=== PATIENT | male | born 1955 | race Caucasian/White ===

== ENCOUNTER 2019-11-30 12:18 | Inpatient (IN) | payer MEDICARE, SELFPAY ==
[2019-11-30] VITALS (8 sets, daily range): BP systolic 123–147; BP diastolic 72–83; PULSE 65–94; RESP 16–25; TEMP 36.6–36.9; O2SAT 92–97
[2019-11-30] MEDS: sodium chloride 0.9% 1,000 ML 999 ML IV (12:10)
--- NOTE | 2019-11-30 12:11 | XR_ITS ---
WS: [id number] Portable AP upright chest, 11/30/2019 Clinical Data: chest pain Comparison: Portable chest, 08/07/2014. Findings: No nodules, masses or effusions are seen. The heart is normal. The pulmonary vascularity is not increased. No pneumonia or pneumothorax is seen. The aortic arch and descending aorta show mild tortuosity. Monitor leads overlie the chest wall. XR/XR chest 1V portable [id number] Impression: Atherosclerosis.
--- NOTE | 2019-11-30 12:18 | ED_ITS ---
Entered by Alicia Harper, acting as scribe for Juanjo Christian DO HPI - Chest Pain General: Chief Complaint: Chest Pain Stated Complaint: STEMI Time Seen by Provider: 11/30/19 12:19 Source: other (air evac) Mode of arrival: EMS Limitations: no limitations History of Present Illness: HPI narrative: 64 yo m came to the er by air evac life for chest pain (Stemi). 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 Pt states that he has had pains intermentant the last 2 weeks, today's pain is much more intense. 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 EMS field EKGs initially show ST elevation in 2 3 and aVF on [facility] got their their EKG shows slightly less impressive ST elevation particularly in lead III and there were no real significant reciprocal changes. EKG on arrival here showed at which time patient had increasing chest pain showed more significant ST elevation in 2 3 a nd aVF along with some emerging reciprocal changes in V2 through V5. Patient continues to complain of worsening substernal chest pain clutching at his chest. He received 2 sublingual nitros in the field and has been started on a drip of nitro he also received aspirin. He was on 15 mcg/min of nitro on arrival here. EMS reports he did get some relief of pain with onset of the nitro. 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) Timing of current episode: constant Prior episodes: Yes Onset: during exertion Pain location: left chest Pain radiation: none Severity: severe Relieving factors: nothing Exacerbating factors: nothing Associated symptoms: Reports dyspnea, nausea and palpitations; Deny abdominal pain, fever(s), syncope or vomiting Risk Factors: Coronary artery disease risk factors: none Review of Systems Const: Denies: fever Eyes: Denies: change in vision or blurry vision ENMT: Denies: throat pain, oral sores/lesions, dental pain, nasal discharge or nasal congestion Card: Reports: chest pain, palpitations, lightheadedness and shortness of breath on exertion; Denies: syncope Resp: Reports: shortness of breath GI: Reports: nausea; Denies: abdominal pain or vomiting : Denies: flank pain, difficulty urinating, painful urination, urinary frequency, urinary urgency, urinary incontinence or blood in urine Musc: Reports: back pain; Denies: neck pain, extremity pain, extremity swelling, joint pain or joint swelling Skin/Breast: Denies: rash, itching or redness Neuro: Denies: headache, numbness in extremities, weakness in extremities, changes in sensation, lack of coordination, difficulty walking, frequent falls, dizziness, vertigo or confusion Psych: Denies: anxiety, depression, loss of interest, visual hallucinations, auditory hallucinations, suicidal ideation or homicidal ideation Endo: Denies: excessive urination, excessive thirst, tired all the time or cold intolerance Wilber/Lymph: Denies: easy bruising, easy bleeding, petechiae, enlarged lymph nodes or tender lymph nodes PFSH ED PFSH: Statuses (acute, chronic, etc) shown below reflect problem list status as previously entered and may not be historically accurate Social History Smoking and tobacco status: former smoker Physical Exam Const: COMMON NORMALS: average body habitus, oriented x3 and alert GENERAL APPEARANCE: cooperative, comfortable and well developed NUTRITIONAL APPEARANCE: obese ORIENTATION/CONSCIOUSNESS: Yes awake, Yes oriented to person and Yes oriented to place HENMT: COMMON NORMALS: normocephalic, head/scalp atraumatic, EAC's normal, TM's normal bilaterally, external nose normal, moist oral mucous membranes and oropharynx normal HEAD & SCALP: normocephalic and atraumatic NOSE: external nose normal EXTERNAL AUDITORY CANAL: EAC's normal TYMPANIC MEMBRANE: TM's normal bilaterally MOUTH: oral and palatal mucosa normal, lip normal and tongue normal THROAT: posterior oropharynx normal and tonsils normal Eye: COMMON NORMALS: PERRL, EOMs intact bilaterally, conjunctivae normal and no scleral icterus CONJUNCTIVA: Yes conjunctivae normal PUPIL: Yes PERRL Neck/C-Spine: COMMON NORMALS: full ROM, no lymphadenopathy and supple Lymph: LYMPHATIC: no lymphadenopathy noted Resp: COMMON NORMALS: normal respiratory effort, no retractions, no use of accessory muscles and clear to auscultation bilaterally AUSCULTATION: clear to auscultation bilaterally Cardio: COMMON NORMALS: regular rate and regular rhythm RATE: regular rate RHYTHM: regular rhythm HEART SOUNDS: no murmurs GI: COMMON NORMALS: normal to inspection, nondistended, normoactive bowel sounds, soft to palpation and no hepatosplenomegaly PALPATION: Yes soft and Yes no hepatosplenomegaly : COMMON NORMALS: Yes no CVA tenderness BLADDER/KIDNEY EXAM: Yes no CVA tenderness Back/Pelvis: COMMON NORMALS: no CVA tenderness LUMBAR SPINE/LOWER BACK: Yes normal to inspection Extremity: COMMON NORMALS: no clubbing, cyanosis or edema, no calf tenderness and no pedal edema Neuro: COMMON NORMALS: oriented x3 SENSORIUM/ORIENTATION: Yes alert, Yes or iented to person and Yes oriented to place Skin: COMMON NORMALS: no rashes or lesions noted and skin turgor normal GENERAL SKIN EXAM: no rashes or lesions noted and turgor normal Course ED course: Patient complaining of crushing substernal chest pain on admission. Is given 2 mg of morphine for Zofran is also given 600 of Plavix 4000 of heparin. Repeat EKG shows inferior changes of a STEMI. Dr. Shanks in the department has seen and talked to the patient is anticipating going directly to the cardiac catheterization lab. Vital Signs: Vital signs: Vital Signs Pulse Rate 94 11/30/19 12:19 Respiratory Rate 16 11/30/19 12:42 Blood Pressure 147/83 11/30/19 12:39 Pulse Oximetry 97 11/30/19 12:19 MDM - Chest Pain Lab Data: Labs: Lab Results 11/30/19 11/30/19 Range/Units 12:24 12:24 WBC 6.0 (4.0-10.0) 10^3/ uL RBC 5.15 (4.1-5.3) 10^6/u L Hgb 14.7 (11.7-16.6) g/dL Hct 44.9 (42.0-52.0) % MCV 87.2 (80-94) fL MCH 28.5 (28.0-34.0) pg MCHC 32.7 (30.0-36.0) g/dL RDW 12.4 (12.1-15.1) % Plt Count 177 (130-400) 10^3/c mm MPV 10.5 H (7.4-10.4) fL Neut % (Auto) 69.3 % Lymph % (Auto) 16.8 % [place] % (Auto) 10.3 % Eos % (Auto) 2.8 % Baso % (Auto) 0.5 % Neut # (Auto) 4.2 (1.8-7.7) 10^3/u L Lymph # (Auto) 1.0 (0.8-4.8) 10^3/u L [place] # (Auto) 0.6 (0.2-0.9) 10^3/u L Eos # (Auto) 0.2 (0.0-0.8) 10^3/u L Baso # (Auto) 0.0 (0.0-0.1) 10^3/u L Nucleated RBC % (a uto) 0 % Nucleated RBCs # 0.0 /100WBC PT 13.50 H (10.5-13.3) SECO NDS INR 1.00 (0.8-1.2) APTT 29.4 (23.9-36.7) SECO NDS EKG Data^: EKG 1: Interpretation: Acute ST elevation NC with ST elevation in 2 3 and aVF with some reciprocal changes in V23 and 4 slightly less pronounced in 5. Rate of 91 [place] and QT intervals are normal. Occasional PVCs noted Discharge Plan Discharge Patient Disposition: Xfer Other Clinical Impression: ST elevation myocardial infarction (STEMI) Condition: Stable Referrals: Mj Shelby MD [Family Provider] - Interventions: ED Discharge Assessment Last Done: 11/30/19 12:39 Discharge Date/Time: 11/30/19 12:40 Coding Level of Care Code ED Real Property Appraiser for Chg Fwd Exam Problem Focused The documentation recorded by the Leroy james Stephanie Lyn, accurately reflects the service I personally performed and the decisions made by Anahi page Curtis L, DO
--- NOTE | 2019-11-30 12:28 | XACV_ITS ---
Ht: 180 cm Wt: 104 kg BSA: 2.32 m2 Gender: Male : 1955 Any Known Allergies: Other Exam Priority: Routine Procedure(s): Procedure Description: Diagnostic procedure Procedure Description: Coronary Angiography Diagnostic Cath Status: Emergency Diagnostic Findings Patient with chest discomfort and shortness of breath. Fairly atypical but definite elevation in the ST segments in the inferior leads. No significant reciprocal changes. Angiography recommended urgently. Angiography reveals occlusion of the right coronary artery at the ostium. Additionally once the artery was opened, there was a 99% stenosis distally beyond the acute margin and a 60% stenosis farther beyond this. On the left the left main is normal. There is a previously placed stent in the proximal LAD which is open. The circumflex contains a 75% discrete stenosis in the midportion.. There was significant tortuosity in the arch vessels which made placement of the catheters difficult. I was not able to get a pigtail catheter across the aortic valve so ventriculography was not performed. The procedure was done from the right radial artery. PCI Status: Emergency PCI LVEF Assessed: No PCI Indication: STEMI - Immediate PCI for STEMI Interventional Findings With some difficulty a right coronary guide was placed. A wire was placed down the vessel. The guide support was poor. Initially the ostial lesion, which was the point of closure, underwent angioplasty. Subsequently a 4 mm stent was placed. It then required the use of a guide liner to place inside the vessel and passed the stent to angioplasty and stent the distal vessel. Decision for PCI with Surgical Consult: No PCI for Multi-vessel Disease: No Conclusions Acute right coronary occlusion at the ostium. Angioplasty and stent of the proximal vessel followed by angioplasty and stent of the distal vessel with good angiographic result. Left system completely normal with previously placed LAD stent widely patent. No left ventriculogram performed. 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 Correct Patient: Yes; Correct Procedure: Yes; Correct Site: Yes; Correct Patient Position: Yes; Correct Supplies: Yes; Dried Flammable Prep: Yes; Blood Products Available: No;. Due to computer error, some notes are in incorrect order. AP pads placed on patient. Balloon out. Guideliner inserted at 1309. Family updated by Garima Howard at 1329. AP pads off at 1345. Procedure Consent Obtained. Current Diagnosis : STEMI. Pre-Procedure Time Out. Identified patient by full name and date of as verbalized by the patient/guarantor. Does the consent match the physician's order: Yes. Accurate & Complete Informed Consent: Yes. Inpatient/Outpatient History & Physical on Chart: N/A Emergent; Informed Consent not obtained due to time critical life threat. If H&P is completed, is and addenduem needed: N/A Emergent; Informed Consent not obtained due to time critical life threat; If yes, is the addendum complete: N/A Emergent; Informed Consent not obtained due to time critical life threat. Visualize and Verify Site with Patient/Guarantor: N/A. Relevant Radiology Images available: N/A Emergent; Informed Consent not obtained due to time critical life threat. Pre-op teaching completed and patient verbalized understanding. The risks, benefits, and alternatives of sedation and/or procedure were discussed by physician. The patient agrees to continue. Procedure started. Correct patient, site and procedure confirmed by cath team. Current diagnosis: STEMI. PERRLA. 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 Lungs clear x 5 lobes. IV Site on Arrival: 18 gauge in the right anticubital. IV Fluids: 0.9% NaCl at KVO. 0 mL infused prior to oil field laborer. Pre Procedural Pulses: bilateral dorsalis pedis was 3+. Pre Procedural Pulses: bilateral posterior tibial was 3+. Pre Procedural Pulses: bilateral radial was 3+. Oxygen started at 2liters/min via nasal canula. bilateral groins was prepped with chloroprep then draped in the usual sterile fashion. right radial was prepped with chloroprep then draped in the usual sterile fashion. Physician notified. Baseline sample Acquired. HR: 77 BPM. Equipment: 6F - Radial. Cardiac Cath Pack. ACAlgenetix Manifold Kit Model BT 2000. Heparinized Saline (2 units/mL), 1000 mL bag. Physician arrived. Physician scrubbed in. Immediate Pre-Procedure Time Out. Lidocaine 1% infiltrated to the right radial. Arterial access obtained. 6 citizen [place] JR 4 guide catheter was inserted over the wire. Multiple views taken of right coronary artery. [place] guidewire was advanced through the guide catheter to lesion in the prox RCA. Inflation number : 1 A AB TREK 3.00X15 RX BALLOON was prepped and advanced across the Prox RCA , then inflated to 8 CHIKIS for 0:20 seconds. Inflation number: 2 The AB TREK 3.00X15 RX BALLOON was reinflated across the Prox RCA, to 8 CHIKIS for 0:21 seconds. Inflation number: 3 The AB TREK 3.00X15 RX BALLOON was reinflated across the Prox RCA, to 8 CHIKIS for 0:32 seconds. Inflation Number : 4 A MDT R CHELSEA 4.0X18 CAROL -Lot Number# [id number] was prepped and advanced across the Prox RCA. The stent was deployed at 12 CHIKIS for 0:54 seconds. Stent expiration date: 06/12/2021. Stent balloon out over wire. Inflation number: 1 The AB TREK 3.00X15 RX BALLOON was reinflated across the Dist RCA, to 12 CHIKIS for 0:30 seconds. Inflation number: 2 The AB TREK 3.00X15 RX BALLOON was reinflated across the Dist RCA, to 12 CHIKIS for 0:21 seconds. Inflation number: 3 The AB TREK 3.00X15 RX BALLOON was reinflated across the Dist RCA, to 12 CHIKIS for 0:33 seconds. Balloon out. Inflation Number : 4 A MDT R CHELSEA 4.0X22 CAROL -Lot Number# [id number] was prepped and advanced across the Dist RCA. The stent was deployed at 12 CHIKIS for 0:47 seconds. Stent expiration date: 07/23/2021. Stent balloon out over wire. Wire out. Guide catheter out. A 6 citizen [place] TIG catheter in over wire. Catheter out. A 6 citizen [place] JL4 catheter in over wire. Multiple views taken of left coronary artery. Catheter out. A 6 [place] AL1 catheter in over wire. Catheter out. TR band placed. Hemostasis obtained. Post Procedure: Pulses reassessed and unchanged. PERRLA. 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 No VTE prophylaxis required. Total IV fluids: 100 mL. PCI Indication: STEMI. Post-op diagnosis: STEMI. Complications: None. Estimated blood loss: 5mL-10mL. Medication's Wasted: Lidocaine 1% = 18 mL. Medication's Wasted: Nitro = 49.7 mg. Medication's Wasted: Heparin = 1000 units. Procedure completed. Vital chart was stopped. Patient transferred by wheelchair to 1st floor. Site: Right Radial artery Sheath Size: 6 Fr Hemostasis Success: Unsuccessful Procedure Medications Start: 12:42 PM Stop: 12:42 PM Medication: Versed Amount: 1 mg Route: I.V. Start: 12:42 PM Stop: 12:42 PM Medication: Fentanyl Amount: 50 mcg Route: I.V. Start: 12:45 PM Stop: 12:45 PM Medication: Verapamil Amount: 5 mg Route: I.A. Start: 12:45 PM Stop: 12:45 PM Medication: Nitrogylcerin Amount: 300 mcg Route: I.A. Start: 12:47 PM Stop: 12:47 PM Medication: Versed Amount: 1 mg Route: I.V. Start: 12:47 PM Stop: 12:47 PM Medication: Fentanyl Amount: 50 mcg Route: I.V. Start: 12:59 PM Stop: 12:59 PM Medication: Versed Amount: 2 mg Route: I.V. Start: 1:21 PM Stop: 1:21 PM Medication: Fentanyl Amount: 50 mcg Route: I.V. Start: 1:42 PM Stop: 1:42 PM Medication: Fentanyl Amount: 50 mcg Route: I.V. I, the attending physician, have reviewed and verified all procedure medications. Yes, all medications given per verbal order History/Risk Factors Hypertension: No Dyslipidemia: No Peripheral Arterial Disease (PAD): No Myocardial Infarction (MS): Yes Obesity: No Renal Disease: No Prior Interventions PCI: Yes CABG: No Valve Surgery: No Report Signatures Finalized by:Dr. Hector Sanches MD on 11/30/2019 2:29:01 PM
[2019-11-30 12:31] LABS: Basophils % 0.5 %; Eosinophils # 0.2 10^3/uL (0.0-0.8); Eosinophils % 2.8 %; Hematocrit 44.9 % (42.0-52.0); Hemoglobin 14.7 g/dL (11.7-16.6); Lymphocytes % 16.8 %; Mean Corpuscular HGB Conc 32.7 g/dL (30.0-36.0); Mean Corpuscular Hemoglobin 28.5 pg (28.0-34.0); Mean Corpuscular Volume 87.2 fL (80-94); Mean Platelet Volume 10.5 fL (7.4-10.4); Monocytes # 0.6 10^3/uL (0.2-0.9); Monocytes % 10.3 %; Neutrophils # 4.2 10^3/uL (1.8-7.7); Neutrophils % 69.3 %; Nucleated Red Blood Cells % 0 %; Platelet Count 177 10^3/cmm (130-400); Red Blood Count 5.15 10^6/uL (4.1-5.3); Red Cell Distribution Width 12.4 % (12.1-15.1)
[2019-11-30] MEDS: clopidogrel 300 mg Tablet 600 MG PO (12:33)
[2019-11-30] MEDS: heparin 5,000 unit/mL INJ 1 mL 4000 UNIT INJECTION (12:34)
[2019-11-30] MEDS: morphine 4 mg/mL SDV 1 mL 2 MG IVP (12:42)
[2019-11-30 12:43] LABS: Partial Thromboplastin Time 29.4 SECONDS (23.9-36.7)
[2019-11-30 12:50] LABS: Alanine Aminotransferase 28 U/L (0-41); Albumin Level 4.8 g/dL (3.5-5.2); Alkaline Phosphatase 69 IU/L (40-130); Anion Gap 17.8 (5-19); Aspartate Amino Transferase 26 U/L (0-40); Blood Urea Nitrogen 12 mg/dL (8-23); Carbon Dioxide 23 mmol/L (22-29); Chloride 102 mmol/L (98-107); Glucose 149 mg/dL (74-106); Potassium 3.8 mmol/L (3.5-5.1); Sodium 139 mmol/L (136-145); Total Bilirubin 0.5 mg/dL (0.15-1.2); Total Protein 6.8 g/dL (6.6-8.7)
[2019-11-30 13:06] LABS: Troponin(5th) Baseline 122 ng/mL (0-15)
--- NOTE | 2019-11-30 15:10 | PM.HP ---
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 He is a terrible historian and by the time he was brought here he could not give us a history. No family was available other than his who was not there when the episode happened. Apparently he was working with a friend and the friend called 911. The helicopter landed where they were and brought him in. The STEMI was called in the field. He had ST segment elevation to a very mild degree in the inferior leads without any significant changes elsewhere. He was having 10 out of 10 chest pain. Other than that there were no pieces of information available. He apparently received 2 sublingual nitroglycerin in route and was started on a 15 mcg/min nitroglycerin drip. In the emergency room he received 4000 units of heparin, 600 mg of Plavix, Zofran and morphine. He was brought directly to the cardiac catheterization laboratory Review of Systems General: Reports: ROS unobtainable due to medical condition Medications/Allergies Additional Medication Information Additional Medication Information: Patient does not know his medications nor does his . The medicines were not brought with him. PFSH Acute PFSH: Statuses (acute, chronic, etc) shown below reflect problem list status as previously entered and may not be historically accurate Medical History CAD (coronary artery disease) (Acute) Previous proximal left anterior descending stent Cerebrovascular accident (CVA) determined by clinical assessment (Acute) Chronic kidney disease (CKD) (Acute) COPD (chronic obstructive pulmonary disease) (Acute) Epistaxis (Acute) Hypertension (Acute) Kidney atrophy (Acute) ST elevation myocardial infarction (STEMI) (Acute) Inferior wall GA Tobacco abuse, in remission (Acute) Surgical History History of herniorrhaphy (Acute) Social History (Updated 11/30/19 @ 15:17 by Hector Sanches MD) Smoking and tobacco status: former smoker Quit status (tobacco): has quit using tobacco Alcohol intake: never Adopted: No Household members: family Marital status: Vitals/I&O/Wt Last Vital Signs Pulse 94 11/30/19 12:19 Resp 16 11/30/19 12:42 BP 147/83 11/30/19 12:39 Pulse Ox 97 11/30/19 12:19 Weight last 48 hrs Weight 230 lb Physical Exam Narrative: EXAM NARRATIVE: GENERAL: In general he is in distress with chest discomfort HEENT: Exam within normal limits. NECK: Supple without jugular vein distention. The carotid upstroke is normal without bruits. BACK: Exam normal. LUNGS: Clear. HEART: Regular rate and rhythm. ABDOMEN: Benign without organomegaly or tenderness. EXTREMITIES: No edema. NEUROLOGIC: Exam normal. SKIN: Unremarkable. Data Labs: Other Labs: EKG reveals sinus rhythm with minimal ST segment elevation in leads II, III and aVF without reciprocal changes. Glomerular filtration rate is 67 mL/min. Chest x-ray is negative. First troponin I 22 A&P Assessment and plan (1) ST elevation myocardial infarction (STEMI): Status: Acute Code(s): I21.3 - ST elevation (STEMI) myocardial infarction of unspecified site (2) Hypertension: Status: Acute Code(s): I10 - Essential (primary) hypertension (3) CAD (coronary artery disease): Status: Acute Code(s): I25.10 - Atherosclerotic heart disease of [place] coronary artery without angina pectoris (4) Chronic kidney disease (CKD): Status: Acute Code(s): N18.9 - Chronic kidney disease, unspecified Additional A&P Information Additional A&P Information: Patient will be taken to the cardiac catheterization laboratory. Expect a right coronary artery lesion. 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
--- NOTE | 2019-11-30 16:40 | PC.NURSE ---
received from cardiac laborer sawmill at 1600.report received.pt is alert and oriented x 4.denies pain at present.sr on monitor.right wrist with tr band on and inflated.right hand is warm to touch and with brisk capillary refill.no hematoma noted.palpable radial pulse noted distal to tr band.instructed in activity restrictions s/p radial artery procedure...and instructed to notify staff for any bleeding,pain,numbness...or for any concerns at all.pt verb understanding of instructions
--- NOTE | 2019-11-30 16:56 | ECG_ITS ---
Measurements Intervals [place] Rate: 91 P: 48 GA: 193 QRS: -48 QRSD: 110 T: 78 QT: 375 QTc: 461 SINUS RHYTHM WITH OCCASIONAL VENTRICULAR PREMATURE COMPLEXES LEFT ANTERIOR FASCICULAR BLOCK [QRS AXIS <= -45, QR IN I, RS IN II] ST ELEVATION, CONSIDER INFERIOR INJURY No previous ECG available for comparison Electronically Signed On 11-30-2019 19:11:44 CASHIER RECEPTIONIST by Lisa Villa M.D. [email or web address]
[2019-11-30] MEDS: metoprolol tartrate 50 mg Tablet PO (18:36)
--- NOTE | 2019-11-30 19:03 | PC.NURSE ---
tr band slowly deflated...over past several hours.no hematoma noted.right hand remains warm to touch and with brisk capillary refill.palpable radial pulse noted.instructed in activity restrictions s/p tr deflation..and instructed to notify staff for any bledding,pain,numbness..or for any concerns at all.pt verb understanding of instructions
[2019-11-30] MEDS: atorvastatin 40 mg Tablet 80 MG PO (20:41)
[2019-12-01 03:30] LABS: Basophils % 0.5 %; Eosinophils # 0.2 10^3/uL (0.0-0.8); Eosinophils % 3.3 %; Hematocrit 40.3 % (42.0-52.0); Lymphocytes # 1.2 10^3/uL (0.8-4.8); Lymphocytes % 20.4 %; Mean Corpuscular HGB Conc 32.3 g/dL (30.0-36.0); Mean Corpuscular Hemoglobin 28.3 pg (28.0-34.0); Mean Corpuscular Volume 87.8 fL (80-94); Mean Platelet Volume 10.8 fL (7.4-10.4); Monocytes # 0.7 10^3/uL (0.2-0.9); Neutrophils # 3.7 10^3/uL (1.8-7.7); Neutrophils % 63.6 %; Nucleated Red Blood Cells % 0 %; Platelet Count 159 10^3/cmm (130-400); Red Blood Count 4.59 10^6/uL (4.1-5.3); Red Cell Distribution Width 12.7 % (12.1-15.1); White Blood Count 5.8 10^3/uL (4.0-10.0)
[2019-12-01 04:00] VITALS: BP 130/75; PULSE 63; RESP 21; TEMP 36.6; O2SAT 94
[2019-12-01 04:09] LABS: Anion Gap 14.8 (5-19); Blood Urea Nitrogen 16 mg/dL (8-23); Calcium 9.6 mg/Dl (8.8-10.2); Carbon Dioxide 20 mmol/L (22-29); Chloride 106 mmol/L (98-107); Glomerular Filtration Rate 60.6 mL/min (90-130); Glucose 157 mg/dL (74-106); Potassium 3.8 mmol/L (3.5-5.1); Sodium 137 mmol/L (136-145)
[2019-12-01 07:46] VITALS: BP 122/68; PULSE 76; RESP 28; TEMP 36.7; O2SAT 93
--- NOTE | 2019-12-01 08:31 | P.PN_ITS ---
Subjective Subjective: Interval history: Ortiz had an acute inferior wall myocardial infarction yesterday with 2 stents placed to the right coronary artery. He has done well without arrhythmias, heart block or evidence of heart failure. He still has some residual discomfort in his chest but nothing like what he had yesterday. He is doing well with his medications. No complaints today. No abnormalities seen the entry site in the right radial artery. Medications: Reviewed: Yes Vitals/I&O/Wt Last Vital Signs Temp 98.0 F 12/01/19 07:46 Pulse 76 12/01/19 07:46 Resp 28 H 12/01/19 07:46 BP 122/68 12/01/19 07:46 Pulse Ox 93 12/01/19 07:46 11/30/19 12/01/19 12/01/19 22:59 06:59 14:59 Intake Total 480 / 480 360 / 360 Balance 480 / 480 360 / 360 Weight last 48 hrs Weight 241 lb 6.4 oz Weight 230 lb Physical Exam Narrative: EXAM NARRATIVE: GENERAL: In general he looks and feels well this morning HEENT: Exam within normal limits. NECK: Supple without jugular vein distention. The carotid upstroke is normal without bruits. BACK: Exam normal. LUNGS: Clear. HEART: Regular rate and rhythm. ABDOMEN: Benign without organomegaly or tenderness. EXTREMITIES: No edema. No abnormalities at the entry site of the right radial artery. No bleeding, hematoma or other vascular problem. NEUROLOGIC: Exam normal. SKIN: Unremarkable. A&P Assessment and plan (1) Glucose intolerance: Status: Acute Code(s): E74.39 - Other disorders of intestinal carbohydrate absorption (2) Chronic kidney disease (CKD): Status: Acute Code(s): N18.9 - Chronic kidney disease, unspecified (3) ST elevation myocardial infarction (STEMI): Status: Acute Code(s): I21.3 - ST elevation (STEMI) myocardial infarction of unspecified site (4) CAD (coronary artery disease): Status: Acute Code(s): I25.10 - Atherosclerotic heart disease of citizen [place] coronary artery without angina pectoris (5) Hypertension: Status: Acute Code(s): I10 - Essential (primary) hypertension Additional A&P Information Additional A&P Information: He is much improved this morning. No issues with respect to the entry site. Tolerating medicines well. Plan will be to get him up and around. If he is well we will discharge him in the morning. I was anthony ble to cross the aortic valve yesterday due to the tortuosity of his arch vessels. We will get an echo today. Attestations Medical Necessity Statement*: Patient needs continued hospitalization for purposes of management of an acute inferior wall [place] Coding Level of Care Code Acute Res Habilitation Assistant for g Fwd Diagnoses Glucose intolerance E74.39 Chronic kidney disease (CKD) N18.9 ST elevation myocardial infarction (STEMI) I21.3 CAD (coronary artery disease) I25.10 Hypertension I10
--- NOTE | 2019-12-01 08:35 | USCV_ITS ---
Johnathan Mcbride, Ortiz Age: 64 Gender: M : 1955 Exam Date: 12/01/2019 14:19 Ordering Phys: Hector Sanches MD ([email or web address]) Technologist: Jacque Dominguez Exam Location: [facility] [place] Indication: BP: 148 / 90 HR: 66 Rhythm: Sinus Technical Quality: Adequate MEASUREMENTS (Male / Female) Normal Values 2D ECHO LV Diastolic Diameter PLAX 4.7 cm 4.2 - 5.9 / 3.9 - 5.3 cm LV Systolic Diameter PLAX 4.3 cm LV Chamber Size 3.4 cm IVS Diastolic Thickness 1.8 cm 0.6 - 1.0 / 0.6 - 0.9 cm IVS Systolic Thickness 2.0 cm LVPW Diastolic Thickness 1.3 cm 0.6 - 1.0 / 0.6 - 0.9 cm LVPW Systolic Thickness 1.8 cm RV Chamber Size 2.6 cm LVOT Diameter 2.0 cm LV Ejection Fraction 2D Teich 20.5 % LV Ejection Fraction MOD 2C 33.5 % LV Ejection Fraction 2C AL 36.0 % LA Diameter 4.2 cm LA Width 3.6 cm LA Height 4.6 cm RA Width 3.1 cm RA Height 5.0 cm Aorta at Sinotubular Diameter 3.6 cm M-MODE LV Diastolic Diameter MM 6.7 cm 4.2 - 5.9 / 3.9 - 5.3 cm LV Systolic Diameter MM 3.6 cm LV Ejection Fraction MM Teich 77.2 % IVS Diastolic Thickness MM 1.3 cm 0.6 - 1.0 / 0.6 - 0.9 cm IVS Systolic Thickness MM 1.7 cm LVPW Diastolic Thickness MM 1.3 cm 0.6 - 1.0 / 0.6 - 0.9 cm LVPW Systolic Thickness MM 2.1 cm RV Diastolic Diameter MM 1.8 cm Aortic Annulus Diameter 4.3 cm LA Ao Ratio MM 1.0 DOPPLER AV Peak Velocity 420.0 cm/s LVOT Peak Velocity 89.0 cm/s AV Area Cont Eq vti 0.7 cm squared AV Area Cont Eq pk 0.7 cm squared MV Area PHT 3.4 cm squared Mitral E to A Ratio 1.1 MV E' Velocity 6.0 cm/s Mitral E to MV E' Ratio 14.0 Mitral E to LV E' Lateral Ratio 14.8 Mitral E to LV E' Septal Ratio 13.3 TR Peak Velocity 173.0 cm/s TR Peak Gradient 12.0 mmHg TR Mean Velocity 137.1 cm/s TR Mean Gradient 8.1 mmHg TR Velocity Time Integral 56.0 cm TV Peak E Velocity 73.0 cm/s Right Atrial Pressure 3.0 mmHg Pulmonary Artery Systolic Pressu 15.0 mmHg PV Peak Velocity 83.0 cm/s RV Acceleration Time 0.1 s RV Ejection Time 0.3 s RV AcT/ET 0.4 FINDINGS Left Ventricle Normal left ventricular cavity size. Mild left ventricular hypertrophy. Normal left ventricular systolic function. Minimal hypokinesis of the inferior posterior wall.Grade I/IV diastolic dysfunction (abnormal relaxation filling pattern), normal to mildly elevated filling pressures. Left ventricular ejection fraction is estimated at 55-60 %. Right Ventricle Normal right ventricular size and systolic function. Normal right ventricular systolic function. Right Atrium The right atrium is normal in size. Left Atrium Mildly increased left atrial size. Mitral Valve Structurally normal mitral valve. Mild-moderate mitral valve regurgitation. Aortic Valve Structurally normal trileaflet aortic valve. Moderate aortic valve calcification. Mild aortic valve regurgitation. Moderate to severe aortic valve stenosis, mean gradient 34.6 mmHg, JACKSON 0.7 cm squared. Tricuspid Valve Structurally normal tricuspid valve. Trace tricuspid valve regurgitation. Pulmonic Valve Pulmonic valve not well visualized. Pericardium Normal pericardium without effusion. Aorta Normal ascending aorta dimension. CONCLUSIONS Normal left ventricular cavity size. Mild left ventricular hypertrophy. Normal left ventricular systolic function. Minimal hypokinesis of the inferior posterior wall.Grade I/IV diastolic dysfunction (abnormal relaxation filling pattern), normal to mildly elevated filling pressures. Left ventricular ejection fraction is estimated at 55-60 %. Structurally normal mitral valve. Mild-moderate mitral valve regurgitation. Mildly increased left atrial size. Structurally normal trileaflet aortic valve. Moderate aortic valve calcification. Mild aortic valve regurgitation. Moderate to severe aortic valve stenosis, mean gradient 34.6 mmHg, JACKSON 0.7 cm squared. There are no prior echocardiogram studies to compare. Dr. Hector Sanches MD (Electronically Signed) Final Date: 01 December 2019 14:51 S
[2019-12-01] MEDS: metoprolol tartrate 50 mg Tablet PO ×2 (09:39→17:44)
[2019-12-01] MEDS: aspirin 81 mg EC Tablet PO (09:39)
[2019-12-01] MEDS: clopidogrel 75 mg Tablet PO (09:39)
[2019-12-01 11:37] VITALS: BP 148/90; PULSE 74; RESP 17; TEMP 36.8; O2SAT 95
--- NOTE | 2019-12-01 16:11 | PC.CHAP ---
Pastoral Care Encounter/Spiritual Assessment Type of Contact [] Declined basin cleaner visit [] Patient/Family/Request visit [] Outpatient visit [] Follow-up visit [] Physician referral [] Code/Alert [x] Routine visit [] Staff referral [] Actively dying [] Patient sleeping [] Family support [] [] Out of room [] Palliative care [] [] Receiving care in room [] Pre-surgical visit [] Trauma [] Long length of stay [x] ICU visit [] Other: Relational/Emotional Strength [x] Patient feels connected with others/family/visitors/staff [] Distress [] Loneliness/isolation [] Abandonment Spirituality of Patient [x] Person of Haylee [] Attends Zoroastrianism of their Haylee [x] Believes in Prayer [] Reads Bible or Rastafarian materials [] There are Spiritual issues to be addressed Nursery Teacher Interventions [x] Prayer [x] Active listening [x] Non-anxious presence [] Spiritual/emotional support [] Crisis/trauma care [] Spiritual counseling [] Bereavement support [] Provided bereavement packet [] Provided Bible/devotional materials [] Provided toy/stuffed animal, coloring book to patient or family member [] Completed spiritual assessment [] Provided Communion [] Anointing/[place] [] Salvation [] Other: Impact on Illness or Injury [] Angry [] Fearful [] Anxious [] Often cries [] Exhaustion [] Unable to work [] Unable to attend judaism [] Unable to walk/stand [] Unable to read [] Unable to drive [] Unable to eat/drink [] Unable to sleep [] Unable to be with family [] Other: Summary patient was in good spirits, went walking with family. 2 family. Time spent with patient
[2019-12-01 16:13] VITALS: BP 126/81; PULSE 77; RESP 17; TEMP 36.9; O2SAT 98
[2019-12-01 20:00] VITALS: BP 138/72
[2019-12-01] MEDS: atorvastatin 40 mg Tablet 80 MG PO (21:30)
[2019-12-02] VITALS: BP 138/77; PULSE 72; RESP 17; TEMP 36.8
[2019-12-02 04:00] VITALS: BP 132/77; PULSE 67; RESP 17; TEMP 36.6
[2019-12-02 07:29] VITALS: BP 107/75; PULSE 71; RESP 17; O2SAT 94
--- NOTE | 2019-12-02 08:05 | PM.DCS ---
Discharge Providers Date of Admission: 11/30/19 14:41 Date of Discharge: 12/02/19 Attending Provider at Admission: Hector Sanches Attending Provider at Discharge: Hector Sanches Diagnoses at Discharge Discharge Diagnosis (1) Glucose intolerance: Status: Acute (2) Chronic kidney disease (CKD): Status: Acute (3) ST elevation myocardial infarction (STEMI): Status: Acute Problem details: Inferior wall [place] (4) CAD (coronary artery disease): Status: Acute Problem details: Previous proximal left anterior descending stent (5) Hypertension: Status: Acute Reason for Visit Reason for Visit: Reason For Visit: STEMI Brief History: Patient presented with chest discomfort and an EKG consistent with an acute inferior wall [place]. Hospital Course Hospital Course: Patient was taken to the cardiac catheterization laboratory from the emergency room. His right coronary artery was occluded just beyond the ostium. The procedure was done from the right radial artery. Initially there was difficulty with guide support. The lesion just beyond the ostium underwent angioplasty and then stenting with some difficulty due to lack of guide support. After the artery was opened, we discovered a 99% stenosis in the distal vessel beyond the acute margin. It was difficult to pass a wire beyond this. I then used a guide liner to extend the usefulness of the guide. At that point I could get a balloon and stent down to the distal vessel. Both lesions were stented with 4.0 mm stents. Patient had no complications. No arrhythmias, heart block or congestive heart failure. I was unable to cross the aortic valve with a wire secondary to aortic stenosis and the tortuosity of the arch vessels. An echocardiogram revealed moderate to severe aortic stenosis. This is a known entity. He obtains his cardiac care in [place] with Dr. Reis. He wishes to follow-up there. I instructed him to get a appointment sooner than his currently scheduled July year appointment for reassessment of his coronary disease and recent [place]. We will be glad to send copies of the CDs of the cardiac cath and the echo. He will need follow-up of his aortic stenosis as well. Physical Exam Narrative: EXAM NARRATIVE: GENERAL: Comfortable with no chest pain at discharge HEENT: Exam within normal limits. NECK: Supple without jugular vein distention. The carotid upstroke is normal without bruits. BACK: Exam normal. LUNGS: Clear. HEART: Regular rate and rhythm. Grade 1/6 aortic stenosis murmur ABDOMEN: Benign without organomegaly or tenderness. EXTREMITIES: No edema. NEUROLOGIC: Exam normal. SKIN: Unremarkable. 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 request for service Stat Exams 11/30/19 12:28 Completed XR chest 1V noemi ble [id number] Urgent Exams 11/30/19 12:11 Completed CV echo complete* [id number] Routine Ultrasound 12/01/19 08:35 Completed Vitals: Last Vital Signs Temp 98 F 12/02/19 04:00 Pulse 71 12/02/19 07:29 Resp 17 12/02/19 07:29 BP 107/75 12/02/19 07:29 Pulse Ox 94 12/02/19 07:29 Discharge Plan Discharge Patient Disposition: Home, Self-Care Condition: Stable Prescriptions: New clopidogrel 75 mg Tablet 75 mg PO DAILY 30 Days Qty: 30 RF: 4 Continued cyclobenzaprine 10 mg Tablet 10 mg PO TID PRN (Reason: Spasms) RF: 0 ibuprofen 800 mg Tablet 800 mg PO TID RF: 0 [place] 10-325 mg Tablet 1 tab PO BID RF: 0 Protonix 40 mg Tablet,Delayed Release (Dr/Ec) 40 mg PO BID RF: 0 Microzide 12.5 mg Capsule 12.5 mg PO DAILY RF: 0 Nitrostat 0.4 mg Tablet, Sublingual 0.4 mg SUBLINGUAL Q5M PRN (Reason: Chest Pain) RF: 0 rosuvastatin 20 mg Tablet 20 mg PO EVERY OTHER DAY RF: 0 Tricor 145 mg Tablet 145 mg PO EVERY OTHER DAY RF: 0 Vitamin D3 5,000 unit Tablet 5,000 unit PO DAILY RF: 0 Toprol XL 50 mg Tablet Extended Release 24 Hr 50 mg PO DAILY RF: 0 Norvasc 5 mg Tablet 5 mg PO DAILY RF: 0 aspirin 81 mg Tablet,Delayed Release (Dr/Ec) 81 mg PO DAILY RF: 0 Discharge Orders: Discharge Order (Routine); Ordered 12/02/19 Ordered By: Hector Sanches Referrals: Hector Sanches MD [Physician] - Claudio Reis MD [Physician] - 2 months Mj Shelby MD [Family Provider] - Discharge Diet: Cardiac Discharge Activity: Increase activity as tolerated Activity Restrictions/Additional Instructions: No lifting over 5 pounds for 2 days. Discharge Attestations Time Spent in Discharge Care*: greater than 30 min Specific Discharge Activities: Specific discharge activities: educating patient and documenting/other paperwork Status at Discharge: Cognitive status at discharge: cognitively intact, Behavioral status at discharge: cooperative, Functional status at discharge: independent ambulation Overall status at discharge: patient is back to baseline Quality Metrics Clinical Quality Measures During this hospital stay, did patient experience: AMI Clinical Trial Participant: No Contraindication to aspirin (AMI): Aspirin given Contraindication to statin: Statin prescribed Contraindication to PCI: PCI performed Contraindication to Fibrinolytics: Alternative treatment initiated Coding Level of Care Code Acute Precision Crop Manager for [place] Fwd History Detailed Exam Detailed Medical Decision Making Moderate Complexity Diagnoses Glucose intolerance E74.39 Chronic kidney disease (CKD) N18.9 ST elevation myocardial infarction (STEMI) I21.3 CAD (coronary artery disease) I25.10 Hypertension I10 Time Spent (min) 40
[2019-12-02 09:38] VITALS: BP 175/91; PULSE 72; RESP 17; TEMP 37.1; O2SAT 94
[2019-12-02] MEDS: metoprolol tartrate 50 mg Tablet PO (09:41)
[2019-12-02] MEDS: aspirin 81 mg EC Tablet PO (09:41)
[2019-12-02] MEDS: clopidogrel 75 mg Tablet PO (09:41)
[2019-12-02 09:46] VITALS: BP 175/91; PULSE 72; RESP 17; TEMP 37.1; O2SAT 94
--- NOTE | 2019-12-02 09:47 | PC.NURSE ---
PATIENT GIVEN DISCHARGE INSTRUCTIONS AND VERBALIZED UNDERSTANDING ; VSS ; RIGHT WRIST [facility] SITE C/D/I ; DISTAL PULSES PRESENT ; PATIENT DENIES ANY CP OR SOB AT THIS TIME ; PATIENT REQUESTED TO AND AMBULATED TO EXIT WITH NO ISSUES
== END 2019-12-02 09:49 | disposition home or self-care (01) | DRG 282 ==
LOC: ER 13:37 → CCL 14:38 → CSU 15:01
PROVIDERS: Admitting Provider Internal Medicine Cardiovascular Disease; Emergency Provider Family Medicine; Family Provider Family Medicine; Visit Provider Internal Medicine Cardiovascular Disease
DX: I21.19 ST elevation (STEMI) myocardial infarction involving other coronary artery of inferior wall (principal); E74.39 Other disorders of intestinal carbohydrate absorption; I25.10 Atherosclerotic heart disease of native coronary artery without angina pectoris; Z79.82 Long term (current) use of aspirin; N18.9 Chronic kidney disease, unspecified; I12.9 Hypertensive chronic kidney disease with stage 1 through stage 4 chronic kidney disease, or unspecified chronic kidney disease; Z95.5 Presence of coronary angioplasty implant and graft
CPT/HCPCS: 36415; 71045; 80048; 80053; 84484; 85025; 85610; 85730; 93005; 93306; 93454; 96374; 96375; 99281; C1725; C1769; C1874; C1887; C1894; C9600; C9606; J1644; J2001; J2250; J2270; J3010; J3490; J7030

== ENCOUNTER → 2019-12-12 11:14 | Outpatient (BNVA) | payer MEDICARE, SELFPAY | PROVIDERS: Family Provider Family Medicine; Visit Provider Nurse Practitioner Family | DX: I25.10 Atherosclerotic heart disease of native coronary artery without angina pectoris (principal); I21.11 ST elevation (STEMI) myocardial infarction involving right coronary artery | CPT/HCPCS: 80048 ==

== ENCOUNTER 2020-05-02 08:33 | Outpatient (CLI) | payer MEDICARE, SELFPAY ==
--- NOTE | 2020-05-02 08:46 | XR_ITS ---
WS: [id number] Right hand, 3 views, 05/02/2020 Clinical Data: HAND INJURY Comparison: Right hand, 09/14/2006. Findings: No fractures or dislocations are seen. The soft tissues are unremarkable. The joint space s show osteoarthritic change of the PIP joints. XR/XR hand RT 2V [id number] Impression: Negative for right hand fracture.
== END 2020-05-02 08:34 | disposition home or self-care (01) ==
LOC: RAD 08:40
PROVIDERS: PCP Nurse Practitioner Family; Visit Provider Nurse Practitioner Family
DX: I10 Essential (primary) hypertension (principal); M54.16 Radiculopathy, lumbar region; S69.91XA Unspecified injury of right wrist, hand and finger(s), initial encounter; X58.XXXA Exposure to other specified factors, initial encounter
CPT/HCPCS: 73120

== ENCOUNTER 2020-09-13 11:55 | Emergency (ER) | payer MEDICARE, SELFPAY ==
[2020-09-13] VITALS (10 sets, daily range): BP systolic 113–158; BP diastolic 82–96; PULSE 82–110; RESP 16–24; TEMP 37; O2SAT 93–100; BMI 32.8
--- NOTE | 2020-09-13 12:05 | ECG_ITS ---
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 Measurements Intervals [place] Rate: 97 P: IN: -1 QRS: -55 QRSD: 103 T: 79 QT: 350 QTc: 447 Interpretive Statements Atrial fibrillation with a controlled medical response rate and frequent PVCs INCOMPLETE RIGHT BUNDLE BRANCH BLOCK [90+ ms QRS DURATION, TERMINAL R IN V1/V2, 40+ ms S IN I/aVL/V4/V5/V6] LEFT ANTERIOR FASCICULAR BLOCK [QRS AXIS <= -45, QR IN I, RS IN II] LEFT VENTRICULAR HYPERTROPHY AND ST-T CHANGE [VOLTAGE CRITERIA PLUS ST/T ABNORMALITY] Compared to ECG 11/30/2019 12:21:19 Incomplete right bundle-branch block now present Left ventricular hypertrophy now present Sinus rhythm no longer present Myocardial infarct finding no longer present ST (T wave) deviation still present Electronically Signed On 09-13-2020 20:34:28 CDT by Cabrera Priest M.D. [id number]
--- NOTE | 2020-09-13 12:05 | XR_ITS ---
WS: [id number] Portable AP upright chest, 09/13/2020 Clinical Data: Pain Comparison: Portable chest, 11/30/2019. Findings: No nodules, masses or effusions are seen. The heart is normal. The pulmonary vascularity is not increased. No pneumonia or pneumothorax is seen. The aortic arch and descending aorta are minima lly tortuous. XR/XR chest 1V portable [id number] Impression: Atherosclerosis.
--- NOTE | 2020-09-13 12:05 | CTR_ITS ---
PROCEDURE INFORMATION: Exam: CT Cervical Spine Without Contrast Exam date and time: 09/13/2020 1:23 PM Age: 65 years old Clinical indication: Neck pain TECHNIQUE: Imaging protocol: Computed tomography images of the cervical spine without contrast. Radiation optimization: All CT scans at this facility use at least one of these dose optimization techniques: automated exposure control; mA and/or kV adjustment per patient size (includes targeted exams where dose is matched to clinical indication); or iterative reconstruction. COMPARISON: No relevant prior studies available. RADIATION DOSE METRICS: Total DLP (mGy-cm): 761.54 FINDINGS: Bones/joints: No acute fracture. Normal alignment. Discs/Spinal canal/Neural foramina: There is moderate intervertebral disc space loss at C3/4. There are multilevel ventral bridging osteophytes. There is multilevel facet hypertrophy. At C3/4, disc osteophyte complex and mild facet hypertrophy contribute to moderate to severe bilateral neural foraminal narrowing. At C4/5, disc osteophyte complex and bfrg-vw-lwkojtty facet hypertrophy contribute to moderate bilateral neural foraminal narrowing. At C5/6, diffuse disc osteophyte complex and moderate facet hypertrophy contribute to severe bilateral neural foraminal narrowing. Soft tissues: Unremarkable. CT/CT cervical spin wo con* [id number] IMPRESSION: No acute fracture. Chronic changes. Radiation Dose CTDIVOL = (mGy): DLP = 761.54 (mGy-cm)
--- NOTE | 2020-09-13 12:05 | CTR_ITS ---
PROCEDURE INFORMATION: Exam: CT Head Without Contrast Exam date and time: 09/13/2020 1:23 PM Age: 65 years old Clinical indication: Pain; Headache not specified TECHNIQUE: Imaging protocol: Computed tomography of the head without contrast. Radiation optimization: All CT scans at this facility use at least one of these dose optimization techniques: automated exposure control; mA and/or kV adjustment per patient size (includes targeted exams where dose is matched to clinical indication); or iterative reconstruction. COMPARISON: CT head wo con* [id number] 01/29/2014 12:07 PM RADIATION DOSE METRICS: Total DLP (mGy-cm): 883.71 FINDINGS: Brain: There is no acute intracranial hemorrhage or mass effect. Mild diffuse volume loss is within the range of normal for patient age. There are small vessel ischemic changes within the periventricular and subcortical white matter, but the normal hubbard/white matter delineation is maintained. There is bifrontal encephalomalacia inferiorly, stable. Cerebral ventricles: No ventriculomegaly. Bones/joints: Unremarkable. No acute fracture. Paranasal sinuses: Visualized sinuses are unremarkable. No fluid levels. Mastoid air cells: There is focal opacification of left posterior and inferior mastoid air cells. Soft tissues: Unremarkable. CT/CT head wo con* [id number] IMPRESSION: No acute hemorrhage or edema. Radiation Dose CTDIVOL = (mGy): DLP = 883.71 (mGy-cm)
[2020-09-13] MEDS: morphine 4 mg/mL SDV 1 mL IVP (12:43)
[2020-09-13] MEDS: orphenadrine 30 mg/mL Inj 2 mL 60 MG IM (12:44)
[2020-09-13 12:47] LABS: Basophils % 0.2 %; Eosinophils # 0.1 10^3/uL (0.0-0.8); Eosinophils % 0.6 %; Hematocrit 46.2 % (42.0-52.0); Hemoglobin 15.3 g/dL (11.7-16.6); Lymphocytes # 0.8 10^3/uL (0.8-4.8); Lymphocytes % 9.6 %; Mean Corpuscular HGB Conc 33.1 g/dL (30.0-36.0); Mean Corpuscular Volume 87.5 fL (80-94); Mean Platelet Volume 9.9 fL (7.4-10.4); Monocytes # 0.5 10^3/uL (0.2-0.9); Monocytes % 6.6 %; Neutrophils # 6.68 10^3/uL (1.8-7.7); Neutrophils % 82.6 %; Nucleated Red Blood Cells % 0 %; Platelet Count 184 10^3/cmm (130-400); Red Blood Count 5.28 10^6/uL (4.1-5.3); Red Cell Distribution Width 13.3 % (12.1-15.1); White Blood Count 8.1 10^3/uL (4.0-10.0)
--- NOTE | 2020-09-13 12:48 | W.ED.EXTPRO ---
Documented by User: Siena James 09/13/20 15:17 HPI - Extremity Problem General: Chief complaint: Extremity Problem,Nontraumatic Stated complaint: Right shoulder/wrist pain Time Seen by Provider: 09/13/20 12:02 Source: patient Mode of arrival: ambulatory Limitations: no limitations History of Present Illness: HPI Narrative: Mr. Mann is a nice 65-year-old male who comes in complaining of right arm pain that began 1 week ago. He states the pain was gradual in onset and has progressively, more and more intense. He went and saw his doctor for this problem and is physician put some type of anti-inflammatory shot into the shoulder and the patient states he got temporary relief for a day but then woke up the next day with the same pain he had before and it was more intense than before. It is progressed since then. He states the pain begins at the base of his neck and shoulder where they meet. He has tension and pain with palpation of that area. Has increased pain when he moves his right shoulder. Patient denies any chest pain or shortness of breath. He denies any injury to this area. Patient states that anytime he moves his neck in a certain position it makes things worse. Patient has had low back pain in the past and has had radiofrequency ablation to his lower spine but previously took hydrocodone's and oxycodone for this which he has tried for the shoulder pain but it has not helped. Patient denies any diaphoresis, nausea or vomiting, low back pain, abdominal pain or chest pain. Associated symptoms: Deny chest pain, fever(s) or rash Review of Systems Const: Denies: fever(s), chills, body aches, fatigue, malaise or diaphoresis Eyes: Denies: change in vision, blurry vision, photophobia, eye discomfort, eye discharge, eye redness or yellow eyes ENMT: Denies: throat pain, odynophagia, hoarseness, swelling of lips/tongue, ear or mastoid pain, ear discharge, change in hearing or nasal discharge Card: Denies: chest pain, palpitations, irregular heart rhythm, edema, lightheadedness, syncope, pre-syncope, dyspnea on exertion or orthopnea Resp: Denies: dyspnea, productive cough, non-productive cough, wheezing, hemoptysis or chest congestion GI: Denies: abdominal pain, nausea, vomiting, hematemesis, coffee ground emesis, heartburn, diarrhea, constipation, GI cramping, hematochezia or melena : Denies: flank pain, dysuria, urinary frequency, urinary urgency or hematuria Musc: Reports: extremity pain and joint pain; Denies: neck pain, back pain, extremity swelling, joint swelling, joint redness, joint warmth or joint stiffness Skin/Breast: Denies: rash, pruritus, erythema, skin pain or skin tenderness Neuro: Denies: headache(s), numbness in extremities, weakness in extremities, sensory changes, lack of coordination, difficulty walking, dizziness, vertigo, confusion, Slurred speech present or seizure-like activity Wilber/Lymph: Denies: easy bruising, easy bleeding, petechiae, purpura or enlarged lymph nodes All/Imm: Denies: urticaria, throat swelling, tongue swelling, facial swelling or acute wheezing PFSH ED PFSH: Medical History (Updated 09/13/20 @ 19:45 by Harley Monson DO) Aortic stenosis CAD (coronary artery disease) Previous proximal left anterior descending stent, RCA stent x2 11/30/2019. Cerebrovascular accident (CVA) determined by clinical assessment Chronic kidney disease (CKD) COPD (chronic obstructive pulmonary disease) Epistaxis Hypertension Kidney atrophy ST elevation myocardial infarction (STEMI) Inferior wall IA Tobacco abuse, in remission Surgical History History of herniorrhaphy Family History (Updated 12/12/19 @ 10:28 by Nicole Glover RN) Brother CAD (coronary artery disease) Cancer Father Stroke Hypertension Grandmother Cancer Other Hyperlipidemia Denies family history of Diabetes Clotting disorder Dementia Psychiatric illness Bleeding disorder Family history of premature coronary artery disease Lung disease Social History (Updated 12/12/19 @ 10:29 by Nicole Glover RN) Smoking and tobacco status: former smoker Quit status (tobacco): has quit using tobacco Alcohol intake: current Other details last alcohol use: 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 Adopted: No Household members: family Marital status: Physical Exam Const: COMMON NORMALS: no acute distress, patient oriented x3, no limitations and alert GENERAL APPEARANCE: cooperative HENMT: COMMON NORMALS: normocephalic, atraumatic, external ears normal, EAC's normal and Normal external nose present HEAD & SCALP: normal to inspection, normocephalic and atraumatic FACE & SINUS: normal facial exam and face symmetric NOSE: Normal external nose present and Normal nares present EXTERNAL EAR: Yes external ears normal EXTERNAL AUDITORY CANAL: EAC's normal MOUTH: Normal oral and palatal mucosa present, lip normal and tongue normal Eye: COMMON NORMALS: Equal, round and reactive pupils present and conjunctivae normal GENERAL EYE: appearance normal, both eyes and all related structures ALIGNMENT: Yes alignment normal PERIORBITAL: periorbital findings normal EYELID: eyelids normal CONJUNCTIVA: Yes conjunctivae normal SCLERA: sclerae normal PUPIL: Yes Equal, round and reactive pupils present Neck/C-Spine: COMMON NORMALS: full ROM, no lymphadenopathy, supple, no meningeal signs and no JVD GENERAL: Yes normal visual inspection and Yes trachea midline Chest: COMMONS NORMALS: normal inspection of the chest and normal palpation of entire chest wall Resp: COMMON NORMALS: normal respiratory effort, No retractions, No use of accessory muscles and clear to auscultation bilaterally EFFORT & INSPECTION: Yes able to speak in complete sentences and Yes symmetric chest movement AUSCULTATION: clear to auscultation bilaterally, no crackles, no rales, no rhonchi and no wheezes Cardio: COMMON NORMALS: no JVD, regular rate, regular rhythm, S1 normal heart sound present and S2 normal heart sound present RATE: regular rate RHYTHM: regular rhythm HEART SOUNDS: S1 normal heart sound present, S2 normal heart sound present, no click, no gallops, no murmurs and no rubs GI: COMMON NORMALS: Soft to palpation and No hepatosplenomegaly present PALPATION: Yes Soft to palpation, No Tenderness to palpation present (GI), No Guarding due to palpation present (GI), No Rigid due to palpation, Yes No hepatosplenomegaly present, No Hernia present, No Palpable mass present and No Pulsatile mass present : COMMON NORMALS: Yes no CVA tenderness BLADDER/KIDNEY EXAM: Yes no CVA tenderness Back/Pelvis: COMMON NORMALS: no CVA tenderness, thoracic and lumbar spine normal to inspection, no thoracic nor lumbar tenderness and thoraco-lumbar ROM normal Extremity: NARRATIVE EXTREMITY EXAM: Patient with tenderness to palpation along the trapezius ridge and right shoulder. No skin texture changes. Patient has greatly increased pain with range of motion. Skin is not warm to the touch joint is not warm to the touch. He is neurovascular intact distally with a strong dorsalis pedis pulse and normal motor function and sensory function to the radial ulnar and median nerves of the right arm. The remaining musculoskeletal exam was unremarkable. Neuro: COMMON NORMALS: patient oriented x3, CN's II-XII intact bilaterally, moves all extremities, no focal motor deficits and no sensory deficits noted SENSORIUM/ORIENTATION: Yes alert MENINGEAL SIGNS: Yes no meningeal signs SPEECH: speech normal Psych: COMMON NORMALS: mental status grossly normal, Normal thought process present, cooperative, normal affect, speech normal and activity/motor behavior normal SPEECH: Yes normal speech THOUGHT PROCESS: Normal thought process present Skin: COMMON NORMALS: no rashes or lesions noted, turgor normal, no jaundice, no petechiae and no mottling GENERAL SKIN EXAM: no rashes or lesions noted and turgor normal Course Vital Signs: Vital signs: Vital Signs Temperature 98.6 F 09/13/20 12:04 Pulse Rate 84 09/13/20 20:15 Respiratory Rate 16 09/13/20 20:15 Blood Pressure 158/84 09/13/20 20:15 Pulse Oximetry 100 09/13/20 20:15 MDM - Extremity (Nontraumatic) MDM Narrative: Medical decision making narrative: 1500 -the case was reviewed with Dr. Alvarez, on-call for orthopedic/spine service. Because of the patient's degree of paresthesias, muscle weakness and findings on CT he agrees an MRI of the cervical and thoracic spine is necessary to rule out cord/nerve root impingement. Patient was informed of this and is aware and agrees to this plan. Lab Data: Labs: Lab Results 09/13/20 09/13/20 09/13/20 Range/Units 12:38 12:38 12:38 WBC 8.1 (4.0-10.0) 10^3/ uL RBC 5.28 (4.1-5.3) 10^6/u L Hgb 15.3 (11.7-16.6) g/dL Hct 46.2 (42.0-52.0) % MCV 87.5 (80-94) fL MCH 29.0 (28.0-34.0) pg MCHC 33.1 (30.0-36.0) g/dL RDW 13.3 (12.1-15.1) % Plt Count 184 (130-400) 10^3/c mm MPV 9.9 (7.4-10.4) fL Neut % (Auto) 82.6 % Lymph % (Auto) 9.6 % Ashley % (Auto) 6.6 % Eos % (Auto) 0.6 % Baso % (Auto) 0.2 % Neut # (Auto) 6.68 (1.8-7.7) 10^3/u L Lymph # (Auto) 0.8 (0.8-4.8) 10^3/u L Ashley # (Auto) 0.5 (0.2-0.9) 10^3/u L Eos # (Auto) 0.1 (0.0-0.8) 10^3/u L Baso # (Auto) 0.0 (0.0-0.1) 10^3/u L Nucleated RBC % (a uto) 0 % Nucleated RBCs # 0.0 /100WBC ESR (0-10) mm/hr Sodium 135 L (136-145) mmol/L Potassium 3.5 (3.5-5.1) mmol/L Chloride 98 (98-107) mmol/L Carbon Dioxide 22 (22-29) mmol/L Anion Gap 18.5 (5-19) BUN 23 (8-23) mg/dL Creatinine 1.5 H (0.7-1.2) mg/dL GFR Calculation 46.7 L (90-130) mL/min Glucose 202 H (65-115) mg/dL Calculated Osmolal ity 289 (285-295) mOsm/k g Lactic Acid 2.1 (0.5-2.2) mmol/L Lactic Acid (Sepsi s) Lactate (0.5-2.2) mmol/L Calcium 9.8 (8.5-10.5) mg/dL Magnesium 2.0 (1.7-2.3) mg/dL Total Bilirubin 0.8 (0.15-1.2) mg/dL AST 20 (0-40) U/L ALT 42 H (0-41) U/L Alkaline Phosphata se 76 (40-130) IU/L Creatine Kinase 90 (39-308) U/L Troponin T Baselin e (0-15) ng/L Troponin T 120 Min [place] (0-15) ng/L Delta Troponin T (0-10) ABS# C-Reactive Protein (0.0-4.9) mg/L Total Protein 6.6 (6.6-8.7) g/dL Albumin 4.6 (3.5-5.2) g/dL Globulin 2.0 (1.3-4.6) g/dL Lipase 38 (13-60) U/L 09/13/20 09/13/20 09/13/20 Range/Units 12:38 12:38 12:38 WBC (4.0-10.0) 10^3/ uL RBC (4.1-5.3) 10^6/u L Hgb (11.7-16.6) g/dL Hct (42.0-52.0) % MCV (80-94) fL MCH (28.0-34.0) pg MCHC (30.0-36.0) g/dL RDW (12.1-15.1) % Plt Count (130-400) 10^3/c mm MPV (7.4-10.4) fL Neut % (Auto) % Lymph % (Auto) % Ashley % (Auto) % Eos % (Auto) % Baso % (Auto) % Neut # (Auto) (1.8-7.7) 10^3/u L Lymph # (Auto) (0.8-4.8) 10^3/u L Ashley # (Auto) (0.2-0.9) 10^3/u L Eos # (Auto) (0.0-0.8) 10^3/u L Baso # (Auto) (0.0-0.1) 10^3/u L Nucleated RBC % (a uto) % Nucleated RBCs # /100WBC ESR 8 (0-10) mm/hr Sodium (136-145) mmol/L Potassium (3.5-5.1) mmol/L Chloride (98-107) mmol/L Carbon Dioxide (22-29) mmol/L Anion Gap (5-19) BUN (8-23) mg/dL Creatinine (0.7-1.2) mg/dL GFR Calculation (90-130) mL/min Glucose (65-115) mg/dL Calculated Osmolal ity (285-295) mOsm/k g Lactic Acid (0.5-2.2) mmol/L Lactic Acid (Sepsi s) Lactate (0.5-2.2) mmol/L Calcium (8.5-10.5) mg/dL Magnesium (1.7-2.3) mg/dL Total Bilirubin (0.15-1.2) mg/dL AST (0-40) U/L ALT (0-41) U/L Alkaline Phosphata se (40-130) IU/L Creatine Kinase (39-308) U/L Troponin T Baselin e 22 H (0-15) ng/L Troponin T 120 Min [place] (0-15) ng/L Delta Troponin T (0-10) ABS# C-Reactive Protein 1.2 (0.0-4.9) mg/L Total Protein (6.6-8.7) g/dL Albumin (3.5-5.2) g/dL Globulin (1.3-4.6) g/dL Lipase (13-60) U/L 09/13/20 09/13/20 09/13/20 Range/Units 14:50 15:00 15:45 WBC (4.0-10.0) 10^3/ uL RBC (4.1-5.3) 10^6/u L Hgb (11.7-16.6) g/dL Hct (42.0-52.0) % MCV (80-94) fL MCH (28.0-34.0) pg MCHC (30.0-36.0) g/dL RDW (12.1-15.1) % Plt Count (130-400) 10^3/c mm MPV (7.4-10.4) fL Neut % (Auto) % Lymph % (Auto) % Ashley % (Auto) % Eos % (Auto) % Baso % (Auto) % Neut # (Auto) (1.8-7.7) 10^3/u L Lymph # (Auto) (0.8-4.8) 10^3/u L Ashley # (Auto) (0.2-0.9) 10^3/u L Eos # (Auto) (0.0-0.8) 10^3/u L Baso # (Auto) (0.0-0.1) 10^3/u L Nucleated RBC % (a uto) % Nucleated RBCs # /100WBC ESR (0-10) mm/hr Sodium (136-145) mmol/L Potassium (3.5-5.1) mmol/L Chloride (98-107) mmol/L Carbon Dioxide (22-29) mmol/L Anion Gap (5-19) BUN (8-23) mg/dL Creatinine (0.7-1.2) mg/dL GFR Calculation (90-130) mL/min Glucose (65-115) mg/dL Calculated Osmolal ity (285-295) mOsm/k g Lactic Acid (0.5-2.2) mmol/L Lactic Acid (Sepsi s) Cancelled Lactate 1.8 (0.5-2.2) mmol/L Calcium (8.5-10.5) mg/dL Magnesium (1.7-2.3) mg/dL Total Bilirubin (0.15-1.2) mg/dL AST (0-40) U/L ALT (0-41) U/L Alkaline Phosphata se (40-130) IU/L Creatine Kinase (39-308) U/L Troponin T Baselin e (0-15) ng/L Troponin T 120 Min [place] 17.49 H (0-15) ng/L Delta Troponin T -4.51 L (0-10) ABS# C-Reactive Protein (0.0-4.9) mg/L Total Protein (6.6-8.7) g/dL Albumin (3.5-5.2) g/dL Globulin (1.3-4.6) g/dL Lipase (13-60) U/L Imaging Data^: CXR: Attestation: I personally reviewed and interpreted this imaging study as follows: My impression: No acute cardiopulmonary findings. CT Head: Radiologist's impression: [address] [address] [address] Scan Report Signed Patient: Ortiz Mann Sr Unit #: [id number] : 1955 Age/Sex: 65 / M ADM Date: 09/13/20 Loc: ER Room/Bed: Attending Dr: Ordering Provider/Ordering MD: Siena James DO Date of Service: 09/13/20 Procedure(s): CT head wo con* [id number] Accession Number(s): [id number] Report Number: [id number] PROCEDURE INFORMATION: Exam: CT Head Without Contrast Exam date and time: 09/13/2020 1:23 PM Age: 65 years old Clinical indication: Pain; Headache not specified TECHNIQUE: Imaging protocol: Computed tomography of the head without contrast. Radiation optimization: All CT scans at this facility use at least one of these dose optimization techniques: automated exposure control; mA and/or kV adjustment per patient size (includes targeted exams where dose is matched to clinical indication); or iterative reconstruction. COMPARISON: CT head wo con* [id number] 01/29/2014 12:07 PM RADIATION DOSE METRICS: Total DLP (mGy-cm): 883.71 FINDINGS: Brain: There is no acute intracranial hemorrhage or mass effect. Mild diffuse volume loss is within the range of normal for patient age. There are small vessel ischemic changes within the periventricular and subcortical white matter, but the normal hubbard/white matter delineation is maintained. There is bifrontal encephalomalacia inferiorly, stable. Cerebral ventricles: No ventriculomegaly. Bones/joints: Unremarkable. No acute fracture. Paranasal sinuses: Visualized sinuses are unremarkable. No fluid levels. Mastoid air cells: There is focal opacification of left posterior and inferior mastoid air cells. Soft tissues: Unremarkable. CT/CT head wo con* [id number] IMPRESSION: No acute hemorrhage or edema. Radiation Dose CTDIVOL = (mGy): DLP = 883.71 (mGy-cm) Dictated By: Ariela Valentin MD Signed By: Ariela Valentin MD Signed Date/Time: 09/13/201408 DD/ 07 CT Cervical Spine: Radiologist's impression: [place] [address] CT Scan Report Signed Patient: Ortiz Mann Sr Unit #: [id number] : 1955 Age/Sex: 65 / M ADM Date: 09/13/20 Loc: ER Room/Bed: Attending Dr: Ordering Provider/Ordering MD: Siena James DO Date of Service: 09/13/20 Procedure(s): CT cervical spin wo con* [id number] Accession Number(s): [id number] Report Number: [id number] PROCEDURE INFORMATION: Exam: CT Cervical Spine Without Contrast Exam date and time: 09/13/2020 1:23 PM Age: 65 years old Clinical indication: Neck pain TECHNIQUE: Imaging protocol: Computed tomography images of the cervical spine without contrast. Radiation optimization: All CT scans at this facility use at least one of these dose optimization techniques: automated exposure control; mA and/or kV adjustment per patient size (includes targeted exams where dose is matched to clinical indication); or iterative reconstruction. COMPARISON: No relevant prior studies available. RADIATION DOSE METRICS: Total DLP (mGy-cm): 761.54 FINDINGS: Bones/joints: No acute fracture. Normal alignment. Discs/Spinal canal/Neural foramina: There is moderate intervertebral disc space loss at C3/4. There are multilevel ventral bridging osteophytes. There is multilevel facet hypertrophy. At C3/4, disc osteophyte complex and mild facet hypertrophy contribute to moderate to severe bilateral neural foraminal narrowing. At C4/5, disc osteophyte complex and [id number] facet hypertrophy contribute to moderate bilateral neural foraminal narrowing. At C5/6, diffuse disc osteophyte complex and moderate facet hypertrophy contribute to severe bilateral neural foraminal narrowing. Soft tissues: Unremarkable. CT/CT cervical spin wo con* [id number] IMPRESSION: No acute fracture. Chronic changes. Radiation Dose CTDIVOL = (mGy): DLP = 761.54 (mGy-cm) Dictated By: Ariela Valentin MD Signed By: Ariela Valentin MD Signed Date/Time: 09/13/201411 DD/ EKG Data^: EKG 1: Attestation: I personally reviewed and interpreted this EKG as follows: EKG interpretation date: 09/13/20 EKG interpretation time: 12:21 Interpretation: Normal sinus rhythm at 97 beats a minute, left axis deviation, LVH present, frequent PVCs noted, no blocks, normal intervals, nonspecific ST and T wave changes. EKG 2: Attestation: I personally reviewed and interpreted this EKG as follows: EKG interpretation date: 09/13/20 EKG interpretation time: 13:46 Interpretation: Normal sinus rhythm with first-degree AV block. Right bundle branch block, LVH, T waves inverted in aVL, similar to previous EKG from today. Discharge Plan Discharge Patient Disposition: Home Clinical Impression: Cervical radiculopathy Condition: Stable Prescriptions: New Dilaudid 4 mg tablet 4 mg PO Q4H PRN (Reason: pain) Qty: 10 RF: 0 Medrol (Anthony) 4 mg tablets,dose pack See Rx Instructions .ROUTE .COMPLEX Qty: 21 RF: 0 No Action omega-3 fatty acids [Fish Oil Concentrate] 1,000 mg capsule 1,000 mg PO QDAY RF: 0 cyclobenzaprine 10 mg Tablet 10 mg PO TID PRN (Reason: Spasms) RF: 0 ibuprofen 800 mg Tablet 800 mg PO TID RF: 0 [place] 10-325 mg Tablet 1 tab PO BID RF: 0 Protonix 40 mg Tablet,Delayed Release (Dr/Ec) 40 mg PO BID RF: 0 Microzide 12.5 mg Capsule 12.5 mg PO DAILY RF: 0 Nitrostat 0.4 mg Tablet, Sublingual 0.4 mg SUBLINGUAL Q5M PRN (Reason: Chest Pain) RF: 0 rosuvastatin 20 mg Tablet 20 mg PO EVERY OTHER DAY RF: 0 Tricor 145 mg Tablet 145 mg PO EVERY OTHER DAY RF: 0 Vitamin D3 5,000 unit Tablet 5,000 unit PO DAILY RF: 0 Toprol XL 50 mg Tablet Extended Release 24 Hr 50 mg PO DAILY RF: 0 clopidogrel 75 mg Tablet 75 mg PO DAILY 30 Days Qty: 30 RF: 4 Norvasc 5 mg tablet 10 mg PO DAILY RF: 0 Discharge Orders: Discharge Order (Routine); Ordered 09/13/20 Ordered By: Harley Monson Referrals: Garima Carpenter NP [Primary Care Provider] - Raudel Alvarez DO [Physician] - 4-7 days Discharge Diet: Advance as tolerated Discharge Activity: Increase activity as tolerated Patient Instructions: Cervical Radiculopathy (ED) Activity Restrictions/Additional Instructions: Medication as directed. Return for worsening pain despite treatment, shortness of breath, fever, other concerning symptoms. Discharge Date/Time: 09/13/20 20:17 Coding Level of Care Code ED Outside Sales Representative for Chg Fwd Exam Comprehensive Documented by User: Harley Monson DO 09/13/20 23:54 HPI - Extremity Problem General: Chief complaint: Extremity Problem,Nontraumatic Stated complaint: Right shoulder/wrist pain Time Seen by Provider: 09/13/20 12:02 PFSH ED PFSH: Medical History (Updated 09/13/20 @ 19:45 by Harley Monson DO) Aortic stenosis CAD (coronary artery disease) Previous proximal left anterior descending stent, RCA stent x2 11/30/2019. Cerebrovascular accident (CVA) determined by clinical assessment Chronic kidney disease (CKD) COPD (chronic obstructive pulmonary disease) Epistaxis Hypertension Kidney atrophy ST elevation myocardial infarction (STEMI) Inferior wall IA Tobacco abuse, in remission Surgical History History of herniorrhaphy Family History (Updated 12/12/19 @ 10:28 by Nicole Glover RN) Brother CAD (coronary artery disease) Cancer Father Stroke Hypertension Grandmother Cancer Other Hyperlipidemia Denies family history of Diabetes Clotting disorder Dementia Psychiatric illness Bleeding disorder Family history of premature coronary artery disease Lung disease Social History (Updated 12/12/19 @ 10:29 by Nicole Glover RN) Smoking and tobacco status: former smoker Quit status (tobacco): has quit using tobacco Alcohol intake: current Other details last alcohol use: 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 Adopted: No Household members: family Marital status: Course Vital Signs: Vital signs: Vital Signs Temperature 98.6 F 09/13/20 12:04 Pulse Rate 84 09/13/20 20:15 Respiratory Rate 16 09/13/20 20:15 Blood Pressure 158/84 09/13/20 20:15 Pulse Oximetry 100 09/13/20 20:15 MDM - Extremity (Nontraumatic) MDM Narrative: Medical decision making narrative: 65-year-old male checked out to me by Dr. James. He has intense neck pain radiating down his right arm. Some paresthesias to all fingers, worse in the fourth and fifth fingers. His pain is improved, but only after multiple doses of pain medication in the ER here, and with steroids. MRI was ordered after consultation with orthopedic spine surgery it shows moderate to severe stenosis, worse at C3-C4 and C4-C5 with some mild increased T2 signal patient was given the option for observation and pain control, with consultation by orthopedic spine surgery. He declined in the ER. He states he will follow-up as an outpatient. Evidently he is supposed to see a surgeon about heart valves later this week. He would like to try pain control and steroids at home. Lab Data: Labs: Lab Results 09/13/20 09/13/20 09/13/20 Range/Units 12:38 12:38 12:38 WBC 8.1 (4.0-10.0) 10^3/ uL RBC 5.28 (4.1-5.3) 10^6/u L Hgb 15.3 (11.7-16.6) g/dL Hct 46.2 (42.0-52.0) % MCV 87.5 (80-94) fL MCH 29.0 (28.0-34.0) pg MCHC 33.1 (30.0-36.0) g/dL RDW 13.3 (12.1-15.1) % Plt Count 184 (130-400) 10^3/c mm MPV 9.9 (7.4-10.4) fL Neut % (Auto) 82.6 % Lymph % (Auto) 9.6 % Ashley % (Auto) 6.6 % Eos % (Auto) 0.6 % Baso % (Auto) 0.2 % Neut # (Auto) 6.68 (1.8-7.7) 10^3/u L Lymph # (Auto) 0.8 (0.8-4.8) 10^3/u L Ashley # (Auto) 0.5 (0.2-0.9) 10^3/u L Eos # (Auto) 0.1 (0.0-0.8) 10^3/u L Baso # (Auto) 0.0 (0.0-0.1) 10^3/u L Nucleated RBC % (a uto) 0 % Nucleated RBCs # 0.0 /100WBC ESR (0-10) mm/hr Sodium 135 L (136-145) mmol/L Potassium 3.5 (3.5-5.1) mmol/L Chloride 98 (98-107) mmol/L Carbon Dioxide 22 (22-29) mmol/L Anion Gap 18.5 (5-19) BUN 23 (8-23) mg/dL Creatinine 1.5 H (0.7-1.2) mg/dL GFR Calculation 46.7 L (90-130) mL/min Glucose 202 H (65-115) mg/dL Calculated Osmolal ity 289 (285-295) mOsm/k g Lactic Acid 2.1 (0.5-2.2) mmol/L Lactic Acid (Sepsi s) Lactate (0.5-2.2) mmol/L Calcium 9.8 (8.5-10.5) mg/dL Magnesium 2.0 (1.7-2.3) mg/dL Total Bilirubin 0.8 (0.15-1.2) mg/dL AST 20 (0-40) U/L ALT 42 H (0-41) U/L Alkaline Phosphata se 76 (40-130) IU/L Creatine Kinase 90 (39-308) U/L Troponin T Baselin e (0-15) ng/L Troponin T 120 Min [place] (0-15) ng/L Delta Troponin T (0-10) ABS# C-Reactive Protein (0.0-4.9) mg/L Total Protein 6.6 (6.6-8.7) g/dL Albumin 4.6 (3.5-5.2) g/dL Globulin 2.0 (1.3-4.6) g/dL Lipase 38 (13-60) U/L 09/13/20 09/13/20 09/13/20 Range/Units 12:38 12:38 12:38 WBC (4.0-10.0) 10^3/ uL RBC (4.1-5.3) 10^6/u L Hgb (11.7-16.6) g/dL Hct (42.0-52.0) % MCV (80-94) fL MCH (28.0-34.0) pg MCHC (30.0-36.0) g/dL RDW (12.1-15.1) % Plt Count (130-400) 10^3/c mm MPV (7.4-10.4) fL Neut % (Auto) % Lymph % (Auto) % Ashley % (Auto) % Eos % (Auto) % Baso % (Auto) % Neut # (Auto) (1.8-7.7) 10^3/u L Lymph # (Auto) (0.8-4.8) 10^3/u L Ashley # (Auto) (0.2-0.9) 10^3/u L Eos # (Auto) (0.0-0.8) 10^3/u L Baso # (Auto) (0.0-0.1) 10^3/u L Nucleated RBC % (a uto) % Nucleated RBCs # /100WBC ESR 8 (0-10) mm/hr Sodium (136-145) mmol/L Potassium (3.5-5.1) mmol/L Chloride (98-107) mmol/L Carbon Dioxide (22-29) mmol/L Anion Gap (5-19) BUN (8-23) mg/dL Creatinine (0.7-1.2) mg/dL GFR Calculation (90-130) mL/min Glucose (65-115) mg/dL Calculated Osmolal ity (285-295) mOsm/k g Lactic Acid (0.5-2.2) mmol/L Lactic Acid (Sepsi s) Lactate (0.5-2.2) mmol/L Calcium (8.5-10.5) mg/dL Magnesium (1.7-2.3) mg/dL Total Bilirubin (0.15-1.2) mg/dL AST (0-40) U/L ALT (0-41) U/L Alkaline Phosphata se (40-130) IU/L Creatine Kinase (39-308) U/L Troponin T Baselin e 22 H (0-15) ng/L Troponin T 120 Min [place] (0-15) ng/L Delta Troponin T (0-10) ABS# C-Reactive Protein 1.2 (0.0-4.9) mg/L Total Protein (6.6-8.7) g/dL Albumin (3.5-5.2) g/dL Globulin (1.3-4.6) g/dL Lipase (13-60) U/L 10/23/20 10/23/20 10/23/20 Range/Units 14:50 15:00 15:45 WBC (4.0-10.0) 10^3/ uL RBC (4.1-5.3) 10^6/u L Hgb (11.7-16.6) g/dL Hct (42.0-52.0) % MCV (80-94) fL MCH (28.0-34.0) pg MCHC (30.0-36.0) g/dL RDW (12.1-15.1) % Plt Count (130-400) 10^3/c mm MPV (7.4-10.4) fL Neut % (Auto) % Lymph % (Auto) % Ashley % (Auto) % Eos % (Auto) % Baso % (Auto) % Neut # (Auto) (1.8-7.7) 10^3/u L Lymph # (Auto) (0.8-4.8) 10^3/u L Ashley # (Auto) (0.2-0.9) 10^3/u L Eos # (Auto) (0.0-0.8) 10^3/u L Baso # (Auto) (0.0-0.1) 10^3/u L Nucleated RBC % (a uto) % Nucleated RBCs # /100WBC ESR (0-10) mm/hr Sodium (136-145) mmol/L Potassium (3.5-5.1) mmol/L Chloride (98-107) mmol/L Carbon Dioxide (22-29) mmol/L Anion Gap (5-19) BUN (8-23) mg/dL Creatinine (0.7-1.2) mg/dL GFR Calculation (90-130) mL/min Glucose (65-115) mg/dL Calculated Osmolal ity (285-295) mOsm/k g Lactic Acid (0.5-2.2) mmol/L Lactic Acid (Sepsi s) Cancelled Lactate 1.8 (0.5-2.2) mmol/L Calcium (8.5-10.5) mg/dL Magnesium (1.7-2.3) mg/dL Total Bilirubin (0.15-1.2) mg/dL AST (0-40) U/L ALT (0-41) U/L Alkaline Phosphata se (40-130) IU/L Creatine Kinase (39-308) U/L Troponin T Baselin e (0-15) ng/L Troponin T 120 Min [place] 17.49 H (0-15) ng/L Delta Troponin T -4.51 L (0-10) ABS# C-Reactive Protein (0.0-4.9) mg/L Total Protein (6.6-8.7) g/dL Albumin (3.5-5.2) g/dL Globulin (1.3-4.6) g/dL Lipase (13-60) U/L Discharge Plan Discharge Patient Disposition: Home Clinical Impression: Cervical radiculopathy Condition: Stable Prescriptions: New Dilaudid 4 mg tablet 4 mg PO Q4H PRN (Reason: pain) Qty: 10 RF: 0 Medrol (Anthony) 4 mg tablets,dose pack See Rx Instructions .ROUTE .COMPLEX Qty: 21 RF: 0 No Action omega-3 fatty acids [Fish Oil Concentrate] 1,000 mg capsule 1,000 mg PO QDAY RF: 0 cyclobenzaprine 10 mg Tablet 10 mg PO TID PRN (Reason: Spasms) RF: 0 ibuprofen 800 mg Tablet 800 mg PO TID RF: 0 [place] 10-325 mg Tablet 1 tab PO BID RF: 0 Protonix 40 mg Tablet,Delayed Release (Dr/Ec) 40 mg PO BID RF: 0 Microzide 12.5 mg Capsule 12.5 mg PO DAILY RF: 0 Nitrostat 0.4 mg Tablet, Sublingual 0.4 mg SUBLINGUAL Q5M PRN (Reason: Chest Pain) RF: 0 rosuvastatin 20 mg Tablet 20 mg PO EVERY OTHER DAY RF: 0 Tricor 145 mg Tablet 145 mg PO EVERY OTHER DAY RF: 0 Vitamin D3 5,000 unit Tablet 5,000 unit PO DAILY RF: 0 Toprol XL 50 mg Tablet Extended Release 24 Hr 50 mg PO DAILY RF: 0 clopidogrel 75 mg Tablet 75 mg PO DAILY 30 Days Qty: 30 RF: 4 Norvasc 5 mg tablet 10 mg PO DAILY RF: 0 Discharge Orders: Discharge Order (Routine); Ordered 09/13/20 Ordered By: Harley Monson Referrals: Garima Carpenter NP [Primary Care Provider] - Raudel Alvarez DO [Physician] - 4-7 days Discharge Diet: Advance as tolerated Discharge Activity: Increase activity as tolerated Patient Instructions: Cervical Radiculopathy (ED) Activity Restrictions/Additional Instructions: Medication as directed. Return for worsening pain despite treatment, shortness of breath, fever, other concerning symptoms. Discharge Date/Time: 09/13/20 20:17 Coding Level of Care Code ED Outside Sales Representative for Kamille Fwd Exam Comprehensive
[2020-09-13 13:12] LABS: Alanine Aminotransferase 42 U/L (0-41); Albumin Level 4.6 g/dL (3.5-5.2); Alkaline Phosphatase 76 IU/L (40-130); Anion Gap 18.5 (5-19); Aspartate Amino Transferase 20 U/L (0-40); Blood Urea Nitrogen 23 mg/dL (8-23); Calcium 9.8 mg/dL (8.5-10.5); Carbon Dioxide 22 mmol/L (22-29); Chloride 98 mmol/L (98-107); Creatine Phosphokinase 90 U/L (39-308); Glomerular Filtration Rate 46.7 mL/min (90-130); Glucose 202 mg/dL (65-115); Lipase 38 U/L (13-60); Osmolality Calculated 289 mOsm/kg (285-295); Potassium 3.5 mmol/L (3.5-5.1); Sodium 135 mmol/L (136-145); Total Bilirubin 0.8 mg/dL (0.15-1.2); Total Protein 6.6 g/dL (6.6-8.7)
[2020-09-13 13:13] LABS: Lactic Sepsis W/Reflex 2.1 mmol/L (0.5-2.2)
[2020-09-13 13:14] LABS: Troponin(5th) Baseline 22 ng/L (0-15)
--- NOTE | 2020-09-13 13:18 | XR_ITS ---
WS: [id number] Right shoulder, 2 views, 09/13/2020 Clinical Data: Pain Comparison: Right shoulder, 09/14/2006. Findings: No fractures or dislocations are seen. The AC joint shows osteoarthritis. The adjacent right clavicle , right scapula and ribs are normal. The soft tissues are unremarkable. There is a monitor lead on the right chest. XR/XR shoulder RT min 2V* [id number] Impression: 1. Negative right shoulder. 2. Osteoarthritis of the right AC joint.
[2020-09-13] MEDS: HYDROmorphone 1 mg/mL INJ 1 mL IVP ×3 (13:34→19:01)
--- NOTE | 2020-09-13 14:05 | ECG_ITS ---
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 Measurements Intervals [place] Rate: 87 P: 99 [place]: 307 QRS: -57 QRSD: 106 T: 80 QT: 373 QTc: 451 Interpretive Statements Atrial fibrillation with occasional PVCs and controlled ventricular response rate INCOMPLETE RIGHT BUNDLE BRANCH BLOCK [90+ ms QRS DURATION, TERMINAL R IN V1/V2, 40+ ms S IN I/aVL/V4/V5/V6] LEFT ANTERIOR FASCICULAR BLOCK [QRS AXIS <= -45, QR IN I, RS IN II] LEFT VENTRICULAR HYPERTROPHY AND ST-T CHANGE [VOLTAGE CRITERIA PLUS ST/T ABNORMALITY] Compared to ECG 09/13/2020 12:21:35 Ventricular premature complex(es) now present First degree AV block now present Supraventricular rhythm no longer present ST (T wave) deviation still present Electronically Signed On 09-13-2020 20:39:09 CDT by Cabrera Priest M.D. [id number]
[2020-09-13 14:30] LABS: Reflex Lactate Order REFLEX LACTIC ORDERD
--- NOTE | 2020-09-13 14:54 | MRR_ITS ---
PROCEDURE INFORMATION: Exam: MR Thoracic Spine Without Contrast Exam date and time: 09/13/2020 4:41 PM Age: 65 years old Clinical indication: Pain in thoracic spine; With radiculopathy; Patient HX: Pain in neck, right shoulder, arm and wrist started on 09/07/2020 no known injury; Additional info: Extremity/back pain with weakness TECHNIQUE: Imaging protocol: Multiplanar magnetic resonance images of the thoracic spine without contrast. COMPARISON: No relevant prior studies available. FINDINGS: Vertebrae: No acute fracture or bony destruction. There is no subluxation. Spinal cord: Normal signal. No cord compression. Discs/Spinal canal/Neural foramina: There are diffuse mild degenerative changes with disc space narrowing and small marginal osteophytes throughout the thoracic spine. At T6-7, there is a small disc bulge without stenosis or significant foraminal narrowing. At T10-11, there is a small central disc bulge without stenosis or significant foraminal narrowing. Soft tissues: Unremarkable. Other findings: A few intraosseous hemangiomas are noted including a hemangioma at T10 and T11. MR/MR thoracic spin wo con* [id number] IMPRESSION: No acute abnormality. Small disc bulges are noted without stenosis or significant foraminal narrowing. Mild degenerative changes are noted.
--- NOTE | 2020-09-13 14:54 | MRR_ITS ---
PROCEDURE INFORMATION: Exam: MR Cervical Spine Without Contrast Exam date and time: 09/13/2020 4:41 PM Age: 65 years old Clinical indication: Neck pain and radicular pain (radiculopathy); Cervicothoracic region; Patient HX: 09/07/2020 PT began to have pain in the right side of his neck and down into his right shoulder, arm and wrist. No known injury; Additional info: Upper extremity paresthesias/pain/weakness, abnormal CT cervical spine TECHNIQUE: Imaging protocol: Multiplanar magnetic resonance images of the cervical spine without contrast. COMPARISON: CT cervical spin wo con* [id number] 09/13/2020 1:54 PM FINDINGS: Vertebrae: The vertebral body heights are maintained. Probable old fracture of the spinous process of T1 is noted. The patient has short pedicles. There is disc space narrowing with marginal osteophytes throughout the cervical spine. Spinal cord: There is a small amount of bright T2 signal in the cervical spinal cord compatible with myelopathy extending from the inferior endplate of C3 to the top of C7. C2-C3: No significant disc disease. No significant spinal stenosis. C3-C4: At C3-C4, there is a tiny disc bulge with endplate osteophytes and facet hypertrophy resulting in [id number] narrowing of the central canal and foramina. C4-C5: At C4-C5, there is 2 mm degenerative retrolisthesis of C4 on C5 with a small disc bulge and facet hypertrophy resulting in moderate to severe narrowing of the central canal and moderate narrowing of the bilateral foramina. C5-C6: At C5-C6, there is a small disc bulge with mild narrowing of the central canal and foramina. C6-C7: At C6-C7, there is a small disc bulge with marginal osteophytes resulting in mild narrowing of the central canal and foramina. C7-T1: No significant disc disease. No significant spinal stenosis. Other bones/joints: There is no acute fracture. No aggressive a neoplastic bony destruction. Vertebral arteries: Expected flow voids in the vertebral arteries. Soft tissues: Unremarkable. MR/MR cervical spin wo con* [id number] IMPRESSION: 1. No acute bony abnormality. Diffuse moderate to severe degenerative changes are noted. 2. Congenitally short pedicles with multiple levels of moderate to severe stenosis of the cervical spinal canal especially at C3-C4 and C4-C5 with mild T2 increased signal in the cervical spinal cord compatible with myelopathy.
[2020-09-13] MEDS: dexamethasone 10 mg/mL INJ IVP (15:01)
[2020-09-13 15:04] LABS: Erythrocyte Sedimentation Rate 8 mm/hr (0-10)
[2020-09-13 15:18] LABS: Troponin 5 2HR 17.49 ng/L (0-15)
[2020-09-13 15:45] LABS: Troponin 5 2HR Delta -4.51 ABS# (0-10)
[2020-09-13 15:57] LABS: C Reactive Protein 1.2 mg/L (0.0-4.9)
[2020-09-13 16:14] LABS: Lactate (Lactic Acid level) 1.8 mmol/L (0.5-2.2)
--- NOTE | 2020-09-13 18:05 | ECG_ITS ---
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 Measurements Intervals [place] Rate: 92 P: [place]: -1 QRS: -57 QRSD: 104 T: 74 QT: 359 QTc: 444 Interpretive Statements Multi-focal atrial rhythm INCOMPLETE RIGHT BUNDLE BRANCH BLOCK [90+ ms QRS DURATION, TERMINAL R IN V1/V2, 40+ ms S IN I/aVL/V4/V5/V6] LEFT ANTERIOR FASCICULAR BLOCK [QRS AXIS <= -45, QR IN I, RS IN II] VOLTAGE CRITERIA FOR LVH [MEETS CRITERIA IN ONE OF: R(aVL), S(V1), R(V5), R(V5/V6)+S(V1)] MODERATE ST DEPRESSION [0.05+ mV ST DEPRESSION] Compared to ECG 09/13/2020 13:46:33 Aberrant conduction of supraventricular beat(s) now present Sinus rhythm no longer present First degree AV block no longer present ST (T wave) deviation still present Electronically Signed On 09-13-2020 20:40:43 CDT by Cabrera Priest M.D. [id number]
== END 2020-09-13 20:17 | disposition home or self-care (01) ==
PROVIDERS: Emergency Medicine; Emergency Provider Emergency Medicine; PCP Nurse Practitioner Family
DX: M54.12 Radiculopathy, cervical region (principal); Z79.02 Long term (current) use of antithrombotics/antiplatelets; I25.10 Atherosclerotic heart disease of native coronary artery without angina pectoris; Z86.73 Personal history of transient ischemic attack (TIA), and cerebral infarction without residual deficits; J44.9 Chronic obstructive pulmonary disease, unspecified; I10 Essential (primary) hypertension; I25.2 Old myocardial infarction; Z87.891 Personal history of nicotine dependence
CPT/HCPCS: 12345; 70450; 71045; 72125; 72141; 72146; 73030; 80053; 82550; 83605; 83690; 83735; 84484; 85025; 85651; 86140; 93005; 96372; 96374; 96375; 96376; 99283; 99284; J1100; J1170; J2270; J2360

== ENCOUNTER → 2020-09-19 10:51 | Outpatient (BNVA) | payer MEDICARE, SELFPAY | PROVIDERS: PCP Nurse Practitioner Family; Visit Provider Anesthesiology Pain Medicine | DX: M79.18 Myalgia, other site (principal); M54.2 Cervicalgia | CPT/HCPCS: 20553; 99204; J1030; J3490 ==

== ENCOUNTER 2020-10-15 08:48 | Outpatient (CLI) | payer MEDICARE, SELFPAY ==
--- NOTE | 2020-10-15 09:30 | MR_ITS ---
WS: [id number] MRI RIGHT SHOULDER HISTORY: M25.511 Pain in right shoulder COMPARISON: RIGHT shoulder radiograph 09/13/2020 TECHNIQUE: Multiplanar sequences of the shoulder joint are submitted. Marked degenerative osteoarthritis at the AC joint. Hypertrophic osteophytes from the distal clavicle and the adjacent acromion. There is increase fluid along the AC ligament. Osteophyte from the distal clavicle with significant encroachment upon the supraspinatus muscle and tendon and deformity of the muscle and tendon. Small amount of fluid in the subacromial and subdeltoid bursa. No os acromion. Bi ceps tendon remains in the bicipital groove. Insertion site tear of the anterior supraspinatus tendon and there is a near full-thickness tear invo lving the articular surface. There is additional tendinopathy and fluid extending along the tendon. I nfraspinatus and subscapularis tendons are intact. There is mild encroachment upon the subscapularis tendon at the coracohumeral junction. Small amount of adjacent fluid. Mild atrophy of the supraspinat us muscle with no edema. Mild degenerative changes involving the humeral head with loss of cartilage and degenerative osteophytosis. No definite labral tears are identified. MR/MR shoulder RT wo con* [id number] IMPRESSION: 1. Severe AC joint arthritis with osteophytes encroaching and deformity the [place] praspinatus muscle and tendon. 2. Insertion site tear supraspinatus tendon with additional distal articular s urface tear and tendinopathy involving the distal 3 to 4 cm. Supraspinatus tend on and muscle are being deformed by AC joint hypertrophy. 3. Mild supraspinatus muscle atrophy. 4. Mild narrowing of the coracohumeral interval.
== END 2020-10-15 08:49 | disposition home or self-care (01) ==
LOC: RADSHAW 08:51
PROVIDERS: PCP Nurse Practitioner Family; Visit Provider Orthopaedic Surgery
DX: M25.511 Pain in right shoulder (principal); M13.811 Other specified arthritis, right shoulder; M25.711 Osteophyte, right shoulder; M62.521 Muscle wasting and atrophy, not elsewhere classified, right upper arm
CPT/HCPCS: 73221

== ENCOUNTER → 2020-11-26 11:14 | Outpatient (BNVA) | payer MEDICARE, SELFPAY | PROVIDERS: PCP Nurse Practitioner Family; Visit Provider Specialist | DX: R20.0 Anesthesia of skin (principal); R20.2 Paresthesia of skin; M47.12 Other spondylosis with myelopathy, cervical region; M79.601 Pain in right arm; Z87.891 Personal history of nicotine dependence | CPT/HCPCS: 95908 ==

== ENCOUNTER → 2021-03-12 11:35 | Day surgery (SDC) | payer MEDICARE, SELFPAY | PROVIDERS: PCP Nurse Practitioner Family; Visit Provider Orthopaedic Surgery | DX: Z01.818 Encounter for other preprocedural examination (principal) | CPT/HCPCS: 93005; J1100; J2405; J2704 ==

== ENCOUNTER → 2021-03-12 12:01 | Outpatient (BNVA) | payer MEDICARE, SELFPAY | PROVIDERS: PCP Nurse Practitioner Family; Visit Provider Orthopaedic Surgery | DX: M47.12 Other spondylosis with myelopathy, cervical region (principal); Z20.822 Contact with and (suspected) exposure to COVID-19 | CPT/HCPCS: 87635 ==

== ENCOUNTER → 2021-03-31 09:38 | Outpatient (BNVA) | payer MEDICARE, SELFPAY | PROVIDERS: PCP Nurse Practitioner Family; Visit Provider Orthopaedic Surgery | DX: Z01.812 Encounter for preprocedural laboratory examination (principal); Z20.822 Contact with and (suspected) exposure to COVID-19 | CPT/HCPCS: 87635 ==

== ENCOUNTER 2021-04-04 07:47 | Day surgery (SDC) | payer MEDICARE, SELFPAY ==
[2021-04-03 14:01] VITALS: BMI 32.1
[2021-04-04] VITALS (13 sets, daily range): BP systolic 132–146; BP diastolic 80–98; PULSE 71–83; RESP 16–22; TEMP 36.4–36.7; O2SAT 95–100
--- NOTE | 2021-04-04 | XR_ITS ---
WS: [id number] Cervical spine, C-arm fluoroscopy views, 04/04/2021 Clinical Data: acdf Comparison: None. Findings: The patient has had an anterior cervical disc fusion from C3 through C7 with disc spacers a t C3-C4, C4-C5 and C5-C6. XR/XR cervical spine 3V* [id number] Impression: Anterior cervical disc fusion from C3 through C7.
--- NOTE | 2021-04-04 | SCC_ITS ---
Procedure Done: 1. Anterior diskectomy C3/4 2. Anterior discectomy C4/5 3. Anterior diskectomy C5/6 4. Insertion of cage C3/4 5. Insertion of Cage C5/6 6. Insertion of Cage C5/6 7. Instrumentation with anterior plate from C3-C6 8. Use of allograft 82.9 seconds of fluoroscopic guidance, for a cumulative dose of 7.65 mGy, was provided to by the radiology department. C-arm images of the cervical spine were saved for the patient's permanent record. ROLAN
--- NOTE | 2021-04-04 07:06 | PM.HP ---
Providers/Chief Complaint Primary Care Provider: Garima Carpenter NP Chief Complaint: acdf History of Present Illness Ortiz Mann Sr is a 65 year old male neck pain. Patients pain is 3/10. Patient states the pain has eased up some since the last visit. Patient states turning his head to the right causes a lot of sharp tingling pain down his right arm and down into his fourth and fifth fingers. 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) Review of Systems Narrative: General ROS: negative for weight changes, fever ENT ROS: negative for nasal congestion, drainage or bleeding, sore throat, dysphagia or ear pain Eyes: PERRL Hematological and Lymphatic ROS: negative for swollen glands or abnormal bleeding Endocrine ROS: negative for polyuria/polydpsia or new changes in weight Respiratory ROS: negative for cough, shortness of breath, or wheezing Cardiovascular ROS: negative for chest pain or dyspnea on exertion Gastrointestinal ROS: negative for reflux, abdominal pain, change in bowel habits, or black or bloody stools Musculoskeletal ROS: negative for back pain, neck pain, or joint pain or swelling except for current problem Neurological ROS: negative for TIA or stoke symptoms Skin: no rashes Medications/Allergies Home Medications Medication Instructions Recorded Confirmed Last Taken Type clopidogrel 75 mg PO DAILY 30 Days #30 tab 12/02/19 04/03/21 03/30/21 Rx cyclobenzaprine 10 mg PO TID PRN 12/02/19 04/03/21 Unknown History metoprolol succinate [Toprol XL] 50 mg PO DAILY 12/02/19 04/03/21 Unknown History nitroglycerin [Nitrostat] 0.4 mg SUBLINGUAL Q5M PRN 12/02/19 04/03/21 Unknown History pantoprazole [Protonix] 40 mg PO DAILY 12/02/19 04/03/21 Unknown History amlodipine 5 mg tablet 5 mg PO DAILY tab 12/12/19 04/03/21 Unknown History hydromorphone [Dilaudid] 4 mg PO Q4H PRN #10 tab 09/13/20 04/03/21 Unknown Rx apixaban 5 mg tablet 5 mg PO BID 10/31/20 04/03/21 03/30/21 History atorvastatin 80 mg tablet 80 mg PO DAILY 10/31/20 04/03/21 Unknown History ezetimibe 10 mg tablet 10 mg PO DAILY 10/31/20 04/03/21 Unknown History fluticasone propionate 50 1 spray INTRANASAL DAILY 10/31/20 04/03/21 Unknown History mcg/actuation nasal spray,suspension furosemide 40 mg tablet 40 mg PO BID 10/31/20 04/03/21 Unknown History hydrocodone 10 mg-acetaminophen 1 tab PO Q6H PRN 10/31/20 04/03/21 Unknown History 325 mg tablet losartan 50 mg tablet 50 mg PO BID 10/31/20 04/03/21 Unknown History docusate sodium [Stool Softener] 100 mg PO DAILY 03/12/21 04/03/21 Unknown History spironolactone 12.5 mg PO DAILY 03/12/21 04/03/21 Unknown History temazepam 15 mg PO BEDTIME 03/12/21 04/03/21 Unknown History [id number] Bone Growth Stimulator #1 ea 03/31/21 Unknown Rx Allergies Allergy/AdvReac Type Severity Reaction Status Date / Time clonazepam Allergy Unknown Verified 02/21/21 09:26 guaifenesin Allergy Unknown Verified 02/21/21 09:26 hydrochlorothiazide Allergy Unknown Verified 02/21/21 09:26 [From Zestoretic] metronidazole [From Flagyl] Allergy Unknown Verified 02/21/21 09:26 lisinopril AdvReac ADR-Cough Verified 02/21/21 09:26 prednisone AdvReac ITCHING LG Verified 02/21/21 09:26 DOSE PFSH Acute PFSH: Medical History Aortic stenosis CAD (coronary artery disease) Previous proximal left anterior descending stent, RCA stent x2 11/30/2019. Cerebrovascular accident (CVA) determined by clinical assessment Chronic kidney disease (CKD) COPD (chronic obstructive pulmonary disease) Epistaxis Hypertension Kidney atrophy ST elevation myocardial infarction (STEMI) Inferior wall ID Tobacco abuse, in remission Surgical History History of herniorrhaphy Family History Brother CAD (coronary artery disease) Cancer Father Stroke Hypertension Grandmother Cancer Other Hyperlipidemia Denies family history of Diabetes Clotting disorder Dementia Psychiatric illness Bleeding disorder Family history of premature coronary artery disease Lung disease Social History Smoking and tobacco status: former smoker Quit status (tobacco): has quit using tobacco Alcohol intake: current Other details last alcohol use: 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 Adopted: No Household members: family Marital status: Vitals/I&O/Wt Weight last 48 hrs Weight 230 lb Physical Exam Narrative: EXAM NARRATIVE: CONSTITUTIONAL: The patient is a normal appearing [] in no apparent distress. GENERAL: Patient in no acute distress. CARDIAC: Regular rate and rhythm. CHEST: Normal inspiratory effort, normal respiratory rate. ABDOMEN: Soft and nontender. SKIN: Clear, warm and intact. NEURO?PSYCH: The patient is alert and oriented to person, place and time. Sensorv /SILT Motor StrengthShoulder abduction C5 5/5Wrist extension C6 5/5Elbow extension C7 5/5Hand Breeder Service Technician C8 5/5Finger abduction T15/5 Radial/ Ulnar/ Median n intact LowerSensory (SILT)Motor StrengthHin flexion L2/3Ant/inner thigh 5/5Hip adduction L2/3 5/5Knee extension L4 Lat thigh, 5/5Toe dorsiflexion L5 5/5Ankle dorsiflexion L5/ F46Ndsskat flexion S1 5/5 DTRBleeps 2+Triceps 2+Brachioradialis 2+Patellar 2+Achilles 2+ MUSCULOSKELETAL: [] UPPEREXTREMITIES: The patient had full active ROM in fingers, wrist, elbow, and shoulder. The patient demonstrated ability to fully flex/extend/abduct/adduct fingers, make ok sign, cross 2nd/3rd digits, extend 1st digit fully.. Radial pulse 2+, CR<2 seconds. LOWER EXTREMITIES: Pt has full, active ROM of toes, ankle, knee, and hip. Dorsalis pedis/posterior tibialis pulses 2+, CR<2 seconds. SPINE: Skin warm, dry, intact. 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
--- NOTE | 2021-04-04 07:08 | W.PM.OPSUD ---
Surgery/Procedure H&P Update DATE OF PROCEDURE: April 04, 2021 DATE H&P PERFORMED: 04/04/21 PLANNED PROCEDURE: Operation Date: 04/04/21 09:15 Proposed Procedures p Anterior Cervical Discectomy & Fusion ACDF C3/4 C4/5 C5/6 [id number](Not Applicable) - Raudel Alvarez DO
[2021-04-04] MEDS: sodium chloride 0.9% 1,000 ML 30 ML IV (08:25)
--- NOTE | 2021-04-04 08:27 | P.ANESUD_ITS ---
Pre-Anesthetic Update Pre-Anesthetic Assessment: Date of Surgery/Procedure: 04/04/21 Preop Gali gnosis: cervical sspondylosis with myelopathy Proposed Procedure: Operation Date: 04/04/21 09:15 Proposed Procedures p Anterior Cervical Discectomy & Fusion ACDF C3/4 C4/5 C5/6 [id number](Not Applicable) - Raudel Alvarez, DO Any changes to Pre-Anesthetic Assessment?: No Exam: Pre-Anes Outpt Exam: alert, oriented x 3, clear to auscultation bilaterally and regular rate & rhythm Cardiac Studies: No Data to Display
[2021-04-04 09:29] LABS: Anion Gap 12.3 (5-19); Blood Urea Nitrogen 11 mg/dL (8-23); Calcium 8.7 mg/dL (8.5-10.5); Carbon Dioxide 25 mmol/L (22-29); Chloride 105 mmol/L (98-107); Creatinine Clr Calc Pharmacy 110.1469; Glomerular Filtration Rate 96.4 mL/min (90-130); Glucose 139 mg/dL (65-115); Osmolality Calculated 288 mOsm/kg (285-295); Potassium 4.3 mmol/L (3.5-5.1); Sodium 138 mmol/L (136-145)
[2021-04-04] MEDS: thrombin 5,000 unit SDV 5000 UNIT XX (10:20)
--- NOTE | 2021-04-04 12:26 | P.OP_ITS ---
Operative Report Date of procedure: April 04, 2021 Pre-op Diagnosis: cervical sspondylosis with myelopathy Post-op diagnosis: same Procedure Done: 1. Anterior diskectomy C3/4 2. Anterior discectomy C4/5 3. Anterior diskectomy C5/6 4. Insertion of cage C3/4 5. Insertion of Cage C5/6 6. Insertion of Cage C5/6 7. Instrumentation with anterior plate from C3-C6 8. Use of allograft Surgeon: Raudel Alvarez Anesthesia: General Estimated blood loss (mL): 50 Condition: stable Disposition: PACU Procedure: The patient was taken to the operating room, where he underwent general endotracheal anesthesia without complications. He was then positioned supine on the operating table, and all areas of impingement were well padded. The arms were carefully padded and tucked at his sides. A roll was placed between the shoulder blades.. An x-ray was done to determine the appropriate level for the skin incision. The entire neck was then sterilely prepped and draped in the usual fashion. Neuromonitoring was attached prior to prepping. A transverse skin incision was made and carried down to the platysma muscle. This was then split in line with its fibers. Blunt dissection was carried down medial to the carotid sheath and lateral to the trachea and esophagus until the anterior cervical spine was visualized. A needle was placed into a disc and an x-ray was done to determine its location. The longus colli muscles were then elevated bilaterally with the electrocautery unit. Self-retaining retractors were placed deep to the longus colli muscle. Attention was brought to the C3/4 level that was confirmed on x-ray. A caspar pin was placed into the C3 vertebrae and the C4 vertebrae. The disk space was then distracted. The microscope was then brought in. A radical anterior discectomies were performed at C3/4. This included complete removal of the anterior annulus, nucleus, and posterior annulus. The posterior longitudinal ligament was removed as were the posterior osteophytes. Foraminotomies were then accomplished bilaterally. This was done using a high speed dee dee, kerrison rongeurs and curretes Once all of this was accomplished, the curved currette was used to check for any residual compression. The central canal was wide open as were the foramen. A high-speed bur was used to remove the cartilaginous endplates above and below the interspace. Bleeding cancellous bone was exposed. The disc space were measured and appropriate size cage were placed sterilely onto the field. Allograft graft was packed into the cages. The cage was then placed and there was good juxtaposition against the bleeding decorticated surfaces and good distraction of each interspace. Attention was brought to the next interspace. The Erie pins were removed. Bone wax was used to prevent any bleeding from occurring at the pin sites. Attention was brought to the C4/5 level that was confirmed on x-ray. The microscope was then brought in. A radical anterior discectomies were performed at C4/5. This included complete removal of the anterior annulus, nucleus, and posterior annulus. The posterior longitudinal ligament was removed as were the posterior osteophytes. Foraminotomies were then accomplished bilaterally. This was done using a high speed dee dee, kerrison rongeurs and curretes Once all of this was accomplished, the curved currette was used to check for any residual compression. The central canal was wide open as were the foramen. A high-speed bur was used to remove the cartilaginous endplates above and below the interspace. Bleeding cancellous bone was exposed. The disc space were measured and appropriate size cage were placed sterilely onto the field. Allog raft graft was packed into the cages. The cage was then placed and there was good juxtaposition against the bleeding decorticated surfaces and good distraction of each interspace. Attention was brought to the next interspace. Attention was brought to the C5/6 level that was confirmed on x-ray. The microscope was then brought in. A radical anterior discectomies were performed at C5/6. This included complete removal of the anterior annulus, nucleus, and posterior annulus. The posterior longitudinal ligament was removed as were the posterior osteophytes. Foraminotomies were then accomplished bilaterally. This was done using a high speed dee dee, kerrison rongeurs and curretes Once all of this was accomplished, the curved currette was used to check for any residual compression. The central canal was wide open as were the foramen. A high-speed bur was used to remove the cartilaginous endplates above and below the interspace. Bleeding cancellous bone was exposed. The disc space were yassine ured and appropriate size cage were placed sterilely onto the field. Allograft graft was packed into the cages. The cage was then placed and there was good juxtaposition against the bleeding decorticated surfaces and good distraction of each interspace. Attention was brought to the next interspace. The appropriate size anterior cervical locking plate was chosen and bent into gentle lordosis. Two screws were then placed into each of the vertebral bodies at C3, C4,C5 and C6. There was excellent purchase. A final x-ray was done confirming good position of the hardware and Cages. The locking screws were then applied, also with excellent purchase. Following a final copious irrigation, there was good hemostasis and no dural leaks. The carotid pulse was strong. The wounds were then closed in layers using 2-0 Vicryl suture for the platysma muscle, 2-0 Vicryl suture for the subcutaneous tissue, and 4-0 monocryl suture in a subcuticular skin closure. Glue was placed followed by application of a sterile dressing. The drain was hooked to bulb suction. A [place] J was applied. The patient was then carefully returned to the supine position on his hospital bed where he was reversed and extubated and taken to the recovery room having tolerated the procedure well.
[2021-04-04] MEDS: fentaNYL 50 mcg/mL INJ 2mL IVP ×2 (12:43→12:53)
[2021-04-04] MEDS: HYDROmorphone 1 mg/mL INJ 1 mL 0.5 MG IVP (12:57)
--- NOTE | 2021-04-04 14:42 | ANE.PACU2 ---
Inpatient post-anesthesia follow up: Airway intact: Yes Vital signs: Temperature 98 F Pulse Rate 72 Respiratory Rate 18 Blood Pressure 140/80 Pulse Oximetry 99 Oxygen Delivery Me thod Room Air Oxygen Flow Rate 6 Fraction of Inspir ed Oxygen Hydration adequate: Yes Nausea and vomiting: No Pain level: 3 Mental status: Baseline
== END 2021-04-04 13:38 | disposition home or self-care (01) ==
PROVIDERS: Anesthesiology; PCP Nurse Practitioner Family; Visit Provider Orthopaedic Surgery
PROC: 0RB30ZZ Excision of Cervical Vertebral Disc, Open Approach (ICD-10-PCS; CPT 22551; principal; 2021-04-04 08:55)
DX: M47.12 Other spondylosis with myelopathy, cervical region (principal); I25.10 Atherosclerotic heart disease of native coronary artery without angina pectoris; J44.9 Chronic obstructive pulmonary disease, unspecified; I12.9 Hypertensive chronic kidney disease with stage 1 through stage 4 chronic kidney disease, or unspecified chronic kidney disease; N18.9 Chronic kidney disease, unspecified; I25.2 Old myocardial infarction; Z87.891 Personal history of nicotine dependence
CPT/HCPCS: 20930; 22551; 22552 ×2; 22845; 22853 ×3; 36415; 72040; 76000; 80048; 96365; 97110; 97760; C1713; C9359; J0330; J0690; J1170; J2370; J2704; J3010; J3490; J7030; L0174

== ENCOUNTER 2021-04-10 00:08 | Observation (INO) | payer MEDICARE, SELFPAY ==
[2021-04-10] VITALS (8 sets, daily range): BP systolic 130–163; BP diastolic 76–98; PULSE 77–85; RESP 14–18; TEMP 36.6–36.7; O2SAT 80–97; BMI 32.1
--- NOTE | 2021-04-10 00:13 | XRR_ITS ---
PROCEDURE INFORMATION: Exam: XR Chest Exam date and time: 04/10/2021 12:14 AM Age: 65 years old Clinical indication: Shortness of breath; Prior surgery; Surgery type: Cervical fusion. Open heart. ; Patient HX: Patient had cervical fusion last Wednesday. C/O SOB since then and today tried to eat chicken and claims got stuck in throat. Feels like throat is swollen. TECHNIQUE: Imaging protocol: XR of the chest. Views: 1 view. COMPARISON: CR XR chest 1V portable [id number] 09/13/2020 12:10 PM FINDINGS: Airway: The trachea is midline without deviation. Lungs: Lung volumes are symmetric. No focal airspace consolidation. Pulmonary interstitium is unremarkable. No central pulmonary vascular dilation. Pleural spaces: Unremarkable. No pleural effusion. No pneumothorax. Heart/Mediastinum: Prior cardiac surgery is evident. Bones/joints: Lower cervical spine ACDF is noted but incompletely assessed. Soft tissues: No abnormal radiopaque foreign bodies identified in the chest. XR/XR chest 1V portable [id number] IMPRESSION: No acute chest findings are identified.
--- NOTE | 2021-04-10 00:28 | W.ED.GENADLT ---
HPI - General Adult General: Chief complaint: Airway/Esophagus Foreign Body Stated complaint: CHICKEN STUFF IN THROAT Time Seen by Provider: 04/10/21 00:09 Source: patient and EMS Mode of arrival: EMS Limitations: no limitations History of Present Illness: HPI narrative: 65-year-old male who had ACDF of a cervical spine 1 week ago. He states he is possibly just doing broths and ate chicken tonight. He states that he feels like it is lodged in his throat and he had a choking episode. He states is not been able to swallow since then. This happened roughly 3 to 4 hours ago. He denies any shortness of breath. Denies any chest pain. Denies any worsening improving factors. Associated symptoms: Deny chest pain, dyspnea, headache(s), nausea, rash or vomiting Review of Systems Const: Denies: fever(s), chills, body aches or change in appetite Eyes: Denies: blurry vision or eye discomfort ENMT: Reports: odynophagia; Denies: throat pain or dental pain Card: Denies: chest pain Resp: Denies: dyspnea GI: Denies: abdominal pain, nausea, vomiting or diarrhea : Denies: dysuria Musc: Denies: neck pain or back pain Skin/Breast: Denies: rash Neuro: Denies: headache(s) Psych: Denies: depression Wilber/Lymph: Denies: easy bruising All/Imm: Denies: urticaria PFSH ED PFSH: Medical History Aortic stenosis CAD (coronary artery disease) Previous proximal left anterior descending stent, RCA stent x2 11/30/2019. Cerebrovascular accident (CVA) determined by clinical assessment Chronic kidney disease (CKD) COPD (chronic obstructive pulmonary disease) Epistaxis Hypertension Kidney atrophy ST elevation myocardial infarction (STEMI) Inferior wall [place] Tobacco abuse, in remission Surgical History History of herniorrhaphy Family History Brother CAD (coronary artery disease) Cancer Father Stroke Hypertension Grandmother Cancer Other Hyperlipidemia Denies family history of Diabetes Clotting disorder Dementia Psychiatric illness Bleeding disorder Family history of premature coronary artery disease Lung disease Social History Smoking and tobacco status: former smoker Quit status (tobacco): has quit using tobacco Alcohol intake: current Other details last alcohol use: 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 Adopted: No Household members: family Marital status: Physical Exam Const: COMMON NORMALS: no acute distress, patient oriented x3 and healthy appearing HENMT: COMMON NORMALS: normocephalic and atraumatic HEAD & SCALP: normocephalic and atraumatic Eye: COMMON NORMALS: Equal, round and reactive pupils present and EOMs intact bilaterally PUPIL: Yes Equal, round and reactive pupils present Neck/C-Spine: COMMON NORMALS: full ROM and supple Chest: COMMONS NORMALS: normal inspection of the chest and normal palpation of entire chest wall Resp: COMMON NORMALS: normal respiratory effort, No retractions, No use of accessory muscles and clear to auscultation bilaterally AUSCULTATION: clear to auscultation bilaterally Cardio: COMMON NORMALS: regular rate, regular rhythm and No murmurs present (Cardio) RATE: regular rate RHYTHM: regular rhythm GI: COMMON NORMALS: Normal to inspection, nondistended, normoactive bowel sounds present, Soft to palpation, non-tender and no masses PALPATION: Yes Soft to palpation Extremity: COMMON NORMALS: normal to inspection and full ROM Neuro: COMMON NORMALS: patient oriented x3, moves all extremities and no focal motor deficits Psych: COMMON NORMALS: mental status grossly normal, Normal thought process present and cooperative THOUGHT PROCESS: Normal thought process present Skin: COMMON NORMALS: no rashes or lesions noted and no wounds GENERAL SKIN EXAM: no rashes or lesions noted Course Vital Signs: Vital signs: Vital Signs Temperature 98 F 04/10/21 00:11 Pulse Rate 83 04/10/21 00:11 Respiratory Rate 18 04/10/21 00:11 Blood Pressure 163/98 04/10/21 00:11 Pulse Oximetry 96 04/10/21 00:19 MDM - General Adult MDM Narrative: Medical decision making narrative: Patient presents with an esophageal food impaction. I spoke to Dr. Arroyo who is in the coming take him to the GI lab for an EGD. Patient has been stable while here. Discharge Plan Discharge Patient Disposition: Placed in Observation Admit Provider: Jim Arroyo Clinical Impression: Food impaction of esophagus Condition: Stable Coding Level of Care Code ED Geothermal Production Manager for Chg Fwd Exam Comprehensive
--- NOTE | 2021-04-10 01:44 | PM.HP ---
Providers/Chief Complaint Admitting Physician: Jim Arroyo MD Primary Care Provider: Garima Carpenter NP Chief Complaint: CHICKEN STUFF IN THROAT History of Present Illness Ortiz Mann Sr is a 65 year old male who underwent an anterior cervical fusion last week. He has been in a rigid c-collar since. He was instructed to stick to a liquid diet and only very soft foods. He got tired of only eating those things and so he tried to eat some chicken tonight that his had made. He felt like he was having some difficulty swallowing even before that but then felt as if he may have got a piece of chicken stuck in his throat. He initially felt like he was having trouble breathing but that has passed. He says he is not even sure if there is anything stuck in his throat but since he was having increased symptoms, at least for a short period of time, he came into the hospital. He has never had anything like this happen to him before. Review of Systems General: Reports: 10 or more systems reviewed and unremarkable except in HPI and below Const: Denies: fever(s) ENMT: Reports: other (Dysphagia) Card: Denies: chest pain Medications/Allergies Home Medications Medication Instructions Recorded Confirmed Last Taken Type clopidogrel 75 mg PO DAILY 30 Days #30 tab 12/02/19 04/04/21 03/29/21 09:00 Rx cyclobenzaprine 10 mg PO TID PRN 12/02/19 04/04/21 03/28/21 History metoprolol succinate [Toprol XL] 50 mg PO DAILY 12/02/19 04/04/21 04/04/21 05:30 History nitroglycerin [Nitrostat] 0.4 mg SUBLINGUAL Q5M PRN 12/02/19 04/03/21 Unknown History pantoprazole [Protonix] 40 mg PO DAILY 12/02/19 04/04/21 04/03/21 History amlodipine 5 mg tablet 5 mg PO DAILY tab 12/12/19 04/04/21 04/04/21 05:30 History hydromorphone [Dilaudid] 4 mg PO Q4H PRN #10 tab 09/13/20 04/04/21 03/28/21 Rx apixaban 5 mg tablet 5 mg PO BID 10/31/20 04/04/21 03/29/21 09:00 History atorvastatin 80 mg tablet 80 mg PO DAILY 10/31/20 04/04/21 04/03/21 History ezetimibe 10 mg tablet 10 mg PO DAILY 10/31/20 04/04/21 04/03/21 History fluticasone propionate 50 1 spray INTRANASAL DAILY 10/31/20 04/04/21 04/03/21 History mcg/actuation nasal spray,suspension furosemide 40 mg tablet 40 mg PO BID 10/31/20 04/04/21 04/03/21 History hydrocodone 10 mg-acetaminophen 1 tab PO Q6H PRN 10/31/20 04/04/21 03/28/21 History 325 mg tablet losartan 50 mg tablet 50 mg PO BID 10/31/20 04/04/21 04/03/21 History docusate sodium [Stool Softener] 100 mg PO DAILY 03/12/21 04/04/21 04/03/21 History spironolactone 12.5 mg PO DAILY 03/12/21 04/04/21 04/03/21 History temazepam 15 mg PO BEDTIME 03/12/21 04/04/21 04/03/21 History [id number] Bone Growth Stimulator #1 ea 03/31/21 Unknown Rx hydrocodone-acetaminophen 1 - 2 tab PO .Q4-6H #40 tab 04/04/21 Unknown Rx Allergies Allergy/AdvReac Type Severity Reaction Status Date / Time clonazepam Allergy Severe Stopped Verified 04/10/21 01:50 breathing metronidazole [From Flagyl] Allergy Severe Anaphylaxis Verified 04/10/21 01:50 stopped breathing guaifenesin Allergy Unknown Verified 02/21/21 09:26 hydrochlorothiazide Allergy Unknown Verified 02/21/21 09:26 [From Zestoretic] rosuvastatin Allergy Myalgias Verified 04/10/21 01:50 lisinopril AdvReac ADR-Cough Verified 02/21/21 09:26 prednisone AdvReac ITCHING LG Verified 02/21/21 09:26 DOSE PFSH Acute PFSH: Medical History (Updated 04/10/21 @ 01:15 by Alberto Kelly MD) Aortic stenosis CAD (coronary artery disease) Previous proximal left anterior descending stent, RCA stent x2 11/30/2019. Cerebrovascular accident (CVA) determined by clinical assessment Chronic kidney disease (CKD) COPD (chronic obstructive pulmonary disease) Epistaxis Hypertension Kidney atrophy ST elevation myocardial infarction (STEMI) Inferior wall [place] Tobacco abuse, in remission Surgical History (Updated 04/10/21 @ 01:49 by Jim Arroyo MD) History of herniorrhaphy Right inguinal hernia repair History of left knee surgery S/P CABG (coronary artery bypass graft) 2019 --patient suggests he may have had a couple valves worked on, as well Status post cervical spinal fusion Stented coronary artery X4 Family History Brother CAD (coronary artery disease) Cancer Father Stroke Hypertension Grandmother Cancer Other Hyperlipidemia Denies family history of Diabetes Clotting disorder Dementia Psychiatric illness Bleeding disorder Family history of premature coronary artery disease Lung disease Social History (Updated 04/10/21 @ 01:52 by Jim Arroyo MD) Smoking and tobacco status: former smoker Quit status (tobacco): has quit using tobacco Year quit tobacco: 2014 Former quit date comment: 12-gtfn-wgmi history prior to quitting Alcohol intake: current Adopted: No Household members: family Marital status: Vitals/I&O/Wt Last Vital Signs Temp 98 F 04/10/21 00:11 Pulse 83 04/10/21 00:11 Resp 18 04/10/21 00:11 BP 163/98 04/10/21 00:11 Pulse Ox 96 04/10/21 00:19 Weight last 48 hrs Weight 230 lb Physical Exam Narrative: EXAM NARRATIVE: The patient was encountered in his room in the emergency department. He does not appear to be in any distress. He does have a rigid c-collar in place. The pupils are equal. The lungs are clear to auscultation. The heart seems regular. The abdomen is soft and nontender. The extremities reveal no edema. Neurologically the patient appears to be grossly intact. A&P Assessment and plan (1) Food impaction of esophagus: The patient may or may not have an esophageal foreign body present. He seems to feel better than he did initially, and even appears to be handling his secretions well. I discussed EGDs with the patient in some detail. Risks of bleeding (the patient is taking both Eliquis and Plavix at home), internal organ injury, etc. were all gone over. He seems to understand and agrees to proceed tonight. Status: Acute Attestations Medical Necessity Statement*: The patient is going to be kept in outpatient status. If his EGD is unremarkable and/or is therapeutically successful then he is wanting to be discharged. Coding Level of Care Code Acute Wedding Makeup Artist for Kamille Traored Diagnoses Food impaction of esophagus T18.128A
--- NOTE | 2021-04-10 02:23 | ANES.PREANE2 ---
Pre-Anesthetic Assessment Pre-Anesthetic Assessment: Height/Weight: Height 1.8 m Weight 104.326 kg Temp Pulse Resp BP Pulse Ox 98.1 F 77 15 130/76 95 04/10/21 02:22 04/10/21 02:22 04/10/21 02:22 04/10/21 02:22 04/10/21 02:22 Preop Diagnosis: cervical sspondylosis with myelopathy Proposed Procedure: Operation Date: 04/10/21 02:15 Proposed Procedures p EGD(Not Applicable) - Jim Arroyo MD Was Beta Nancy taken within 24 hours: Yes Was Clonidine taken within 24 hours: N/A Social: Social History: No alcohol and No tobacco Exam: Pre-Anes Outpt Exam: alert, oriented x 3, clear to auscultation bilaterally and regular rate & rhythm Airway: Submandibular: WNL Cervical ROM: Other (Very limited secondary to ACDF 3 days ago) MP: 3 Dentition: False Pulmonary: Pulmonary: COPD CV/HEM: CV/HEM: CAD, HTN and IA Comments: Ao/MV replaced : : Chronic renal Insufficiency GI: GI: GERD Metabolic: Metabolic: Morbid obesity Musc/skel: Musc/skel: OA/DJD Anesthetic Plan: ASA status: 3E Anesthesia: General Risk of > 500 ml blood loss (7ml/kg in children): No PFSH Anesthesia PFSH: Medical History (Updated 04/10/21 @ 01:15 by Alberto Kelly MD) Aortic stenosis CAD (coronary artery disease) Previous proximal left anterior descending stent, RCA stent x2 11/30/2019. Cerebrovascular accident (CVA) determined by clinical assessment Chronic kidney disease (CKD) COPD (chronic obstructive pulmonary disease) Epistaxis Hypertension Kidney atrophy ST elevation myocardial infarction (STEMI) Inferior wall [place] Tobacco abuse, in remission Surgical History (Updated 04/10/21 @ 01:49 by Jim Arroyo MD) History of herniorrhaphy Right inguinal hernia repair History of left knee surgery S/P CABG (coronary artery bypass graft) 2019 --patient suggests he may have had a couple valves worked on, as well Status post cervical spinal fusion Stented coronary artery X4 Family History Brother CAD (coronary artery disease) Cancer Father Stroke Hypertension Grandmother Cancer Other Hyperlipidemia Denies family history of Diabetes Clotting disorder Dementia Psychiatric illness Bleeding disorder Family history of premature coronary artery disease Lung disease Social History (Updated 04/10/21 @ 01:52 by Jim Arroyo MD) Smoking and tobacco status: former smoker Quit status (tobacco): has quit using tobacco Year quit tobacco: 2014 Former quit date comment: [id number] history prior to quitting Alcohol intake: current Adopted: No Household members: family Marital status: Data Anesthesia Cardiac Studies: No Data to Display
[2021-04-10] MEDS: sodium chloride 0.9% 1,000 ML 30 ML IV (02:25)
--- NOTE | 2021-04-10 02:56 | ANE.PACU2 ---
Inpatient post-anesthesia follow up: Airway intact: Yes Vital signs: Temperature 98.1 F Pulse Rate [Monito r] 83 Pulse Rate 77 Respiratory Rate 15 Blood Pressure [Ri ght Arm] 163/98 Blood Pressure 130/76 Pulse Oximetry 95 Oxygen Delivery Me thod Room Air Oxygen Flow Rate Fraction of Inspir ed Oxygen Hydration adequate: Yes Nausea and vomiting: No Pain level: 2 Mental status: Baseline
--- NOTE | 2021-04-10 03:35 | SUR.PHASEII ---
tolerated ice chips.
--- NOTE | 2021-04-11 17:36 | PC.RESP ---
Smoking Cessation information sent to patient.
== END 2021-04-10 03:30 | disposition home or self-care (01) ==
LOC: ER 00:15 → MEDSURG 00:58
PROVIDERS: Admitting Provider Surgery; Emergency Provider Emergency Medicine; PCP Nurse Practitioner Family; Visit Provider Surgery
PROC: 0DJ08ZZ Inspection of Upper Intestinal Tract, Via Natural or Artificial Opening Endoscopic (ICD-10-PCS; CPT 43235; principal; 2021-04-10 02:15)
DX: T18.128A Food in esophagus causing other injury, initial encounter (principal); I25.10 Atherosclerotic heart disease of native coronary artery without angina pectoris; J44.9 Chronic obstructive pulmonary disease, unspecified; I12.9 Hypertensive chronic kidney disease with stage 1 through stage 4 chronic kidney disease, or unspecified chronic kidney disease; N18.9 Chronic kidney disease, unspecified; I25.2 Old myocardial infarction; Z82.49 Family history of ischemic heart disease and other diseases of the circulatory system; Z82.3 Family history of stroke; Z87.891 Personal history of nicotine dependence; E66.01 Morbid (severe) obesity due to excess calories; Z68.32 Body mass index [BMI] 32.0-32.9, adult; Z95.1 Presence of aortocoronary bypass graft; Z98.1 Arthrodesis status
CPT/HCPCS: 12345; 43235; 71045; 96360; 99285; G0378; J7030

== ENCOUNTER → 2021-05-29 08:55 | Outpatient (BNVA) | payer MEDICARE, SELFPAY | PROVIDERS: PCP Nurse Practitioner Family; Visit Provider Orthopaedic Surgery | DX: M47.12 Other spondylosis with myelopathy, cervical region (principal); M79.601 Pain in right arm; Z98.1 Arthrodesis status | CPT/HCPCS: 72040 ==

== ENCOUNTER → 2021-07-17 08:00 | Outpatient (BNVA) | payer MEDICARE, SELFPAY | PROVIDERS: PCP Nurse Practitioner Family; Visit Provider Orthopaedic Surgery | DX: M47.12 Other spondylosis with myelopathy, cervical region (principal); Z48.89 Encounter for other specified surgical aftercare | CPT/HCPCS: 72040 ==

== ENCOUNTER 2021-09-09 08:47 | Outpatient (CLI) | payer MEDICARE, SELFPAY ==
--- NOTE | 2021-09-09 08:55 | MM_ITS ---
WS: [id number] DIAGNOSTIC BILATERAL DIGITAL MAMMOGRAM WITH CAD RIGHT breast ultrasound, limited. LEFT for comparison. HISTORY: RT BREAST LUMP COMPARISON: None available. TECHNIQUE: Bilateral craniocaudad, mediolateral oblique, and mediolateral views are submitted. Spot c ompression RIGHT CC. Computer aided detection utilized. Breast composition: The breasts are almost entirely fatty. Increased density with dendritic pattern p osterior to the RIGHT nipple. Similar findings but to a much lesser extent at the LEFT nipple. No nip ple retraction. RIGHT breast ultrasound, limited. Ultrasound in the area of pain demonstrates a hypoechoic area with increased vascularity with a branc juliet dendritic pattern measuring 1.9 x 1.4 x 1.0 cm. Similar findings posterior to the LEFT nipple. MM/[id number] IMPRESSION: BI-RADS: 2-Benign FOLLOW UP: See Report Bilateral gynecomastia.
== END 2021-09-09 08:48 | disposition home or self-care (01) ==
LOC: RADSHAW 08:52
PROVIDERS: PCP Nurse Practitioner Family; Visit Provider Nurse Practitioner Family
DX: N63.0 Unspecified lump in unspecified breast (principal); N62 Hypertrophy of breast; Z79.899 Other long term (current) drug therapy
CPT/HCPCS: 76642; 77066

== ENCOUNTER → 2022-05-21 10:45 | Outpatient (BNVA) | payer MEDICARE, SELFPAY | PROVIDERS: PCP Nurse Practitioner Family; Visit Provider Podiatrist Foot & Ankle Surgery | DX: L84 Corns and callosities (principal); M79.671 Pain in right foot; M20.41 Other hammer toe(s) (acquired), right foot | CPT/HCPCS: 99203 ==

== ENCOUNTER → 2022-07-08 07:54 | Outpatient (BNVA) | payer MEDICARE, SELFPAY | PROVIDERS: PCP Nurse Practitioner Family; Visit Provider Podiatrist Foot & Ankle Surgery | DX: L84 Corns and callosities (principal); M79.671 Pain in right foot; M20.41 Other hammer toe(s) (acquired), right foot | CPT/HCPCS: 99213 ==

== ENCOUNTER 2022-12-23 11:57 | Emergency (ER) | payer MEDICARE, SELFPAY ==
[2022-12-23 11:58] VITALS: BP 137/77; PULSE 83; RESP 17; TEMP 36; O2SAT 96; BMI 33.0
--- NOTE | 2022-12-23 12:12 | XR_ITS ---
WS: [id number] LEFT KNEE: 3 VIEW(S) TECHNIQUE: AP, oblique(s) and lateral. HISTORY: left knee pain COMPARISON: None available. Status post total knee arthroplasty. Screws and hardware within the distal femur and proximal tibia a ppear appropriate. No prior studies for comparison to evaluate for subtle change. No hardware fractur es. No joint effusion. Soft tissue calcifications. XR/XR knee LT 3V* [id number] IMPRESSION: Status post LEFT knee arthroplasty. No prior studies for comparison. No fracture.
--- NOTE | 2022-12-23 12:44 | W.ED.EXTPRO ---
HPI - Extremity Problem General: Chief complaint: Extremity Injury, Lower Stated complaint: Left leg injury, cant support weight Time Seen by Provider: 12/23/22 12:11 History of Present Illness: Patient is a 67-year-old male comes to the ED with left knee pain. Injury occurred this morning. He states he was closing a large barn door when he felt a pop in the back of his left knee and then felt a sharp pain. He rates the pain currently a 10 out of 10. He is unable to bear any weight on left leg due to pain. All the pain is located in the back of his knee. Past medical history of total knee replacement on left side. Associated symptoms: Deny chest pain, fever(s) or rash Review of Systems Const: Denies: fever(s), chills or fatigue Eyes: Denies: change in vision or eye discomfort ENMT: Denies: throat pain, odynophagia, nasal discharge or nasal congestion Card: Denies: chest pain, palpitations, edema, swelling of feet/ankles, dyspnea on exertion or orthopnea Resp: Denies: dyspnea, productive cough or non-productive cough GI: Denies: abdominal pain, nausea, vomiting, diarrhea, constipation or hematochezia : Denies: flank pain, difficulty urinating, dysuria or hematuria Musc: Reports: extremity pain (Left knee) and limited range of motion (Left knee); Denies: neck pain, back pain or extremity swelling Skin/Breast: Denies: rash or new lesions Neuro: Denies: headache(s), numbness in extremities or weakness in extremities PFS ED PFSH: Medical History Aortic stenosis CAD (coronary artery disease) Previous proximal left anterior descending stent, RCA stent x2 11/30/2019. Cerebrovascular accident (CVA) determined by clinical assessment Chronic kidney disease (CKD) COPD (chronic obstructive pulmonary disease) Epistaxis Hypertension Kidney atrophy ST elevation myocardial infarction (STEMI) Inferior wall CT Tobacco abuse, in remission Surgical History History of herniorrhaphy Right inguinal hernia repair History of left knee surgery S/P CABG (coronary artery bypass graft) 2019 --patient suggests he may have had a couple valves worked on, as well Status post cervical spinal fusion Stented coronary artery X4 Family History Brother CAD (coronary artery disease) Cancer Father Stroke Hypertension Grandmother Cancer Other Hyperlipidemia Denies family history of Diabetes Clotting disorder Dementia Psychiatric illness Bleeding disorder Family history of premature coronary artery disease Lung disease Social History Smoking and tobacco status: never smoked Quit status (tobacco): has quit using tobacco Year quit tobacco: 2014 Former quit date comment: [id number] history prior to quitting Alcohol intake: current Adopted: No Household members: family Marital status: Physical Exam Const: COMMON NORMALS: no acute distress, patient oriented x3 and alert GENERAL APPEARANCE: cooperative HENMT: COMMON NORMALS: normocephalic HEAD & SCALP: normocephalic MOUTH: Normal oral and palatal mucosa present THROAT: posterior oropharynx normal and uvula midline Neck/C-Spine: COMMON NORMALS: supple GENERAL: Yes normal visual inspection Resp: COMMON NORMALS: normal respiratory effort, No retractions, No use of accessory muscles and clear to auscultation bilaterally AUSCULTATION: clear to auscultation bilaterally Cardio: COMMON NORMALS: regular rate, regular rhythm, S1 normal heart sound present, S2 normal heart sound present, No gallops present (Cardio), No clicks present (Cardio), No murmurs present (Cardio) and Peripheral pulses 2+ throughout RATE: regular rate RHYTHM: regular rhythm HEART SOUNDS: S1 normal heart sound present and S2 normal heart sound present PERIPHERAL PULSES: Peripheral pulses 2+ throughout GI: COMMON NORMALS: Normal to inspection, nondistended, normoactive bowel sounds present, Soft to palpation, non-tender and no masses PALPATION: Yes Soft to palpation : COMMON NORMALS: Yes no CVA tenderness BLADDER/KIDNEY EXAM: Yes no CVA tenderness Back/Pelvis: COMMON NORMALS: no CVA tenderness Extremity: COMMON NORMALS: normal to inspection NARRATIVE EXTREMITY EXAM: Left knee?no swelling or erythema noted. Limited range of motion due to pain. Tenderness of the posterior aspect of the knee. Neuro: COMMON NORMALS: patient oriented x3 SENSORIUM/ORIENTATION: Yes alert GAIT: Yes Normal gait present Skin: GENERAL SKIN EXAM: dry skin Course Vital Signs: Vital signs: Vital Signs Temperature 96.8 F L 12/23/22 11:58 Pulse Rate 78 12/23/22 14:10 Respiratory Rate 16 12/23/22 14:10 Blood Pressure 137/77 12/23/22 11:58 Pulse Oximetry 95 12/23/22 14:10 Oxygen Delivery Me thod 12/23/22 14:10 MDM - Extremity (Nontraumatic) Medical Decision Making Patient is a 67-year-old male comes to the ED with left knee pain. Injury occurred this morning. He states he was closing a large barn door when he felt a pop in the back of his left knee and then felt a sharp pain. He rates the pain currently a 10 out of 10. Vitals are stable.Left knee?no swelling or erythema noted. Limited range of motion due to pain. Tenderness of the posterior aspect of the knee. X-ray left knee shows status post left knee arthroplasty no fractures or other acute findings noted. I placed order with case management patient be referred to Ortho for follow-up. He was diagnosed with left knee pain and discharged home. Told to use his crutches at home to help with ambulation. Return to ED precautions given. Patient understood and agreed with plan. Lab Data Radiology Impressions Knee X-Ray 12/23/22 12:12 IMPRESSION: Status post LEFT knee arthroplasty. No prior studies for comparison. No fracture. Discharge Plan Discharge Patient Disposition: Home Clinical Impression: Left knee pain Qualifiers: Chronicity: acute Qualified Code(s): M25.562 - Pain in left knee Condition: Stable Prescriptions: No Action losartan [Cozaar] 50 mg tablet 50 mg PO BID apixaban 5 mg tablet 5 mg PO BID atorvastatin 80 mg tablet 80 mg PO DAILY ezetimibe 10 mg tablet 10 mg PO DAILY fluticasone propionate 50 mcg/actuation spray,suspension 1 spray intranasal DAILY Rx Instructions: administer into each nostril furosemide 40 mg tablet 40 mg PO BID hydrocodone-acetaminophen 10-325 mg tablet 1 tab PO Q6H PRN (Reason: Pain) (DME) [id number] Bone Growth Stimulator See Rx Instructions .Route .MEDSUPPLY Qty: 1 0RF Rx Instructions: As directed. cyclobenzaprine 10 mg Tablet 10 mg PO TID PRN (Reason: Spasms) pantoprazole [Protonix] 40 mg Tablet,Delayed Release (Dr/Ec) 40 mg PO DAILY nitroglycerin [Nitrostat] 0.4 mg Tablet, Sublingual 0.4 mg SUBLINGUAL Q5M PRN (Reason: Chest Pain) metoprolol succinate [Toprol XL] 50 mg Tablet Extended Release 24 Hr 50 mg PO DAILY clopidogrel 75 mg Tablet 75 mg PO DAILY 30 Days Qty: 30 4RF Norvasc 5 mg tablet 5 mg PO DAILY hydrocodone-acetaminophen 5-325 mg tablet 1 - 2 tab PO .Q4-6H Qty: 40 0RF hydromorphone [Dilaudid] 4 mg tablet 4 mg PO Q4H PRN (Reason: pain) Qty: 10 0RF temazepam 15 mg Capsule 15 mg PO BEDTIME spironolactone 25 mg tablet 12.5 mg PO DAILY docusate sodium [Stool Softener] 100 mg Capsule 100 mg PO DAILY Discharge Orders: Discharge ED (Routine); Ordered 12/23/22 Ordered By: Blaine Llanos Referrals: Yoni Campos MD [Primary Care Provider] - Discharge Diet: Regular Discharge Activity: Increase activity as tolerated Patient Instructions: Knee Pain (ED) Activity Restrictions/Additional Instructions: Follow-up with medical provider as directed. Case management should contact you in the next several days to set up an appoint with Ortho for follow-up. Use crutches and limit any weightbearing on left leg until cleared by Ortho. Rest, ice and elevate left knee. Take medications as prescribed. Return to the ER or your medical provider if condition worsens. Please read and understand discharge instructions. Thank you for choosing [facility] for your healthcare needs today. Please realize this is an emergency room and that we are providing you with a medical screening exam and this may not be complete and all inclusive of all the testing and or work up that you may need to determine your ailment or severity of your illness. It is very important that you follow up as instructed or that you return to the Emergency Department should you have concerns or if your condition changes or worsens in any way. Coding Level of Care Code ED Bender Machine Operator for Kamille Dumont Exam Comprehensive
[2022-12-23] MEDS: HYDROcodone-acetaminophen 5-325 mg Tablet 1 TAB PO (12:47)
[2022-12-23 14:10] VITALS: PULSE 78; RESP 16; O2SAT 95
--- NOTE | 2022-12-23 14:28 | DCPLANNER ---
Addendum entered by Shayla Walker 01/21/23 07:45: atient had a follow up appointment scheduled with ortho - patient did attend appointment. Addendum entered by Shayla Walker 12/24/22 15:24: Patient has a follow up appointment scheduled for Sunday, December 25, 2022 at 9:[address] Gonzalez at ortho. Clinic will call patient with appointment information. Original Note: manager water had message to schedule a follow up appointment for patient with ortho. manager water sent patients information to the front office staff at ortho. Patients information will be printed and reviewed. Clinic will call patient with appointment information.
== END 2022-12-23 13:50 | disposition home or self-care (01) ==
PROVIDERS: Emergency Provider Physician Assistant; PCP Orthopaedic Surgery
DX: M25.562 Pain in left knee (principal)
CPT/HCPCS: 73562; 99283

== ENCOUNTER 2022-12-25 14:29 | Inpatient (IN) | payer MEDICARE, SELFPAY ==
[2022-12-25] VITALS (17 sets, daily range): BP systolic 119–155; BP diastolic 77–103; PULSE 79–98; RESP 12–20; TEMP 36.6–36.9; O2SAT 94–99; BMI 32.1; BMI 34.1
--- NOTE | 2022-12-25 11:09 | W.PM.OPSUD ---
Surgery/Procedure H&P Update DATE OF PROCEDURE: December 25, 2022 DATE H&P PERFORMED: 12/25/22 CHANGES TO PREVIOUS DOCUMENTATION: Please refer to my office note from today for full consult note and H&P. Patient initially seen evaluated in the emergency department on 12/23/2022. He was what he states it by barn door in his left back of the knee/calf he had immediate pain in his issues with bearing weight. He was initially seen in the emergency department x-ray showed stable left total knee arthroplasty. Referral to orthopedics was made. Patient is on Eliquis 5 mg which she did take this morning. Unfortunately patient has continually worsened. He states that there has been no acute change in symptoms overnight or at any particular time states since the injury it is progressively just worsened. At this point time on my clinical examination in the office his compartments are tense, he has significant decreased range of motion and pain with passive range of motion of his toes as well as his ankle he is endorsing some paresthesias to the lower extremity at this point in time calling him in a left lower extremity compartment syndrome with plan for a 4 compartment fasciotomy in urgent fashion he was seen in my office roughly [id number]. This was declared emergency patient was subsequently then taken down to our preoperative area and plan for emergent surgery. They understand the risk benefits complication alternatives each. They understand that given I have no specific time of changing when this actually could have been a compartment syndrome that I will no better in surgery of the vitality and survivability of his compartment musculature. He has taken Eliquis and at this point time understand that we may have some issues with bleeding at this point time feel the benefit far outweigh the risks and plan on taking patient to surgery to decompress his compartments he will likely need to leave these fasciotomy sites open and plan for repeat irrigation debridement followed by potentially closure later next week. He will be admitted immediately after surgery will have internal medicine on board to assist with medical management. Patient understands agrees current plan. Questions answered. PREOP DIAGNOSIS: Left lower extremity compartment syndrome PRIMARY INDICATION FOR PROCEDURE: Left lower extremity compartment syndrome PLANNED PROCEDURE: Operation Date: 12/25/22 11:30 Proposed Procedures p Fasciotomy Lower Extremity(Left) - Oli Llanos DO
[2022-12-25] MEDS: sodium chloride 0.9% 1,000 ML 100 ML IV (11:27)
[2022-12-25] MEDS: ceFAZolin 2,000 MG in sodium chloride 0.9% (plus) 50 ML 100 MG IV ×2 (11:31→18:44)
[2022-12-25 11:32] LABS: Hematocrit 38.2 % (42.0-52.0); Hemoglobin 12.2 g/dL (11.7-16.6); Mean Corpuscular HGB Conc 31.9 g/dL (30.0-36.0); Mean Corpuscular Hemoglobin 27.3 pg (28.0-34.0); Mean Corpuscular Volume 85.5 fl (80-94); Platelet Count 157 10^3/cmm (130-400); Red Blood Count 4.47 10^6/uL (4.1-5.3); Red Cell Distribution Width 13.1 % (12.1-15.1); White Blood Count 5.2 10^3/uL (4.0-10.0)
[2022-12-25 11:45] LABS: INR 1.25 (0.8-1.2)
[2022-12-25 11:50] LABS: Blood Urea Nitrogen 9 mg/dL (8-23); Calcium 9.1 mg/dL (8.5-10.5); Carbon Dioxide 23 mmol/L (22-29); Chloride 102 mmol/L (98-107); Creatinine Clr Calc Pharmacy 107.1291; Glomerular Filtration Rate 95.8 mL/min (90-130); Glucose 111 mg/dL (65-115); Osmolality Calculated 285 mOsm/kg (285-295); Sodium 138 mmol/L (136-145)
--- NOTE | 2022-12-25 12:02 | ANES.PREANE2 ---
Pre-Anesthetic Assessment Height/Weight: Height 1.8 m Weight 104.326 kg Temp Pulse Resp BP Pulse Ox O2 Del Method 98 F 97 18 143/86 97 12/25/22 11:16 12/25/22 11:16 12/25/22 11:16 12/25/22 11:16 12/25/22 11:16 12/25/22 11:16 Preop Diagnosis: Left lower extremity compartment syndrome Operation Date: 12/25/22 11:30 Proposed Procedures p Fasciotomy Lower Extremity(Left) - Oli Llanos DO Familial anesthetic complications: none Was Beta Nancy taken within 24 hours: Yes Was Clonidine taken within 24 hours: N/A Last intake: Intake Last Liquid Date 12/25/22 Last Liquid Time 07:00 Last Solid Date 12/24/22 Last Solid Time 17:00 Social No alcohol and No tobacco Exam alert, oriented x 3, clear to auscultation bilaterally and regular rate & rhythm Airway Submandibular: within normal limits Cervical ROM: within normal limits Mallampati: Class I Dentition: false Pulmonary Chronic Obstructive Pulmonary Disease CV/HEM Coronary Artery Disease, Hypertension and Peripheral Vascular Disease Valve replacement surgery Chronic Renal Insufficiency GI Gastroesophageal Reflux Disease Anesthetic Plan ASA status: 3E Anesthesia: General Medications/Allergies Home Medications Medication Instructions Recorded Confirmed Last Taken Type clopidogrel 75 mg tablet 75 mg PO DAILY 30 days #30 tabs 12/02/19 12/25/22 03/29/21 09:00 Rx cyclobenzaprine 10 mg tablet 10 mg PO TID PRN Spasms 12/02/19 12/25/22 03/28/21 History metoprolol succinate 50 mg 50 mg PO DAILY 12/02/19 12/25/22 04/04/21 05:30 History tablet,extended release 24 hr (Toprol XL) nitroglycerin 0.4 mg sublingual 0.4 mg sublingual Q5M PRN Chest 12/02/19 12/25/22 Unknown History tablet (Nitrostat) Pain pantoprazole 40 mg tablet,delayed 40 mg PO DAILY 12/02/19 12/25/22 04/03/21 History release (Protonix) amlodipine 5 mg tablet (Norvasc) 5 mg PO DAILY 12/12/19 12/25/22 04/04/21 05:30 History hydromorphone 4 mg tablet 4 mg PO Q4H PRN pain #10 tabs 09/13/20 12/25/22 03/28/21 Rx (Dilaudid) apixaban 5 mg tablet 5 mg PO BID 10/31/20 12/25/22 03/29/21 09:00 History atorvastatin 80 mg tablet 80 mg PO DAILY 10/31/20 12/25/22 04/03/21 History ezetimibe 10 mg tablet 10 mg PO DAILY 10/31/20 12/25/22 04/03/21 History fluticasone propionate 50 1 spray intranasal DAILY 10/31/20 12/25/22 04/03/21 History mcg/actuation nasal spray,suspension furosemide 40 mg tablet 40 mg PO BID 10/31/20 12/25/22 04/03/21 History hydrocodone 10 mg-acetaminophen 1 tab PO Q6H PRN Pain 10/31/20 12/25/22 03/28/21 History 325 mg tablet losartan 50 mg tablet (Cozaar) 50 mg PO BID 10/31/20 12/25/22 04/03/21 History docusate sodium 100 mg capsule 100 mg PO DAILY 03/12/21 12/25/22 04/03/21 History (Stool Softener) spironolactone 25 mg tablet 12.5 mg PO DAILY 03/12/21 12/25/22 04/03/21 History temazepam 15 mg capsule 15 mg PO BEDTIME 03/12/21 12/25/22 04/03/21 History [id number] Bone Growth Stimulator #1 ea 03/31/21 12/25/22 Unknown Rx Allergies Allergy/AdvReac Type Severity Reaction Status Date / Time clonazepam Allergy Severe Stopped Verified 12/25/22 11:08 breathing metronidazole [From Flagyl] Allergy Severe Anaphylaxis Verified 12/25/22 11:08 stopped breathing guaifenesin Allergy Unknown Verified 12/25/22 11:08 hydrochlorothiazide Allergy Unknown Verified 12/25/22 11:08 [From Zestoretic] rosuvastatin Allergy Myalgias Verified 12/25/22 11:08 lisinopril AdvReac ADR-Cough Verified 12/25/22 11:08 prednisone AdvReac ITCHING LG Verified 12/25/22 11:08 DOSE Current Medications Generic Name Dose Route Start Last Admin Trade Name Freq PRN Reason Stop Dose Admin Sodium Chloride 1,000 mls @ 100 mls/hr 12/25/22 11:30 12/25/22 11:27 Sodium Chloride 0.9% IV 12/26/22 11:29 100 mls/hr .Q10H MARQUES Administration PFSH Anesthesia Medical History Aortic stenosis CAD (coronary artery disease) Previous proximal left anterior descending stent, RCA stent x2 11/30/2019. Cerebrovascular accident (CVA) determined by clinical assessment Chronic kidney disease (CKD) COPD (chronic obstructive pulmonary disease) Epistaxis Hypertension Kidney atrophy ST elevation myocardial infarction (STEMI) Inferior wall [place] Tobacco abuse, in remission Surgical History History of herniorrhaphy Right inguinal hernia repair History of left knee surgery S/P CABG (coronary artery bypass graft) 2019 --patient suggests he may have had a couple valves worked on, as well Status post cervical spinal fusion Stented coronary artery X4 Family History Brother CAD (coronary artery disease) Cancer Father Stroke Hypertension Grandmother Cancer Other Hyperlipidemia Denies family history of Diabetes Clotting disorder Dementia Psychiatric illness Bleeding disorder Family history of premature coronary artery disease Lung disease Social History Smoking and tobacco status: never smoked Quit status (tobacco): has quit using tobacco Year quit tobacco: 2014 Former quit date comment: [id number] history prior to quitting Alcohol intake: current Adopted: No Household members: family Marital status: Data Anesthesia 12/25/22 11:25 12/25/22 11:25 Short CBC 12/25/22 Range/Units 11:25 WBC 5.2 (4.0-10.0) 10^3/uL Hgb 12.2 (11.7-16.6) g/dL Hct 38.2 L (42.0-52.0) % MCV 85.5 (80-94) fl Plt Count 157 (130-400) 10^3/cmm BMP 12/25/22 11:25 Sodium 138 Chloride 102 Carbon Dioxide 23 BUN 9 Creatinine 0.8 Glucose 111 Calcium 9.1 Coags 12/25/22 11:25 PT 16.10 H INR 1.25 H Cardiac Studies: Echocardiogram Ultrasound 12/01/19
[2022-12-25 12:16] LABS: Absolute Eosinophils 0.3 10^3/cmm (0.0-0.7); Absolute Neutrophil 3.3 10^3/cmm (1.4-6.5); Absolute Segmented Neutrophil 3.2 10/cmm (1.6-7.1); Band Neutrophils Absolute 0.1 10^3/cmm (0.0-1.2); Eosinophils 7 %; Lymphocytes 20 %; Lymphocytes Absolute 1.3 10^3/cmm (1.2-3.4); Monocytes Absolute 0.3 10^3/cmm (0.1-0.6); Platelet Estimate Decreased (Normal); Segmented Neutrophils 62 %; Total Cells Counted 100 (0-100)
--- NOTE | 2022-12-25 13:29 | P.OP_ITS ---
Brief Operative Note Date of procedure: 12/26/22 Pre-op diagnosis: Left lower extremity compartment syndrome Post-op diagnosis: same (With large hematoma (15cm x 10cm x 5cm)) Procedure Done: Left lower extremity 4 compartment release fasciotomies Right lower extremity hematoma evacuation with irrigation and debridement(15 cm x 10 cm x 5 cm) Surgeon: Oli Llanos Estimated blood loss (mL): 250 Complications: None Given patient's swelling medial incision was left open. Refer to operative note for details of intraoperative findings Post-op Plan: Patient taken to PACU in stable condition. Dressing on in place clean dry and intact. Medial incisions left open packed with wet-to-dry dressings and vessel loop closure to keep appropriate tension on skin. Lateral incision was closed. Patient notes significant relief already of symptoms. Patient's left lower extremity elevated will be nonweightbearing. We will keep on antibiotics as he has open wound. Plan will be for repeat surgery on Wednesday or Wednesday this week for repeat irrigation debridement possible closure versus VAC placement. Internal medicine on board for medical management. We will hold his anticoagulation at this time as he had already taken his morning anticoagulant home medications. We will continue to monitor and follow patient. All qu estions been answered at this time. Condition: stable Disposition: floor Coding Level of Care Code Acute Code for Chg Fwd
--- NOTE | 2022-12-25 13:29 | P.PCN_ITS ---
PACU note Narrative: Patient was seen and evaluated in PACU postoperatively dressings on in place clean dry and intact. He was also seen evaluated this afternoon at 5: 20 p.m. patient did have to have his dressing reinforce as he does have his medial incision left open. Dressing still clean dry intact at this time. H ospitalist on board for medical management. At this point time talking with patient his pain is significantly improved he states he feels as though he is regained already some sensation to his left lower extremity his pain is substantially improved. He is wiggling his toes now with purpose and he has no pain with passive range of motion of his toes nor ankle. His distal pulses prior to his dressing in the OR were dopplered of both the DP and posterior tib. Exam: awake Disposition: back to floor
--- NOTE | 2022-12-25 13:29 | PM.OP ---
Operative Report Date of procedure: December 25, 2022 Pre-op diagnosis: Preop Diagnosis Left lower extremity compartment syndrome Post-op diagnosis: Same Left lower extremity hematoma Post-op findings: Hematoma in superficial and deep posterior compartments Anterior and lateral compartments appear to be normal with only edematous fluid Procedure done: Left lower extremity 4 compartment fasciotomies Left lower extremity hematoma evacuation (15 cm x 10 cm x 5 cm) Implants: Arixtra- for hemostasis Surgeon: Oli Llanos DO Estimated blood loss: 250 mL 32 minutes IV fluids: 800 mL Complications: None Condition: stable Disposition: floor Brief History: Patient was seen and evaluated in my office for evaluation of left lower leg pain after a barn door hit the back of his knee/calf. Initially seen evaluate emergency department on 12/23/2022. This point time he is continue to be on his blood thinners which he states he is on Eliquis aspirin and Plavix, which she states he took his aspirin and Eliquis this morning. States his pain continually worsened since his initial injury. 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 We talked about the risk benefits complication alternatives to surgical and nonsurgical treatment options. Ultimately recommend surgical intervention. He understands the risks with surgery and he agrees to proceed. All questions answered. Consent signed. Procedure: Patient was initially seen in my office was then emergently sent over to the hospital preoperative area with plan for emergent 4 compartment fasciotomy left lower extremity. I met patient over in the preoperative area once he arrived the extremity was then marked and a consent was then signed. We did obtain a quick draw of labs just for a type and screen for baseline as well as to be prepared for blood loss given he had taken his anticoagulants. He was seen and evaluated by anesthesia and emergently taken back to the OR. Patient was then transported onto the OR table all bony prominences well-padded patient was properly secured to the bed. Patient underwent anesthesia per the anesthesia department. While undergoing anesthesia, I utilized a Doppler to evaluate patient's pulses. He had a dopplerable DP pulse but not a dopplerable posterior tib pulse. The left lower extremity then had a nonsterile tourniquet applied was placed on bone foam and the left lower extremity was then prepped and draped in sterile orthopedic fashion. Final timeout performed. Patient received appropriate preoperative antibiotics. Tourniquet was insufflated to 250 mmHg. I then proceeded with a 4 compartment fasciotomy starting with the medial incision. Incision was made just off the posterior border of the tibia in standard fasciotomy fashion and made a longitudinal incision through skin and subcutaneous tissue switch to Littler dissection scissors identified the superficial compartment fascia which was then incised with large Metzenbaum scissors both proximally and distally come pleat decompression was noted with significant protrusion of gastroc muscle as well as gelatinous hematoma and blood clots. This was quickly evacuated and then I proceeded with identifying the posterior border of the tibia and then incised longitudinally along the periosteum the posterior border and then placed a Sheikh elevator and completely decompressed the deep posterior compartment along the tibia both proximally and distally to its entirety and extent. Fracture hematoma was noted in this area. At this point in time all hematoma was evacuated and this was determined to be of size 15 cm x 10 cm x 5 cm. Significant extrusion once again was noted of the deep and superficial compartments overall the muscles appeared to be contused but were contractile to Bovie and still were pink no significant necrotic muscle was noted. I quickly then turned my attention towards my lateral incision. Standard lateral incision was made centering between the fibular head and lateral malleolus sharp scalpel incision was made through skin and subcutaneous tissue. I then mobilized with a lap sponge directly onto the fascia of the anterior and lateral compartments. I direct visualization there was no contusion or blood noted deep within the fascia. At this point time I performed a complete fasciotomy of the anterior compartment first both proximally and distally with long Metzenbaum scissors with care just to incise the fascia the anterior compartment was found to be healthy with normal red appearing muscle that was contractile to electrocautery there was edematous fluid noted within this region but there is no significant muscle extrusion. Next I utilized Metzenbaum scissors and released the lateral compartment to its entirety both proximally and distally. Once again the lateral compartment appeared to be healthy with normal red appearing muscle bellies that were contractile to electrocautery there was no significant muscle extrusion on release of these compartments however there was some mild edema edematous fluid noted. This point time satisfied with the lateral incision anterior and lateral compartment decompressions and at that point time refocus my attention again on the medial incision. This point time I then introduced a Pulsavac and irrigated the medial and lateral incisions with 9 L of normal saline. I completely evacuated out the hematoma of the deep and superficial compartments. It was noted after the hematoma was evacuated again the muscle belly was contused but when utilizing electrocautery the muscles of the deep and superficial compartments did appear to have contractility of note patient's medial head of the gastroc did have a noticeable partial tear. Once again hematoma was completely evacuated from the superficial and deep compartments and I was satisfied with my 4 compartment fasciotomy and hematoma evacuation. Once again thoroughly irrigated the incisions. Tourniquet was deflated. No pulsatile noted throughout the compartments. Patient did have just steady oozing secondary to his blood thinners that was oozing out of the muscle bellies. I utilized electrocautery to maintain as much hemostasis as possible. I then utilized Arixtra to sprinkle within the wound beds to help with some hemostasis agent given patient's been on blood thinners. I then determined that the medial incision would not be able to be closed. The lateral incision was soft and compartments were soft and the incision definitely appeared to be amenable for closure acutely. This was subsequently closed in layered fashion of interrupted 0 PDS, 2-0 PDS and 2-0 PDS in mattress fashion for the skin. This closed up without any issues. The medial incision was then packed with wet-to-dry dressings. I then in order to help with later closure I then utilized a stapler and Vesseloops to perform a Sharif sandal configuration for the skin edges to help for hopefully later closure. The medial incision was then dressed with additional wet-to-dry multiple ABDs and a Curlex. The lateral incision was dressed with Xeroform multiple 4 x 4's ABDs and Curlex. I then placed a double 6 inch Rafita wrap around the left lower extremity. Patient was then awakened from anesthesia and taken to PACU in stable condition. Disposition: Patient taken to PACU in stable condition recovering well. He noted significant already relief in his left lower extremity. He is able to more actively move his toes with purpose and states he is having some regaining of his sensation. His pulses are dopplerable and 2+ and are palpable on examination now. His toes are warm well perfused with brisk capillary refill less than 2 seconds. At this point time I contacted internal medicine to have them on board for medical management we will hold on his anticoagulants at this time to help with hemostasis will need to be treated with mechanical SCDs. Internal medicine will be on board for medical management. Patient to be nonweightbearing left lower extremity strict elevation and ice as needed for pain and swelling. Plan will be for repeat irrigation and debridement possible VAC versus closure likely on Wednesday. Continue to monitor patient's labs. We will work on pain control. Patient understands agrees with current plan. All questions answered.
--- NOTE | 2022-12-25 13:36 | ANE.PACU2 ---
Inpatient post-anesthesia follow up: Airway intact: Yes Vital signs: Temperature 98.1 F Pulse Rate 79 Respiratory Rate 15 Blood Pressure 145/82 Pulse Oximetry 98 Oxygen Delivery Me thod Room Air Oxygen Flow Rate Fraction of Inspir ed Oxygen Hydration adequate: Yes Nausea and vomiting: No Pain level: 3 Mental status: Baseline
[2022-12-25] MEDS: fentaNYL 50 mcg/mL INJ 2mL IVP (13:43)
--- NOTE | 2022-12-25 13:57 | P.CONIM_ITS ---
Providers/Reason For Consult Consulting Physician/Specialty*: Hospitalist Reason for Consult*: Medical management Attending Physician: Oli Llanos DO Primary Care Provider: Yoni Campos MD History of Present Illness History of Present Illness Ortiz Mann Sr is a 67 year old gentleman with history of multivessel CAD, status post CABG, aortic stenosis status post aortic valve replacement (not sure of the type of valve, states some type of fiber, his has the card but she is not currently around), on plavix and eliquis, COPD, not normally oxygen, RUKHSANA on nightly CPAP, history of CVA, CKD, HTN, other comorbidities. Sustained injury to left lower extremity opening a barn door on 12/23, with persistent pain was evaluated by orthopedics in office and with concerning findings of progression to compartment syndrome was admitted to hospital and underwent decompression of anterior and lateral compartments, EBL reported 200-250 ml. Postoperatively he states he not been doing great in general due to everything that has happened since his accident, but otherwise he states he has been in baseline state of health. Denies chest pain or pressure. Denies any trouble breathing. Reports his last stent had been in 2019 at which time he also underwent CABG and aortic valve replacement. He wears CPAP at night for sleep apnea. Not normally on oxygen. Review of Systems Const: Denies: fever(s), chills, body aches or malaise Eyes: Denies: change in vision, eye discomfort or eye redness ENMT: Denies: throat pain, oral sores or ear or mastoid pain Card: Denies: chest pain, edema, pre-syncope or dyspnea on exertion Resp: Denies: dyspnea, productive cough, change in phlegm color or hemoptysis GI: Denies: abdominal pain, nausea, vomiting, diarrhea, constipation, hematochezia or melena : Denies: flank pain, difficulty urinating, urinary frequency or hematuria Musc: Reports: extremity pain and extremity swelling; Denies: joint swelling or joint redness Skin/Breast: Denies: rash or new lesions Neuro: Denies: headache(s), numbness in extremities, weakness in extremities, dizziness, confusion or seizure-like activity Endo: Denies: polyuria or polydipsia Wilber/Lymph: Denies: easy bleeding or tender lymph nodes All/Imm: Denies: urticaria or tongue swelling Medications/Allergies Home Medications Medication Instructions Recorded Confirmed Last Taken Type clopidogrel 75 mg tablet 75 mg PO DAILY 30 days #30 tabs 12/02/19 12/25/22 12/25/22 Rx cyclobenzaprine 10 mg tablet 10 mg PO TID PRN Spasms 12/02/19 12/25/22 12/25/22 History metoprolol succinate 50 mg 50 mg PO DAILY 12/02/19 12/25/22 12/25/22 History tablet,extended release 24 hr (Toprol XL) nitroglycerin 0.4 mg sublingual 0.4 mg sublingual Q5M PRN Chest 12/02/19 12/25/22 Unknown History tablet (Nitrostat) Pain pantoprazole 40 mg tablet,delayed 40 mg PO DAILY 12/02/19 12/25/22 12/25/22 History release (Protonix) amlodipine 5 mg tablet (Norvasc) 5 mg PO DAILY 12/12/19 12/25/22 12/25/22 History hydromorphone 4 mg tablet 4 mg PO Q4H PRN pain #10 tabs 09/13/20 12/25/22 12/25/22 Rx (Dilaudid) apixaban 5 mg tablet 5 mg PO BID 10/31/20 12/25/22 12/25/22 History atorvastatin 80 mg tablet 80 mg PO DAILY 10/31/20 12/25/22 12/25/22 History ezetimibe 10 mg tablet (Zetia) 10 mg PO DAILY 10/31/20 12/25/22 12/25/22 History fluticasone propionate 50 1 spray intranasal DAILY 10/31/20 12/25/22 04/03/21 History mcg/actuation nasal spray,suspension furosemide 40 mg tablet 40 mg PO BID 10/31/20 12/25/22 12/24/22 History hydrocodone 10 mg-acetaminophen 1 tab PO Q6H PRN Pain 10/31/20 12/25/22 12/25/22 History 325 mg tablet losartan 50 mg tablet (Cozaar) 50 mg PO BID 10/31/20 12/25/22 12/25/22 History docusate sodium 100 mg capsule 100 mg PO DAILY 03/12/21 12/25/22 12/25/22 History (Stool Softener) spironolactone 25 mg tablet 12.5 mg PO DAILY 03/12/21 12/25/22 12/24/22 History temazepam 15 mg capsule 15 mg PO BEDTIME 03/12/21 12/25/22 12/24/22 History [id number] Bone Growth Stimulator #1 ea 03/31/21 12/25/22 Unknown Rx Allergies Allergy/AdvReac Type Severity Reaction Status Date / Time clonazepam Allergy Severe Stopped Verified 12/25/22 11:08 breathing metronidazole [From Flagyl] Allergy Severe Anaphylaxis Verified 12/25/22 11:08 stopped breathing guaifenesin Allergy Unknown Verified 12/25/22 11:08 hydrochlorothiazide Allergy Unknown Verified 12/25/22 11:08 [From Zestoretic] rosuvastatin Allergy Myalgias Verified 12/25/22 11:08 lisinopril AdvReac ADR-Cough Verified 12/25/22 11:08 prednisone AdvReac ITCHING LG Verified 12/25/22 11:08 DOSE Current Medications Generic Name Dose Route Start Last Admin Trade Name Freq PRN Reason Stop Dose Admin Fentanyl 50 mcg 12/25/22 11:24 12/25/22 13:43 Fentanyl 50 Mcg/Ml Inj 2ml IVP 12/26/22 11:24 50 mcg Q5M PRN Administration Pain level 1-5 PACU Phase I Sodium Chloride 1,000 mls @ 100 mls/hr 12/25/22 11:30 12/25/22 11:27 Sodium Chloride 0.9% IV 12/26/22 11:29 100 mls/hr .Q10H MARQUES Administration PFSH Acute PFSH: Medical History (Updated 12/25/22 @ 14:23 by Shilo Peters MD) Aortic stenosis CAD (coronary artery disease) Previous proximal left anterior descending stent, RCA stent x2 11/30/2019. Cerebrovascular accident (CVA) determined by clinical assessment Chronic back pain Chronic kidney disease (CKD) COPD (chronic obstructive pulmonary disease) Epistaxis Hypertension Kidney atrophy RUKHSANA (obstructive sleep apnea) ST elevation myocardial infarction (STEMI) Inferior wall [place] Tobacco abuse, in remission Surgical History (Updated 12/25/22 @ 14:23 by Shilo Peters MD) History of aortic valve replacement History of herniorrhaphy Right inguinal hernia repair History of left knee surgery S/P CABG (coronary artery bypass graft) 2019 --patient suggests he may have had a couple valves worked on, as well Status post cervical spinal fusion Stented coronary artery X4 Family History Brother CAD (coronary artery disease) Cancer Father Stroke Hypertension Grandmother Cancer Other Hyperlipidemia Denies family history of Diabetes Clotting disorder Dementia Psychiatric illness Bleeding disorder Family history of premature coronary artery disease Lung disease Social History Smoking and tobacco status: never smoked Quit status (tobacco): has quit using tobacco Year quit tobacco: 2014 Former quit date comment: [id number] history prior to quitting Alcohol intake: current Adopted: No Household members: family Marital status: Vitals/I&O/Wt Last Vital Signs Temp 98.1 F 12/25/22 13:09 Pulse 85 12/25/22 13:55 Resp 15 12/25/22 13:55 BP 129/84 12/25/22 13:55 Pulse Ox 95 12/25/22 13:55 O2 Del Method 12/25/22 13:55 12/24/22 12/25/22 12/25/22 22:59 06:59 14:59 Intake Total 860 / 860 Output Total 250 / 250 Balance 610 / 610 Weight last 48 hrs Weight 104.326 kg Data 12/25/22 11:25 12/25/22 11:25 A&P Assessment and plan (1) Compartment syndrome of left lower extremity: Status post decompression anterior and lateral compartments left lower extremity, with closure of lateral compartment intraoperatively, pending reassessment of anterior compartment for possible closure with decreasing swelling. EBL 200-250 mL. On anticoagulation with Eliquis, held. Plavix is also held currently. Reassess blood counts. (2) Chronic anticoagulation: Eliquis on hold due to acute compartment syndrome, risk of bleeding. He is also on Plavix. History of CAD, prior stenting in 2019, status post CABG, status post aortic valve replacement. He is not sure what kind, his is not around and could not be reached by phone. Confirming with his coil machine supervisor office valve was bioprosthetic. Resume Plavix once able. (3) RUKHSANA (obstructive sleep apnea): Nightly CPAP with RT. (4) History of aortic valve replacement: Confirming with his coil machine supervisor's office valve was bioprosthetic. Plan CAD: Resume Plavix once able. Continue BB, statin. As needed. COPD: Currently not in exacerbation. DuoNebs as needed. HTN: Continue metoprolol, resume other medications depending on blood pressure. History of CVA CKD Other medical problems Consult Attestations Medical Necessity Statement: Continue admission for assessment management following left lower extremity acute compartment syndrome with decompression and regimen on chronic anticoagulation, antiplatelet with history of CAD, aortic valve replacement. Coding Level of Care Code Acute Code for [facility] Diagnoses Compartment syndrome of left lower extremity T79.A22A Chronic anticoagulation Z79.01 URKHSANA (obstructive sleep apnea) G47.33 History of aortic valve replacement Z95.2
[2022-12-25] MEDS: oxyCODONE 5 mg IR Tab/Cap PO ×2 (15:11→21:41)
[2022-12-25] MEDS: acetaminophen 500 mg Tablet 1000 MG PO ×2 (15:11→23:31)
[2022-12-25] MEDS: sodium chloride 0.9% 1,000 ML 80 ML IV (15:12)
--- NOTE | 2022-12-25 15:31 | PC.NURSE ---
Notified of dressing saturation to left leg and saturation to bed. Orders were given to reinforce dressing with abd pads, kerlex and an erica wrap. Orders were given to not wrap leg too tight but some compression would be beneficial. Orders were given to continuously reinforce dressing.
--- NOTE | 2022-12-25 16:55 | PC.OT ---
OT Too Held - Evaluation held on this day secondary to nurse request. Patient still has open wounds with uncontrolled saturation through wound dressing at this time. Patient will be re-assessed at later date to determine appropriateness of evaluation.
[2022-12-25] MEDS: iron polysaccharide complex 150 mg Capsule PO (17:20)
[2022-12-25] MEDS: calcium carb-vit d 600mg/400unit 1 Tablet 1 EACH PO (17:20)
[2022-12-25] MEDS: docusate sodium 100 mg Capsule PO (17:20)
[2022-12-25] MEDS: temazepam 15 mg Capsule PO (21:42)
--- NOTE | 2022-12-25 22:37 | PM.MISC ---
Miscellaneous Note Purpose of Documentation: Orthopedics was contacted this evening at 10: 11 PM pertaining to patient having some saturation through his dressing. Patient was then subsequently seen evaluated at 1030. Patient was noted to have bloody saturation through his dressing and Rafita wrap. Given the saturation this was subsequently taken down and incisions were inspected there is no active bleeding present protruding from any of the dressings particularly laterally incision which is closed and remains intact. Pertaining to his compartments they are completely released and decompressed he has had some reactive swelling postsurgery and still has some edema noted throughout the foot. Encouraged strict elevation as well as ice as patient needs and tolerates. I then subsequently visualized his medial incision which is open and skin edges are kept under tension with a vessel loop Sharif sandal construct with a wet-to-dry dressing lap sponges bloody deep within the wound bed. No active bleeding noted. At this point time dressing at this point was reinforced with 4 x 4's multiple ABDs multiple Curlex and Rafita wraps. Patient at this point still able to wiggle his toes he has had some evangelical of sensation to his lower extremity but still has some decreased sensation over the dorsal aspect of his foot. Distal pulses are palpable. At this point time unfortunately given his scenario of him already having taken Eliquis I do feel as though he will likely continue to have some oozing but given his compartments are released we will continue to reinforce his dressings and we will continue to monitor his blood count appropriately he is off of all his anticoagulants and he was given an additional TXA dose to help with coagulation. Vital signs at this point time are stable and afebrile his blood pressure is 119/77 and pulse 98. Patient this point still resting comfortably. We will have patient n.p.o. at midnight just in case. Plan once again will be for likely a repeat washout on either Wednesday or Wednesday. We will check his hemoglobin in the morning. Patient understands and agrees with current plan. All questions have been answered at this time.
[2022-12-26] VITALS (8 sets, daily range): BP systolic 129–161; BP diastolic 74–82; PULSE 85–111; RESP 16–24; TEMP 36.6–37.3; O2SAT 95–99
[2022-12-26 02:05] LABS: Basophils % 0.1 %; Hematocrit 29.2 % (42.0-52.0); Hemoglobin 9.3 g/dL (11.7-16.6); Lymphocytes # 0.6 10^3/uL (0.8-4.8); Lymphocytes % 9.1 %; Mean Corpuscular HGB Conc 31.8 g/dL (30.0-36.0); Mean Platelet Volume 10.8 fL (7.4-10.4); Monocytes # 0.7 10^3/uL (0.2-0.9); Monocytes % 9.7 %; Neutrophils # 5.57 10^3/uL (1.8-7.7); Neutrophils % 80.7 %; Nucleated Red Blood Cells % 0 %; Platelet Count 147 10^3/cmm (130-400); Red Blood Count 3.32 10^6/uL (4.1-5.3); Red Cell Distribution Width 13.3 % (12.1-15.1); White Blood Count 6.9 10^3/uL (4.0-10.0)
[2022-12-26 02:34] LABS: Anion Gap 14.6 (5-19); Blood Urea Nitrogen 14 mg/dL (8-23); Calcium 8.2 mg/dL (8.5-10.5); Carbon Dioxide 23 mmol/L (22-29); Chloride 104 mmol/L (98-107); Glomerular Filtration Rate 83.7 mL/min (90-130); Glucose 166 mg/dL (65-115); Osmolality Calculated 288 mOsm/kg (285-295); Potassium 4.6 mmol/L (3.5-5.1); Sodium 137 mmol/L (136-145)
[2022-12-26] MEDS: ceFAZolin 2,000 MG in sodium chloride 0.9% (plus) 50 ML 100 MG IV ×3 (03:08→20:01)
[2022-12-26] MEDS: sodium chloride 0.9% 1,000 ML 80 ML IV (04:50)
[2022-12-26] MEDS: oxyCODONE 5 mg IR Tab/Cap PO (05:00)
--- NOTE | 2022-12-26 07:18 | P.PN_ITS ---
Subjective Subjective: Patient seen and evaluated this morning. Patient doing well. Pain controlled. Patient is able to wiggle toes subtly plantarflex and dorsiflex ankle. His dressing this a.m. is clean dry and intact appears to have had some stability of his oozing postoperatively no. He has been n.p.o. at midnight just in case. This point time no indication for surgical intervention. We will outpatient to have diet today. Keep n.p.o. at midnight again tomorrow just in case ultimately discussed with patient today my goals would be for surgery on Wednesday to allow for a couple days just to allow his swelling to go down as well as further hemostasis as his body processes his anticoagulants which she had already taken yesterday morning prior to surgery. Hemoglobin this morning has dropped but is 9.3 and no need for transfusion at this time. Patient understands and agrees with current plan. All questions answered. Vitals/I&O/Wt Last Vital Signs Temp 98.1 F 12/26/22 04:00 Pulse 92 12/26/22 04:00 Resp 18 12/26/22 05:00 BP 145/78 12/26/22 04:00 Pulse Ox 98 12/26/22 05:00 O2 Del Method 12/26/22 04:00 12/25/22 12/26/22 12/26/22 22:59 06:59 14:59 Intake Total 1046.667 / 5021.541 8759 / 2956.667 Output Total 1150 / 1400 Balance -103.333 / 846.072 9845 / 1556.667 Weight last 48 hrs Weight 238 lb Weight 230 lb Physical Exam Narrative: Examination left lower extremity is elevated and dressing on in place is clean dry and intact this a.m. His toes have some mild improvement in the swelling. He is able to wiggle his toes with purpose as well as subtly plantarflex and dorsiflex his ankle without pain no pain with passive range of motion of his toes. His DP pulses palpable. Toes are warm and well-perfused. He still has decreased sensation diffusely about the left lower extremity over SPN/DPN/tibial saphenous and sural nerve distribution however he states he feels as though his sensation is improving. Data 12/26/22 01:03 12/26/22 01:03 A&P Assessment and plan (1) Compartment syndrome of left lower extremity: Plan N.p.o. since midnight?may have diet today Continue to hold anticoagulation SCDs for DVT prophylaxis PT/OT Patient should be nonweightbearing to the left lower extremity Continue IV antibiotics as patient has open wound Continue to redress dressing to the left lower extremity as needed if becomes saturated Elevation and ice as needed Internal medicine on board for medical management No plan for orthopedic surgical intervention today. We will have n.p.o. at midnight just in case but plan would be for surgery for repeat I&D left lower extremity and possible closure on Wednesday. Patient understands and agrees with plan. All questions answered. A.m. labs show drop in hemoglobin to 9.3 to be expected given he had taken his blood thinners yesterday morning and had saturated his dressings. Currently this a.m. dressing is stable Attestations Medical Necessity Statement*: Ongoing care for acute compartment syndrome left lower extremity Coding Level of Care Code Acute Code for [facility] Diagnoses Compartment syndrome of left lower extremity T79.A22A Time Spent (min) 25
[2022-12-26] MEDS: fluticasone nasal spray 16gm Btl 1 SPRAY INTRANASAL (09:30)
[2022-12-26] MEDS: calcium carb-vit d 600mg/400unit 1 Tablet 1 EACH PO ×2 (09:31→18:57)
[2022-12-26] MEDS: acetaminophen 500 mg Tablet 1000 MG PO ×2 (09:31→23:08)
[2022-12-26] MEDS: metoprolol succinate ER (24 HR) 50 mg Tablet PO (09:31)
[2022-12-26] MEDS: atorvastatin 40 mg Tablet 80 MG PO (09:31)
[2022-12-26] MEDS: docusate sodium 100 mg Capsule PO ×2 (09:32→18:57)
[2022-12-26] MEDS: multivitamin therapeutic Tablet 1 TAB PO (09:32)
[2022-12-26] MEDS: pantoprazole DR 40 mg Tablet PO (09:32)
[2022-12-26] MEDS: iron polysaccharide complex 150 mg Capsule PO ×2 (09:32→18:57)
--- NOTE | 2022-12-26 11:24 | P.MISC_ITS ---
Miscellaneous Note Purpose of Documentation: Orthopedic note update: Patient was initially seen evaluate by myself this morning doing well still has some paresthesias particular over the foot. His foot is warm and well-perfused. Contacted by nurse on [facility] floor pertaining to patient having increased pain and tightness feeling states he is has some paresthesias. She states that there was some difficulty palpating a pulse. I was contacted between 10-10:20. Patient was seen evaluated by myself between [id number]. Upon my entry to the room patient sleeping comfortably in the bed. Patient was then awake and he does not seem to have any pain out of proportion. Once again he does have a complete 4 compartment fasciotomies and medial incisions been left open. His dressing is not saturated. He is currently has ice to his left lower extremity. He still has noticeable pitting edema at the foot. I was able to palpate a 2+ dorsalis pedis pulse and a 2+ posterior tibialis pulse. I did confirm this on Doppler as well. His toes are warm and well-perfused. He still obviously has tenderness to palpation over his incision sites. But dressing left on in place. Patient as well as family once again reassured. I did take down his Rafita wrap at this time which she states did give him some noticeable relief. Readjust patient so he has appropriate elevation of the left lower extremity to continue to help with his swelling. No further intervention required at this time once again reassured patient family as well as nursing staff encouraged they can continue to reinforce dressing as needed if he has slight saturation. No intervention required at this time. We will continue to monitor patient.
--- NOTE | 2022-12-26 11:43 | PC.OT ---
OT orders received and chart reviewed. Patient will be having surgery on Wednesday, 12/28 to close incisions. Per RN, Dr. Llanos requested patient to not get up as much as possible until then. OT will hold evaluation until after surgery. Carlos Newell OTR/L
--- NOTE | 2022-12-26 14:42 | PC.PHAR ---
pt unable to verify medications - attempted to call with no answer. verified by external med history and previously entered list.
[2022-12-26] MEDS: HYDROmorphone 1 mg/mL INJ 1 mL IVP (15:35)
--- NOTE | 2022-12-26 16:29 | P.PN_ITS ---
Subjective Subjective: Some intermittent throbbing discomfort left lower extremity. Otherwise states he is doing all right. No significant pain. No trouble breathing, no chest pain or pressure. Vitals/I&O/Wt Last Vital Signs Temp 98.2 F 12/26/22 16:12 Pulse 111 H 12/26/22 16:12 Resp 24 H 12/26/22 16:12 BP 161/79 12/26/22 16:12 Pulse Ox 97 12/26/22 16:12 O2 Del Method 12/26/22 16:12 12/26/22 12/26/22 12/26/22 06:59 14:59 22:59 Intake Total 1050 / 2956.667 310 / 310 Balance 1050 / 1556.667 310 / 310 Weight last 48 hrs Weight 107.955 kg Weight 104.326 kg Physical Exam Const: COMMON NORMALS: patient oriented x3 and alert GENERAL APPEARANCE: cooperative ORIENTATION/CONSCIOUSNESS: Yes awake HENMT: COMMON NORMALS: oropharynx normal Neck/C-Spine: COMMON NORMALS: no JVD Resp: COMMON NORMALS: normal respiratory effort and clear to auscultation bilaterally AUSCULTATION: clear to auscultation bilaterally Cardio: COMMON NORMALS: no JVD, regular rhythm, S1 normal heart sound present, S2 normal heart sound present and No murmurs present (Cardio) RHYTHM: regular rhythm HEART SOUNDS: S1 normal heart sound present and S2 normal heart sound present GI: COMMON NORMALS: Normal to inspection, nondistended, normoactive bowel sounds present, Soft to palpation and non-tender PALPATION: Yes Soft to palpation Extremity: COMMON NORMALS: no joint enlargement and no pedal edema OTHER: LLE elevated, in postop dressing. Able to wiggle toes which appear perfused. Neuro: COMMON NORMALS: patient oriented x3 and moves all extremities SENSORIUM/ORIENTATION: Yes alert Skin: COMMON NORMALS: no rashes or lesions noted GENERAL SKIN EXAM: no rashes or lesions noted Data 12/26/22 01:03 12/26/22 01:03 A&P Assessment and plan (1) Compartment syndrome of left lower extremity: Seen again by surgery this morning due to some paresthesias, feeling of tightness and pain. His leg and wounds were reassessed. Did have relief with removal of Rafita wrap. Continue elevation of left lower extremities. Status post 4 compartment fasciotomies. Discussed with him regarding acute anemia, hemoglobin down to 9.3. Anticoagulation and Plavix are on hold. Recheck blood counts in the morning unless additional significant bleeding. Pending further reevaluation and plans for closure once swelling decreasing. PT, OT. (2) Chronic anticoagulation: Eliquis on hold due to acute compartment syndrome, risk of bleeding. He is also on Plavix. History of CAD, prior stenting in 2019, status post CABG, status post aortic valve replacement. He is not sure what kind, his is not around and could not be reached by phone. 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 Resume Plavix once able. (3) RUKHSANA (obstructive sleep apnea): Nightly CPAP with RT. (4) History of aortic valve replacement: Confirming with his heavy equipment mechanic's office valve was bioprosthetic. Resume antiplatelet once able. Plan CAD: Resume Plavix once able. Continue BB, statin. As needed. COPD: Currently not in exacerbation. DuoNebs as needed. HTN: Continue metoprolol, resume other medications depending on blood pressure. History of CVA CKD Other medical problems Attestations Medical Necessity Statement*: Continue admission for assessment management of compartment syndrome left lower extremity in a gentleman with underlying CAD, previously on anticoagulation, with bioprosthetic aortic valve. Coding Level of Care Code Acute Code for g Fwd Diagnoses Compartment syndrome of left lower extremity T79.A22A Chronic anticoagulation Z79.01 RUKHSANA (obstructive sleep apnea) G47.33 History of aortic valve replacement Z95.2
[2022-12-26 18:22] LABS: Hemoglobin 8.4 g/dL (11.7-16.6)
[2022-12-26] MEDS: TRAMadol 50 mg Tablet PO (20:02)
[2022-12-26] MEDS: temazepam 15 mg Capsule PO (20:05)
[2022-12-27] VITALS (9 sets, daily range): BP systolic 127–136; BP diastolic 62–76; PULSE 80–106; RESP 16–18; TEMP 36.4–36.9; O2SAT 94–97
[2022-12-27] MEDS: ceFAZolin 2,000 MG in sodium chloride 0.9% (plus) 50 ML 100 MG IV ×3 (03:03→20:05)
[2022-12-27] MEDS: oxyCODONE 5 mg IR Tab/Cap PO ×4 (03:08→20:07)
[2022-12-27 04:38] LABS: Basophils % 0.4 %; Eosinophils # 0.2 10^3/uL (0.0-0.8); Eosinophils % 2.9 %; Hematocrit 27.3 % (42.0-52.0); Hemoglobin 8.4 g/dL (11.7-16.6); Lymphocytes # 1.2 10^3/uL (0.8-4.8); Lymphocytes % 22.6 %; Mean Corpuscular HGB Conc 30.8 g/dL (30.0-36.0); Mean Corpuscular Hemoglobin 27.4 pg (28.0-34.0); Mean Corpuscular Volume 88.9 fl (80-94); Mean Platelet Volume 10.4 fL (7.4-10.4); Monocytes # 0.6 10^3/uL (0.2-0.9); Monocytes % 10.5 %; Neutrophils # 3.44 10^3/uL (1.8-7.7); Neutrophils % 63.2 %; Nucleated Red Blood Cells % 0 %; Platelet Count 177 10^3/cmm (130-400); Red Blood Count 3.07 10^6/uL (4.1-5.3); Red Cell Distribution Width 13.5 % (12.1-15.1); White Blood Count 5.4 10^3/uL (4.0-10.0)
[2022-12-27 04:57] LABS: Blood Urea Nitrogen 11 mg/dL (8-23); Carbon Dioxide 22 mmol/L (22-29); Chloride 106 mmol/L (98-107); Glomerular Filtration Rate 111.8 mL/min (90-130); Glucose 116 mg/dL (65-115); Osmolality Calculated 284 mOsm/kg (285-295); Sodium 137 mmol/L (136-145)
[2022-12-27 05:02] LABS: Anion Gap 13.3 (5-19); Potassium 4.3 mmol/L (3.5-5.1)
[2022-12-27] MEDS: TRAMadol 50 mg Tablet PO ×2 (06:04→22:59)
[2022-12-27] MEDS: acetaminophen 500 mg Tablet 1000 MG PO ×3 (08:44→22:59)
[2022-12-27] MEDS: pantoprazole DR 40 mg Tablet PO (08:44)
[2022-12-27] MEDS: calcium carb-vit d 600mg/400unit 1 Tablet 1 EACH PO ×2 (08:44→17:21)
[2022-12-27] MEDS: multivitamin therapeutic Tablet 1 TAB PO (08:44)
[2022-12-27] MEDS: docusate sodium 100 mg Capsule PO ×2 (08:44→17:21)
[2022-12-27] MEDS: atorvastatin 40 mg Tablet 80 MG PO (08:44)
[2022-12-27] MEDS: metoprolol succinate ER (24 HR) 50 mg Tablet PO (08:44)
[2022-12-27] MEDS: iron polysaccharide complex 150 mg Capsule PO ×2 (08:44→17:21)
[2022-12-27] MEDS: fluticasone nasal spray 16gm Btl 1 SPRAY INTRANASAL (08:47)
--- NOTE | 2022-12-27 10:05 | PM.PN ---
Subjective Subjective: Seen and evaluated this morning. Patient had slight saturation posteriorly of his dressings. This is been reinforced. Dressings are clean dry and intact this morning. Hemoglobin dropped to 8.4. His vital signs continue to be stable and afebrile. Called ebbs and flows of increasing pain but overall continues to remain stable. His foot is warm and well-perfused. Distal pulses are palpable. He is able to wiggle his toes with purpose and no pain with passive range of motion. At this point in time we will have diet today and plan for n.p.o. at midnight for plan for surgery for repeat irrigation and debridement left lower extremity with possible closure, if not we will plan for wound VAC placement. Patient understands and agrees with current plan. All questions answered. Appreciate internal medicine's assistance with medical management. Continue to hold anticoagulation and continue with SCDs. Vitals/I&O/Wt Last Vital Signs Temp 97.6 F 12/27/22 08:06 Pulse 92 12/27/22 08:06 Resp 16 12/27/22 08:06 BP 133/62 12/27/22 08:06 Pulse Ox 97 12/27/22 08:06 O2 Del Method 12/27/22 08:06 12/26/22 12/27/22 12/27/22 22:59 06:59 14:59 Intake Total 290 / 600 50 / 650 360 / 360 Output Total 725 / 725 725 / 1450 Balance -435 / -125 -675 / -800 360 / 360 Weight last 48 hrs Weight 238 lb Weight 230 lb Physical Exam Narrative: Left lower extremity dressings on in place are clean dry and intact have been reinforced overnight. Toes continue to be warm and well-perfused edema noted at the dorsal aspect of the foot and toes. His distal pulses are palpable at posterior tib and DP pulses. Patient is able to wiggle toes with purpose. Able to subtly plantarflex and dorsiflex ankle with minimal pain or discomfort. Able to tolerate passive range of motion of the foot and and toes with no pain or discomfort. Still has some decreased sensation diffusely through the left foot which appears to have been stable since decompression. Data 12/27/22 04:19 12/27/22 04:19 A&P Assessment and plan (1) Compartment syndrome of left lower extremity: Plan Nonweightbearing left lower extremity Continue to reinforce dressings if small amounts of saturation, medial incision is open and packed with wet-to-dry dressings Contact myself if excessive drainage is noted. A.m. labs reviewed hemoglobin small decreased to 8.4 with vital signs stable. No indications for transfusion at this time. Hold anticoagulation at this time continue SCDs for DVT prophylaxis Strict elevation and ice as needed for pain and swelling May loosen Rafita wrap if needed PT/OT Internal medicine on board for medical management May have diet today, n.p.o. at midnight Continuous antibiotics for infection prophylaxis given open wound Plan for OR tomorrow for left lower extremity irrigation and debridement and possible primary closure, if still significantly swollen and unable to close we will transition into a wound VAC to help decrease swelling and encourage primary closure later in the week. Attestations Medical Necessity Statement*: Ongoing care for left lower extremity compartment syndrome and hematoma Coding Level of Care Code Acute Code for [facility] Fwd Diagnoses Compartment syndrome of left lower extremity T79.A22A Time Spent (min) 20
--- NOTE | 2022-12-27 17:33 | PM.PN ---
Subjective Subjective: States he is doing okay this morning. Denies pain. Denies trouble breathing or chest pain. Was assessed by orthopedics, tentative plan for reassessment of wounds in OR tomorrow. Discussed with him regarding some worsening of anemia. States dressings had to be reinforced due to saturation. Vitals/I&O/Wt Last Vital Signs Temp 97.7 F 12/27/22 15:51 Pulse 81 12/27/22 15:51 Resp 16 12/27/22 15:51 BP 127/70 12/27/22 15:51 Pulse Ox 94 12/27/22 15:51 O2 Del Method 12/27/22 15:51 12/27/22 12/27/22 12/27/22 06:59 14:59 22:59 Intake Total 50 / 650 650 / 650 Output Total 725 / 1450 200 / 200 250 / 450 Balance -675 / -800 450 / 450 -250 / 200 Physical Exam Const: COMMON NORMALS: patient oriented x3 and alert GENERAL APPEARANCE: cooperative ORIENTATION/CONSCIOUSNESS: Yes awake HENMT: COMMON NORMALS: oropharynx normal Neck/C-Spine: COMMON NORMALS: no JVD Resp: COMMON NORMALS: normal respiratory effort and clear to auscultation bilaterally AUSCULTATION: clear to auscultation bilaterally Cardio: COMMON NORMALS: no JVD, regular rhythm, S1 normal heart sound present, S2 normal heart sound present and No murmurs present (Cardio) RHYTHM: regular rhythm HEART SOUNDS: S1 normal heart sound present and S2 normal heart sound present GI: COMMON NORMALS: Normal to inspection, nondistended, normoactive bowel sounds present, Soft to palpation and non-tender PALPATION: Yes Soft to palpation Extremity: COMMON NORMALS: no joint enlargement and no pedal edema OTHER: LLE elevated, in postop dressing. Able to wiggle toes which appear perfused. Neuro: COMMON NORMALS: patient oriented x3 and moves all extremities SENSORIUM/ORIENTATION: Yes alert Skin: COMMON NORMALS: no rashes or lesions noted GENERAL SKIN EXAM: no rashes or lesions noted Data 12/27/22 04:19 12/27/22 04:19 A&P Assessment and plan (1) Compartment syndrome of left lower extremity: Tomorrow plan for reassessment of wounds in OR to see if needing additional debridement and drainage. Acute blood loss anemia with some worsening today, recheck blood counts, consider transfusion at slightly higher threshold due to underlying CAD. Currently denies any ischemic symptoms. Status post 4 compartment fasciotomies. [facility] LLE PT, OT. (2) Chronic anticoagulation: Reassess blood counts. Anticoagulation and antiplatelet on hold. Eliquis on hold due to acute compartment syndrome, risk of bleeding. He is also on Plavix. History of CAD, prior stenting in 2019, status post CABG, status post aortic valve replacement. He is not sure what kind, his is not around and could not be reached by phone. 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 Resume Plavix once able. (3) RUKHSANA (obstructive sleep apnea): Nightly CPAP with RT. 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 Resume antiplatelet once able. Plan Acute blood loss anemia: As above CAD: Resume Plavix once able. Continue BB, statin. As needed. COPD: Currently not in exacerbation. DuoNebs as needed. HTN: Continue metoprolol, resume other medications depending on blood pressure. History of CVA CKD Other medical problems Attestations Medical Necessity Statement*: Continue admission for assessment and management of left lower extremity compartment syndrome, acute anemia. Coding Level of Care Code Acute Code for [facility] Fwd Diagnoses Compartment syndrome of left lower extremity T79.A22A Chronic anticoagulation Z79.01 RUKHSANA (obstructive sleep apnea) G47.33 History of aortic valve replacement Z95.2
[2022-12-27] MEDS: temazepam 15 mg Capsule PO (22:59)
[2022-12-28] VITALS (26 sets, daily range): BP systolic 100–171; BP diastolic 63–94; PULSE 78–118; RESP 16–21; TEMP 36.4–37.7; O2SAT 92–100
[2022-12-28 02:07] LABS: Basophils % 0.5 %; Eosinophils # 0.3 10^3/uL (0.0-0.8); Eosinophils % 4.5 %; Hematocrit 29.1 % (42.0-52.0); Hemoglobin 8.9 g/dL (11.7-16.6); Lymphocytes # 1.3 10^3/uL (0.8-4.8); Lymphocytes % 21.6 %; Mean Corpuscular HGB Conc 30.6 g/dL (30.0-36.0); Mean Corpuscular Hemoglobin 26.9 pg (28.0-34.0); Mean Corpuscular Volume 87.9 fl (80-94); Mean Platelet Volume 9.8 fL (7.4-10.4); Monocytes # 0.7 10^3/uL (0.2-0.9); Monocytes % 11.1 %; Neutrophils # 3.84 10^3/uL (1.8-7.7); Neutrophils % 61.8 %; Nucleated Red Blood Cells % 0 %; Platelet Count 191 10^3/cmm (130-400); Red Blood Count 3.31 10^6/uL (4.1-5.3); Red Cell Distribution Width 13.3 % (12.1-15.1); White Blood Count 6.2 10^3/uL (4.0-10.0)
[2022-12-28 02:40] LABS: Anion Gap 12.1 (5-19); Blood Urea Nitrogen 12 mg/dL (8-23); Calcium 9.3 mg/dL (8.5-10.5); Carbon Dioxide 25 mmol/L (22-29); Chloride 101 mmol/L (98-107); Glomerular Filtration Rate 95.8 mL/min (90-130); Glucose 117 mg/dL (65-115); Osmolality Calculated 279 mOsm/kg (285-295); Potassium 4.1 mmol/L (3.5-5.1); Sodium 134 mmol/L (136-145)
[2022-12-28] MEDS: ceFAZolin 2,000 MG in sodium chloride 0.9% (plus) 50 ML 100 MG IV ×3 (04:05→20:47)
[2022-12-28] MEDS: oxyCODONE 5 mg IR Tab/Cap PO ×3 (04:44→22:29)
--- NOTE | 2022-12-28 09:00 | PC.SOCIAL ---
IMM update IMM updated with patient. Copy Pg 2 provided. Verbalized an understanding. Initialled, dated, timed, and placed in chart.
--- NOTE | 2022-12-28 09:33 | PM.PN ---
Subjective Subjective: Patient seen and examined this morning. Hemoglobin stable. No issues overnight. Patient's been n.p.o. since midnight. Plan for repeat left lower extremity irrigation debridement of medial incision and either possible closure primarily or wound VAC placement depending on soft tissue envelope. Patient understands agrees with current plan. All questions answered. Pain controlled at this time. Vitals/I&O/Wt Last Vital Signs Temp 98.5 F 12/28/22 08:26 Pulse 86 12/28/22 08:48 Resp 16 12/28/22 08:48 BP 128/77 12/28/22 08:26 Pulse Ox 99 12/28/22 08:48 O2 Del Method 12/28/22 08:48 12/27/22 12/28/22 12/28/22 22:59 06:59 14:59 Intake Total 410 / 1060 50 / 1110 Output Total 250 / 450 450 / 900 Balance 160 / 610 -400 / 210 Physical Exam Narrative: Left lower extremity dressings on in place are clean dry and intact. No saturation. Toes continue to be warm and well-perfused edema noted at the dorsal aspect of the foot and toes.? His distal pulses are palpable at posterior tib and DP pulses.? Patient is able to wiggle toes with purpose.? Able to subtly plantarflex and dorsiflex ankle with minimal pain or discomfort.? Able to tolerate passive range of motion of the foot and and toes with no pain or discomfort.? Still has some decreased sensation diffusely through the left foot which appears to have been stable since decompression. Data 12/28/22 01:49 12/28/22 01:49 A&P Assessment and plan (1) Compartment syndrome of left lower extremity: Plan N.p.o. since midnight Internal medicine on board for medical management A.m. labs reviewed?hemoglobin stable Continue to hold anticoagulation Continue IV antibiotics for infection prophylaxis of open medial wound Plan for OR today for left lower extremity irrigation and debridement with possible primary closure versus wound VAC placement. Patient understands agrees with current plan. All questions answered. Attestations Medical Necessity Statement*: Ongoing care left lower extremity compartment syndrome status post 4 compartment fasciotomy and hematoma evacuation Coding Level of Care Code Acute Code for [facility] Fwd Diagnoses Compartment syndrome of left lower extremity T79.A22A Time Spent (min) 15
--- NOTE | 2022-12-28 09:41 | W.PM.OPSUD ---
Surgery/Procedure H&P Update DATE OF PROCEDURE: December 28, 2022 DATE H&P PERFORMED: 12/25/22 CHANGES TO PREVIOUS DOCUMENTATION: None. Patient status post left lower extremity compartment syndrome 4 compartment fasciotomy and hematoma evacuation. Given the swelling his medial incision was left open and packed with wet-to-dry dressings. His hemoglobin has subsequently stabilized. He has been off of his anticoagulants. At this point time plan for a left lower extremity irrigation debridement with repeat evaluation of his posterior superficial and deep compartments. At that point time plan for possible primary closure versus wound VAC placement. Patient understands agrees with current plan. Questions answered. PREOP DIAGNOSIS: Left lower extremity compartment syndrome, open wound PRIMARY INDICATION FOR PROCEDURE: Left lower extremity compartment syndrome status post 4 compartment fasciotomy with open medial wound packed with wet-to-dry PLANNED PROCEDURE: Operation Date: 12/25/22 11:30 Proposed Procedures p Fasciotomy Lower Extremity(Left) - Oli Llanos DO Operation Date: 12/28/22 12:10 Proposed Procedures p Incision & Drainage Lower Extremity(Left) - Oli Llanos DO s Wound Vac Placement(Left) - Oli Llanos DO
--- NOTE | 2022-12-28 11:42 | P.ANESASSM_ITS ---
Pre-Anesthetic Assessment Height/Weight: Height 1.78 m Weight 107.955 kg Temp Pulse Resp BP Pulse Ox O2 Del Method 98.5 F 99 18 149/80 96 12/28/22 11:16 12/28/22 11:16 12/28/22 11:16 12/28/22 11:16 12/28/22 11:16 12/28/22 11:16 Preop Diagnosis: Left lower extremity compartment syndrome, open wound Operation Date: 12/25/22 11:30 Proposed Procedures p Fasciotomy Lower Extremity(Left) - Oli Llanos, DO Operation Date: 12/28/22 12:10 Proposed Procedures p Incision & Drainage Lower Extremity(Left) - Oli Browningatt, DO s Wound Vac Placement(Left) - Oli Llanos DO Familial anesthetic complications: none Was Beta Nancy taken within 24 hours: N/A Was Clonidine taken within 24 hours: N/A Last intake: Intake Last Liquid Date 12/27/22 Last Liquid Time 18:00 Last Solid Date 12/27/22 Last Solid Time 18:00 Social No alcohol and No tobacco Exam alert, oriented x 3, clear to auscultation bilaterally and regular rate & rhythm Airway Mallampati: Class II Dentition: false Pulmonary Chronic Obstructive Pulmonary Disease and Sleep Apnea CV/HEM Coronary Artery Disease, Hypertension, Myocardial Infarction (cabg) and Peripheral Vascular Disease aortic valve replacement Chronic Renal Insufficiency GI Gastroesophageal Reflux Disease Neuropsych Cerebrovascular Accident Anesthetic Plan ASA status: 4 Anesthesia: General Risk of > 500 ml blood loss (7ml/kg in children): No Medications/Allergies Home Medications Medication Instructions Recorded Confirmed Last Taken Type clopidogrel 75 mg tablet 75 mg PO DAILY 30 days #30 tabs 12/02/19 12/25/22 12/25/22 Rx cyclobenzaprine 10 mg tablet 10 mg PO TID PRN Spasms 12/02/19 12/25/22 12/25/22 History metoprolol succinate 50 mg 50 mg PO DAILY 12/02/19 12/25/22 12/25/22 History tablet,extended release 24 hr (Toprol XL) nitroglycerin 0.4 mg sublingual 0.4 mg sublingual Q5M PRN Chest 12/02/19 12/25/22 Unknown History tablet (Nitrostat) Pain pantoprazole 40 mg tablet,delayed 40 mg PO DAILY 12/02/19 12/25/22 12/25/22 History release (Protonix) amlodipine 5 mg tablet (Norvasc) 5 mg PO DAILY 12/12/19 12/25/22 12/25/22 History hydromorphone 4 mg tablet 4 mg PO Q4H PRN pain #10 tabs 09/13/20 12/25/22 12/25/22 Rx (Dilaudid) apixaban 5 mg tablet 5 mg PO BID 10/31/20 12/25/22 12/25/22 History atorvastatin 80 mg tablet 80 mg PO DAILY 10/31/20 12/25/22 12/25/22 History ezetimibe 10 mg tablet (Zetia) 10 mg PO DAILY 10/31/20 12/25/22 12/25/22 History fluticasone propionate 50 1 spray intranasal DAILY 10/31/20 12/25/22 04/03/21 History mcg/actuation nasal spray,suspension furosemide 40 mg tablet 40 mg PO BID 10/31/20 12/25/22 12/24/22 History hydrocodone 10 mg-acetaminophen 1 tab PO Q6H PRN Pain 10/31/20 12/25/22 12/25/22 History 325 mg tablet losartan 50 mg tablet (Cozaar) 50 mg PO BID 10/31/20 12/25/22 12/25/22 History docusate sodium 100 mg capsule 100 mg PO DAILY 03/12/21 12/25/22 12/25/22 History (Stool Softener) spironolactone 25 mg tablet 12.5 mg PO DAILY 03/12/21 12/25/22 12/24/22 History temazepam 15 mg capsule 15 mg PO BEDTIME 03/12/21 12/25/22 12/24/22 History [id number] Bone Growth Stimulator #1 ea 03/31/21 12/26/22 Unknown Rx Allergies Allergy/AdvReac Type Severity Reaction Status Date / Time clonazepam Allergy Severe Stopped Verified 12/25/22 11:08 breathing metronidazole [From Flagyl] Allergy Severe Anaphylaxis Verified 12/25/22 11:08 stopped breathing guaifenesin Allergy Unknown Verified 12/25/22 11:08 hydrochlorothiazide Allergy Unknown Verified 12/25/22 11:08 [From Zestoretic] rosuvastatin Allergy Myalgias Verified 12/25/22 11:08 lisinopril AdvReac ADR-Cough Verified 12/25/22 11:08 prednisone AdvReac ITCHING LG Verified 12/25/22 11:08 DOSE Current Medications Generic Name Dose Route Start Last Admin Trade Name Bobq PRN Reason Stop Dose Admin Acetaminophen 1,000 mg 12/25/22 16:00 12/27/22 22:59 Acetaminophen 500 Mg Tablet PO 1,000 mg Q8H MARQUES Administration Atorvastatin Calcium 80 mg 12/26/22 09:00 12/27/22 08:44 Atorvastatin 40 Mg Tablet PO 80 mg DAILY MARQUES Administration Calcium Carbonate 1 each 12/25/22 18:00 12/27/22 17:21 Calcium Carb-Vit D 600mg/400unit 1 Tablet PO 1 each BID MARQUES Administration Docusate Sodium 100 mg 12/25/22 18:00 12/27/22 17:21 Docusate Sodium 100 Mg Capsule PO 100 mg BID MARQUES Administration Fluticasone Propionate 1 spray 12/26/22 09:00 12/27/22 08:47 Fluticasone Nasal [place] 16gm Btl INTRANASAL 1 spray DAILY MRAQUES Administration Hydromorphone HCl 0.5 - 1 mg 12/25/22 14:32 12/26/22 15:35 Hydromorphone 1 Mg/Ml Inj 1 Ml IVP 1 mg Q3H PRN Administration Pain not managed by oral agent Cefazolin Sodium 2,000 mg/ 50 mls @ 100 mls/hr 12/25/22 19:30 12/28/22 05:24 Sodium Chloride IV Infused Q8H [facility] Infusion Protocol Sodium Chloride 1,000 mls @ 80 mls/hr 12/25/22 14:32 12/26/22 04:50 Sodium Chloride 0.9% IV 80 mls/hr .[id number] MARQUES Administration Metoprolol Succinate 50 mg 12/26/22 09:00 12/27/22 08:44 Metoprolol Succinate Er (24 Hr) 50 Mg Tablet PO 50 mg DAILY MARQUES Administration Multivitamins Therapeutic 1 tab 12/26/22 09:00 12/27/22 08:44 Multivitamin Therapeutic Tablet PO 1 tab DAILY MARQUES Administration Oxycodone HCl 5 - 10 mg 12/25/22 14:32 12/28/22 04:44 Oxycodone 5 Mg Ir Tab/Cap PO 10 mg Q4H PRN Administration MODERATE TO SEVERE PAIN Pantoprazole Sodium 40 mg 12/26/22 09:00 12/27/22 08:[address] 40 Mg Tablet PO 40 mg DAILY MARQUES Administration Polysaccharide Iron Complex 150 mg 12/25/22 18:00 12/27/22 17:21 Iron Polysaccharide Complex 150 Mg Capsule PO 150 mg BIDWM MARQUES Administration Temazepam 15 mg 12/25/22 21:00 12/27/22 22:59 Temazepam 15 Mg Capsule PO 15 mg BEDTIME MARQUES Administration Tramadol HCl 50 mg 12/25/22 14:32 12/27/22 22:59 Tramadol 50 Mg Tablet PO 50 mg Q4H PRN Administration MILD TO MODERATE PAIN PFSH Anesthesia Medical History (Updated 12/25/22 @ 14:23 by Shilo Peters MD) Aortic stenosis CAD (coronary artery disease) Previous proximal left anterior descending stent, RCA stent x2 11/30/2019. Cerebrovascular accident (CVA) determined by clinical assessment Chronic back pain Chronic kidney disease (CKD) COPD (chronic obstructive pulmonary disease) Epistaxis Hypertension Kidney atrophy RUKHSANA (obstructive sleep apnea) ST elevation myocardial infarction (STEMI) Inferior wall PR Tobacco abuse, in remission Surgical History (Updated 12/25/22 @ 14:23 by Shilo Peters MD) History of aortic valve replacement History of herniorrhaphy Right inguinal hernia repair History of left knee surgery S/P CABG (coronary artery bypass graft) 2019 --patient suggests he may have had a couple valves worked on, as well Status post cervical spinal fusion Stented coronary artery X4 Family History Brother CAD (coronary artery disease) Cancer Father Stroke Hypertension Grandmother Cancer Other Hyperlipidemia Denies family history of Diabetes Clotting disorder Dementia Psychiatric illness Bleeding disorder Family history of premature coronary artery disease Lung disease Social History Smoking and tobacco status: never smoked Quit status (tobacco): has quit using tobacco Year quit tobacco: 2014 Former quit date comment: [id number] history prior to quitting Alcohol intake: current Adopted: No Household members: family Marital status: Data Anesthesia 12/28/22 01:49 12/28/22 01:49 Short CBC 12/26/22 12/27/22 12/28/22 Range/Units 18:13 04:19 01:49 WBC 5.4 6.2 (4.0-10.0) 10^3/uL Hgb 8.4 L 8.4 L 8.9 L (11.7-16.6) g/dL Hct 27.3 L 29.1 L (42.0-52.0) % MCV 88.9 87.9 (80-94) fl Plt Count 177 191 (130-400) 10^3/cmm Neut % (Auto) 63.2 61.8 % Neut # (Auto) 3.44 3.84 (1.8-7.7) 10^3/uL BMP 12/27/22 12/28/22 04:19 01:49 Sodium 137 134 L Potassium 4.3 4.1 Chloride 106 101 Carbon Dioxide 22 25 BUN 11 12 Creatinine 0.7 0.8 Glucose 116 H 117 H Calcium 9.0 9.3 Cardiac Studies: Echocardiogram Ultrasound 12/01/19
[2022-12-28] MEDS: sodium chloride 0.9% 1,000 ML 30 ML IV (11:48)
--- NOTE | 2022-12-28 13:55 | P.PN_ITS ---
Subjective Subjective: Reports feeling okay today. No major changes. Pain in left lower extremity under control. He has a time scheduled for surgery this afternoon. He is NPO. Denies any shortness of breath. No chest pain or pressure. Vitals/I&O/Wt Last Vital Signs Temp 98.5 F 12/28/22 11:16 Pulse 99 12/28/22 11:16 Resp 18 12/28/22 11:16 BP 149/80 12/28/22 11:16 Pulse Ox 96 12/28/22 11:16 O2 Del Method 12/28/22 11:16 12/27/22 12/28/22 12/28/22 22:59 06:59 14:59 Intake Total 410 / 1060 50 / 1110 50 / 50 Output Total 250 / 450 450 / 900 Balance 160 / 610 -400 / 210 50 / 50 Physical Exam Const: COMMON NORMALS: patient oriented x3 and alert GENERAL APPEARANCE: cooperative ORIENTATION/CONSCIOUSNESS: Yes awake HENMT: COMMON NORMALS: oropharynx normal Neck/C-Spine: COMMON NORMALS: no JVD Resp: COMMON NORMALS: normal respiratory effort and clear to auscultation bilaterally AUSCULTATION: clear to auscultation bilaterally Cardio: COMMON NORMALS: no JVD, regular rhythm, S1 normal heart sound present, S2 normal heart sound present and No murmurs present (Cardio) RHYTHM: regular rhythm HEART SOUNDS: S1 normal heart sound present and S2 normal heart sound present GI: COMMON NORMALS: Normal to inspection, nondistended, normoactive bowel sounds present, Soft to palpation and non-tender PALPATION: Yes Soft to palpation Extremity: COMMON NORMALS: no joint enlargement and no pedal edema OTHER: LLE elevated, in postop dressing. Able to wiggle toes which appear perfused. Neuro: COMMON NORMALS: patient oriented x3 and moves all extremities SENSOR IUM/ORIENTATION: Yes alert Skin: COMMON NORMALS: no rashes or lesions noted GENERAL SKIN EXAM: no rashes or lesions noted Data 12/28/22 01:49 12/28/22 01:49 A&P Assessment and plan (1) Compartment syndrome of left lower extremity: To go for reassessment of wounds in OR to see if needing additional debridement and drainage. No additional optimization. Acute blood loss anemia with some worsening today, recheck blood counts, consider transfusion at slightly higher threshold due to underlying CAD. Currently denies any ischemic symptoms. Status post 4 compartment fasciotomies. Elevate LLE PT, OT. (2) Chronic anticoagulation: Reassess blood counts. Anticoagulation and antiplatelet on hold. Eliquis on hold due to acute compartment syndrome, risk of bleeding. He is also on Plavix. History of CAD, prior stenting in 2019, status post CABG, status post aortic valve replacement. He is not sure what kind, his is not around and could not be reached by phone. Confirming with his telegraph installer office valve was bioprosthetic. Resume Plavix once able. (3) RUKHSANA (obstructive sleep apnea): Nightly CPAP with RT. (4) History of aortic valve replacement: Confirming with his telegraph installer's office valve was bioprosthetic. Resume antiplatelet once able. Plan Acute blood loss anemia: As above CAD: Resume Plavix once able. Continue BB, statin. As needed. COPD: Currently not in exacerbation. DuoNebs as needed. HTN: Continue metoprolol, resume other medications depending on blood pressure. History of CVA CKD Other medical problems Attestations Medical Necessity Statement*: Continue admission for follow-up and management of left lower extremity acute compartment syndrome, with acute anemia in a gentleman on anticoagulation, antiplatelet, with underlying CAD, replaced bioprosthetic aortic valve, RUKHSANA, additional comorbidities as above. Coding Level of Care Code 85030 Moderate MDM (Acute complicated injury with compartment syndrome. Acute anemia. Chronic underlying illnesses with aortic valve replacement, CAD, RUKHSANA. Decision to proceed with surgery.) includes risk/complexity, reviewing test results and ordering lab/other test(s) Diagnoses Compartment syndrome of left lower extremity T79.A22A Chronic anticoagulation Z79.01 RUKHSANA (obstructive sleep apnea) G47.33 History of aortic valve replacement Z95.2
[2022-12-28] MEDS: HYDROmorphone 1 mg/mL INJ 1 mL 0.5 MG IVP ×2 (14:15→14:25)
--- NOTE | 2022-12-28 16:05 | ANE.PACU2 ---
Inpatient post-anesthesia follow up: Airway intact: Yes Vital signs: Temperature 97.6 F Pulse Rate 118 Respiratory Rate 18 Blood Pressure 171/91 Pulse Oximetry 94 Oxygen Delivery Me thod Room Air Oxygen Flow Rate 6 Fraction of Inspir ed Oxygen Hydration adequate: Yes Nausea and vomiting: No Pain level: 1 Mental status: Baseline
--- NOTE | 2022-12-28 17:24 | P.OP_ITS ---
Brief Operative Note Date of procedure: 12/30/22 Pre-op diagnosis: Left lower extremity compartment syndrome status post fascio arleen with open Post-op diagnosis: same (With open wound medially) Procedure Done: Left lower extremity irrigation and debridement medial incision (15 cm x 10 cm x 5 cm) Left lower extremity wound VAC application Surgeon: Oli Llanos Estimated blood loss (mL): 100 Complications: None Post-op Plan: Patient tolerated procedure without complications taken to PACU in stable condition. Wound VAC on and in place as patient had still residual significant swelling and inability to close incision site. This point time we will continue to keep back on in place until repeat surgery this coming with plan for repeat I&D and hopefully primary closure. We will continue on IV antibiotic for coverage secondary wound medially. Continue pain control continue to hold anticoagulants given patient's had low hemoglobin goals of maintaining hemostasis and wound bed. We will continue with mechanical DVT prophylaxis at this time. We will plan to restart anticoagulants once wound is closed. Continue to monitor wound VAC. Patient will return to the floor. Condition: stable Disposition: floor Coding Level of Care Code Acute Code for Kamille Fwella
--- NOTE | 2022-12-28 17:24 | PM.PACU ---
PACU note Narrative: Patient taken the PACU in stable condition. Patient recovering. Wound VAC on in place with good seal no output at this time. Patient still sedated and lethargic from anesthesia. Is involuntarily wiggling his toes. We will continue with assessments motor and sensory postoperatively. His toes are warm and well-perfused distal pulses are palpable. Exam: somnolent, arousable Disposition: back to floor
--- NOTE | 2022-12-28 17:24 | PM.OP ---
Operative Report Date of procedure: December 28, 2022 Pre-op diagnosis: Preop Diagnosis Left lower extremity compartment syndrome, open wound Preop Diagnosis Left lower extremity compartment syndrome Post-op diagnosis: Left lower extremity compartment syndrome status post 4 compartment fasciotomy with open medial wound Procedure done: Left lower extremity irrigation and debridement with wound VAC placement Surgeon: Oli Llanos DO Estimated blood loss: 100 mL 34 minutes IV fluids: 600mL Complications: None Condition: stable Disposition: floor Brief History: Patient initially presented to the office on 12/25/2022 with left lower extremity compartment syndrome. He on that same day emergently went to the OR for left 4 compartment fasciotomy. The lateral incision was closed primarily given patient was on Eliquis aspirin and Plavix and had taken his Eliquis that morning his medial incision was then subsequently left open. This was subsequently packed with wet-to-dry as well as Vesseloops for tension along the skin edges. Plan was to let all of his anticoagulants be off to help with hemostasis as concern would be a VAC placement at that time acutely would potentially cause even further and worsening blood loss given his significant anticoagulation therapy. He subsequently has been admitted internal medicine has been on board assisting with medical management. At this point time after being monitored through the weekend he has been n.p.o. since midnight with plan to go back to the OR for left lower extremity repeat irrigation debridement with possible primary closure versus VAC placement. Patient understands the risk benefits complication alternatives surgical nonsurgical treatment options. Understands risk of surgery he agrees to proceed all questions answered at this time. Consent reviewed and signed with patient. Procedure: Patient was seen evaluated in the preoperative holding area. Consent was reviewed and signed with patient. Correct extremity was then subsequently marked. Dressings on in place. Patient seen and evaluated anesthesia department once cleared for surgery was taken back to the operative suite. Transported from the OR table placed in supine position all bony prominences well-padded patient was properly secured to bed. Left lower extremity was then placed subsequently on the bone foam. Once appropriately anesthetized the left thigh had a nonsterile tourniquet applied. Subsequently the left lower extremity dressing was taken down. Saturation of the wet lap sponges was noted. And vessel loops and kiya were subsequently removed. Left lower extremity was then prepped and draped in standard orthopedic fashion. Patient received appropriate preoperative antibiotics and a final timeout was performed. Left lower extremity elevated tourniquet insufflated 250 mmHg. At this point time Pulsavac was then utilized and 9 L of normal saline was utilized to thoroughly irrigate out the medial incision wound bed. Again residual hematoma was found of the superficial and deep compartments. After 9 L of normal saline I then subsequently switched to a rongeur and appropriately debride the wound bed of 15 cm x 10 cm x 5 cm of necrotic devitalized tissue of skin subcutaneous fat fascia muscle belly. Once again small amounts of residual hematoma was evacuated as well. Once this was taken to vital tissue and then again visualized the muscle bellies of the deep and superficial compartments and electrocautery was used to stimulate and these had good contractility. Again continued swelling and contusion was noted of these muscles however overall they were pink and contractile. Once satisfied with my debridement I then thoroughly irrigated the wound bed once more and then subsequently made an assessment of the soft tissue envelope. Patient still had noticeable swelling and would be too highly tension for primary closure plan was for VAC placement tourniquet was deflated hemostasis was found to be satisfactory with electrocautery and pressure. I then utilized a black foam sponge and subsequently cut this to appropriate size this was placed only within the wound bed to help with decrease swelling as well as increased healing and granulation tissue of the wound bed. This was then set up to a wound VAC at bedside with excellent seal. This was set on 75 mmHg continuous suction. Patient tolerated procedure without complications he was dressed with Xeroform over the lateral incision as well as excessive ABDs 4 x 4's Curlex and an Rafita wrap to the left lower extremity. Taken to PACU in stable condition. Disposition: Patient taken to PACU in stable condition recovering well. Will return to the floor. Continue with wound VAC at this time. Plan with return to the OR for left lower extremity irrigation debridement with VAC removal and hopefully primary closure this coming . Continue to monitor and be nonweightbearing left lower extremity continue PT/OT. Appreciate internal medicine being on board for medical management assistance. Continue to hold on anticoagulant therapy.
[2022-12-28] MEDS: sodium chloride 0.9% 1,000 ML 80 ML IV (18:31)
[2022-12-28] MEDS: calcium carb-vit d 600mg/400unit 1 Tablet 1 EACH PO (18:32)
[2022-12-28] MEDS: docusate sodium 100 mg Capsule PO (18:32)
[2022-12-28] MEDS: iron polysaccharide complex 150 mg Capsule PO (18:32)
[2022-12-28] MEDS: TRAMadol 50 mg Tablet PO (20:46)
[2022-12-28] MEDS: temazepam 15 mg Capsule PO (22:29)
[2022-12-28] MEDS: acetaminophen 500 mg Tablet 1000 MG PO (23:46)
[2022-12-29] VITALS (14 sets, daily range): BP systolic 107–141; BP diastolic 65–82; PULSE 89–111; RESP 16–20; TEMP 36.9–37.7; O2SAT 90–97
[2022-12-29 03:10] LABS: Basophils % 0.5 %; Eosinophils # 0.1 10^3/uL (0.0-0.8); Eosinophils % 1.8 %; Hemoglobin 7.2 g/dL (11.7-16.6); Lymphocytes # 1.1 10^3/uL (0.8-4.8); Lymphocytes % 18.2 %; Mean Corpuscular HGB Conc 31.3 g/dL (30.0-36.0); Mean Corpuscular Hemoglobin 27.5 pg (28.0-34.0); Mean Corpuscular Volume 87.8 fl (80-94); Monocytes # 0.8 10^3/uL (0.2-0.9); Monocytes % 12.5 %; Neutrophils # 4.11 10^3/uL (1.8-7.7); Neutrophils % 66.5 %; Nucleated Red Blood Cells % 0.3 %; Platelet Count 215 10^3/cmm (130-400); Red Blood Count 2.62 10^6/uL (4.1-5.3); Red Cell Distribution Width 13.5 % (12.1-15.1); White Blood Count 6.2 10^3/uL (4.0-10.0)
[2022-12-29 03:25] LABS: Anion Gap 13.2 (5-19); Blood Urea Nitrogen 14 mg/dL (8-23); Calcium 8.2 mg/dL (8.5-10.5); Carbon Dioxide 25 mmol/L (22-29); Chloride 103 mmol/L (98-107); Glomerular Filtration Rate 95.8 mL/min (90-130); Glucose 130 mg/dL (65-115); Osmolality Calculated 286 mOsm/kg (285-295); Potassium 4.2 mmol/L (3.5-5.1); Sodium 137 mmol/L (136-145)
[2022-12-29] MEDS: oxyCODONE 5 mg IR Tab/Cap PO ×3 (03:54→21:38)
[2022-12-29] MEDS: ceFAZolin 2,000 MG in sodium chloride 0.9% (plus) 50 ML 100 MG IV (03:55)
[2022-12-29] MEDS: pantoprazole DR 40 mg Tablet PO (08:31)
[2022-12-29] MEDS: multivitamin therapeutic Tablet 1 TAB PO (08:31)
[2022-12-29] MEDS: atorvastatin 40 mg Tablet 80 MG PO (08:31)
[2022-12-29] MEDS: docusate sodium 100 mg Capsule PO ×2 (08:32→17:28)
[2022-12-29] MEDS: calcium carb-vit d 600mg/400unit 1 Tablet 1 EACH PO ×2 (08:32→17:27)
[2022-12-29] MEDS: iron polysaccharide complex 150 mg Capsule PO ×2 (08:32→17:28)
[2022-12-29] MEDS: metoprolol succinate ER (24 HR) 50 mg Tablet PO (08:32)
[2022-12-29] MEDS: acetaminophen 500 mg Tablet 1000 MG PO ×3 (08:32→23:52)
[2022-12-29] MEDS: sodium chloride 0.9% 1,000 ML 80 ML IV (08:37)
[2022-12-29] MEDS: fluticasone nasal spray 16gm Btl 1 SPRAY INTRANASAL (09:30)
--- NOTE | 2022-12-29 17:18 | P.PN_ITS ---
Subjective Subjective: Patient seen and evaluated this afternoon. Patient's pain is controlled. No significant issues overnight. His hemoglobin is low I did discuss with the internal medicine team and they are currently managing will receive 1 unit PRBC with goals of keeping hemoglobin above 8. This point time would recommend continuing off anticoagulation as patient does have a wound VAC on and in place and plan for closure later this week with goal of primary closure on . Continue with antibiotics. Appreciate internal medicine's input and assistance with patient's care. Patient understands and agrees with current plan. All questions answered. Vitals/I&O/Wt Last Vital Signs Temp 98.9 F 12/29/22 17:15 Pulse 95 12/29/22 17:15 Resp 18 12/29/22 17:15 BP 128/77 12/29/22 17:15 Pulse Ox 96 12/29/22 17:15 O2 Del Method 12/29/22 17:15 O2 Flow Rate 6 12/28/22 14:02 12/29/22 12/29/22 12/29/22 06:59 14:59 22:59 Intake Total 526 / 2307.5 779 / 779 0 / 779 Output Total 400 / 800 Balance 126 / 1507.5 779 / 779 0 / 779 Physical Exam Narrative: Examination left lower extremity dressing on in place clean dry and intact. Swelling still noted to the dorsum of the foot and toes. Distal pulses are palpable. Toes are warm well perfused brisk capillary refill less than 2 seconds. He is able to actively move his toes with purpose. He is able to tamara ntarflex and dorsiflex his ankle he does have some discomfort when he dorsiflexes up to neutral position stretching his calf muscles. This is not pain out of proportion. Pertaining to his sensation he still appears to have some diffuse decrease sensation mostly from the ankle down but states he feels as though some of it but slowly returning. Compartments are soft and compressible. Wound VAC on and in place with good seal patient had roughly 100 cc of bloody output since surgery roughly 24 hours. No pain with passive range of motion of the toes or ankle. Data 12/29/22 02:52 12/29/22 02:52 A&P Assessment and plan (1) Compartment syndrome of left lower extremity: Plan Nonweightbearing left lower extremity Continue antibiotics Continue elevation and ice PT/OT Pain control A.m. labs reviewed and discussed with internal medicine and patient currently receiving 1 unit PRBC with goals of keeping hemoglobin above 8 given his cardiac history May have a diet today We will plan for surgery this for left lower extremity repeat irrigation and debridement with plan for primary closure versus possible wound VAC if unable to close. Discussed with primary and continue with mechanical SCDs for DVT prophylaxis and will hold on anticoagulants at this time. Internal medicine on board for medical management appreciate their assistance and recommendations. Attestations Medical Necessity Statement*: Ongoing care of left lower extremity compartment syndrome requiring fasciotomies and currently wound VAC to left lower extremity Coding Level of Care Code Acute Code for Chg Fwd Diagnoses Compartment syndrome of left lower extremity T79.A22A Time Spent (min) 20
[2022-12-29] MEDS: TRAMadol 50 mg Tablet PO (17:28)
--- NOTE | 2022-12-29 17:29 | PC.NURSE ---
Transfusion Reaction: While vitals were being obtained as blood transfusion protocol, an elevated temperature of 100 was reported. Vitals: Temp 100 Pulse 94 Resp 20 O2 95% BP 126/79 Pt reported, My face and ears feel hot. Dr. Peters notified and blood was stopped. J Loop replaced on IV and urine specimen obtained for laboratory. Blood and blood tubing bagged in biohazard bag and taken to laboratory.
--- NOTE | 2022-12-29 18:48 | PC.NURSE ---
Call from lab/pathology: Laboratory/pathology staff contacted floor to report transfusion reaction work up was negative. No discrepancies noted, negative for hematuria, and KENYATTA negative. Dr. Peters notified.
--- NOTE | 2022-12-29 20:46 | P.PN_ITS ---
Subjective Subjective: He states he is doing all right. Denies chest pain. No trouble breathing. Discussed with him our discussion with orthopedic surgery. Discussed with him regarding additional worsening of anemia, hemoglobin 7.2. Discussed blood transfusion of 1 unit RBC. Vitals/I&O/Wt Last Vital Signs Temp 99.7 F H 12/29/22 19:50 Pulse 89 12/29/22 19:50 Resp 17 12/29/22 19:50 BP 107/65 12/29/22 19:50 Pulse Ox 95 12/29/22 19:50 O2 Del Method 12/29/22 17:15 O2 Flow Rate 6 12/28/22 14:02 12/29/22 12/29/22 12/29/22 06:59 14:59 22:59 Intake Total 526 / 2307.5 779 / 779 0 / 779 Output Total 400 / 800 Balance 126 / 1507.5 779 / 779 0 / 779 Physical Exam Const: COMMON NORMALS: patient oriented x3 and alert GENERAL APPEARANCE: cooperative ORIENTATION/CONSCIOUSNESS: Yes awake HENMT: COMMON NORMALS: oropharynx normal Neck/C-Spine: COMMON NORMALS: no JVD Resp: COMMON NORMALS: normal respiratory effort and clear to auscultation amor aterally AUSCULTATION: clear to auscultation bilaterally Cardio: COMMON NORMALS: no JVD, regular rhythm, S1 normal heart sound present, S2 normal heart sound present and No murmurs present (Cardio) RHYTHM: regular rhythm HEART SOUNDS: S1 normal heart sound present and S2 normal heart sound present GI: COMMON NORMALS: Normal to inspection, nondistended, normoactive bowel sounds present, Soft to palpation and non-tender PALPATION: Yes Soft to palpation Extremity: COMMON NORMALS: no joint enlargement and no pedal edema OTHER: LLE elevated, in postop dressing. Able to wiggle toes which appear perfused. Neuro: COMMON NORMALS: patient oriented x3 and moves all extremities SENSORIUM/ORIENTATION: Yes alert Skin: COMMON NORMALS: no rashes or lesions noted GENERAL SKIN EXAM: no rashes or lesions noted Data 12/29/22 02:52 12/29/22 02:52 A&P Assessment and plan (1) Compartment syndrome of left lower extremity: CBC result appreciated. Hemoglobin down to 7.2. Discussed with him and also his , requested 1 unit RBC transfusion. Unfortunately during transfusion he developed a fever of 100 Fahrenheit. Discussed with his RN, transfusion stopped. Initiated transfusion reaction protocol. He did receive leukoreduced blood. We will request chest x-ray, UA. Continue to monitor vitals. Recheck CBC in the morning. Discussed with orthopedics as well. He had a wound VAC placed. Plan will be for reassessment of the compartments likely on with again consideration of possible closure. Status post 4 compartment fasciotomies. Elevate LLE PT, OT. (2) Chronic anticoagulation: Reassess blood counts in the morning. Anticoagulation and antiplatelet on hold. Eliquis on hold due to acute compartment syndrome, risk of bleeding. He is also on Plavix. History of CAD, prior stenting in 2019, status post CABG, status post aortic valve replacement. He is not sure what kind, his is not around and could not be reached by phone. Confirming with his home care coordinator office valve was bioprosthetic. Resume Plavix once able. (3) RUKHSANA (obstructive sleep apnea): Nightly CPAP with RT. (4) History of aortic valve replacement: Valve was bioprosthetic. Resume antiplatelet once able. Plan Acute blood loss anemia: As above CAD: Resume Plavix once able. Continue BB, statin. As needed. COPD: Currently not in exacerbation. DuoNebs as needed. HTN: Continue metoprolol, resume other medications depending on blood pressure. History of CVA CKD Other medical problems Attestations Medical Necessity Statement*: Continue admission for assessment management of compartment syndrome left lower extremity, acute blood loss anemia, possible transfusion reaction. Coding Level of Care Code 90501 High MDM includes risk/complexity, reviewing previous or external records, reviewing test results, ordering lab/other test(s), speaking with independent historian (other than patient) and discussion of management or test(s) w/ other healthcare professional Diagnoses Compartment syndrome of left lower extremity T79.A22A Chronic anticoagulation Z79.01 RUKHSANA (obstructive sleep apnea) G47.33 History of aortic valve replacement Z95.2
--- NOTE | 2022-12-29 20:59 | XRR_ITS ---
PROCEDURE INFORMATION: Exam: XR Chest Exam date and time: 12/29/2022 9:03 PM Age: 67 years old Clinical indication: Fever TECHNIQUE: Imaging protocol: Radiologic exam of the chest. Views: 1 view. COMPARISON: CR XR chest 1V portable [id number] 04/10/2021 12:14 AM FINDINGS: Lungs: Slight chronic prominence of markings in the lung base with prior exam, and without focal infiltrate or consolidation. Pleural spaces: Unremarkable. No pleural effusion. No pneumothorax. Heart/Mediastinum: Postsurgical changes of prior cardiac surgery. Bones/joints: Postsurgical hardware mid to lower cervical spine. Mild spondylotic change thoracic spine and mild degenerative change of the shoulders. XR/XR chest 1V portable [id number] IMPRESSION: No acute cardiopulmonary abnormality.
[2022-12-29] MEDS: temazepam 15 mg Capsule PO (21:38)
[2022-12-30] VITALS (17 sets, daily range): BP systolic 116–137; BP diastolic 55–83; PULSE 64–115; RESP 14–23; TEMP 36.7–37.4; O2SAT 94–98
[2022-12-30] MEDS: sodium chloride 0.9% 1,000 ML 80 ML IV ×2 (02:17→17:31)
[2022-12-30 06:21] LABS: Add Urine Microscopic? NO; Charge for UA Resulting for Rev
[2022-12-30 06:21] LABS: Basophils % 0.4 %; Eosinophils # 0.2 10^3/uL (0.0-0.8); Eosinophils % 3.7 %; Hematocrit 23.8 % (42.0-52.0); Hemoglobin 7.3 g/dL (11.7-16.6); Lymphocytes # 0.9 10^3/uL (0.8-4.8); Lymphocytes % 15.9 %; Mean Corpuscular HGB Conc 30.7 g/dL (30.0-36.0); Mean Corpuscular Hemoglobin 27.2 pg (28.0-34.0); Mean Corpuscular Volume 88.8 fl (80-94); Mean Platelet Volume 9.9 fL (7.4-10.4); Monocytes # 0.7 10^3/uL (0.2-0.9); Monocytes % 12.7 %; Neutrophils # 3.78 10^3/uL (1.8-7.7); Neutrophils % 66.6 %; Nucleated Red Blood Cells % 0 %; Platelet Count 211 10^3/cmm (130-400); Red Blood Count 2.68 10^6/uL (4.1-5.3); Red Cell Distribution Width 13.7 % (12.1-15.1); White Blood Count 5.7 10^3/uL (4.0-10.0)
[2022-12-30 06:24] LABS: Bilirubin Urine Neg (Negative); Blood Urine Neg (Negative); Glucose Urine UA Norm (Normal); Ketones Urine Negative (Negative); Leukocyte Esterase Urine Negative (Negative); Nitrate Urine Negative (Negative); Protein Urine Neg (Negative); Urine Appearance Clear (CLEAR); Urine Color Yellow (Yellow); Urobilinogen Urine Norm (Negative); pH Urine 6 (5-7)
[2022-12-30 06:48] LABS: Blood Urea Nitrogen 10 mg/dL (8-23); Calcium 8.1 mg/dL (8.5-10.5); Carbon Dioxide 23 mmol/L (22-29); Chloride 105 mmol/L (98-107); Glomerular Filtration Rate 111.8 mL/min (90-130); Glucose 116 mg/dL (65-115); Osmolality Calculated 284 mOsm/kg (285-295); Sodium 137 mmol/L (136-145)
[2022-12-30] MEDS: acetaminophen 500 mg Tablet 1000 MG PO ×2 (07:38→16:00)
[2022-12-30] MEDS: iron polysaccharide complex 150 mg Capsule PO ×2 (07:38→17:31)
[2022-12-30] MEDS: calcium carb-vit d 600mg/400unit 1 Tablet 1 EACH PO ×2 (07:38→17:31)
[2022-12-30] MEDS: docusate sodium 100 mg Capsule PO ×2 (07:38→17:31)
[2022-12-30] MEDS: pantoprazole DR 40 mg Tablet PO (07:38)
[2022-12-30] MEDS: oxyCODONE 5 mg IR Tab/Cap PO ×4 (07:39→21:42)
[2022-12-30] MEDS: metoprolol succinate ER (24 HR) 50 mg Tablet PO (07:39)
[2022-12-30] MEDS: atorvastatin 40 mg Tablet 80 MG PO (07:39)
[2022-12-30] MEDS: multivitamin therapeutic Tablet 1 TAB PO (07:39)
[2022-12-30] MEDS: fluticasone nasal spray 16gm Btl 1 SPRAY INTRANASAL (07:44)
--- NOTE | 2022-12-30 10:09 | PC.CHAP ---
Pastoral Care Encounter/Spiritual Assessment Type of Contact [] Declined account contact associate visit [] Patient/Family/Request visit [] Outpatient visit [] Follow-up visit [] Physician referral [] Code/Alert [x] Routine visit [] Staff referral [] Actively dying [] Patient sleeping [] Family support [] [] Out of room [] Palliative care [] [] Receiving care in room [] Pre-surgical visit [] Trauma [] Long length of stay [] ICU visit [x] Other: On Phone Relational/Emotional Strength [] Patient feels connected with others/family/visitors/staff [] Distress [] Loneliness/isolation [] Abandonment Spirituality of Patient [] Person of Haylee [] Attends Gnosticism of their Haylee [] Believes in Prayer [] Reads Bible or Rastafari materials [] There are Spiritual issues to be addressed [employer] Consultant Interventions [] Prayer [] Active listening [] Non-anxious presence [] Spiritual/emotional support [] Crisis/trauma care [] Spiritual counseling [] Bereavement support [] Provided bereavement packet [] Provided Bible/devotional materials [] Provided toy/stuffed animal, coloring book to patient or family member [] Provided Communion [] Anointing/[place] [] Salvation [] Completed spiritual assessment [] Other: Impact on Illness or Injury [] Angry [] Fearful [] Anxious [] Often cries [] Exhaustion [] Unable to work [] Unable to attend latter day [] Unable to walk/stand [] Unable to read [] Unable to drive [] Unable to eat/drink [] Unable to sleep [] Unable to be with family [] Patient intubated [] Other: Summary Time spent with patient
[2022-12-30] MEDS: sodium chloride 0.9% 100 mL Bag 50 ML IV (10:48)
--- NOTE | 2022-12-30 10:52 | PM.PN ---
Subjective Subjective: Patient seen and evaluated this AM. Patient doing well. Patient asymptomatic. His hemoglobin this a.m. is 7.3. Would recommend an additional 1 unit PRBC transfusion in preparation for surgery tomorrow. Plan will be for VAC removal irrigation and debridement and primary closure of the medial incision. Patient understands and agrees with current plan. All questions answered. Will be n.p.o. at midnight. Vitals/I&O/Wt Last Vital Signs Temp 98.3 F 12/30/22 10:44 Pulse 87 12/30/22 10:44 Resp 16 12/30/22 10:44 BP 127/68 12/30/22 10:44 Pulse Ox 96 12/30/22 10:44 O2 Del Method 12/30/22 08:00 O2 Flow Rate 6 12/28/22 14:02 12/29/22 12/30/22 12/30/22 22:59 06:59 14:59 Intake Total 1240 / 2019 360 / 360 Output Total 400 / 400 600 / 1000 Balance 840 / 1619 -600 / 1019 360 / 360 Physical Exam Narrative: Examination left lower extremity demonstrates Rafita wrap on in place clean dry and intact. Noticeable reduction in patient's swelling to his left foot and toes. Patient is able to wiggle toes with purpose no pain with passive range of motion. He does have some discomfort with dorsiflexion to neutral. As far sensation goes still has some slight decrease sensation over the DPN and parts of the SPN nerve distribution in the distal aspects of tibial saphenous and sural nerve distribution. Approximately at mid tibia he feels as though sensation feels near normal. His compartments are soft and compressible. Wound VAC on in place [place] slight bloody output roughly an additional 100 mL out over past 24 hours. Toes are warm well perfused. Distal pulses are 2+. Data 12/30/22 05:41 12/30/22 05:41 A&P Assessment and plan (1) Compartment syndrome of left lower extremity: Plan May have a diet today Plan for n.p.o. at midnight for surgery tomorrow Continue to hold a.m. anticoagulation Plan for OR tomorrow for wound VAC removal, repeat left lower extremity irrigation and debridement and medial incision wound closure Continue IV antibiotics PT/OT Nonweightbearing left lower extremity Continue elevation and ice as needed for pain and swelling Internal medicine on board for medical management appreciate assistance A[facility] labs reviewed hemoglobin 7.3 would recommend transfusion above 8 prior to surgery tomorrow Orthopedics on board we will continue to monitor. Attestations Medical Necessity Statement*: Ongoing care postoperative left lower extremity compartment syndrome status post 4 compartment fasciotomy and evacuation hematoma Coding Level of Care Code Acute Code for [facility] F[facility] Diagnoses Compartment syndrome of left lower extremity T79.A22A
--- NOTE | 2022-12-30 14:20 | PC.SOCIAL ---
IMM Updated Updated IMM. No questions voiced. Provided pt a copy. Initialed, dated, & timed copy in chart.
[2022-12-30 15:42] LABS: Hematocrit 25.9 % (42.0-52.0); Hemoglobin 8.2 g/dL (11.7-16.6)
--- NOTE | 2022-12-30 18:39 | PC.NURSE ---
Patient has done well today. Pain controlled with oral pain medication. Good PO intake. Adequate urine output. Patient had BM. Good neurovascular checks. No drainage at surgical site. Patient tolerated 1 unit of PRBC's. Currently resting in bed.
--- NOTE | 2022-12-30 20:01 | PM.PN ---
Subjective Subjective: Denies pain or discomfort. Denies chest pain or pressure. Denies trouble breathing. Tolerating blood transfusion. Discussed with him and his fever during blood transfusion yesterday. Discussed assessment with transfusion reaction protocol, discussed results of chest x-ray and UA. Vitals/I&O/Wt Last Vital Signs Temp 98.0 F 12/30/22 16:00 Pulse 111 H 12/30/22 16:00 Resp 16 12/30/22 17:31 BP 116/64 12/30/22 16:00 Pulse Ox 98 12/30/22 16:00 O2 Del Method 12/30/22 16:00 O2 Flow Rate 6 12/28/22 14:02 12/30/22 12/30/22 12/30/22 06:59 14:59 22:59 Intake Total 2390 / 2390 Output Total 600 / 1000 800 / 800 Balance -600 / 1019 2390 / 2390 -800 / 1590 Physical Exam Narrative: Family at bedside. Const: COMMON NORMALS: patient oriented x3 and alert GENERAL APPEARANCE: cooperative ORIENTATION/CONSCIOUSNESS: Yes awake HENMT: COMMON NORMALS: oropharynx normal Neck/C-Spine: COMMON NORMALS: no JVD Resp: COMMON NORMALS: normal respiratory effort and clear to auscultation bilaterally AUSCULTATION: clear to auscultation bilaterally Cardio: COMMON NORMALS: no JVD, regular rhythm, S1 normal heart sound present, S2 normal heart sound present and No murmurs present (Cardio) RHYTHM: regular rhythm HEART SOUNDS: S1 normal heart sound present and S2 normal heart sound present GI: COMMON NORMALS: Normal to inspection, nondistended, normoactive bowel sounds present, Soft to palpation and non-tender PALPATION: Yes Soft to palpation Extremity: COMMON NORMALS: no joint enlargement and no pedal edema OTHER: LLE elevated, in postop dressing and wound VAC, 275 mL in wound VAC chamber. Able to wiggle toes which appear perfused. Neuro: COMMON NORMALS: patient oriented x3 and moves all extremities SENSORIUM/ORIENTATION: Yes alert Skin: COMMON NORMALS: no rashes or lesions noted GENERAL SKIN EXAM: no rashes or lesions noted Data 12/30/22 15:07 12/30/22 05:41 A&P Assessment and plan (1) Compartment syndrome of left lower extremity: Returning to or tomorrow for additional evaluation and potential closure left lower extremity wound. Discussed with orthopedics. Discussed with him and his family. Acute anemia, today transfuse additional unit RBC after yesterday unit type to be aborted. Responded well repeat hemoglobin reviewed, up to 8.2. Discussed with orthopedics as well. He had a wound VAC placed. Plan will be for reassessment of the compartments likely on with again consideration of possible closure. Status post 4 compartment fasciotomies. Elevate LLE PT, OT. (2) Fever: Yesterday fever 100 Fahrenheit during blood transfusion. Possible nonhemorrhagic transfusion reaction, although was receiving leukoreduced blood. Transfusion reaction protocol performed, no hemolytic transfusion reaction noted. Not entirely clear whether reaction to transfusion or unrelated fever, however, no overt symptoms of infection, obtain chest x-ray and UA yesterday, results reviewed, no suggestion of pneumonia or UTI. He denies any additional symptoms that may suggest infection. Continue to monitor condition. Today additional unit of leukoreduced RBC ordered, he tolerated this well with good response. Follow-up blood counts requested for the morning. Renal function requested for the morning. (3) Chronic anticoagulation: Reassess blood counts in the morning. Anticoagulation and antiplatelet on hold. Eliquis on hold due to acute compartment syndrome, risk of bleeding. He is also on Plavix. History of CAD, prior stenting in 2019, status post CABG, status post aortic valve replacement. He is not sure what kind, his is not around and could not be reached by phone. 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 Resume Plavix once able. (4) RUKHSANA (obstructive sleep apnea): Nightly CPAP with RT. (5) History of aortic valve replacement: Valve was bioprosthetic. Resume antiplatelet once able. Plan Acute blood loss anemia: As above CAD: Resume Plavix once able. Continue BB, statin. As needed. COPD: Currently not in exacerbation. DuoNebs as needed. HTN: Continue metoprolol, resume other medications depending on blood pressure. History of CVA CKD Other medical problems Attestations Medical Necessity Statement*: Continue admission for management of left lower extremity compartment syndrome, acute anemia, possible transfusion reaction, fever, and a gentleman with underlying CAD and other comorbidities. Coding Level of Care Code 28632 High MDM includes risk/complexity, reviewing test results, ordering lab/other test(s), speaking with independent historian (other than patient) and discussion of management or test(s) w/ other healthcare professional Diagnoses Compartment syndrome of left lower extremity T79.A22A Fever R50.9 Chronic anticoagulation Z79.01 RUKHSANA (obstructive sleep apnea) G47.33 History of aortic valve replacement Z95.2
[2022-12-30] MEDS: temazepam 15 mg Capsule PO (21:42)
[2022-12-31] VITALS (31 sets, daily range): BP systolic 101–175; BP diastolic 53–88; PULSE 74–117; RESP 12–20; TEMP 36.1–37.3; O2SAT 93–100
[2022-12-31] MEDS: acetaminophen 500 mg Tablet 1000 MG PO ×4 (00:12→23:37)
[2022-12-31 04:49] LABS: Basophils % 0.4 %; Eosinophils # 0.3 10^3/uL (0.0-0.8); Eosinophils % 4.8 %; Hematocrit 26.3 % (42.0-52.0); Hemoglobin 8.2 g/dL (11.7-16.6); Lymphocytes % 17.7 %; Mean Corpuscular HGB Conc 31.2 g/dL (30.0-36.0); Mean Corpuscular Hemoglobin 27.6 pg (28.0-34.0); Mean Corpuscular Volume 88.6 fl (80-94); Monocytes # 0.7 10^3/uL (0.2-0.9); Neutrophils # 3.62 10^3/uL (1.8-7.7); Neutrophils % 64.6 %; Nucleated Red Blood Cells % 0.4 %; Platelet Count 225 10^3/cmm (130-400); Red Blood Count 2.97 10^6/uL (4.1-5.3); Red Cell Distribution Width 13.5 % (12.1-15.1); White Blood Count 5.6 10^3/uL (4.0-10.0)
[2022-12-31 05:14] LABS: Anion Gap 12.7 (5-19); Blood Urea Nitrogen 9 mg/dL (8-23); Calcium 8.2 mg/dL (8.5-10.5); Carbon Dioxide 23 mmol/L (22-29); Chloride 107 mmol/L (98-107); Glomerular Filtration Rate 95.8 mL/min (90-130); Glucose 112 mg/dL (65-115); Osmolality Calculated 287 mOsm/kg (285-295); Potassium 3.7 mmol/L (3.5-5.1); Sodium 139 mmol/L (136-145)
[2022-12-31] MEDS: sodium chloride 0.9% 1,000 ML 80 ML IV ×2 (07:05→22:30)
[2022-12-31] MEDS: metoprolol succinate ER (24 HR) 50 mg Tablet PO (08:23)
[2022-12-31] MEDS: atorvastatin 40 mg Tablet 80 MG PO (08:24)
[2022-12-31] MEDS: docusate sodium 100 mg Capsule PO ×2 (08:26→17:52)
[2022-12-31] MEDS: multivitamin therapeutic Tablet 1 TAB PO (08:26)
[2022-12-31] MEDS: iron polysaccharide complex 150 mg Capsule PO ×2 (08:26→17:52)
[2022-12-31] MEDS: calcium carb-vit d 600mg/400unit 1 Tablet 1 EACH PO ×2 (08:26→17:52)
[2022-12-31] MEDS: pantoprazole DR 40 mg Tablet PO (08:26)
[2022-12-31] MEDS: fluticasone nasal spray 16gm Btl 1 SPRAY INTRANASAL (08:28)
[2022-12-31] MEDS: oxyCODONE 5 mg IR Tab/Cap PO ×4 (08:37→23:39)
--- NOTE | 2022-12-31 13:10 | P.ANESUD_ITS ---
Pre-Anesthetic Update Pre-Anesthetic Assessment: Date of Surgery/Procedure: 12/31/22 Preop Gali gnosis: Left lower extremity compartment syndrome, open wound Proposed Procedure: Operation Date: 12/25/22 11:30 Proposed Procedures p Fasciotomy Lower Extremity(Left) - Oli Llanos, Operation Date: 12/28/22 12:10 Proposed Procedures p Incision & Drainage Lower Extremity(Left) - Oli LlanosDO s Wound Vac Placement(Left) - Oli Llanos, Operation Date: 12/30/22 12:15 Proposed Procedures p Incision & Drainage Lower Extremity with primary closure(Left) - Oli Llanos, Operation Date: 12/31/22 13:10 Proposed Procedures p left lower extremity irrigation debridement with primary closure(Left) - Oli Llanos, DO Any changes to Pre-Anesthetic Assessment?: No Last Intake: Intake Last Liquid Date 12/31/22 Last Liquid Time 18:00 Last Solid Date 12/30/22 Last Solid Time 18:00 Labs Last 48hrs: Short CBC 12/30/22 12/30/22 12/31/22 Range/Units 05:41 15:07 04:21 WBC 5.7 5.6 (4.0-10.0) 10^3/ uL Hgb 7.3 L 8.2 L 8.2 L (11.7-16.6) g/dL Hct 23.8 L 25.9 L 26.3 L (42.0-52.0) % MCV 88.8 88.6 (80-94) fl Plt Count 211 225 (130-400) 10^3/c mm Neut % (Auto) 66.6 64.6 % Neut # (Auto) 3.78 3.62 (1.8-7.7) 10^3/u L BMP 12/30/22 12/31/22 05:41 04:21 Sodium 137 139 Potassium 4.0 3.7 Chloride 105 107 Carbon Dioxide 23 23 BUN 10 9 Creatinine 0.7 0.8 Glucose 116 H 112 Calcium 8.1 L 8.2 L Urine 12/30/22 Range/Units 06:08 Urine Color Yellow (Yellow) Urine Appearance Clear (CLEAR) Urine pH 6 (5-7) Ur Specific Gravit y 1.020 (1.005-1.030) Urine Protein Neg (Negative) Urine Glucose (UA) Norm (Normal) Urine Ketones Negative (Negative) Urine Nitrate Negative (Negative) Urine Bilirubin Neg (Negative) Ur Leukocyte Nina ase Negative (Negative) Blood Bank 12/29/22 11:38 Blood Type O Positive Rho(D) Type Positive Antibody Screen Negative Vitals: Temperature 98.7 F 12/31/22 11:44 Temperature Source Oral 12/31/22 11:44 Pulse Rate 81 12/31/22 11:44 Pulse Rhythm 12/31/22 12:32 Pulse Strength 3+ Normal 12/31/22 12:32 Respiratory Rate 17 12/31/22 11:44 Respiratory Effort Non-Labored 12/30/22 21:42 Respiratory Depth Normal 12/30/22 21:42 Respiratory Patter n 12/29/22 17:10 Blood Pressure 129/77 12/31/22 11:44 Blood Pressure Kitty n 94 12/31/22 11:44 Blood Pressure Pos ition Semi Fowlers 12/29/22 19:50 Pulse Oximetry 97 12/31/22 11:44 Oxygen Delivery Me thod 12/31/22 12:32 Oxygen Flow Rate 6 12/28/22 14:02 Exam: Pre-Anes Outpt Exam: alert, oriented x 3, clear to auscultation bilaterally and regular rate & rhythm Cardiac Studies: Echocardiogram Ultrasound 12/01/19
--- NOTE | 2022-12-31 13:14 | W.PM.OPSUD ---
Surgery/Procedure H&P Update DATE OF PROCEDURE: December 31, 2022 DATE H&P PERFORMED: 12/25/22 CHANGES TO PREVIOUS DOCUMENTATION: None. No issues overnight received a unit of PRBC yesterday hemoglobin stable patient this morning. Patient's wound vacs had steady roughly 100 cc output every 24 hours over the past couple days. Normal bloody output. He has had an increasing movement in his range of motion of his toes. His swelling appears down from the dorsum of his foot. Plan will be to go back today for left lower extremity irrigation and debridement and plan for primary closure. We will have a wound VAC available if needed for repeat wound VAC treatment. Patient understands and agrees with current plan. All questions answered. Patient understands the risk benefits complication alternative surgical and nonsurgical treatment options. Understands risk of surgery he agrees to proceed. PREOP DIAGNOSIS: Left lower extremity compartment syndrome, open wound PRIMARY INDICATION FOR PROCEDURE: Left lower extremity compartment syndrome status post 4 compartment fasciotomies, medial wound open with a wound VAC. PLANNED PROCEDURE: Operation Date: 12/25/22 11:30 Proposed Procedures p Fasciotomy Lower Extremity(Left) - Oli Llanos DO Operation Date: 12/28/22 12:10 Proposed Procedures p Incision & Drainage Lower Extremity(Left) - Oli Llanos DO s Wound Vac Placement(Left) - Oli Llanos DO Operation Date: 12/30/22 12:15 Proposed Procedures p Incision & Drainage Lower Extremity with primary closure(Left) - Oli Llanos DO Operation Date: 12/31/22 13:10 Proposed Procedures p left lower extremity irrigation debridement with primary closure(Left) - Oli Llanos DO
--- NOTE | 2022-12-31 13:16 | PC.NURSE ---
surgery pt taken down to surgery in his bed with family at side
[2022-12-31] MEDS: ceFAZolin 2,000 MG in sodium chloride 0.9% (plus) 50 ML 100 MG IV ×2 (13:25→20:58)
[2022-12-31] MEDS: tranexamic acid 1,000 mg/10mL SDV 1000 MG IV (14:10)
--- NOTE | 2022-12-31 14:44 | P.PCN_ITS ---
PACU note Narrative: Patient seen and examined postoperatively. Dressings on in place clean dry and intact. Patient is able to wiggle toes as well as subtly flex plantarflex and dorsiflex his ankle. Compartments are soft and compressible. Patient still has persistent decreased sensation to the left foot most noticea elvira starting at the ankle and distal. He does have some jewish of his plantar sensation.. Exam: awake Disposition: back to floor
--- NOTE | 2022-12-31 14:44 | P.OP_ITS ---
Brief Operative Note Date of procedure: 12/31/22 Pre-op diagnosis: Left lower extremity compartment syndrome status post fascio arleen and VAC pl Post-op diagnosis: same Procedure Done: Left lower extremity irrigation and debridement with primary closure Surgeon: Oli Llanos Estimated blood loss (mL): 150 Complications: None Post-op Plan: Patient taken to PACU in stable condition recovering well. Patient will be nonweightbearing to the left lower extremity. Patient achieved primary closure today in the OR. Dressings on in place clean dry and intact. We will continue to encourage range of motion of the knee as well as foot and ankle. We will hold off and resume his anticoagulation therapy tomorrow and this was discussed with internal medicine and they will manage patient's resumption of his primary home anticoagulation medications. We will complete 3 additional doses postoperatively for infection prophylaxis of antibiotics. PT/OT. Plan hopefully with discharge tomorrow. Condition: stable Disposition: floor Coding Level of Care Code Acute Code for [facility]
--- NOTE | 2022-12-31 14:44 | PM.OP ---
Operative Report Date of procedure: December 31, 2022 Pre-op diagnosis: Preop Diagnosis Left lower extremity compartment syndrome, open wound Preop Diagnosis Left lower extremity compartment syndrome, open wound Preop Diagnosis Left lower extremity compartment syndrome Post-op diagnosis: Left lower extremity compartment syndrome status post fasciotomy with repeat irrigation debridement and VAC placement Procedure done: Left lower extremity irrigation and debridement with primary closure Implants: Kristine hemostatic agent x2 Surgeon: Oli Llanos DO Estimated blood loss: 150mL No tourniquet was used during this case IV fluids: See anesthesia record Complications: None Condition: stable Disposition: floor Brief History: Patient was diagnosed with left lower extremity compartment syndrome and underwent left lower extremity 4 compartment fasciotomy back on 12/25/2022. Patient's lateral incision was subsequently closed however the medial incision given the significant swelling as well as being on blood thinners this was left open and was packed with wet-to-dry dressings. He was subsequently taken back 3 days later for repeat irrigation and debridement in order to help with wound closure wound VAC was placed at that time his hemostasis was more satisfactory. He is now here today for repeat left lower extremity irrigation debridement with plan for VAC removal and primary closure. We talked about his treatment options in great detail he understands the risk benefits complications alternatives to each understanding his risk for surgery he agrees to proceed with surgical intervention today with hopes for primary closure. He does understand given his significant swelling and multiple trips to the OR on the risks of infection however he has been empirically covered with antibiotics. Patient understands and agrees to proceed with current plan. Consent signed patient elects to proceed with surgery. Procedure: Patient was seen and evaluated in the preoperative holding area. Consent was reviewed and signed with patient. Correct extremity was then marked. Wound VAC identified with good seal. Seen eval by anesthesia department once cleared for surgery was taken back to the operative suite. Patient then subsequently underwent anesthesia per the anesthesia department. Once patient was appropriately anesthetized the left lower extremity was then placed with a nonsterile tourniquet to the left thigh. Bone foam was applied on the left leg. Prior to prepping and draping the wound VAC was then clamped and the wound VAC was subsequently removed from the wound bed wound bed was inspected and had healthy red bleeding granulation tissue. The left leg was then prepped and draped in standard orthopedic fashion. Final timeout performed. Patient received appropriate preoperative antibiotics. Upon completion of timeout 6 L of normal saline and cystoscopy tubing was then irrigated throughout the left lower extremity medial wound. This cleared of all Betadine prep as well as any residual hematoma. At this point time I was able to thoroughly irrigate the wound bed clean. Then switched to a rongeur as well as lap sponge and curette to debride the superficial and deep posterior compartments. Residual hematoma was curetted as well as skin subcutaneous tissue muscle and fascia that was all of devitalized tissue. Only a small amount of this area was noted. Once again the size of the wound bed particularly the original hematoma measured roughly 15 cm x 10 cm x 5 cm. This area was debrided of the devitalized tissue. Ultimately patient still had vital deep and superficial muscle contractility there was still mild contusion and swelling noted of these but they were contractile on electrocautery showing its vitality. Once I was completed with me irrigation and debridement. The entire wound bed was then dried and maintain exact hemostasis with electrocautery as well as pressure. Once the wound bed was then dry I then utilized Arixtra hemostatic agent x2 to help with her hemostasis postoperatively. Once this was performed I then subsequently closed the medial incision in layered fashion with 0-PDS, 2-0 PDS as well as interrupted mattress stitches with 2-0 PDS for skin. Skin was able to approximate without issues. Obviously given the multiple procedures the skin did have some slight attenuation but overall no significant tension was noted on my closure the compartments remain soft and compressible. The lateral incision was again inspected and healing well with sutures in place. Dressings were then placed a Xeroform 4 x 4's ABD Curlex and a double 6 inch Rafita wrap to the left lower extremity. Patient was awakened from anesthesia and taken to PACU in stable condition. Patient tolerated procedure without complications. Disposition: Patient taken back in stable condition recovering well. Will return to the floor postoperatively. Be nonweightbearing to left lower extremity until incisions healed to prevent any sheer stress or forces along the incision site. Would recommend PT/OT ankle and knee range of motion. Will receive appropriate postoperative antibiotics. Internal medicine on board and will manage anticoagulation therapy has that we resume it tomorrow after surgery. We will continue to monitor blood count. Plan for hopefully discharge tomorrow. Patient will need to be close follow-up with me roughly 1 week status post primary closure surgery for wound check. All questions answered patient understands and agrees with current plan.
[2022-12-31] MEDS: HYDROmorphone 1 mg/mL INJ 1 mL 0.5 MG IVP ×2 (15:01→15:15)
[2022-12-31] MEDS: HYDROmorphone 1 mg/mL INJ 1 mL IVP ×2 (16:46→22:42)
--- NOTE | 2022-12-31 17:15 | ANE.PACU2 ---
Inpatient post-anesthesia follow up: Airway intact: Yes Vital signs: Temperature 97.4 F Pulse Rate 80 Respiratory Rate 18 Blood Pressure 133/72 Pulse Oximetry 96 Oxygen Delivery Me thod Room Air Oxygen Flow Rate 6 Fraction of Inspir ed Oxygen Hydration adequate: Yes Nausea and vomiting: No Pain level: 1 Mental status: Baseline
[2022-12-31] MEDS: temazepam 15 mg Capsule PO (22:29)
--- NOTE | 2022-12-31 22:33 | PM.PN ---
Subjective Subjective: Denies chest pain or pressure. No trouble breathing. Pain in left leg under control. Wound VAC in place. Plans for surgical reassessment, possible closure today. Discussed with him risk of surgery in the setting of CAD, bioprosthetic valve, COPD, stenting, with him having been off antiplatelets. Otherwise not much else to be optimized before proceeding. Vitals/I&O/Wt Last Vital Signs Temp 99 F 12/31/22 18:40 Pulse 110 H 12/31/22 22:10 Resp 18 12/31/22 22:10 BP 125/64 12/31/22 18:40 Pulse Ox 97 12/31/22 22:10 O2 Del Method 12/31/22 22:10 O2 Flow Rate 6 12/31/22 14:48 12/31/22 12/31/22 12/31/22 06:59 14:59 22:59 Intake Total 1000 / 3390 50 / 50 1262.667 / 1312.667 Output Total 900 / 2300 875 / 875 300 / 1175 Balance 100 / 1090 -825 / -825 962.667 / 137.667 Physical Exam Narrative: at bedside. Const: COMMON NORMALS: patient oriented x3 and alert GENERAL APPEARANCE: cooperative ORIENTATION/CONSCIOUSNESS: Yes awake HENMT: COMMON NORMALS: oropharynx normal Neck/C-Spine: COMMON NORMALS: no JVD Resp: COMMON NORMALS: normal respiratory effort and clear to auscultation bilaterally AUSCULTATION: clear to auscultation bilaterally Cardio: COMMON NORMALS: no JVD, regular rhythm, S1 normal heart sound present, S2 normal heart sound present and No murmurs present (Cardio) RHYTHM: regular rhythm HEART SOUNDS: S1 normal heart sound present and S2 normal heart sound present GI: COMMON NORMALS: Normal to inspection, nondistended, normoactive bowel sounds present, Soft to palpation and non-tender PALPATION: Yes Soft to palpation Extremity: COMMON NORMALS: no joint enlargement and no pedal edema OTHER: LLE elevated, in postop dressing and wound VAC. Able to wiggle toes which appear perfused. Neuro: COMMON NORMALS: patient oriented x3 and moves all extremities SENSORIUM/ORIENTATION: Yes alert Skin: COMMON NORMALS: no rashes or lesions noted GENERAL SKIN EXAM: no rashes or lesions noted Data 12/31/22 04:21 12/31/22 04:21 A&P Assessment and plan (1) Compartment syndrome of left lower extremity: Discussed with him risk of surgery, no additional optimization before proceeding would be helpful. Discussed with orthopedics -underwent assessment in OR with closure. Can start Plavix in the morning, but without loading dose as still some minor oozing noted. Reassessment blood count requested. Requires additional monitoring due to risk of bleeding. May require additional transfusion. Status post 4 compartment fasciotomies and now closure. [facility] LLE PT, OT. (2) Fever: Vital signs reviewed, fever without recurrence. Today somewhat low-grade temp 99 Fahrenheit. He remains asymptomatic. Denies any new symptoms that may suggest infection. Encouraged again incentive spirometer. Fever 100 Fahrenheit during blood transfusion. Possible nonhemorrhagic transfusion reaction, although was receiving leukoreduced blood. Transfusion reaction protocol performed, no hemolytic transfusion reaction noted. Not entirely clear whether reaction to transfusion or unrelated fever, however, no overt symptoms of infection, obtain chest x-ray and UA yesterday, results reviewed, no suggestion of pneumonia or UTI. He denies any additional symptoms that may suggest infection. Continue to monitor condition. Subsequently on 12/30 additional unit of leukoreduced RBC ordered, he tolerated this well with good response. Follow-up blood counts requested for the morning. (3) Chronic anticoagulation: Reassess blood counts in the morning. Anticoagulation and antiplatelet on hold. Eliquis on hold due to acute compartment syndrome, risk of bleeding. He is also on Plavix. History of CAD, prior stenting in 2019, status post CABG, status post aortic valve replacement. He is not sure what kind, his is not around and could not be reached by phone. 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 Resume Plavix once able. (4) RUKHSANA (obstructive sleep apnea): Nightly CPAP with RT. (5) History of aortic valve replacement: Valve was bioprosthetic. Resume antiplatelet once able. Plan Acute blood loss anemia: As above CAD: Resume Plavix once able. Continue BB, statin. As needed. COPD: Currently not in exacerbation. DuoNebs as needed. HTN: Continue metoprolol, resume other medications depending on blood pressure. History of CVA CKD Other medical problems Attestations Medical Necessity Statement*: Continue admission for assessment management of compartment syndrome, acute blood loss anemia. Other Coding Information Focused coding review requested Diagnoses Compartment syndrome of left lower extremity T79.A22A Fever R50.9 Chronic anticoagulation Z79.01 RUKHSANA (obstructive sleep apnea) G47.33 History of aortic valve replacement Z95.2
[2023-01-01] VITALS (16 sets, daily range): BP systolic 109–154; BP diastolic 65–89; PULSE 86–106; RESP 16–20; TEMP 36.4–38.2; O2SAT 94–98
[2023-01-01] MEDS: HYDROmorphone 1 mg/mL INJ 1 mL IVP (03:11)
[2023-01-01] MEDS: ceFAZolin 2,000 MG in sodium chloride 0.9% (plus) 50 ML 100 MG IV ×2 (04:57→12:44)
[2023-01-01 05:56] LABS: Basophils % 0.3 %; Eosinophils # 0.2 10^3/uL (0.0-0.8); Hematocrit 24.4 % (42.0-52.0); Hemoglobin 7.4 g/dL (11.7-16.6); Lymphocytes % 16.7 %; Mean Corpuscular HGB Conc 30.3 g/dL (30.0-36.0); Mean Corpuscular Hemoglobin 27.1 pg (28.0-34.0); Mean Corpuscular Volume 89.4 fl (80-94); Mean Platelet Volume 9.6 fL (7.4-10.4); Monocytes # 0.8 10^3/uL (0.2-0.9); Neutrophils # 3.83 10^3/uL (1.8-7.7); Neutrophils % 66.7 %; Nucleated Red Blood Cells % 0 %; Platelet Count 247 10^3/cmm (130-400); Red Blood Count 2.73 10^6/uL (4.1-5.3); Red Cell Distribution Width 13.8 % (12.1-15.1); White Blood Count 5.8 10^3/uL (4.0-10.0)
[2023-01-01] MEDS: oxyCODONE 5 mg IR Tab/Cap PO ×3 (06:33→18:43)
[2023-01-01] MEDS: fluticasone nasal spray 16gm Btl 1 SPRAY INTRANASAL (08:15)
[2023-01-01] MEDS: docusate sodium 100 mg Capsule PO ×2 (08:16→18:02)
[2023-01-01] MEDS: clopidogrel 75 mg Tablet PO (08:16)
[2023-01-01] MEDS: metoprolol succinate ER (24 HR) 50 mg Tablet PO (08:16)
[2023-01-01] MEDS: multivitamin therapeutic Tablet 1 TAB PO (08:16)
[2023-01-01] MEDS: pantoprazole DR 40 mg Tablet PO (08:16)
[2023-01-01] MEDS: calcium carb-vit d 600mg/400unit 1 Tablet 1 EACH PO ×2 (08:17→18:02)
[2023-01-01] MEDS: atorvastatin 40 mg Tablet 80 MG PO (08:17)
[2023-01-01] MEDS: iron polysaccharide complex 150 mg Capsule PO ×2 (08:17→18:02)
[2023-01-01] MEDS: acetaminophen 500 mg Tablet 1000 MG PO ×2 (08:17→15:55)
--- NOTE | 2023-01-01 13:28 | PC.SOCIAL ---
IMM Updated Updated pt on IMM. No questions voiced. Provided pt a copy. Initialed, dated, & timed copy in chart.
--- NOTE | 2023-01-01 14:13 | PM.PN ---
Subjective Subjective: Patient was this morning, afebrile overnight, he is alert oriented x3, he has no complaints, no chest pain, no shortness of breath, no fevers, he is wanting to go home, he tells me he takes Eliquis for history of blood clots, history of CAD, he takes Plavix, he is nonweightbearing, he tells me that he is at home will aid in ambulation, Vitals/I&O/Wt Last Vital Signs Temp 98.6 F 01/01/23 12:00 Pulse 88 01/01/23 12:00 Resp 18 01/01/23 12:44 BP 114/68 01/01/23 12:00 Pulse Ox 97 01/01/23 12:00 O2 Del Method 01/01/23 12:00 O2 Flow Rate 6 01/01/23 08:00 12/31/22 01/01/23 01/01/23 22:59 06:59 14:59 Intake Total 1630.000 / 1680.000 460 / 2140.000 480 / 480 Output Total 450 / 1325 800 / 2125 500 / 500 Balance 1180.000 / 355.000 -340 / 15.000 -20 / -20 Physical Exam Const: COMMON NORMALS: no acute distress and patient oriented x3 Resp: COMMON NORMALS: normal respiratory effort, No retractions, No use of accessory muscles and clear to auscultation bilaterally AUSCULTATION: clear to auscultation bilaterally Cardio: COMMON NORMALS: regular rate, regular rhythm, S1 normal heart sound present and S2 normal heart sound present RATE: regular rate RHYTHM: regular rhythm HEART SOUNDS: S1 normal heart sound present and S2 normal heart sound present GI: COMMON NORMALS: Normal to inspection, nondistended, normoactive bowel sounds present and non-tender Extremity: NARRATIVE EXTREMITY EXAM: Left lower knee wrapped and bandaged Neuro: COMMON NORMALS: patient oriented x3 Psych: COMMON NORMALS: mental status grossly normal Data 01/01/23 05:20 12/31/22 04:21 A&P Assessment and plan (1) Compartment syndrome of left lower extremity: -Plan on discharge today -Wound care orders as per orthopedic team -Pain control as per orthopedic team -Patient is on Dilaudid, and hydrocodone at home, would continue -Discussed with patient not taking any other narcotic medication due to risk of side effects and respiratory depression -Spoke to orthopedic team, plan on discharging on wound care instructions, transfusing 1 unit PRBC, low-dose Eliquis, follow-up in clinic Discussed with him risk of surgery, no additional optimization before proceeding would be helpful. Discussed with orthopedics -underwent assessment in OR with closure. Can start Plavix in the morning, but without loading dose as still some minor oozing noted. Reassessment blood count requested. Requires additional monitoring due to risk of bleeding. May require additional transfusion. Status post 4 compartment fasciotomies and now closure. [facility] LLE PT, OT. (2) Fever: -Afebrile, continue to monitor Vital signs reviewed, fever without recurrence. Today somewhat low-grade temp 99 Fahrenheit. He remains asymptomatic. Denies any new symptoms that may suggest infection. Encouraged again incentive spirometer. Fever 100 Fahrenheit during blood transfusion. Possible nonhemorrhagic transfusion reaction, although was receiving leukoreduced blood. Transfusion reaction protocol performed, no hemolytic transfusion reaction noted. Not entirely clear whether reaction to transfusion or unrelated fever, however, no overt symptoms of infection, obtain chest x-ray and UA yesterday, results reviewed, no suggestion of pneumonia or UTI. He denies any additional symptoms that may suggest infection. Continue to monitor condition. Subsequently on 12/30 additional unit of leukoreduced RBC ordered, he tolerated this well with good response. Follow-up blood counts requested for the morning. (3) Chronic anticoagulation: -Patient advised me that he takes Eliquis due to history of blood clots -He also has history of CAD, history of aortic valve replacement history of stenting for which she takes Plavix -We will continue Plavix 75 mg once daily on discharge -Patient has high risk of developing hypercoagulability events given his nonweightbearing left lower extremity, history of blood clots, thus there is a need for anticoagulation benefits outweigh risk, patient voiced understanding, all questions answered -Due to anemia, will discharge home on lower dose Eliquis, for now we will decrease Eliquis to 2.5 mg twice daily, please follow-up with primary care provider early next week recheck hemoglobin, if greater than 8, then can resume Eliquis 5 mg twice daily Reassess blood counts in the morning. Anticoagulation and antiplatelet on hold. Eliquis on hold due to acute compartment syndrome, risk of bleeding. He is also on Plavix. History of CAD, prior stenting in 2019, status post CABG, status post aortic valve replacement. He is not sure what kind, his is not around and could not be reached by phone. 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 Resume Plavix once able. (4) RUKHSANA (obstructive sleep apnea): Nightly CPAP with RT. (5) History of aortic valve replacement: Valve was bioprosthetic. Resume antiplatelet once able. (6) History of DVT (deep vein thrombosis): Plan Acute blood loss anemia: Hemoglobin today is 7.4 will transfuse 1 unit PRBC CAD: Resume Plavix, history of CAD, monitor hemoglobin COPD: Currently not in exacerbation. DuoNebs as needed. HTN: Continue metoprolol, resume other medications depending on blood pressure. History of CVA CKD Other medical problems Attestations Medical Necessity Statement*: Patient will be discharged today, after transfusion of 1 unit PRBC Other Coding Information Focused coding review requested Diagnoses Compartment syndrome of left lower extremity T79.A22A Fever R50.9 Chronic anticoagulation Z79.01 RUKHSANA (obstructive sleep apnea) G47.33 History of aortic valve replacement Z95.2 History of DVT (deep vein thrombosis) Z86.718
--- NOTE | 2023-01-01 15:51 | PM.PN ---
Subjective Subjective: Patient seen and examined this afternoon receiving 1 unit of PRBC per internal medicine with goals of keeping hemoglobin above 8. Talk with internal medicine and patient okay from their standpoint for discharge later today. From orthopedic standpoint dressings clean dry and intact no evidence of saturation. Internal medicine on board and managing resumption of anticoagulants for his home medications. We will have a slow resuming of home anticoagulant medications and will have close follow-up with primary care upon discharge. Patient continues to remain stable. Ready for discharge today. Family present at bedside. Vitals/I&O/Wt Last Vital Signs Temp 99.9 F H 01/01/23 15:39 Pulse 91 01/01/23 15:39 Resp 17 01/01/23 15:39 BP 137/72 01/01/23 15:39 Pulse Ox 98 01/01/23 15:39 O2 Del Method 01/01/23 12:00 O2 Flow Rate 6 01/01/23 08:00 01/01/23 01/01/23 01/01/23 06:59 14:59 22:59 Intake Total 460 / 2140.000 480 / 480 0 / 480 Output Total 800 / 2125 700 / 700 Balance -340 / 15.000 -220 / -220 0 / -220 Physical Exam Narrative: Examination left lower extremity demonstrates Rafita wrap on in place clean dry and intact.? Noticeable reduction in patient's swelling to his left foot and toes.? Patient is able to wiggle toes with purpose, no pain with passive range of motion.? He does have some discomfort with dorsiflexion to neutral.? As far sensation goes still has some slight decrease sensation over the DPN and parts of the SPN nerve distribution in the distal aspects of tibial saphenous and sural nerve distribution.? Approximately at mid tibia he feels as though sensation feels near normal.? His compartments are soft and compressible.? Toes are warm well perfused.? Distal pulses are 2+. Data 01/01/23 05:20 12/31/22 04:21 A&P Assessment and plan (1) Compartment syndrome of left lower extremity: Plan Continue diet Resumption of anticoagulation and home medications per internal medicine and will have close follow-up with primary care upon discharge Patient is completed postoperative antibiotics PT/OT Nonweightbearing left lower extremity Continue elevation and ice as needed for pain and swelling Internal medicine on board for medical management appreciate assistance [employer] labs reviewed hemoglobin 7.4, discussed with internal medicine and will transfuse 1 unit prior to discharge. Plan will be for close follow-up with an H&H check with primary care early next week. Stable for discharge from orthopedic standpoint. Continue to leave dressing on in place until follow-up would recommend a 1 week follow-up for a incision check and dressing change. Encourage foot and ankle and knee range of motion we will keep patient off of this to allow for appropriate soft tissue healing to prevent any shear stress of his incision site a primary care closure. Patient and family understand agree with current plan. All questions answered. Patient will receive appropriate discharge structure as well as pain medication postoperatively. Attestations Medical Necessity Statement*: Patient received ongoing care status post compartment syndrome left lower extremity with 4 compartment fasciotomies with multiple repeat irrigation debridement and final primary closure. Coding Level of Care Code Acute Code for g Fwd Diagnoses Compartment syndrome of left lower extremity T79.A22A
[2023-01-01] MEDS: sodium chloride 0.9% 100 mL Bag 50 ML IV (15:57)
--- NOTE | 2023-01-01 16:29 | PM.DCS ---
Discharge Providers Date of Admission: 12/25/22 14:29 Date of Discharge: January 01, 2023 Attending Provider at Admission: Oli Llanos DO Attending Provider at Discharge: Oli Llanos DO Consults: Internal medicine?hospitalist for medical management and assistance Primary Care Provider: Yoni Campos MD Diagnoses at Discharge Discharge Diagnosis (1) Compartment syndrome of left lower extremity: Status: Resolved (2) Chronic anticoagulation: Status: Acute (3) Fever: Status: Resolved (4) RUKHSANA (obstructive sleep apnea): Status: Acute (5) History of aortic valve replacement: Status: Acute (6) History of DVT (deep vein thrombosis): Status: Acute Reason for Visit Reason for Visit: left lower extremity Brief History: Left lower extremity compartment syndrome Hospital Course Hospital Course Patient sustained an injury a barn door hit in the back of his knee and calf on 12/23/2020 on home anticoagulation therapy. Subsequently continue to have pain and swelling and increasing pain. Was referred to orthopedics for outpatient follow-up. 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 In hopes to preserve the left lower extremity recommended emergent left lower extremity 4 compartment fasciotomy. He was emergently taken from my office taken to the hospital OR where he was seen evaluated by myself in the preoperative area consent was emergently signed the patient was taken back to the OR for a 2 incision 4 compartment lower extremity fasciotomy release. Patient intraoperatively was found to have significant hematoma of the superficial and deep posterior compartments. His lateral compartments had edema but no significant bleeding and overall was healthy the lateral incision of the anterior and lateral compartments. This was subsequently closed primarily. The medial incision was significantly swollen and unable to be reapproximated he had taken his anticoagulation on the morning of surgery and as a result given concern for utilizing a wound VAC would continue to lose blood postoperatively as result a wet-to-dry dressing was placed and packed the medial incision with plan for a staged approach. Patient was held off anticoagulants and started on SCDs. He was subsequently admitted to the hospital postoperatively. He had significant relief of his symptoms. Intraoperatively once again he was found to have significant hematoma which was evacuated however overall the muscle bellies even though contused appeared reasonably healthy with good contractility. Plan was going to be for a staged closure. He was admitted to the floor with plan for close observation with wet-to-dry dressing until postop day 2 or 3. Patient was kept on empiric antibiotics with the open wound. Internal medicine was consulted for assistance with medical management given patient's comorbidities. He was monitored and on postop day 3 (12/28/2022 )was determined stable to go back to the OR for left lower extremity irrigation debridement with possible primary closure versus VAC. While while Intra-Op was found to have continued significant swelling and inability to close this. A wound VAC was placed to the medial incision with plan for a final attempted closure 3 days later. Patient was monitored postoperatively he was transfused 1 unit of PRBC his initial transfusion there was concern for possible fever and reaction this was managed by internal medicine and on postop day 2 after his second surgery he was attempted an additional transfusion of 1 unit PRBC as his initial 1 was never truly completed as it was paused. He tolerated 1 full unit PRBC transfusion without any issues with goals of keeping his hemoglobin above 8 given his cardiac history. This was managed by internal medicine. His VAC was maintained and output was monitored. He was nonweightbearing throughout his hospitalization PT/OT was on board. Anticoagulation therapy and held until primary closure. Patient subsequently underwent final surgery for left lower extremity irrigation debridement and primary closure. The soft tissue was amenable for closure and again the muscle bellies were contractile and amendable for primary closure. Skin edges were closed atraumatically dressing applied. He was then returned back to the floor for 1 day postoperative. He was monitored as far as his labs and he received 1 more additional unit PRBC on 01/01/2023 prior to his discharge. On 01/01/2023 was determined by myself as well as internal medicine to be stable for discharge dressings to be changed as needed. He will follow-up with me in the office in 1 week. Internal medicine managing resuming of home anticoagulation therapy. Patient will need close follow-up with primary care. Patient to continue be nonweightbearing left lower extremity until incision heals. Continue with elevation and ice receive appropriate discharge instruction as well as pain medication postoperatively. Determined on 01/01/2020. Patient was stable for discharge and discharged with appropriate paperwork. Please refer to medical record and daily notes for in-depth details of patient's hospital course. Physical Exam Narrative: Examination left lower extremity demonstrates Rafita wrap on in place clean dry and intact.? Noticeable reduction in patient's swelling to his left foot and toes.? Patient is able to wiggle toes with purpose, no pain with passive range of motion.? He does have some discomfort with dorsiflexion to neutral.? As far sensation goes still has some slight decrease sensation over the DPN and parts of the SPN nerve distribution in the distal aspects of tibial saphenous and sural nerve distribution.? Approximately at mid tibia he feels as though sensation feels near normal.? His compartments are soft and compressible.?? Toes are warm well perfused.? Distal pulses are 2+. Discharge Data Studies Completed and Pending Completed Studies During Hospitalization Category Date Time Status CXRP [XR chest 1V portable [id number]] Routine Exams 12/29/22 20:59 Completed Pending at discharge Category Date Time Status Complete Blood Count w/Auto AM LABS Lab 01/02/23 04:00 Ordered Complete Blood Count w/Auto AM LABS Lab 01/03/23 04:00 Ordered Leukocyte Reduced RBC Stat Lab 01/01/23 13:54 Ordered Type and Screen Stat Lab 01/01/23 13:54 Ordered Radiology Impressions Chest X-Ray 12/29/22 20:59 IMPRESSION: No acute cardiopulmonary abnormality. Laboratory Results WBC 5.8 10^3/uL (4.0-10.0) 01/01/23 05:20 RBC 2.73 10^6/uL (4.1-5.3) L 01/01/23 05:20 Hgb 7.4 g/dL (11.7-16.6) L 01/01/23 05:20 Hct 24.4 % (42.0-52.0) L 01/01/23 05:20 MCV 89.4 fl (80-94) 01/01/23 05:20 MCH 27.1 pg (28.0-34.0) L 01/01/23 05:20 MCHC 30.3 g/dL (30.0-36.0) 01/01/23 05:20 RDW 13.8 % (12.1-15.1) 01/01/23 05:20 Plt Count 247 10^3/cmm (130-400) 01/01/23 05:20 MPV 9.6 fL (7.4-10.4) 01/01/23 05:20 Neut % (Auto) 66.7 % 01/01/23 05:20 Lymph % (Auto) 16.7 % 01/01/23 05:20 [place] % (Auto) 13.0 % 01/01/23 05:20 Eos % (Auto) 3.0 % 01/01/23 05:20 Baso % (Auto) 0.3 % 01/01/23 05:20 Neut # (Auto) 3.83 10^3/uL (1.8-7.7) 01/01/23 05:20 Lymph # (Auto) 1.0 10^3/uL (0.8-4.8) 01/01/23 05:20 [place] # (Auto) 0.8 10^3/uL (0.2-0.9) 01/01/23 05:20 Eos # (Auto) 0.2 10^3/uL (0.0-0.8) 01/01/23 05:20 Baso # (Auto) 0.0 10^3/uL (0.0-0.1) 01/01/23 05:20 Nucleated RBC % (auto) 0 % 01/01/23 05:20 Total Counted 100 (0-100) 12/25/22 11:25 Atypical Lymphs % 5.0 % (0-5) 12/25/22 11:25 Absolute Neutrophils 3.3 10^3/cmm (1.4-6.5) 12/25/22 11:25 Segmented Neutrophils 62 % 12/25/22 11:25 Abs Segm Neuts (Man) 3.2 10/cmm (1.6-7.1) 12/25/22 11:25 Band Neutrophils 1.0 % 12/25/22 11:25 Abs Band Neuts (Man) 0.1 10^3/cmm (0.0-1.2) 12/25/22 11:25 Absolute Lymphocytes 1.3 10^3/cmm (1.2-3.4) 12/25/22 11:25 Lymphocytes (Manual) 20 % 12/25/22 11:25 Monocytes (Manual) 5.0 % 12/25/22 11:25 Absolute Monocytes 0.3 10^3/cmm (0.1-0.6) 12/25/22 11:25 Eosinophils (Manual) 7 % 12/25/22 11:25 Absolute Eosinophils 0.3 10^3/cmm (0.0-0.7) 12/25/22 11:25 Basophils (Manual) Not Reportable 12/25/22 11:25 Nucleated RBCs # 0.0 /100WBC 01/01/23 05:20 Platelet Estimate Decreased (Normal) 12/25/22 11:25 PT 16.10 SECONDS (12.1-14.9) H 12/25/22 11:25 INR 1.25 (0.8-1.2) H 12/25/22 11:25 Sodium 139 mmol/L (136-145) 12/31/22 04:21 Potassium 3.7 mmol/L (3.5-5.1) 12/31/22 04:21 Chloride 107 mmol/L (98-107) 12/31/22 04:21 Carbon Dioxide 23 mmol/L (22-29) 12/31/22 04:21 Anion Gap 12.7 (5-19) 12/31/22 04:21 BUN 9 mg/dL (8-23) 12/31/22 04:21 Creatinine 0.8 mg/dL (0.7-1.2) 12/31/22 04:21 GFR Calculation 95.8 mL/min (90-130) 12/31/22 04:21 Glucose 112 mg/dL (65-115) 12/31/22 04:21 Calculated Osmolality 287 mOsm/kg (285-295) 12/31/22 04:21 Calcium 8.2 mg/dL (8.5-10.5) L 12/31/22 04:21 Urine Color Yellow (Yellow) 12/30/22 06:08 Urine Appearance Clear (CLEAR) 12/30/22 06:08 Urine pH 6 (5-7) 12/30/22 06:08 Ur Specific [place] 1.020 (1.005-1.030) 12/30/22 06:08 Urine Protein Neg (Negative) 12/30/22 06:08 Urine Glucose (UA) Norm (Normal) 12/30/22 06:08 Urine Ketones Negative (Negative) 12/30/22 06:08 Urine Blood Neg (Negative) 12/30/22 06:08 Urine Nitrate Negative (Negative) 12/30/22 06:08 Urine Bilirubin Neg (Negative) 12/30/22 06:08 Urine Urobilinogen Norm mg/dL (Negative) 12/30/22 06:08 Ur Leukocyte Esterase Negative (Negative) 12/30/22 06:08 Blood Type O Positive 12/29/22 11:38 Rho(D) Type Positive 12/29/22 11:38 Antibody Screen Negative 12/29/22 11:38 Crossmatch See Detail 12/29/22 11:38 Reaction Clerical Check No discrepancy 12/29/22 17:55 Pre-Trans Blood Type See comment 12/29/22 17:55 Pre-Trans Urine RBC TNP 12/29/22 17:55 Post-Trans Blood Type O Positive 12/29/22 17:55 Post-Tx Visible Hemolys No hemolysis 12/29/22 17:55 Post-Trans KENYATTA Negative 12/29/22 17:55 Procedures Performed 12/25/2022?left lower extremity 4 compartment fasciotomy and hematoma evacuation with irrigation and debridement 12/28/2022?left lower extremity irrigation and debridement with wound VAC placement 12/31/2022?left lower extremity irrigation debridement with primary closure Vitals Last Vital Signs Temp 100.7 F H 01/01/23 15:54 Pulse 89 01/01/23 15:54 Resp 17 01/01/23 15:54 BP 129/65 01/01/23 15:54 Pulse Ox 95 01/01/23 15:54 O2 Del Method 01/01/23 12:00 O2 Flow Rate 6 01/01/23 08:00 Discharge Plan Discharge Patient Disposition: Home Health Service Condition: Stable Prescriptions: New Ferrex 150 150 mg iron Capsule 150 mg PO BIDWM 30 Days Qty: 60 0RF oxycodone 5 mg tablet 10 mg PO Q6H PRN (Reason: pain postop ) 7 Days Qty: 56 0RF Rx Instructions: 1 tablet moderate pain; 2 tablet severe pain Colace 100 mg capsule 100 mg PO DAILY PRN (Reason: constipation) 10 Days Qty: 10 0RF Continued atorvastatin 80 mg tablet 80 mg PO DAILY ezetimibe [Zetia] 10 mg tablet 10 mg PO DAILY fluticasone propionate 50 mcg/actuation spray,suspension 1 spray intranasal DAILY Rx Instructions: administer into each nostril hydrocodone-acetaminophen 10-325 mg tablet 1 tab PO Q6H PRN (Reason: Pain) (DME) [id number] Bone Growth Stimulator See Rx Instructions .Route .MEDSUPPLY Qty: 1 0RF Rx Instructions: As directed. cyclobenzaprine 10 mg Tablet 10 mg PO TID PRN (Reason: Spasms) pantoprazole [Protonix] 40 mg Tablet,Delayed Release (Dr/Ec) 40 mg PO DAILY nitroglycerin [Nitrostat] 0.4 mg Tablet, Sublingual 0.4 mg SUBLINGUAL Q5M PRN (Reason: Chest Pain) metoprolol succinate [Toprol XL] 50 mg Tablet Extended Release 24 Hr 50 mg PO DAILY clopidogrel 75 mg Tablet 75 mg PO DAILY 30 Days Qty: 30 4RF hydromorphone [Dilaudid] 4 mg tablet 4 mg PO Q4H PRN (Reason: pain) Qty: 10 0RF temazepam 15 mg Capsule 15 mg PO BEDTIME spironolactone 25 mg tablet 12.5 mg PO DAILY docusate sodium [Stool Softener] 100 mg Capsule 100 mg PO DAILY Changed furosemide 40 mg tablet 40 mg PO DAILY 3 Days Qty: 0 0RF apixaban 5 mg tablet 2.5 mg PO BID 30 Days Qty: 30 0RF Discontinued losartan [Cozaar] 50 mg tablet 50 mg PO BID Norvasc 5 mg tablet 5 mg PO DAILY Discharge Orders: Discharge Order (Routine); Ordered 01/01/23 Ordered By: George Justin Referrals: [facility] ([facility]) [Outside] Britton Easton MD [Referring] - 01/05/23 10:15 am (Please mention follow up labs to your primary.) Oli Llanos DO [Physician] - 01/06/23 9:30 am (Ortho nurse will see you at this appointment then follow up with Dr. Llanos will be scheduled. ) Discharge Diet: Cardiac Discharge Activity: Resume usual activity Patient Instructions: Iron Supplements (By mouth), Compartment Syndrome (DC), Opioid Safety, Post Anesthesia Care Activity Restrictions/Additional Instructions: - Please follow-up with primary care provider on Wednesday for recheck hemoglobin -If your hemoglobin is less than 8, please come back to the emergency room, for consideration of transfusion PRBC given cardiovascular history -I have discharged you on Eliquis 2.5 mg twice daily, follow-up with primary care in 1 week, if hemoglobin stable, greater than 8, decision to increase to 5 mg twice daily based on discussion -Continue Plavix 75 mg once daily -If you develop lightheadedness or dizziness please go to emergency room -For your low blood pressures left stop Norvasc, stop losartan, continue spironolactone -Monitor blood pressures closely Orthopedic discharge instructions: Follow-up in the orthopedic office for wound check in 1 week Nonweightbearing left lower extremity Range of motion in knee foot and ankle as tolerated Elevate and ice left lower extremity Take pain medication as prescribed Take Colace for constipation if needed Leave dressing on in place until follow-up May reinforce dressing with 4 x 4's ABD Curlex and an Rafita wrap if becomes saturated Okay to loosen Rafita wrap as needed Contact Dr. Llanos's orthopedic office for any questions or concerns Resume anticoagulation therapy per primary team Follow-up with primary care provider Discharge Attestations Time Spent in Discharge Care*: greater than 30 min Status at Discharge: Cognitive status at discharge: cognitively intact, Behavioral status at discharge: cooperative, Quality Metrics Clinical Quality Measures [ No reported AMI, CVA or VTE this stay] Coding Level of Care Code Acute Code for Chg Fwd Diagnoses Compartment syndrome of left lower extremity T79.A22A Chronic anticoagulation Z79.01 Fever R50.9 RUKHSANA (obstructive sleep apnea) G47.33 History of aortic valve replacement Z95.2 History of DVT (deep vein thrombosis) Z86.718 Time Spent (min) 45
== END 2023-01-01 19:05 | disposition home health service (06) | DRG 902 ==
LOC: MEDSURG 14:30
PROVIDERS: Internal Medicine; Admitting Provider Student in an Organized Health Care Education/Training Program; PCP Orthopaedic Surgery; Visit Provider Student in an Organized Health Care Education/Training Program
PROC: 0JCP0ZZ Extirpation of Matter from Left Lower Leg Subcutaneous Tissue and Fascia, Open Approach (ICD-10-PCS; principal; 2022-12-25 11:30)
PROC: 0JCP0ZZ Extirpation of Matter from Left Lower Leg Subcutaneous Tissue and Fascia, Open Approach (ICD-10-PCS; 2022-12-25 11:30)
PROC: 0JBP0ZZ Excision of Left Lower Leg Subcutaneous Tissue and Fascia, Open Approach (ICD-10-PCS; principal; 2022-12-31 13:00)
DX: T79.A22A Traumatic compartment syndrome of left lower extremity, initial encounter (principal); D62 Acute posthemorrhagic anemia; W20.8XXA Other cause of strike by thrown, projected or falling object, initial encounter; S80.12XA Contusion of left lower leg, initial encounter; Z95.3 Presence of xenogenic heart valve; Z86.718 Personal history of other venous thrombosis and embolism; Z79.891 Long term (current) use of opiate analgesic; Z79.02 Long term (current) use of antithrombotics/antiplatelets; Z96.652 Presence of left artificial knee joint; I25.10 Atherosclerotic heart disease of native coronary artery without angina pectoris; Z95.1 Presence of aortocoronary bypass graft; J44.9 Chronic obstructive pulmonary disease, unspecified; G47.33 Obstructive sleep apnea (adult) (pediatric); Z99.89 Dependence on other enabling machines and devices; Z86.73 Personal history of transient ischemic attack (TIA), and cerebral infarction without residual deficits; N18.9 Chronic kidney disease, unspecified; I12.9 Hypertensive chronic kidney disease with stage 1 through stage 4 chronic kidney disease, or unspecified chronic kidney disease; G89.29 Other chronic pain; M54.9 Dorsalgia, unspecified; I25.2 Old myocardial infarction; Z87.891 Personal history of nicotine dependence; Z98.1 Arthrodesis status
CPT/HCPCS: 36415; 36430; 71045; 73562; 80048; 80503; 81003; 85007; 85014; 85018; 85025; 85027; 85610; 86850; 86900; 86920; 94660; 97161; 97165; 97530; 99214; 99283; J0690; J1170; J1200; J2405; J2704; J3010; J3490; J7030; P9016

== ENCOUNTER → 2023-01-13 08:57 | Outpatient (BNVA) | payer MEDICARE, SELFPAY | PROVIDERS: PCP Orthopaedic Surgery; Visit Provider Student in an Organized Health Care Education/Training Program | DX: Z86.718 Personal history of other venous thrombosis and embolism (principal); Z48.89 Encounter for other specified surgical aftercare; T79.A22A Traumatic compartment syndrome of left lower extremity, initial encounter; X58.XXXA Exposure to other specified factors, initial encounter | CPT/HCPCS: 99024 ==

== ENCOUNTER → 2023-01-18 07:59 | Outpatient (BNVA) | payer MEDICARE, SELFPAY | PROVIDERS: PCP Orthopaedic Surgery; Visit Provider Thoracic Surgery (Cardiothoracic Vascular Surgery) | DX: Z51.89 Encounter for other specified aftercare (principal) | CPT/HCPCS: 99212 ==

== ENCOUNTER → 2023-01-21 09:54 | Outpatient (BNVA) | payer MEDICARE, SELFPAY | PROVIDERS: PCP Orthopaedic Surgery; Visit Provider Student in an Organized Health Care Education/Training Program | DX: Z47.89 Encounter for other orthopedic aftercare (principal) | CPT/HCPCS: 99024 ==

== ENCOUNTER → 2023-01-25 10:16 | Outpatient (BNVA) | payer MEDICARE, SELFPAY | PROVIDERS: PCP Orthopaedic Surgery; Visit Provider Thoracic Surgery (Cardiothoracic Vascular Surgery) | DX: T81.31XD Disruption of external operation (surgical) wound, not elsewhere classified, subsequent encounter (principal); Y83.8 Other surgical procedures as the cause of abnormal reaction of the patient, or of later complication, without mention of misadventure at the time of the procedure; I96 Gangrene, not elsewhere classified | CPT/HCPCS: 97597; A6220 ==

== ENCOUNTER 2023-01-28 06:00 | Outpatient (RCR) | payer MEDICARE, SELFPAY | END 2023-02-19 23:59 | disposition home or self-care (01) | LOC: MPT 06:00 | PROVIDERS: PCP Orthopaedic Surgery; Visit Provider Student in an Organized Health Care Education/Training Program | DX: Z47.89 Encounter for other orthopedic aftercare (principal); M79.605 Pain in left leg | CPT/HCPCS: 97110; 97112; 97162; 97530 ==

== ENCOUNTER → 2023-02-01 09:18 | Outpatient (BNVA) | payer MEDICARE, SELFPAY | PROVIDERS: PCP Orthopaedic Surgery; Visit Provider Thoracic Surgery (Cardiothoracic Vascular Surgery) | DX: T81.31XD Disruption of external operation (surgical) wound, not elsewhere classified, subsequent encounter (principal); Y83.8 Other surgical procedures as the cause of abnormal reaction of the patient, or of later complication, without mention of misadventure at the time of the procedure | CPT/HCPCS: 11042; 11045; 97597; A6220 ==

== ENCOUNTER → 2023-02-08 09:48 | Outpatient (BNVA) | payer MEDICARE, SELFPAY | PROVIDERS: PCP Orthopaedic Surgery; Visit Provider Thoracic Surgery (Cardiothoracic Vascular Surgery) | DX: T81.31XD Disruption of external operation (surgical) wound, not elsewhere classified, subsequent encounter (principal); Y83.8 Other surgical procedures as the cause of abnormal reaction of the patient, or of later complication, without mention of misadventure at the time of the procedure | CPT/HCPCS: 11042; 97597; A6220 ==

== ENCOUNTER → 2023-02-15 09:21 | Outpatient (BNVA) | payer MEDICARE, SELFPAY | PROVIDERS: PCP Orthopaedic Surgery; Visit Provider Thoracic Surgery (Cardiothoracic Vascular Surgery) | DX: T81.31XD Disruption of external operation (surgical) wound, not elsewhere classified, subsequent encounter (principal); I96 Gangrene, not elsewhere classified; Y83.8 Other surgical procedures as the cause of abnormal reaction of the patient, or of later complication, without mention of misadventure at the time of the procedure | CPT/HCPCS: 11042; A6219 ==

== ENCOUNTER → 2023-02-18 10:48 | Outpatient (BNVA) | payer MEDICARE, SELFPAY | PROVIDERS: PCP Orthopaedic Surgery; Visit Provider Student in an Organized Health Care Education/Training Program | DX: Z48.89 Encounter for other specified surgical aftercare (principal) | CPT/HCPCS: 99024; 99213 ==

== ENCOUNTER 2023-02-20 06:00 | Outpatient (RCR) | payer MEDICARE, SELFPAY | END 2023-03-21 23:59 | disposition home or self-care (01) | LOC: MPT 06:00 | PROVIDERS: PCP Orthopaedic Surgery; Visit Provider Student in an Organized Health Care Education/Training Program | DX: Z47.89 Encounter for other orthopedic aftercare (principal); T79.A0XD Compartment syndrome, unspecified, subsequent encounter; X58.XXXD Exposure to other specified factors, subsequent encounter; Z98.890 Other specified postprocedural states | CPT/HCPCS: 97110; 97112; 97530 ==

== ENCOUNTER → 2023-02-22 09:08 | Outpatient (BNVA) | payer MEDICARE, SELFPAY | PROVIDERS: PCP Orthopaedic Surgery; Visit Provider Thoracic Surgery (Cardiothoracic Vascular Surgery) | DX: T81.31XD Disruption of external operation (surgical) wound, not elsewhere classified, subsequent encounter (principal); Y83.8 Other surgical procedures as the cause of abnormal reaction of the patient, or of later complication, without mention of misadventure at the time of the procedure; I96 Gangrene, not elsewhere classified; Z09 Encounter for follow-up examination after completed treatment for conditions other than malignant neoplasm | CPT/HCPCS: 11042; A6220 ==

== ENCOUNTER → 2023-03-01 09:01 | Outpatient (BNVA) | payer MEDICARE, SELFPAY | PROVIDERS: PCP Orthopaedic Surgery; Visit Provider Thoracic Surgery (Cardiothoracic Vascular Surgery) | DX: T81.31XD Disruption of external operation (surgical) wound, not elsewhere classified, subsequent encounter (principal); X58.XXXD Exposure to other specified factors, subsequent encounter; I96 Gangrene, not elsewhere classified | CPT/HCPCS: 11042; A6210 ==

== ENCOUNTER → 2023-03-08 08:59 | Outpatient (BNVA) | payer MEDICARE, SELFPAY | PROVIDERS: PCP Orthopaedic Surgery; Visit Provider Thoracic Surgery (Cardiothoracic Vascular Surgery) | DX: T81.31XD Disruption of external operation (surgical) wound, not elsewhere classified, subsequent encounter (principal); X58.XXXD Exposure to other specified factors, subsequent encounter; I96 Gangrene, not elsewhere classified | CPT/HCPCS: 11042; A6210; A6220 ==

== ENCOUNTER → 2023-03-15 09:10 | Outpatient (BNVA) | payer MEDICARE, SELFPAY | PROVIDERS: PCP Orthopaedic Surgery; Visit Provider Thoracic Surgery (Cardiothoracic Vascular Surgery) | DX: T81.31XD Disruption of external operation (surgical) wound, not elsewhere classified, subsequent encounter (principal); Y83.8 Other surgical procedures as the cause of abnormal reaction of the patient, or of later complication, without mention of misadventure at the time of the procedure; I96 Gangrene, not elsewhere classified | CPT/HCPCS: 97597; A6210 ==

== ENCOUNTER 2023-03-22 06:00 | Outpatient (RCR) | payer MEDICARE, MEDICAID, SELFPAY | END 2023-04-21 23:59 | disposition home or self-care (01) | LOC: MPT 06:00 | PROVIDERS: PCP Orthopaedic Surgery; Visit Provider Student in an Organized Health Care Education/Training Program | DX: Z47.89 Encounter for other orthopedic aftercare (principal); T81.31XD Disruption of external operation (surgical) wound, not elsewhere classified, subsequent encounter; Y83.8 Other surgical procedures as the cause of abnormal reaction of the patient, or of later complication, without mention of misadventure at the time of the procedure; I96 Gangrene, not elsewhere classified | CPT/HCPCS: 97110; 97112; 97530; 97597; A6021 ==

== ENCOUNTER → 2023-03-29 09:12 | Outpatient (BNVA) | payer MEDICARE, SELFPAY | PROVIDERS: PCP Orthopaedic Surgery; Visit Provider Nurse Practitioner Family | DX: T81.31XD Disruption of external operation (surgical) wound, not elsewhere classified, subsequent encounter (principal); X58.XXXD Exposure to other specified factors, subsequent encounter | CPT/HCPCS: 97597; A6021 ==

== ENCOUNTER → 2023-04-01 10:09 | Outpatient (BNVA) | payer MEDICARE, MEDICAID, SELFPAY | PROVIDERS: PCP Orthopaedic Surgery; Visit Provider Student in an Organized Health Care Education/Training Program | DX: Z48.89 Encounter for other specified surgical aftercare (principal) | CPT/HCPCS: 99213 ==

== ENCOUNTER → 2023-04-12 08:45 | Outpatient (BNVA) | payer MEDICARE, MEDICAID, SELFPAY | PROVIDERS: PCP Orthopaedic Surgery; Visit Provider Thoracic Surgery (Cardiothoracic Vascular Surgery) | DX: Z09 Encounter for follow-up examination after completed treatment for conditions other than malignant neoplasm (principal) | CPT/HCPCS: 99212 ==

== ENCOUNTER 2023-11-21 17:35 | Observation (INO) | payer MEDICARE, MEDICAID, SELFPAY ==
[2023-11-21] VITALS (9 sets, daily range): BP systolic 110–136; BP diastolic 57–74; PULSE 72–109; RESP 18–20; TEMP 36.4–36.7; O2SAT 92–98; BMI 20.9
--- NOTE | 2023-11-21 17:41 | XRR_ITS ---
PROCEDURE INFORMATION: Exam: XR Chest Exam date and time: 11/21/2023 6:01 PM Age: 68 years old Clinical indication: Angina pectoris; Patient HX: Chest pain; HX cabg 2019 TECHNIQUE: Imaging protocol: Radiologic exam of the chest. Views: 1 view. COMPARISON: CR XR chest 1V portable [id number] 12/29/2022 9:03 PM FINDINGS: Lungs: No focal consolidation. Pleural spaces: No pleural effusion. No pneumothorax. Heart/Mediastinum: Postsurgical changes. Bones/joints: No acute findings. XR/XR chest 1V portable [id number] IMPRESSION: No acute findings.
--- NOTE | 2023-11-21 17:44 | ECG_ITS ---
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 Measurements Intervals [place] Rate: 109 P: 84 MD: 144 QRS: -59 QRSD: 97 T: 74 QT: 350 QTc: 473 Interpretive Statements SINUS TACHYCARDIA PATTERN CONSISTENT WITH PULMONARY DISEASE INCOMPLETE RIGHT BUNDLE BRANCH BLOCK [90+ ms QRS DURATION, TERMINAL R IN V1/V2, 40+ ms S IN I/aVL/V4/V5/V6] LEFT ANTERIOR FASCICULAR BLOCK [QRS AXIS <= -45, QR IN I, RS IN II] NONSPECIFIC ST & T-WAVE ABNORMALITY No previous ECG available for comparison Electronically Signed On 11-22-2023 8:36:11 TERMINAL COMPUTER OPERATOR by Yossi Foss M.D. [id number]
--- NOTE | 2023-11-21 17:46 | CTR_ITS ---
PROCEDURE INFORMATION: Exam: CTA Chest With Contrast Exam date and time: 11/21/2023 7:49 PM Age: 68 years old Clinical indication: Shortness of breath; Chest pressure; Prior surgery; Surgery date: 6+ months; Surgery type: Cabg. Aortic valve. Coronary stents; Patient HX: C/O chest pain with SOB and tachycardia; Additional info: Cp SOB tachy TECHNIQUE: Imaging protocol: Computed tomographic angiography of the chest with contrast. Exam focused on the arteries. 3D rendering (Not supervised by radiologist): MIP and/or 3D reconstructed images were created by the technologist. Radiation optimization: All CT scans at this facility use at least one of these dose optimization techniques: automated exposure control; mA and/or kV adjustment per patient size (includes targeted exams where dose is matched to clinical indication); or iterative reconstruction. Contrast material: OMNI 350; Contrast volume: 73 ml; Contrast route: INTRAVENOUS (IV); REPORTING DATA: Count of CT and Cardiac NM exams in prior 12 months: This patient has received 0 known CTs and 0 known cardiac nuclear medicine studies in the 12 months prior to the current study. COMPARISON: CR (CHEST, ) 11/21/2023 6:01 PM RADIATION DOSE METRICS: Total DLP (mGy-cm): 435.29 FINDINGS: Tubes, catheters and devices: Aortic valve prosthesis is in place. Pulmonary arteries: Normal. No pulmonary emboli. Aorta: Normal caliber thoracic aorta. No displaced calcium to suggest aortic dissection, but there is only sparse contrast in the aortic lumen. Thyroid: Homogeneous thyroid. Lungs: Dependent change noted in each lung. There is multifocal endobronchial occlusion in the left posterior basilar lower lobe. Pleural spaces: Unremarkable. No pneumothorax. No pleural effusion. Heart: Unremarkable. No cardiomegaly. No pericardial effusion. Lymph nodes: Unremarkable. No enlarged lymph nodes. Diaphragm: Small sliding hiatal hernia. Bones/joints: Healed median sternotomy. No acute fracture or destructive lesion. Soft tissues: Unremarkable. CT/CT angio chest PE protcl [id number] IMPRESSION: 1. No findings of acute pulmonary embolism. 2. Left posterior basilar bronchial occlusions. Findings could represent aspiration or retained secretions.
--- NOTE | 2023-11-21 17:55 | ED_ITS ---
HPI - Chest Pain 2 General: Chief Complaint: Chest Pain Stated Complaint: CHEST PAIN Time Seen by Provider: 11/21/23 17:37 History of Present Illness: Ortiz Mann is a 68-year-old man that presents to the emergency department with sternal chest pain that radiates into his back. Patient is tachypneic with mild distress. He states that he is getting lower extremity cramping. Appears to be greater on the right than the left Patient has a medical history that includes cardiovascular disease with prior STEMI, aortic valve replacement, hypertension, chronic kidney disease, COPD, prior CVA. Prior CABG in 2019. He is anticoagulated on Eliquis; also takes Plavix and aspirin Associated symptoms: Deny abdominal pain, dyspnea, fever(s), nausea, palpitations or vomiting Review of Systems 2 General: Reports: 10 or more systems reviewed and unremarkable except in HPI and below Const: Denies: fever(s), chills, change in appetite, change in weight, fatigue or malaise Card: Reports: chest pain, lightheadedness and dyspnea on exertion; Denies: palpitations, irregular heart rhythm, edema or orthopnea Resp: Denies: dyspnea, productive cough, non-productive cough, wheezing, stridor or chest congestion GI: Denies: abdominal pain, nausea, vomiting, dysphagia, diarrhea, constipation, bloating, GI cramping or hematochezia : Denies: flank pain, dysuria, urinary frequency, urinary urgency, urinary hesitancy, oliguria or hematuria Musc: Reports: back pain and muscle cramps; Denies: neck pain, extremity pain, joint pain, joint swelling, joint redness, joint warmth or muscle weakness Skin/Breast: Denies: rash, pruritus, erythema, photosensitivity or new lesions Neuro: Denies: headache(s), numbness in extremities, weakness in extremities, sensory changes, lack of coordination, difficulty walking, frequent falls, dizziness, confusion, Slurred speech present, difficulty communicating thoughts, seizure-like activity or involuntary movements Endo: Denies: polyuria, polydipsia or tired all the time Wilber/Lymph: Denies: easy bruising or easy bleeding PFSH ED 2 PFSH: Medical History Aortic stenosis CAD (coronary artery disease) Previous proximal left anterior descending stent, RCA stent x2 11/30/2019. Cerebrovascular accident (CVA) determined by clinical assessment Chronic back pain Chronic kidney disease (CKD) COPD (chronic obstructive pulmonary disease) Epistaxis Hypertension Kidney atrophy RUKHSANA (obstructive sleep apnea) ST elevation myocardial infarction (STEMI) Inferior wall MA Tobacco abuse, in remission Surgical History History of aortic valve replacement History of herniorrhaphy Right inguinal hernia repair History of left knee surgery S/P CABG (coronary artery bypass graft) 2019 --patient suggests he may have had a couple valves worked on, as well Status post cervical spinal fusion Stented coronary artery X4 Family History Brother CAD (coronary artery disease) Cancer Father Stroke Hypertension Grandmother Cancer Other Hyperlipidemia Denies family history of Diabetes Clotting disorder Dementia Psychiatric illness Bleeding disorder Family history of premature coronary artery disease Lung disease Social History Smoking and tobacco/nicotine status: never used tobacco/nicotine Quit status (tobacco/nicotine): has quit using Year quit tobacco: 2014 Former quit date comment: [id number] history prior to quitting Alcohol intake: current Adopted: No Household members: family Marital status: Physical Exam 2 Const: COMMON NORMALS: no acute distress, patient oriented x3 and alert G ENERAL APPEARANCE: cooperative ORIENTATION/CONSCIOUSNESS: Yes awake, Yes oriented to person, Yes oriented to place and Yes oriented to time HENMT: COMMON NORMALS: normocephalic and atraumatic HEAD & SCALP: n ormocephalic and atraumatic MOUTH: Normal oral and palatal mucosa present Eye: COMMON NORMALS: Equal, round and reactive pupils present, EOMs intact bilaterally and no scleral icterus PUPIL: Yes Equal, round and reactive pupils present Neck/C-Spine: COMMON NORMALS: full ROM GENERAL: Yes normal visual inspection Lymph: LYMPHATIC: no lymphadenopathy noted Chest: COMMONS NORMALS: normal inspection of the chest Breast/axilla inspection: Yes no chest deformity, asymmetry, normal contours, no nodules, masses, tenderness and Yes scars (CABG in 2019) Resp: COMMON NORMALS: normal respiratory effort, No retractions, No use of accessory muscles and clear to auscultation bilaterally EFFORT & INSPECTION: Yes able to speak in complete sentences, Yes symmetric chest movement and Yes tachypneic AUSCULTATION: clear to auscultation bilaterally Cardio: COMMON NORMALS: regular rhythm and Peripheral pulses 2+ throughout JUGULAR VENOUS DISTENTION: no JVD RATE: tachycardic RHYTHM: regular rhythm PERIPHERAL PULSES: Peripheral pulses 2+ throughout GI: COMMON NORMALS: Normal to inspection, nondistended, normoactive bowel sounds present, Soft to palpation and non-tender INSPECTION: Yes normal to inspection AUSCULTATION: Yes normoactive bowel sounds PALPATION: Yes Soft to palpation Extremity: COMMON NORMALS: normal to inspection GENERAL: Yes normal exam except as noted Neuro: COMMON NORMALS: patient oriented x3 SENSORIUM/ORIENTATION: Yes alert, Yes oriented to person, Yes oriented to place and Yes oriented to time CRANIAL NERVES: Yes CN normal except as noted Psych: COMMON NORMALS: mental status grossly normal, Normal thought process present, cooperative, activity/motor behavior normal, denies homicidal ideation and denies suicidal ideation THOUGHT PROCESS: Normal thought process present Skin: COMMON NORMALS: no rashes or lesions noted, no wounds and turgor normal GENERAL SKIN EXAM: no rashes or lesions noted and turgor normal Course 2 Vital Signs: Vital signs: Vital Signs Temperature 97.5 F L 11/21/23 23:20 Pulse Rate 72 11/21/23 23:20 Respiratory Rate 18 11/21/23 17:38 Blood Pressure 120/62 11/21/23 23:20 Pulse Oximetry 96 11/21/23 23:20 Oxygen Delivery Me thod Nasal Cannula 11/21/23 23:20 Oxygen Flow Rate 2 11/21/23 23:20 MDM - Chest Pain Medical Decision Making Differential diagnosis includes AMI, PE, pneumonia, Patient had an EKG at 1744 which reveals sinus tachycardia at a rate of 109 beats a minute. There is incomplete right bundle branch block and a left anterior fascicular block with nonspecific ST and T wave abnormality; this is unchanged from EKG in February 2021. There is concern with this EKG that there is pulmonary disease. CT angio chest for PE protocol pending Laboratory evaluation included a CBC, CMP, BNP, troponin series Repeat EKGs unremarkable. The CBC reveals no leukocytosis but he is thrombocytopenic. His chemistry panel is largely unremarkable. The BNP was 179 Initial troponin 16, 2-hour troponin 15.88. Patient did undergo a CT angio chest to rule out pulmonary embolism due to his tachycardia. There is no evidence of PE however there is a left posterior basilar bronchial occlusion. Dr. Silva was consulted but she believes that this could be a COPD exacerbation. We are obtaining a ABG to assess for hypercapnia. ABGs unremarkable. Dr. Silva has been by to see the patient. She agrees he is ill-appearing. We are going to CT his abdomen pelvis with contrast, obtain lipase and amylase, and get a COVID test. Influenza A positive. CT abdomen pelvis lipase, amylase, COVID testing all unremarkable. Admit to [facility]SU Lab Data 11/21/23 19:00 11/21/23 19:00 Radiology Impressions Chest X-Ray 11/21/23 17:41 IMPRESSION: No acute findings. Chest CTA 11/21/23 17:46 IMPRESSION: 1. No findings of acute pulmonary embolism. 2. Left posterior basilar bronchial occlusions. Findings could represent aspiration or retained secretions. Abdomen/Pelvis CT 11/21/23 22:45 IMPRESSION: No acute abnormality identified to explain patient's nausea and vomiting. No evidence of bowel obstruction or urolithiasis. Normal appendix confirmed. Laboratory Results WBC 4.04 10^3/uL (3.29-11.43) 11/21/23 19:00 RBC 4.88 10^6/uL (3.85-5.65) 11/21/23 19:00 Hgb 14.00 g/dL (11.27-16.99) 11/21/23 19:00 Hct 43.1 % (37-53) 11/21/23 19:00 MCV 88.3 fl (82-101) 11/21/23 19:00 MCH 28.7 pg (27-33) 11/21/23 19:00 MCHC 32.5 g/dL (30-55) 11/21/23 19:00 RDW 13.2 % (12.1-15.1) 11/21/23 19:00 Plt Count 136 10^3/cmm (157-399) L 11/21/23 19:00 MPV 9.8 fL (7.4-10.4) 11/21/23 19:00 Neut % (Auto) 69.7 % 11/21/23 19:00 Lymph % (Auto) 9.9 % 11/21/23 19:00 [place]oux % (Auto) 17.3 % 11/21/23 19:00 Eos % (Auto) 2.2 % 11/21/23 19:00 Baso % (Auto) 0.7 % 11/21/23 19:00 Neut # (Auto) 2.81 10^3/uL (1.8-7.7) 11/21/23 19:00 Lymph # (Auto) 0.4 10^3/uL (0.8-4.8) L 11/21/23 19:00 [place] # (Auto) 0.7 10^3/uL (0.2-0.9) 11/21/23 19:00 Eos # (Auto) 0.1 10^3/uL (0.0-0.8) 11/21/23 19:00 Baso # (Auto) 0.0 10^3/uL (0.0-0.1) 11/21/23 19:00 Nucleated RBC % (auto) 0 % 11/21/23 19:00 Nucleated RBCs # 0.0 /100WBC 11/21/23 19:00 Specimen Type Arterial 11/21/23 21:48 Sample Site Radial, right 11/21/23 21:48 ABG pH 7.44 (7.35-7.45) 11/21/23 21:48 ABG pCO2 35.6 mmHg (35-45) 11/21/23 21:48 ABG pO2 82.9 mmHg (80.0-100.0) 11/21/23 21:48 ABG PO2/FiO2 Ratio 0 11/21/23 21:48 ABG HCO3 23.9 mmol/L (22-26) 11/21/23 21:48 ABG O2 Saturation 97.8 11/21/23 21:48 ABG Base Excess 0.1 mmol/L (-2.0-2.0) 11/21/23 21:48 Babar Test Pos 11/21/23 21:48 A-a O2 Gradient 9.5 mmHg (5-10) 11/21/23 21:48 Hematocrit 43.7 % (42-52) 11/21/23 21:48 Hgb O2 Saturation 95.8 % (95-100) 11/21/23 21:48 Carboxyhemoglobin 1.4 %THgb (0.4-20.1) 11/21/23 21:48 Methemoglobin 0.6 % (0.4-1.5) 11/21/23 21:48 Total Hemoglobin 14.3 g/dL (14-18) 11/21/23 21:48 Sodium 138.0 mmol/L (131-143) 11/21/23 21:48 Potassium 3.8 mmol/L (3.5-5.0) 11/21/23 21:48 Glucose 113.0 mg/dL (70-115) 11/21/23 21:48 Ionized Calcium 1.1 mmol/L (1.1-1.4) 11/21/23 21:48 O2 Delivery Device Nc 11/21/23 21:48 O2 Liters/Min 2.0 % 11/21/23 21:48 FiO2 28.0 % 11/21/23 21:48 Supervisor [employer] ID Ed 11/21/23 21:48 Sodium 134 mmol/L (136-145) L 11/21/23 19:00 Potassium 3.8 mmol/L (3.5-5.1) 11/21/23 19:00 Chloride 98 mmol/L (98-107) 11/21/23 19:00 Carbon Dioxide 25 mmol/L (22-29) 11/21/23 19:00 Anion Gap 14.8 (5-19) 11/21/23 19:00 BUN 12 mg/dL (8-23) 11/21/23 19:00 Creatinine 1.2 mg/dL (0.7-1.2) 11/21/23 19:00 GFR Calculation 59.9 mL/min (90-130) L 11/21/23 19:00 Glucose 128 mg/dL (65-115) H 11/21/23 19:00 Calculated Osmolality 279 mOsm/kg (285-295) L 11/21/23 19:00 Calcium 8.8 mg/dL (8.5-10.5) 11/21/23 19:00 Total Bilirubin 0.6 mg/dL (0.15-1.2) 11/21/23 19:00 AST 23 U/L (0-40) 11/21/23 19:00 ALT 25 U/L (0-41) 11/21/23 19:00 Alkaline Phosphatase 93 U/L (40-130) 11/21/23 19:00 Troponin T Baseline 16 ng/L (0-15) H 11/21/23 19:00 Troponin T 120 Minute 15.88 ng/L (0-15) H 11/21/23 20:41 Delta Troponin T -0.12 ABS# (0-10) L 11/21/23 20:41 NT-Pro-B Natriuret Pep 179 pg/mL (0-125) H 11/21/23 19:00 Total Protein 6.5 g/dL (6.6-8.7) L 11/21/23 19:00 Albumin 4.4 g/dL (3.5-5.2) 11/21/23 19:00 Globulin 2.1 g/dL (1.3-4.6) 11/21/23 19:00 Amylase 58 U/L (28-100) 11/21/23 20:41 Lipase 22 U/L (13-60) 11/21/23 20:41 Influenza Type A Ag Positive (Negative) H 11/21/23 23:24 Influenza Type B Ag Negative (Negative) 11/21/23 23:24 SARS-CoV-2 Ag (Rapid) negative (Negative) 11/21/23 23:24 All radiology interpretation(s) finalized by discharge Discharge Plan Discharge Admit Provider: Evelia Silva Condition: Stable Coding Level of Care Code ED Service Agent for Kamille Dumont
[2023-11-21] MEDS: ondansetron 2 mg/ML SDV 2 mL 4 MG IVP ×2 (19:08→23:15)
[2023-11-21 19:15] LABS: Basophils % 0.7 %; Eosinophils # 0.1 10^3/uL (0.0-0.8); Eosinophils % 2.2 %; Hematocrit 43.1 % (37-53); Lymphocytes # 0.4 10^3/uL (0.8-4.8); Lymphocytes % 9.9 %; Mean Corpuscular HGB Conc 32.5 g/dL (30-55); Mean Corpuscular Hemoglobin 28.7 pg (27-33); Mean Corpuscular Volume 88.3 fl (82-101); Mean Platelet Volume 9.8 fL (7.4-10.4); Monocytes # 0.7 10^3/uL (0.2-0.9); Monocytes % 17.3 %; Neutrophils # 2.81 10^3/uL (1.8-7.7); Neutrophils % 69.7 %; Nucleated Red Blood Cells % 0 %; Platelet Count 136 10^3/cmm (157-399); Red Blood Count 4.88 10^6/uL (3.85-5.65); Red Cell Distribution Width 13.2 % (12.1-15.1); White Blood Count 4.04 10^3/uL (3.29-11.43)
[2023-11-21] MEDS: morphine 4 mg/mL SDV 1 mL IVP (19:29)
[2023-11-21 19:39] LABS: Troponin(5th) Baseline 16 ng/L (0-15)
[2023-11-21 19:42] LABS: Alanine Aminotransferase 25 U/L (0-41); Albumin Level 4.4 g/dL (3.5-5.2); Alkaline Phosphatase 93 U/L (40-130); Anion Gap 14.8 (5-19); Aspartate Amino Transferase 23 U/L (0-40); Blood Urea Nitrogen 12 mg/dL (8-23); Calcium 8.8 mg/dL (8.5-10.5); Carbon Dioxide 25 mmol/L (22-29); Chloride 98 mmol/L (98-107); Globulin 2.1 g/dL (1.3-4.6); Glomerular Filtration Rate 59.9 mL/min (90-130); Glucose 128 mg/dL (65-115); NT Pro B Type Natriuretic Pept 179 pg/mL (0-125); Osmolality Calculated 279 mOsm/kg (285-295); Potassium 3.8 mmol/L (3.5-5.1); Sodium 134 mmol/L (136-145); Total Bilirubin 0.6 mg/dL (0.15-1.2); Total Protein 6.5 g/dL (6.6-8.7)
[2023-11-21] MEDS: iohexol 350 mg/mL 500 mL Btl (per mL) IV (19:55)
--- NOTE | 2023-11-21 20:22 | ECG_ITS ---
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 Measurements Intervals [place] Rate: 73 P: 52 FL: 194 QRS: -44 QRSD: 105 T: 64 QT: 409 QTc: 451 Interpretive Statements SINUS RHYTHM WITH OCCASIONAL SUPRAVENTRICULAR PREMATURE COMPLEXES LEFT AXIS DEVIATION [QRS AXIS < -30] INCOMPLETE RIGHT BUNDLE BRANCH BLOCK [90+ ms QRS DURATION, TERMINAL R IN V1/V2, 40+ ms S IN I/aVL/V4/V5/V6] NONSPECIFIC T-WAVE ABNORMALITY Compared to ECG 11/21/2023 17:44:06 Left-axis deviation now present Sinus tachycardia no longer present Left anterior fascicular block no longer present T-wave abnormality still present Electronically Signed On 11-22-2023 8:38:21 ZOO DIRECTOR by Yossi Foss M.D. [id number]
[2023-11-21 21:04] LABS: Troponin 5 2HR 15.88 ng/L (0-15)
[2023-11-21 21:06] LABS: Troponin 5 2HR Delta -0.12 ABS# (0-10)
[2023-11-21 22:03] LABS: ABG PCO2 35.6 mmHg (35-45); ABG PH Result 7.44 (7.35-7.45); Alveolar-Arterial Oxygen Gradi 9.5 mmHg (5-10); Arterial Blood Gas Hematocrit 43.7 % (42-52); Base Excess ABG 0.1 mmol/L (-2.0-2.0); Blood Gas Allen Test Pos; Blood Gas Operator Identificat ED; Blood Gas Sample Site Radial, right; Blood Gas Sample Type Arterial; Carboxyhemoglobin 1.4 %THgb (0.4-20.1); HCO3 ABG 23.9 mmol/L (22-26); HGB O2 Sat 95.8 % (95-100); Ionized Calcium Level - ABG 1.1 mmol/L (1.1-1.4); Methemoglobin 0.6 % (0.4-1.5); Oxygen Device NC; Oxygen Saturation ABG 97.8; PO2 ABG 82.9 mmHg (80.0-100.0); PO2 FiO2 Ratio Arterial Blood 0; Potassium Level - ABG 3.8 mmol/L (3.5-5.0); Total Hemoglobin 14.3 g/dL (14-18)
--- NOTE | 2023-11-21 22:45 | CTR_ITS ---
PROCEDURE INFORMATION: Exam: CT Abdomen And Pelvis Without Contrast Exam date and time: 11/21/2023 11:00 PM Age: 68 years old Clinical indication: Nausea and vomiting; Abdominal pain; Generalized; Prior surgery; Surgery date: 6+ months; Surgery type: Inguinal hernia. Cabg. Aortic valve. Stents; Patient HX: Diffuse abd pain with n/v; Additional info: Recurrent vomiting, abdominal pain TECHNIQUE: Imaging protocol: Computed tomography of the abdomen and pelvis without contrast. Radiation optimization: All CT scans at this facility use at least one of these dose optimization techniques: automated exposure control; mA and/or kV adjustment per patient size (includes targeted exams where dose is matched to clinical indication); or iterative reconstruction. REPORTING DATA: Count of CT and Cardiac NM exams in prior 12 months: This patient has received 0 known CTs and 0 known cardiac nuclear medicine studies in the 12 months prior to the current study. COMPARISON: CT angio chest PE protcl [id number] 11/21/2023 7:49 PM RADIATION DOSE METRICS: Total DLP (mGy-cm): 909.77 FINDINGS: Tubes, catheters and devices: Aortic valve prosthesis is noted. Lungs: Basilar bronchial wall thickening, left greater than right. Heart: Heart size is normal. Diaphragm: Small sliding hiatal hernia. Liver: Normal configuration. Homogeneous parenchyma. Gallbladder and bile ducts: Postprandial gallbladder is contracted. Pancreas: Normal. No ductal dilation. Spleen: Normal. No splenomegaly. Adrenal glands: Normal configuration. Kidneys and ureters: Left kidney is atrophic compared to the right. No evidence of renal obstruction on either side. Stomach and bowel: Postprandial stomach. Normal caliber small bowel. Distal colonic diverticulosis without evidence of acute diverticulitis. No bowel wall pneumatosis. Appendix: Normal appendix is confirmed. Intraperitoneal space: No free air. No significant fluid collection. Vasculature: There is focal plaque at the origin of the left renal artery. Normal caliber abdominal aorta with moderate calcific plaque. Mild ectasia of the common iliac arteries bilaterally. No portal venous gas. Lymph nodes: No enlarged lymph nodes. Urinary bladder: Unremarkable as visualized. Reproductive: Physiologic appearance for age. Bones/joints: No fracture or destructive lesion. Soft tissues: Unremarkable. CT/CT abdomen pelvis wo con [id number] IMPRESSION: No acute abnormality identified to explain patient's nausea and vomiting. No evidence of bowel obstruction or urolithiasis. Normal appendix confirmed.
[2023-11-21 23:14] LABS: Amylase 58 U/L (28-100); Lipase 22 U/L (13-60)
[2023-11-21] MEDS: nitroglycerin 1 gm/inch oint Pkt 0.5 INCH TOPICAL (23:15)
--- NOTE | 2023-11-21 23:41 | ECG_ITS ---
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 Measurements Intervals [place] Rate: 73 P: 0 ND: 0 QRS: -55 QRSD: 101 T: 57 QT: 390 QTc: 432 Interpretive Statements SUPRAVENTRICULAR RHYTHM INCOMPLETE RIGHT BUNDLE BRANCH BLOCK [90+ ms QRS DURATION, TERMINAL R IN V1/V2, 40+ ms S IN I/aVL/V4/V5/V6] INFERIOR MYOCARDIAL INFARCTION , PROBABLY OLD [40+ ms Q WAVE AND/OR ST/T ABNORMALITY IN II/aVF] Compared to ECG 11/21/2023 20:22:01 Supraventricular rhythm now present Myocardial infarct finding now present Sinus rhythm no longer present Left-axis deviation no longer present T-wave abnormality no longer present Electronically Signed On 11-22-2023 8:38:12 AERODYNAMICS ENGINEER by Yossi Foss M.D. [id number]
--- NOTE | 2023-11-21 23:45 | P.HP_ITS ---
Providers/Chief Complaint 2 Admitting Physician: Evelia Silva MD Primary Care Provider: Yoni Campos MD Chief Complaint: CHEST PAIN History of Present Illness Ortiz Mann Sr is a 68 year old male with history of multivessel CAD, status post CABG 2019, aortic stenosis status post aortic valve replacement (not sure of the type of valve), on plavix and eliquis, COPD, not normally oxygen, RUKHSANA on nightly CPAP, history of CVA, CKD, HTN. He presents to the hospital today due to complaints of chest pain. States that pain is located in the middle of the chest, radiating into his left shoulder and back. States that he feels exactly like when he had his LA in 2020. Pain is waxing and waning, 8 on 10 at its maximum intensity, 6/10 minimum. Nothing appears to relieve his symptoms. His pain started quite suddenly while he was driving back after visiting his in the hospital. Since then he has been unable to get comfortable. Associated symptoms include multiple episodes of nausea and vomiting since the pain started this afternoon and diaphoresis. Patient looks visibly uncomfortable on exam today. He is fidgety, has sweats of perspiration on his forehead, trying to change multiple positions but unable to get comfortable. he was placed on 2 L/min supplemental O2 on arrival to the ER, per him when being brought over by EMS his O2 sat was dipping into the 80s. ABG completed today in the emergency room does not show any gross hypoxia or hypercapnia on 2 L/min supplemental O2. He has Nitropaste placed but this did not help with his symptoms. Morphine helped temporarily but he has not had any sustained relief. Review of systems positive for cough that developed today. He has also had some runny nose. No complaints of orthopnea or lower extremity swelling. He takes Lasix chronically for history of heart failure. Does not recall his last ejection fraction. Review of Systems 2 General: Reports: 10 or more systems reviewed and unremarkable except in HPI and below Const: Denies: fever(s), chills or body aches Eyes: Denies: change in vision, blurry vision or photophobia ENMT: Reports: hoarseness; Denies: throat pain, enlarged tonsils, odynophagia or nasal congestion Card: Denies: chest pain, palpitations, irregular heart rhythm, edema, swelling of feet/ankles, lightheadedness, pre-syncope, dyspnea on exertion or orthopnea Resp: Denies: dyspnea, productive cough, non-productive cough, wheezing, stridor, pain on inspiration, change in phlegm color, hemoptysis or chest congestion GI: Denies: abdominal pain, nausea, vomiting, hematemesis, coffee ground emesis, dysphagia, heartburn, diarrhea, constipation, GI cramping, change in stool character, hematochezia or melena : Denies: flank pain, dysuria, urinary frequency, urinary urgency, urinary hesitancy or hematuria Musc: Denies: neck pain, back pain, extremity pain, joint swelling, joint warmth or deformity Neuro: Denies: headache(s), numbness in extremities, weakness in extremities, sensory changes, difficulty walking, frequent falls, dizziness, vertigo, behavioral changes, Slurred speech present or seizure-like activity Psych: Denies: anxiety, depression, suicidal ideation or homicidal ideation Endo: Denies: polyuria, polydipsia, tired all the time, cold intolerance or hot flashes Wilber/Lymph: Denies: easy bruising or easy bleeding Medications/Allergies Home Medications Medication Instructions Recorded Confirmed Last Taken Type clopidogrel 75 mg tablet 75 mg PO DAILY 30 days #30 tabs 12/02/19 04/01/23 12/25/22 Rx cyclobenzaprine 10 mg tablet 10 mg PO TID PRN Spasms 12/02/19 04/01/23 12/25/22 History metoprolol succinate 50 mg 50 mg PO DAILY 12/02/19 04/01/23 12/25/22 History tablet,extended release 24 hr (Toprol XL) nitroglycerin 0.4 mg sublingual 0.4 mg sublingual Q5M PRN Chest 12/02/19 04/01/23 Unknown History tablet (Nitrostat) Pain pantoprazole 40 mg tablet,delayed 40 mg PO DAILY 12/02/19 04/01/23 12/25/22 History release (Protonix) hydromorphone 4 mg tablet 4 mg PO Q4H PRN pain #10 tabs 09/13/20 04/01/23 12/25/22 Rx (Dilaudid) atorvastatin 80 mg tablet 80 mg PO DAILY 10/31/20 04/01/23 12/25/22 History ezetimibe 10 mg tablet (Zetia) 10 mg PO DAILY 10/31/20 04/01/23 12/25/22 History fluticasone propionate 50 1 spray intranasal DAILY 10/31/20 04/01/23 04/03/21 History mcg/actuation nasal spray,suspension hydrocodone 10 mg-acetaminophen 1 tab PO Q6H PRN Pain 10/31/20 04/01/23 12/25/22 History 325 mg tablet docusate sodium 100 mg capsule 100 mg PO DAILY 03/12/21 04/01/23 12/25/22 History (Stool Softener) spironolactone 25 mg tablet 12.5 mg PO DAILY 03/12/21 04/01/23 12/24/22 History temazepam 15 mg capsule 15 mg PO BEDTIME 03/12/21 04/01/23 12/24/22 History [id number] Bone Growth Stimulator #1 ea 03/31/21 04/01/23 Unknown Rx apixaban 5 mg tablet 2.5 mg (1/2 x 5 mg) PO BID 30 days 01/01/23 04/01/23 12/25/22 Rx #30 tabs furosemide 40 mg tablet 40 mg PO DAILY 3 days #0 tabs 01/01/23 04/01/23 12/24/22 Rx sulfamethoxazole 800 1 tab PO BID #14 tabs 01/18/23 04/01/23 Unknown Rx mg-trimethoprim 160 mg tablet (Bactrim DS) Allergies Allergy/AdvReac Type Severity Reaction Status Date / Time clonazepam Allergy Severe Stopped Verified 11/21/23 17:44 breathing metronidazole [From Flagyl] Allergy Severe Anaphylaxis Verified 11/21/23 17:44 stopped breathing guaifenesin Allergy Unknown Verified 11/21/23 17:44 hydrochlorothiazide Allergy Unknown Verified 11/21/23 17:44 [From Zestoretic] rosuvastatin Allergy Myalgias Verified 11/21/23 17:44 lisinopril AdvReac ADR-Cough Verified 11/21/23 17:44 prednisone AdvReac ITCHING LG Verified 11/21/23 17:44 DOSE PFSH Acute 2 PFSH: Medical History Chronic back pain RUKHSANA (obstructive sleep apnea) Aortic stenosis Chronic kidney disease (CKD) COPD (chronic obstructive pulmonary disease) Tobacco abuse, in remission Kidney atrophy Cerebrovascular accident (CVA) determined by clinical assessment Epistaxis CAD (coronary artery disease) Previous proximal left anterior descending stent, RCA stent x2 11/30/2019. Hypertension ST elevation myocardial infarction (STEMI) Inferior wall LA Surgical History History of aortic valve replacement Status post cervical spinal fusion Stented coronary artery X4 History of left knee surgery S/P CABG (coronary artery bypass graft) 2019 --patient suggests he may have had a couple valves worked on, as well History of herniorrhaphy Right inguinal hernia repair Family History Brother CAD (coronary artery disease) Cancer Father Stroke Hypertension Grandmother Cancer Other Hyperlipidemia Denies family history of Diabetes Clotting disorder Dementia Psychiatric illness Bleeding disorder Family history of premature coronary artery disease Lung disease Social History Smoking and tobacco/nicotine status: never used tobacco/nicotine Quit status (tobacco/nicotine): has quit using Year quit tobacco: 2014 Former quit date comment: [id number] history prior to quitting Alcohol intake: current Adopted: No Household members: family Marital status: Vitals/I&O/Wt Last Vital Signs Temp 97.5 F L 11/21/23 23:20 Pulse 77 11/22/23 00:00 Resp 23 H 11/22/23 00:00 BP 136/59 11/22/23 00:00 Pulse Ox 97 11/22/23 00:00 O2 Del Method Nasal Cannula 11/22/23 00:18 O2 Flow Rate 2 11/22/23 00:00 Weight last 48 hrs Weight 104.326 kg Weight 68.039 kg Physical Exam 2 Narrative: General: Appears uncomfortable, diaphoretic, AO x3 HEENT: PERRLA, pupils bilaterally equal and reactive, pallors not present Chest: Normal vesicular breath sounds, no added sounds, equal good air entry bilaterally CVS: S1-S2 regular, no murmurs, no tachycardia, no gallops, no rubs Abdomen: Soft, nontender, no organomegaly, bowel sounds present Neuro: No focal deficits, no facial deformity, AO x3, power 5/5 in all limbs Data 11/21/23 19:00 11/21/23 19:00 Other Labs: CT/CT angio chest PE protcl [id number] IMPRESSION: 1. No findings of acute pulmonary embolism. 2. Left posterior basilar bronchial occlusions. Findings could represent aspiration or retained secretions. A&P Assessment and plan (1) Chest pain: 68-year-old male with extensive past medical history of coronary artery disease status post multiple stents and CABG presenting to the hospital today with chest pain located in the midsternal area radiating into left arm and shoulder along with back. Patient appears to be uncomfortable, associated symptoms of nausea and vomiting with diaphoresis raises concern for anginal chest pain/ ACS EKG without acute ST-T wave changes Baseline troponin at 16, 2 hours at 15, pending 6-hour trend. Aspirin 325 now, continue with aspirin 81 daily and Plavix 75 daily. Patient typically takes Eliquis at home, for now we will change this to full dose Lovenox 1 mg/kg every 12 hours for possibility of ACS and in case interventions are needed depending on clinical progress. BNP 1 normal range at 179. Trial of nitroglycerin patch and sublingual has not made significant difference to his pain. Partial relief with morphine currently. CTA chest negative for PE. Check serum amylase and lipase to evaluate for possible pancreatitis Check CT abdomen and pelvis to evaluate for other potential causes of persisting nausea vomiting such as SBO/ileus/cholelithiasis or pancreatitis. 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 No wheezing on exam currently. He does have a new oxygen requirement of 2 L/min today. Ceftriaxone and azithromycin empirically for possibly developing pneumonia. Check COVID and influenza antigens. Further orders dependent on pending studies. (2) RUKHSANA (obstructive sleep apnea): Continue CPAP at nighttime Plan DVT prophylaxis: Currently on full dose Lovenox Full code, states that he would not want prolonged resuscitative measures if appearing futile. Attestations 2 Medical Necessity Statement*: Less than 2 midnight stay is currently anticipated for evaluation of chest pain. Coding Level of Care Code Acute Code for Chg Fwd Moderate MDM includes number and complexity of problems actively addressed during encounter, amount and/or complexity of data reviewed/ordered and described risk of complication, morbidity or mortality of management as documented Diagnoses Chest pain R07.9 RUKHSANA (obstructive sleep apnea) G47.33
[2023-11-21 23:46] LABS: SARS Covid-2 Antigen negative (Negative)
[2023-11-21 23:48] LABS: Influenza A by IFA Positive (Negative); Influenza B by IFA Negative (Negative)
[2023-11-22] VITALS (13 sets, daily range): BP systolic 106–136; BP diastolic 52–74; PULSE 69–90; RESP 10–26; TEMP 37–37.7; O2SAT 93–98; BMI 32.1
--- NOTE | 2023-11-22 00:17 | USCV_ITS ---
Ortiz Mann Age: 68 Gender: M : 1955 Exam Date: 11/22/2023 06:42 Ordering Phys: Evelia Silva MD Technologist: NILES Exam Location: [facility] [place] Indication: H/O S/P TAVR X2YRS. ANGINA BP: 118 / 62 HR: 73 Rhythm: Sinus Technical Quality: Adequate MEASUREMENTS (Male / Female) Normal Values 2D ECHO LVOT Diameter 1.9 cm LV Ejection Fraction MOD 2C 60.2 % LV Ejection Fraction 2C AL 64.3 % LA Diameter 3.7 cm LA Width 3.7 cm LA Height 4.3 cm RA Width 3.8 cm RA Height 4.8 cm Aorta at Sinotubular Diameter 1.8 cm M-MODE Aortic Annulus Diameter 2.8 cm LA Ao Ratio MM 1.2 MV E Point Septal Separation 1.1 cm DOPPLER AV Peak Velocity 166.0 cm/s LVOT Peak Velocity 121.0 cm/s AV Area Cont Eq vti 1.9 cm squared AV Area Cont Eq pk 2.1 cm squared MV Peak Velocity 80.0 cm/s MV Area PHT 3.0 cm squared Mitral E to A Ratio 0.9 MV E' Velocity 46.0 cm/s Mitral E to MV E' Ratio 9.2 Mitral E to LV E' Lateral Ratio 7.6 Mitral E to LV E' Septal Ratio 11.7 TR Peak Velocity 165.9 cm/s TR Peak Gradient 11.0 mmHg TR Mean Velocity 116.4 cm/s TR Mean Gradient 6.2 mmHg TR Velocity Time Integral 33.0 cm TV Peak E Velocity 46.0 cm/s Right Atrial Pressure 8.0 mmHg Pulmonary Artery Systolic Pressu 19.0 mmHg PV Peak Velocity 97.0 cm/s RV Acceleration Time 0.1 s RV Ejection Time 0.3 s RV AcT/ET 0.4 FINDINGS Left Ventricle Normal left ventricular size and EF of 59 %. Mild left ventricular hypertrophy. Mild hypokinesia of the basal in the mid septal segments.Grade I/IV diastolic dysfunction (abnormal relaxation filling pattern), normal to mildly elevated filling pressures. Right Ventricle The right ventricle is normal in size and function. Right Atrium The right atrium is normal in size. Left Atrium Mildly dilated left atrium. Mitral Valve Minimally thickened mitral valve.trace mitral valve regurgitation. Aortic Valve The bioprosthetic valve with aortic position appears to be well- seated. Leaflets could not be identified well. The peak velocity across the valve was 1.7 m/s with a peak gradient of 11 mmHg and a mean gradient of 7 mmHg Tricuspid Valve No gross abnormalities noted.trace tricuspid valve regurgitation. Pulmonic Valve Pulmonic valve not well visualized. Pericardium Normal pericardium without effusion. Aorta Normal ascending aorta dimension. IVC The inferior vena cava appears normal. CONCLUSIONS Normal left ventricular size and EF of 59 %. Mild left ventricular hypertrophy. Mild hypokinesia of the basal in the mid septal segments.Grade I/IV diastolic dysfunction (abnormal relaxation filling pattern), normal to mildly elevated filling pressures. The bioprosthetic valve with aortic position appears to be well- seated. Leaflets could not be identified well. The peak velocity across the valve was 1.7 m/s with a peak gradient of 11 mmHg and a mean gradient of 7 mmHg. Trace of mitral and tricuspid regurgitation. Mildly dilated left atrium. There is no pericardial effusion. There are no intracardiac masses. Compared to the study from 12/01/2019, the aortic valve appears to have replaced Dr Cabrera Priest MD [facility] (Electronically Signed) Final Date: 22 November 2023 15:23 S
[2023-11-22 01:13] LABS: Troponin 5 6HR 15.91 ng/L (0-15)
[2023-11-22 01:14] LABS: Troponin 5 6HR Delta 0.09 ng/L (0-12)
[2023-11-22] MEDS: lidocaine 2% viscous 15 ML, aluminum-mag hydrox-simethicon 30 ML, sucralfate oral liq 1 GM PO (01:44)
[2023-11-22] MEDS: pantoprazole 40 mg SDV IVP (01:47)
[2023-11-22] MEDS: cefTRIAXone 1,000 MG in sodium chloride 0.9% (plus) 50 ML 100 MG IV (01:49)
[2023-11-22] MEDS: ketorolac 30 mg/mL INJ 15 MG IVP (02:25)
[2023-11-22] MEDS: aspirin 325 mg Tablet PO (02:26)
[2023-11-22] MEDS: enoxaparin 100 mg/mL Syringe SUBCUT ×2 (02:26→13:26)
--- NOTE | 2023-11-22 04:30 | PC.NURSE ---
pt chest pain now 0. verbal order from dr to hold nirto drip for now. 1 inch nitro placed now
[2023-11-22] MEDS: nitroglycerin 1 gm/inch oint Pkt 1 INCH TOPICAL (05:17)
[2023-11-22 05:38] LABS: Basophils % 0.9 %; Eosinophils % 1.1 %; Hematocrit 42.1 % (37-53); Lymphocytes # 0.6 10^3/uL (0.8-4.8); Lymphocytes % 17.2 %; Mean Corpuscular HGB Conc 32.5 g/dL (30-55); Mean Corpuscular Hemoglobin 29.1 pg (27-33); Mean Corpuscular Volume 89.4 fl (82-101); Mean Platelet Volume 10.1 fL (7.4-10.4); Monocytes # 0.8 10^3/uL (0.2-0.9); Monocytes % 21.6 %; Neutrophils # 2.06 10^3/uL (1.8-7.7); Neutrophils % 59.2 %; Nucleated Red Blood Cells % 0 %; Platelet Count 127 10^3/cmm (157-399); Red Blood Count 4.71 10^6/uL (3.85-5.65); Red Cell Distribution Width 13.5 % (12.1-15.1); White Blood Count 3.48 10^3/uL (3.29-11.43)
[2023-11-22 06:14] LABS: Alanine Aminotransferase 27 U/L (0-41); Albumin Level 4.1 g/dL (3.5-5.2); Alkaline Phosphatase 87 U/L (40-130); Anion Gap 14.9 (5-19); Aspartate Amino Transferase 27 U/L (0-40); Blood Urea Nitrogen 15 mg/dL (8-23); Calcium 8.8 mg/dL (8.5-10.5); Carbon Dioxide 23 mmol/L (22-29); Chloride 103 mmol/L (98-107); Globulin 2.5 g/dL (1.3-4.6); Glomerular Filtration Rate 59.9 mL/min (90-130); Glucose 134 mg/dL (65-115); Osmolality Calculated 287 mOsm/kg (285-295); Potassium 3.9 mmol/L (3.5-5.1); Sodium 137 mmol/L (136-145); Total Bilirubin 0.5 mg/dL (0.15-1.2); Total Protein 6.6 g/dL (6.6-8.7)
--- NOTE | 2023-11-22 09:01 | PC.PHAR ---
pt states he takes care of his own medications-pt states on 11/11/23 the dced his clopidogrel 75mg daily and changed to aspirin 81mg qam-pt states he takes lasix 40mg daily ext shows last filled 40mg bid 07/08/23 90d/s-pt states he takes gabapentin 100mg bid ext shows last filled 11/11/23 30d/s 100mg tid-notes are made in the pharmacy comments
[2023-11-22 09:27] LABS: C Reactive Protein 10.9 mg/L (0.0-4.9)
[2023-11-22] MEDS: clopidogrel 75 mg Tablet PO (09:44)
[2023-11-22] MEDS: azithromycin 250 mg Tablet 500 MG PO (09:44)
[2023-11-22] MEDS: pantoprazole DR 40 mg Tablet PO (09:44)
[2023-11-22] MEDS: acetaminophen 325 mg Tablet 650 MG PO (09:47)
[2023-11-22] MEDS: oseltamivir phosphate 75 mg Capsule PO ×2 (09:48→17:46)
[2023-11-22] MEDS: aspirin 81 mg EC Tablet PO (09:49)
--- NOTE | 2023-11-22 11:05 | P.CONIM_ITS ---
Providers/Reason For Consult 2 Consulting Physician/Specialty*: PRACHI Priest MD/cardiology Reason for Consult*: Patient with history of coronary artery disease and aortic valve replacement, presenting with chest pain Requesting Physician: Dr America Silva/Dr. Peters Attending Physician: Shilo Peters Primary Care Provider: oYni Campos MD History of Present Illness History of Present Illness Ortiz Mann Sr is a 68 year old male with a history of atherosclerotic heart diseas, status post multiple PCI, status post coronary artery bypass surgery, history of aortic valve disease with aortic valve replacement, high blood pressure, dyslipidemia, multiple CVAs, cervical spondylosis with neuropathy of the right upper extremity, compartment syndrome in the left leg, requiring multiple surgical explorations he is presenting with complaints of chest pain, shortness of breath and a cough. According the patient, he has been his baseline state of health up until yesterday afternoon when he started having pain in the mid sternal region, radiated to the back associated with some shortness of breath and cough. The pain was more last persistent with intermittent waxing and waning. The pain was getting worse with a deep inspirations and also with chest movements. He was tried on sublingual nitro and Nitropaste with not much relief. The intensity of the pain is slowly improving. The cough is mostly dry. He has no leg swelling or orthopnea. This patient has an extensive cardiac history. He had the initial cardiac event in 2017. At that time, he had a cardiac catheterization followed by total of 5 stents,? In the left anterior descending artery. In November 2019, he presented with an acute inferior wall myocardial infarction. He had a total occlusion of the proximal RCA and a high-grade lesion in the distal RCA. Both were intervened here at [facility] by Dr. Sanches. In August 2020, he had a cardiac catheterization by Dr. Reis at the [facility]. According the patient, during the procedure, he had another heart attack for which he underwent PCI. The details are not available. In number of the same year, he underwent an open heart surgery for aortic valve replacement. Apparently he did not have any bypass surgery at that time. He has been taking Plavix and Eliquis since then. Apparently he developed spontaneous bleeding in the left leg in December of this year and presented with compartment syndrome. He underwent surgery here in this hospital. He had to undergo surgical intervention 3 times for this. He was treated in the wound care clinic. Currently he seems to be doing okay. He was taken off the Plavix. He is currently on Eliquis and baby aspirin. Has not had any recurrence of bleeding since then. He has a history of cervical spondylosis with myelopathy.. He underwent surgical intervention-anterior discectomy and fusion by Dr. Alvarez in February 2021. He had an uneventful postprocedure course. Patient also has a history of CVA x 3 in 2013. No recurrence since then. 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 Fallon?. He used to smoke 1 to 2 pack a day for 50 years or so and quit in 2013 after the stroke. His father of a massive stroke in his 40s. His brother of a major heart attack in his 40s as well No other relevant family history Review of Systems 2 Narrative: CONSTITUTIONAL: No fever or chills. EYES: No blurring of vision or other visual disturbances lately. ENT: No hoarseness of voice, auditory disturbances or sore throat. CARDIOVASCULAR: As mentioned above. RESPIRATORY: Cough and shortness of breath as mentioned GASTROINTESTINAL: No hematemesis or melena. GENITOURINARY: No dysuria or hematuria. INTEGUMENTARY: No skin rashes or history of skin cancer. NEURO: No transient ischemic attacks or amaurosis. PSYCHIATRIC: No history of psychosis or major depression. HEMATOLOGIC: No bleeding disorders or significant anemia. ENDOCRINE: No history of polyuria or polydipsia. MUSCULOSKELETAL: No recent joint pain or swelling. ALLERGY/IMMUNOLOGY: As mentioned above. Medications/Allergies Home Medications Medication Instructions Recorded Confirmed Last Taken Type cyclobenzaprine 10 mg tablet 10 mg PO TID PRN Spasms 12/02/19 11/22/23 12/25/22 History metoprolol succinate 50 mg 50 mg PO QAM 12/02/19 11/22/23 12/25/22 History tablet,extended release 24 hr (Toprol XL) pantoprazole 40 mg tablet,delayed 40 mg PO DAILY 12/02/19 11/22/23 12/25/22 History release (Protonix) atorvastatin 80 mg tablet 80 mg PO BEDTIME 10/31/20 11/22/23 12/25/22 History ezetimibe 10 mg tablet (Zetia) 10 mg PO DAILY 10/31/20 11/22/23 12/25/22 History fluticasone propionate 50 1 spray intranasal DAILY 10/31/20 11/22/23 04/03/21 History mcg/actuation nasal spray,suspension hydrocodone 10 mg-acetaminophen 1 tab PO Q12H PRN Pain 10/31/20 11/22/23 12/25/22 History 325 mg tablet docusate sodium 100 mg capsule 100 mg PO QAM 03/12/21 11/22/23 12/25/22 History (Stool Softener) spironolactone 25 mg tablet 12.5 mg PO QAM 03/12/21 11/22/23 12/24/22 History [id number] Bone Growth Stimulator #1 ea 03/31/21 11/22/23 Unknown Rx furosemide 40 mg tablet 40 mg PO DAILY 3 days #0 tabs 01/01/23 11/22/23 12/24/22 Rx apixaban 5 mg tablet (Eliquis) 5 mg PO BID 11/22/23 11/22/23 Unknown History aspirin 81 mg tablet,delayed 81 mg PO QAM 11/22/23 11/22/23 Unknown History release cholecalciferol (vitamin D3) 25 2,000 unit PO .ON MON AND THURS 11/22/23 11/22/23 Unknown History mcg (1,000 unit) tablet (Vitamin D3) gabapentin 100 mg capsule 100 mg PO BID 11/22/23 11/22/23 Unknown History nitroglycerin 0.4 mg sublingual 0.4 mg sublingual Q5M PRN Chest 11/22/23 11/22/23 Unknown History tablet (Nitrostat) Pain potassium chloride 20 mEq 20 meq PO QAM 11/22/23 11/22/23 Unknown History tablet,extended release(part/cryst) tamsulosin 0.4 mg capsule 0.4 mg PO QAM 11/22/23 11/22/23 Unknown History temazepam 30 mg capsule 30 mg PO BEDTIME PRN Sleep 11/22/23 11/22/23 Unknown History Allergies Allergy/AdvReac Type Severity Reaction Status Date / Time clonazepam Allergy Severe Stopped Verified 11/22/23 09:01 breathing metronidazole [From Flagyl] Allergy Severe Anaphylaxis Verified 11/22/23 09:01 stopped breathing guaifenesin Allergy Unknown Verified 11/22/23 09:01 hydrochlorothiazide Allergy Unknown Verified 11/22/23 09:01 [From Zestoretic] rosuvastatin Allergy Myalgias Verified 11/22/23 09:01 lisinopril AdvReac ADR-Cough Verified 11/22/23 09:01 prednisone AdvReac ITCHING LG Verified 11/22/23 09:01 DOSE Current Medications Generic Name Dose Route Start Last Admin Trade Name Freq PRN Reason Stop Dose Admin Acetaminophen 650 mg 11/21/23 23:37 11/22/23 09:47 Acetaminophen 325 Mg Tablet PO 650 mg Q6H PRN Administration Mild/Mod Pain Or Temp >/= 101 Aspirin 81 mg 11/22/23 09:00 11/22/23 09:49 Aspirin 81 Mg Ec Tablet PO 81 mg DAILY MARQUES Administration Azithromycin 500 mg 11/22/23 09:00 11/22/23 09:44 Azithromycin 250 Mg Tablet PO 500 mg DAILY MARQUES Administration Protocol Clopidogrel Bisulfate 75 mg 11/22/23 09:00 11/22/23 09:44 Clopidogrel 75 Mg Tablet PO 75 mg DAILY MARQUES Administration Enoxaparin Sodium 100 mg 11/22/23 01:30 11/22/23 02:26 Enoxaparin 100 Mg/Ml Syringe 1 mg/kg (100 mg) 100 mg SUBCUT Administration Q12H MARQUES Ceftriaxone Sodium 1,000 mg/ 50 mls @ 100 mls/hr 11/22/23 00:17 11/22/23 02:19 Sodium Chloride IV Infused Q24H MARQUES Infusion Protocol Oseltamivir Phosphate 75 mg 11/22/23 09:00 11/22/23 09:48 Oseltamivir Phosphate 75 Mg Capsule PO 75 mg BID MARQUES Administration Pantoprazole Sodium 40 mg 11/22/23 09:00 11/22/23 09:[address] 40 Mg Tablet PO 40 mg DAILY MARQUES Administration PFSH Acute 2 PFSH: Medical History Chronic back pain RUKHSANA (obstructive sleep apnea) Aortic stenosis Chronic kidney disease (CKD) COPD (chronic obstructive pulmonary disease) Tobacco abuse, in remission Kidney atrophy Cerebrovascular accident (CVA) determined by clinical assessment Epistaxis CAD (coronary artery disease) Previous proximal left anterior descending stent, RCA stent x2 11/30/2019. Hypertension ST elevation myocardial infarction (STEMI) Inferior wall OH Surgical History History of aortic valve replacement Status post cervical spinal fusion Stented coronary artery X4 History of left knee surgery S/P CABG (coronary artery bypass graft) 2019 --patient suggests he may have had a couple valves worked on, as well History of herniorrhaphy Right inguinal hernia repair Family History Brother CAD (coronary artery disease) Cancer Father Stroke Hypertension Grandmother Cancer Other Hyperlipidemia Denies family history of Diabetes Clotting disorder Dementia Psychiatric illness Bleeding disorder Family history of premature coronary artery disease Lung disease Social History Smoking and tobacco/nicotine status: never used tobacco/nicotine Quit status (tobacco/nicotine): has quit using Year quit tobacco: 2014 Former quit date comment: [id number] history prior to quitting Alcohol intake: current Adopted: No Household members: family Marital status: Vitals/I&O/Wt Last Vital Signs Temp 99.8 F H 11/22/23 04:00 Pulse 70 11/22/23 06:00 Resp 17 11/22/23 04:00 BP 118/63 11/22/23 05:17 Pulse Ox 97 11/22/23 04:00 O2 Del Method Nasal Cannula 11/22/23 00:18 O2 Flow Rate 2 11/22/23 00:00 11/21/23 11/22/23 11/22/23 22:59 06:59 14:59 Intake Total 50 / 50 Balance 50 / 50 Weight last 48 hrs Weight 230 lb Weight 150 lb Physical Exam 2 Narrative: GENERAL: The patient is alert and oriented times three. Not in any acute distress. HEENT: No significant pallor, icterus or lymphadenopathy.Oral cavity: There are no mucous membrane lesions. NECK: Trachea appears to be central. No masses noted. No JVD or thyromegaly appreciated. RESPIRATORY: Chest is symmetrical. No intercostals muscle retraction or any accessory muscle activation. There is no chest wall tenderness. Breath sounds are heard bilaterally. No rales or rhonchi heard. No evidence of any consolidation. BREASTS: Deferred. HEART: The aortic valve opening and closing sounds are normal. Short systolic murmur at the base of the heart. No diastolic murmurs. No S3 or S4. No pericardial rub ABDOMEN: No vessel pulsations or distention. No tenderness. No organomegaly appreciated. Bowel sounds are normally heard. : Deferred. RECTAL: Deferred. LYMPHATIC: No lymphadenopathy noted in the neck. EXTREMITIES: No edema or cyanosis. No clubbing. MUSCULOSKELETAL: No acute joint deformities or swelling SKIN: There are no significant rashes or ecchymosis NEUROPSYCHIATRIC: The patient is alert and oriented x3. Appears to be in a good mood. No tremors or rigidity noted. Data 11/23/23 04:47 11/23/23 04:47 Other Labs: Laboratory Last Values WBC 3.48 10^3/uL (3.29-11.43) 11/22/23 05:20 RBC 4.71 10^6/uL (3.85-5.65) 11/22/23 05:20 Hgb 13.70 g/dL (11.27-16.99) 11/22/23 05:20 Hct 42.1 % (37-53) 11/22/23 05:20 MCV 89.4 fl (82-101) 11/22/23 05:20 MCH 29.1 pg (27-33) 11/22/23 05:20 MCHC 32.5 g/dL (30-55) 11/22/23 05:20 RDW 13.5 % (12.1-15.1) 11/22/23 05:20 Plt Count 127 10^3/cmm (157-399) L 11/22/23 05:20 MPV 10.1 fL (7.4-10.4) 11/22/23 05:20 Neut % (Auto) 59.2 % 11/22/23 05:20 Lymph % (Auto) 17.2 % 11/22/23 05:20 Humphreys % (Auto) 21.6 % 11/22/23 05:20 Eos % (Auto) 1.1 % 11/22/23 05:20 Baso % (Auto) 0.9 % 11/22/23 05:20 Neut # (Auto) 2.06 10^3/uL (1.8-7.7) 11/22/23 05:20 Lymph # (Auto) 0.6 10^3/uL (0.8-4.8) L 11/22/23 05:20 Humphreys # (Auto) 0.8 10^3/uL (0.2-0.9) 11/22/23 05:20 Eos # (Auto) 0.0 10^3/uL (0.0-0.8) 11/22/23 05:20 Baso # (Auto) 0.0 10^3/uL (0.0-0.1) 11/22/23 05:20 Nucleated RBC % (auto) 0 % 11/22/23 05:20 Nucleated RBCs # 0.0 /100WBC 11/22/23 05:20 Specimen Type Arterial 11/21/23 21:48 Sample Site Radial, right 11/21/23 21:48 ABG pH 7.44 (7.35-7.45) 11/21/23 21:48 ABG pCO2 35.6 mmHg (35-45) 11/21/23 21:48 ABG pO2 82.9 mmHg (80.0-100.0) 11/21/23 21:48 ABG PO2/FiO2 Ratio 0 11/21/23 21:48 ABG HCO3 23.9 mmol/L (22-26) 11/21/23 21:48 ABG O2 Saturation 97.8 11/21/23 21:48 ABG Base Excess 0.1 mmol/L (-2.0-2.0) 11/21/23 21:48 Babar Test Pos 11/21/23 21:48 A-a O2 Gradient 9.5 mmHg (5-10) 11/21/23 21:48 Hematocrit 43.7 % (42-52) 11/21/23 21:48 Hgb O2 Saturation 95.8 % (95-100) 11/21/23 21:48 Carboxyhemoglobin 1.4 %THgb (0.4-20.1) 11/21/23 21:48 Methemoglobin 0.6 % (0.4-1.5) 11/21/23 21:48 Total Hemoglobin 14.3 g/dL (14-18) 11/21/23 21:48 Sodium 138.0 mmol/L (131-143) 11/21/23 21:48 Potassium 3.8 mmol/L (3.5-5.0) 11/21/23 21:48 Glucose 113.0 mg/dL (70-115) 11/21/23 21:48 Ionized Calcium 1.1 mmol/L (1.1-1.4) 11/21/23 21:48 O2 Delivery Device Nc 11/21/23 21:48 O2 Liters/Min 2.0 % 11/21/23 21:48 FiO2 28.0 % 11/21/23 21:48 Process Cheese Cooker ID Ed 11/21/23 21:48 Sodium 137 mmol/L (136-145) 11/22/23 05:20 Potassium 3.9 mmol/L (3.5-5.1) 11/22/23 05:20 Chloride 103 mmol/L (98-107) 11/22/23 05:20 Carbon Dioxide 23 mmol/L (22-29) 11/22/23 05:20 Anion Gap 14.9 (5-19) 11/22/23 05:20 BUN 15 mg/dL (8-23) 11/22/23 05:20 Creatinine 1.2 mg/dL (0.7-1.2) 11/22/23 05:20 GFR Calculation 59.9 mL/min (90-130) L 11/22/23 05:20 Glucose 134 mg/dL (65-115) H 11/22/23 05:20 Calculated Osmolality 287 mOsm/kg (285-295) 11/22/23 05:20 Calcium 8.8 mg/dL (8.5-10.5) 11/22/23 05:20 Total Bilirubin 0.5 mg/dL (0.15-1.2) 11/22/23 05:20 AST 27 U/L (0-40) 11/22/23 05:20 ALT 27 U/L (0-41) 11/22/23 05:20 Alkaline Phosphatase 87 U/L (40-130) 11/22/23 05:20 Troponin T Baseline 16 ng/L (0-15) H 11/21/23 19:00 Troponin T 120 Minute 15.88 ng/L (0-15) H 11/21/23 20:41 Delta Troponin T -0.12 ABS# (0-10) L 11/21/23 20:41 Troponin T Hi Sens 6Hr 15.91 ng/L (0-15) H 11/21/23 00:40 Troponin T Hi Sens 6Hr Delta 0.09 ng/L (0-12) 11/21/23 00:40 C-Reactive Protein 10.9 mg/L (0.0-4.9) H 11/22/23 05:20 NT-Pro-B Natriuret Pep 179 pg/mL (0-125) H 11/21/23 19:00 Total Protein 6.6 g/dL (6.6-8.7) 11/22/23 05:20 Albumin 4.1 g/dL (3.5-5.2) 11/22/23 05:20 Globulin 2.5 g/dL (1.3-4.6) 11/22/23 05:20 Amylase 58 U/L (28-100) 11/21/23 20:41 Lipase 22 U/L (13-60) 11/21/23 20:41 Influenza Type A Ag Positive (Negative) H 11/21/23 23:24 Influenza Type B Ag Negative (Negative) 11/21/23 23:24 SARS-CoV-2 Ag (Rapid) negative (Negative) 11/21/23 23:24 Micro: EKG on 11/21/2023 Normal sinus rhythm with a heart rate of [address]-T changes in the anterolateral leads. Features of old inferior wall myocardial infarction. Incomplete right bundle branch block pattern. Chest CTA 1. No findings of acute pulmonary embolism. 2. Left posterior basilar bronchial occlusions. Findings could represent aspiration or retained secretions. CTA of the abdomen pelvis: Unremarkable Chest x-ray Borderline cardiology coverage. No acute lung infiltrate. No significant pleural effusion cardiac catheterization on 11/30/2019 Angiography reveals occlusion of the right coronary artery at the ostium.Additionally once the artery was opened, there was a 99% stenosis distallybeyond the acute margin and a 60% stenosis farther beyond this. On the left the left main is normal. There is a previously placed stent in the proximal LAD which is open. The circumflex contains a 75% discrete stenosis in the midportion.. There was significant tortuosity in the arch vessels which made placement of the catheters difficult. I was not able to get a pigtail catheter across the aortic valve so ventriculography was not performed. The procedure was done from the right radial artery. A&P Assessment and plan (1) Chest pain: The pain most likely related to pleurisy. EKG is unremarkable. No evidence of myocardial injury. Minimal elevation of the troponin T most likely is related to type II OH. Probably the patient may not require any specific intervention at this point. He may be treated for the pleuritic type of chest pain. Qualifiers: Chest pain type: chest pain on breathing Qualified Code(s): R07.1 - Chest pain on breathing (2) SOB (shortness of breath): Most likely related to the flu. Patient is tested for influenza A positive. No evidence of any congestive heart failure. The pro BNP was only 179 (3) Atherosclerotic heart disease of [place] coronary artery with other forms of angina pectoris: Patient has a history of tubal PCIs. The EKG shows some nonspecific changes. For further evaluation of his coronary status, it might be appropriate to do a Myocardial perfusion imaging. He has not had any functional evaluation, since the last coronary intervention in August 2020 (4) Benign essential hypertension with target blood pressure below 140/90: Currently the patient is normotensive. May continue on the current medications. (5) Dyslipidemia: May continue on the current medications. (6) History of CVA (cerebrovascular accident) without residual deficits: Patient had 3 CVAs in 2013. Currently has no residual weakness. Has not had a recurrence since 2013. May continue on the current treatment. (7) Compartment syndrome of both lower extremities due to exertion: Status post surgical intervention in the left leg. Currently seems to be doing okay. He has good dorsalis pedis and posterior pulses on the left side. Plan Patient may continue the treatment for the flu and pleurisy. I may go ahead and schedule him for a Lexiscan/sestamibi/sestamibi stress test tomorrow. Based on the results, further recommendations will be made. He may be continue on the current home medications. Thank for the opportunity to evaluate this patient and make these recommendations Consult Attestations 2 Medical Necessity Statement: Patient requires continued hospital stay for close monitoring and further management Coding Level of Care Code 98426 Diagnoses Chest pain on breathing R07.1 Chest pain type: chest pain on breathing SOB (shortness of breath) R06.02 Atherosclerotic heart disease of [place] coronary artery with other forms of angina pectoris I25.118 Benign essential hypertension with target blood pressure below 140/90 I10 Dyslipidemia E78.5 History of CVA (cerebrovascular accident) without residual deficits Z86.73 Compartment syndrome of both lower extremities due to exertion M79.A21; M79.A22 Time Spent (min) 80
--- NOTE | 2023-11-22 11:53 | ECG_ITS ---
[facility] Test Date: 2023-11-23 Pat Name: Ortiz Mann Department: Room: 111 Gender: Male Stunt Double: : 1955 Requested By: Cabrera Priest Order Number: [id number] Sonia MD: Cabrera Priest M.D. Interpretive Statements NAME OF STUDY: LEXISCAN SESTAMIBI STRESS TEST INDICATION: Chest Pain, PROCEDURE: At the baseline, the EKG revealed normal sinus rhythm. Poor R wave progression. Nonspecific T wave changes.. The baseline heart was 64 bpm with a blood pressue of 138/81 mm of Hg Lexiscan was infused over a period of 20 seconds. A total of 0.4 milligrams of Lexiscan was infused. The stress phase was continued for a total of 5 minutes. Heart rate at the end of the stress phase was 77 bpm with a blood pressure was not taken. The EKG at the peak infusion revealed no significant changes. Sestamibi was injected 20 seconds after the Lexiscan infusion. Heart rate at the end of the recovery phase was 81 bpm with a blood pressure was not taken CONCLUSION: 1. No significant EKG changes with the LexiScan infusion 2. No LexiScan induced chest pain or cardiac arrhythmia 3. Normal heart rate response 4. Sestamibi/sestamibi perfusion scan pending; see separate report. Electronically Signed On 11-23-2023 21:57:34 COMPUTER NETWORKING INSTRUCTOR ADJUNCT by Cabrera Priest M.D. [id number]
--- NOTE | 2023-11-22 21:26 | P.PN_ITS ---
Vitals/I&O/Wt Last Vital Signs Temp 99.6 F 11/22/23 19:59 Pulse 74 11/22/23 19:58 Resp 26 H 11/22/23 19:58 BP 128/74 11/22/23 19:58 Pulse Ox 95 11/22/23 19:58 O2 Del Method Room Air 11/22/23 13:00 O2 Flow Rate 2 11/22/23 12:09 11/22/23 11/22/23 11/22/23 06:59 14:59 22:59 Intake Total 50 / 50 118 / 118 360 / 478 Output Total 260 / 260 Balance 50 / 50 -142 / -142 360 / 218 Weight last 48 hrs Weight 104.326 kg Weight 68.039 kg Physical Exam 2 Const: COMMON NORMALS: patient oriented x3 and alert GENERAL APPEARANCE: c ooperative ORIENTATION/CONSCIOUSNESS: Yes awake HENMT: COMMON NORMALS: oropharynx normal Neck/C-Spine: COMMON NORMALS: no JVD Resp: COMMON NORMALS: normal respiratory effort AUSCULTATION: diminished lung sounds Cardio: COMMON NORMALS: no JVD, regular rhythm, S1 normal heart sound present, S2 normal heart sound present and No murmurs present (Cardio) RHYTHM: regular rhythm HEART SOUNDS: S1 normal heart sound present and S2 normal heart sound present GI: COMMON NORMALS: Normal to inspection, nondistended, normoactive bowel sounds present, Soft to palpation and non-tender PALPATION: Yes Soft to palpation Extremity: COMMON NORMALS: no joint enlargement and no pedal edema Neuro: COMMON NORMALS: patient oriented x3 and moves all extremities S ENSORIUM/ORIENTATION: Yes alert Skin: COMMON NORMALS: no rashes or lesions noted GENERAL SKIN EXAM: no rashes or lesions noted Data 11/22/23 05:20 11/22/23 05:20 A&P Assessment and plan (1) Chest pain: 68-year-old male with extensive past medical history of coronary artery disease status post multiple stents and CABG presenting to the hospital today with chest pain located in the midsternal area radiating into left arm and shoulder along with back. Patient appears to be uncomfortable, associated symptoms of nausea and vomiting with diaphoresis raises concern for anginal chest pain/ ACS EKG without acute ST-T wave changes Reviewed troponin series, minimal elevation. He is found to have influenza. Continue Tamiflu. Pain appears to be more pleuritic. Discussed with cardiology, appreciate consultation. Given atypical symptoms, although with CAD history, risk, additional assessment with stress testing is planned. Reviewed CT angiogram chest, no PE noted. Additionally discussed with him noted some obstructions in left lower lobe, he denies any aspiration, and so this appears more likely mucous plugging. Added hypertonic saline nebs. He is allergic to guaifenesin. Flutter valve. For now continue aspirin 325 now, continue with aspirin 81 daily and Plavix 75 daily. Patient typically takes Eliquis at home, for now we will change this to full dose Lovenox 1 mg/kg every 12 hours for possibility of ACS and in case interventions are needed depending on clinical progress. Reviewed serum amylase and lipase , Unremarkable Reviewed CT abdomen and pelvis, unremarkable Incidentally noted bronchial retained secretions in the left lower lobe, which may be denial management representative of acute bronchitis. No wheezing on exam currently. He does have a new oxygen requirement of 2 L/min today. Continue empiric ceftriaxone and azithromycin empirically for possibly developing pneumonia. Qualifiers: Chest pain type: chest pain on breathing Qualified Code(s): R07.1 - Chest pain on breathing (2) RUKHSANA (obstructive sleep apnea): Continue CPAP at nighttime Plan DVT prophylaxis: Currently on full dose Lovenox Full code, states that he would not want prolonged resuscitative measures if appearing futile. Attestations 2 Medical Necessity Statement*: Continue admission for assessment management of chest pain and gentleman with history of coronary disease, treatment of influenza and High MDM includes amount and/or complexity of data reviewed/ordered [ resulted lab(s)/test(s), ordered lab(s)/test(s) and other healthcare professional discussion] as documented Diagnoses Chest pain on breathing R07.1 Chest pain type: chest pain on breathing RUKHSANA (obstructive sleep apnea) G47.33
[2023-11-22] MEDS: atorvastatin 40 mg Tablet PO (21:52)
[2023-11-23] VITALS (9 sets, daily range): BP systolic 136–158; BP diastolic 69–87; PULSE 63–82; RESP 12–22; TEMP 36.8–38.2; O2SAT 92–95
[2023-11-23] MEDS: enoxaparin 100 mg/mL Syringe SUBCUT ×2 (00:57→15:02)
[2023-11-23] MEDS: cefTRIAXone 1,000 MG in sodium chloride 0.9% (plus) 50 ML 100 MG IV (00:57)
[2023-11-23 05:16] LABS: Eosinophils % 1.4 %; Hematocrit 43.9 % (37-53); Lymphocytes # 0.8 10^3/uL (0.8-4.8); Lymphocytes % 26.5 %; Mean Corpuscular HGB Conc 32.3 g/dL (30-55); Mean Corpuscular Hemoglobin 29.1 pg (27-33); Mean Platelet Volume 10.5 fL (7.4-10.4); Monocytes # 0.7 10^3/uL (0.2-0.9); Monocytes % 23.3 %; Neutrophils # 1.36 10^3/uL (1.8-7.7); Neutrophils % 47.5 %; Nucleated Red Blood Cells % 0 %; Platelet Count 120 10^3/cmm (157-399); Red Blood Count 4.88 10^6/uL (3.85-5.65); Red Cell Distribution Width 13.6 % (12.1-15.1); White Blood Count 2.87 10^3/uL (3.29-11.43)
[2023-11-23 05:43] LABS: Anion Gap 13.7 (5-19); Blood Urea Nitrogen 12 mg/dL (8-23); Calcium 9.2 mg/dL (8.5-10.5); Carbon Dioxide 25 mmol/L (22-29); Chloride 104 mmol/L (98-107); Glomerular Filtration Rate 73.9 mL/min (90-130); Glucose 94 mg/dL (65-115); Osmolality Calculated 288 mOsm/kg (285-295); Potassium 3.7 mmol/L (3.5-5.1); Sodium 139 mmol/L (136-145)
--- NOTE | 2023-11-23 08:30 | PC.NURSE ---
off unit to stress test
--- NOTE | 2023-11-23 08:47 | PC.CHAP ---
Pastoral Care Encounter/Spiritual Assessment Type of Contact [] Declined carpet cutter visit [] Patient/Family/Request visit [] Outpatient visit [] Follow-up visit [] Physician referral [] Code/Alert [] Routine visit [] Staff referral [] Actively dying [] Patient sleeping [] Family support [] [x] Out of room [] Palliative care [] [] Receiving care in room [] Pre-surgical visit [] Trauma [] Long length of stay [] ICU visit [] Other: Relational/Emotional Strength [] Patient feels connected with others/family/visitors/staff [] Distress [] Loneliness/isolation [] Abandonment Spirituality of Patient [] Person of Haylee [] Attends Faith of their Haylee [] Believes in Prayer [] Reads Bible or Oriental Orthodox materials [] There are Spiritual issues to be addressed Double End Tenoner Setter Interventions [] Prayer [] Active listening [] Non-anxious presence [] Spiritual/emotional support [] Crisis/trauma care [] Spiritual counseling [] Bereavement support [] Provided bereavement packet [] Provided Bible/devotional materials [] Provided toy/stuffed animal, coloring book to patient or family member [] Provided Communion [] Anointing/[place] [] Salvation [] Completed spiritual assessment [] Other: Impact on Illness or Injury [] Angry [] Fearful [] Anxious [] Often cries [] Exhaustion [] Unable to work [] Unable to attend restorationist [] Unable to walk/stand [] Unable to read [] Unable to drive [] Unable to eat/drink [] Unable to sleep [] Unable to be with family [] Patient intubated [] Other: Summary Time spent with patient
[2023-11-23] MEDS: regadenoson 0.4 Mg/5 ml Syringe IVP (09:10)
[2023-11-23] MEDS: oseltamivir phosphate 75 mg Capsule PO ×2 (10:28→19:43)
[2023-11-23] MEDS: azithromycin 250 mg Tablet 500 MG PO (10:28)
[2023-11-23] MEDS: pantoprazole DR 40 mg Tablet PO (10:28)
[2023-11-23] MEDS: clopidogrel 75 mg Tablet PO (10:28)
[2023-11-23] MEDS: fixodent 39 gm Tube 1 APPLIC DENTAL (10:46)
[2023-11-23] MEDS: aspirin 81 mg EC Tablet PO (10:46)
--- NOTE | 2023-11-23 11:53 | NMCV_ITS ---
NM surinder perf SPECT r/s* [id number] Johnathan Ortiz Age: 68 Gender: M : 1955 Exam Date: 11/23/2023 08:20 Ordering Phys: Cabrera Priest MD ([email or web address]) Technologist: FABRIZIO Galindo Exam Location: [facility] Indications: CHEST PAIN STRESS TEST Please see separate stress test report in [facility] for full findings IMAGE PROTOCOL Rest/Stress 1 Lexiscan Day Radiopharmaceutical Dose (mCi) Administration Site Administered by Rest: Tc-99m 11.0 IV FABRIZIO Dobbins Sestamibi Stress:Tc-99m 33.0 IV FABRIZIO Dobbins Sestamibi Rest: 11/23/2023 60 Discovery 630 Stress: 11/23/2023 30 Discovery 630 0.4mg Lexiscan. Images obtained in supine and prone position. SPECT RESULTS Technical Quality: Excellent Raw Data Analysis: Normal Image Corrections: No attenuation or motion correction applied Summed Stress Score: 0 Summed Rest Score: 0 Summed Difference Score: 0 PERFUSION FINDINGS Uniform myocardial tracer uptake with no significant perfusion abnormalities. FUNCTIONAL RESULTS (calculated via Gated SPECT) Stress Image LV EF (%): 55 Stress EDV (mL):114 TID: 0.98 Stress ESV (mL):51 FUNCTIONAL FINDINGS: Segmental wall motion analysis revealing no gross wall motion abnormalities IMPRESSIONS 1. Myocardial perfusion imaging revealing uniform myocardial tracer uptake with no significant perfusion normalities 2. Segmental wall motion analysis revealing no gross wall motion abnormalities 3. Normal LV ejection fraction of 55% 4. LV volume, upper limit of normal.. Low probability for coronary ischemia, based on the above findings Dr Cabrera Priest MD FACC (Electronically Signed) Final Date: 23 November 2023 13:31 S
--- NOTE | 2023-11-23 17:19 | P.PN_ITS ---
Subjective 2 Subjective: Patient is feeling much better. The pleuritic type of pain has improved. Remaining afebrile. Still has some cough and shortness of breath. Underwent a Myocardial perfusion imaging today. Was found to have no evidence of ischemia. Medications: Medication Review Details: Current Medications Acetaminophen (Acetaminophen 325 Mg Tablet) 650 mg PO Q6H PRN PRN Reason: Mild/Mod Pain Or Temp >/= 101 Last Admin: 11/22/23 09:47 Dose: 650 mg Aminophylline (Aminophylline 25 Mg/Ml Sdv 10 Ml) 25 mg IVP Q2M PRN PRN Reason: see dose instructions Stop: 11/24/23 06:50 Aspirin (Aspirin 81 Mg Ec Tablet) 81 mg PO DAILY [facility] Last Admin: 11/23/23 10:46 Dose: 81 mg Atorvastatin Calcium (Atorvastatin 40 Mg Tablet) 40 mg PO BEDTIME [facility] Last Admin: 11/22/23 21:52 Dose: 40 mg Azithromycin (Azithromycin 250 Mg Tablet) 500 mg PO DAILY [facility]; Protocol Last Admin: 11/23/23 10:28 Dose: 500 mg Clopidogrel Bisulfate (Clopidogrel 75 Mg Tablet) 75 mg PO DAILY [facility] Last Admin: 11/23/23 10:28 Dose: 75 mg Denture Adhesive (Fixodent 39 Gm Tube) 1 applic DENTAL PRN PRN PRN Reason: denture adhesive Last Admin: 11/23/23 10:46 Dose: 1 applic Enoxaparin Sodium (Enoxaparin 100 Mg/Ml Syringe) 100 mg 1 mg/kg (100 mg) SUBCUT Q12H [facility] Last Admin: 11/23/23 15:02 Dose: 100 mg Ceftriaxone Sodium 1,000 mg/ (Sodium Chloride) 50 mls @ 100 mls/hr IV Q24H [facility]; Protocol Last Infusion: 11/23/23 01:36 Dose: Infused Metoclopramide HCl (Metoclopramide 5 Mg/Ml Sdv 2 Ml) 5 mg IVP Q6H PRN PRN Reason: nausea Morphine Sulfate (Morphine 4 Mg/Ml Sdv 1 Ml) 2 mg IVP Q6H PRN PRN Reason: chest pain Naloxone HCl (Naloxone 0.4 Mg/Ml Sdv) 0.1 mg IVP Q2M PRN PRN Reason: OPIATERV Nitroglycerin (Nitroglycerin 0.4 Mg Sublingual Tablet) 0.4 mg SUBLINGUAL Q5M PRN PRN Reason: CHEST PAIN Nitroglycerin (Nitroglycerin 0.4 Mg Sublingual Tablet) 0.4 mg SUBLINGUAL Q5M PRN PRN Reason: CHEST PAIN Stop: 11/24/23 06:50 Ondansetron HCl (Ondansetron 2 Mg/Ml Sdv 2 Ml) 4 mg IVP Q6H PRN PRN Reason: NAUSEA AND VOMITING Ondansetron HCl (Ondansetron 2 Mg/Ml Sdv 2 Ml) 4 mg IVP Q2M PRN PRN Reason: NAUSEA Oseltamivir Phosphate (Oseltamivir Phosphate 75 Mg Capsule) 75 mg PO BID [facility] Last Admin: 11/23/23 10:28 Dose: 75 mg Pantoprazole Sodium (Pantoprazole Dr 40 Mg Tablet) 40 mg PO DAILY [facility] Last Admin: 11/23/23 10:28 Dose: 40 mg Sodium Chloride (Sodium Chloride 3.5% Neb 4 Ml Neb) 4 ml INHALATION BID.RESPIRATORY [facility] Last Admin: 11/23/23 08:49 Dose: Not Given Vitals/I&O/Wt Last Vital Signs Temp 98.3 F 11/23/23 08:00 Pulse 74 11/23/23 16:00 Resp 12 11/23/23 16:00 BP 158/87 11/23/23 16:00 Pulse Ox 95 11/23/23 16:00 O2 Del Method Room Air 11/23/23 16:00 O2 Flow Rate 2 11/22/23 12:09 11/23/23 11/23/23 11/23/23 06:59 14:59 22:59 Intake Total 50 / 888 Output Total 0 / 560 Balance 50 / 328 Weight last 48 hrs Weight 228 lb Weight 230 lb Weight 150 lb Physical Exam 2 Narrative: GENERAL: The patient is alert and oriented times three. Not in any acute distress. HEENT: No significant pallor, icterus or lymphadenopathy.Oral cavity: There are no mucous membrane lesions. NECK: Trachea appears to be central. No masses noted. No JVD or thyromegaly appreciated. RESPIRATORY: Chest is symmetrical. No intercostals muscle retraction or any accessory muscle activation. There is no chest wall tenderness. Breath sounds are heard bilaterally. No rales or rhonchi heard. No evidence of any consolidation. BREASTS: Deferred. HEART: The aortic valve opening and closing sounds are normal. Short systolic murmur at the base of the heart. No diastolic murmurs. No S3 or S4. No pericardial rub ABDOMEN: No vessel pulsations or distention. No tenderness. No organomegaly appreciated. Bowel sounds are normally heard. : Deferred. RECTAL: Deferred. LYMPHATIC: No lymphadenopathy noted in the neck. EXTREMITIES: No edema or cyanosis. No clubbing. MUSCULOSKELETAL: No acute joint deformities or swelling SKIN: There are no significant rashes or ecchymosis NEUROPSYCHIATRIC: The patient is alert and oriented x3. Appears to be in a good mood. No tremors or rigidity noted. Data 11/23/23 04:47 11/23/23 04:47 Other Labs: Laboratory Last Values WBC 2.87 10^3/uL (3.29-11.43) L 11/23/23 04:47 RBC 4.88 10^6/uL (3.85-5.65) 11/23/23 04:47 Hgb 14.20 g/dL (11.27-16.99) 11/23/23 04:47 Hct 43.9 % (37-53) 11/23/23 04:47 MCV 90.0 fl (82-101) 11/23/23 04:47 MCH 29.1 pg (27-33) 11/23/23 04:47 MCHC 32.3 g/dL (30-55) 11/23/23 04:47 RDW 13.6 % (12.1-15.1) 11/23/23 04:47 Plt Count 120 10^3/cmm (157-399) L 11/23/23 04:47 MPV 10.5 fL (7.4-10.4) H 11/23/23 04:47 Neut % (Auto) 47.5 % 11/23/23 04:47 Lymph % (Auto) 26.5 % 11/23/23 04:47 Blount % (Auto) 23.3 % 11/23/23 04:47 Eos % (Auto) 1.4 % 11/23/23 04:47 Baso % (Auto) 1.0 % 11/23/23 04:47 Neut # (Auto) 1.36 10^3/uL (1.8-7.7) L 11/23/23 04:47 Lymph # (Auto) 0.8 10^3/uL (0.8-4.8) 11/23/23 04:47 [place]ount # (Auto) 0.7 10^3/uL (0.2-0.9) 11/23/23 04:47 Eos # (Auto) 0.0 10^3/uL (0.0-0.8) 11/23/23 04:47 Baso # (Auto) 0.0 10^3/uL (0.0-0.1) 11/23/23 04:47 Nucleated RBC % (auto) 0 % 11/23/23 04:47 Nucleated RBCs # 0.0 /100WBC 11/23/23 04:47 Specimen Type Arterial 11/21/23 21:48 Sample Site Radial, right 11/21/23 21:48 ABG pH 7.44 (7.35-7.45) 11/21/23 21:48 ABG pCO2 35.6 mmHg (35-45) 11/21/23 21:48 ABG pO2 82.9 mmHg (80.0-100.0) 11/21/23 21:48 ABG PO2/FiO2 Ratio 0 11/21/23 21:48 ABG HCO3 23.9 mmol/L (22-26) 11/21/23 21:48 ABG O2 Saturation 97.8 11/21/23 21:48 ABG Base Excess 0.1 mmol/L (-2.0-2.0) 11/21/23 21:48 Babar Test Pos 11/21/23 21:48 A-a O2 Gradient 9.5 mmHg (5-10) 11/21/23 21:48 Hematocrit 43.7 % (42-52) 11/21/23 21:48 Hgb O2 Saturation 95.8 % (95-100) 11/21/23 21:48 Carboxyhemoglobin 1.4 %THgb (0.4-20.1) 11/21/23 21:48 Methemoglobin 0.6 % (0.4-1.5) 11/21/23 21:48 Total Hemoglobin 14.3 g/dL (14-18) 11/21/23 21:48 Sodium 138.0 mmol/L (131-143) 11/21/23 21:48 Potassium 3.8 mmol/L (3.5-5.0) 11/21/23 21:48 Glucose 113.0 mg/dL (70-115) 11/21/23 21:48 Ionized Calcium 1.1 mmol/L (1.1-1.4) 11/21/23 21:48 O2 Delivery Device Nc 11/21/23 21:48 O2 Liters/Min 2.0 % 11/21/23 21:48 FiO2 28.0 % 11/21/23 21:48 Woodworking Shop Laborer ID Ed 11/21/23 21:48 Sodium 139 mmol/L (136-145) 11/23/23 04:47 Potassium 3.7 mmol/L (3.5-5.1) 11/23/23 04:47 Chloride 104 mmol/L (98-107) 11/23/23 04:47 Carbon Dioxide 25 mmol/L (22-29) 11/23/23 04:47 Anion Gap 13.7 (5-19) 11/23/23 04:47 BUN 12 mg/dL (8-23) 11/23/23 04:47 Creatinine 1.0 mg/dL (0.7-1.2) 11/23/23 04:47 GFR Calculation 73.9 mL/min (90-130) L 11/23/23 04:47 Glucose 94 mg/dL (65-115) 11/23/23 04:47 Calculated Osmolality 288 mOsm/kg (285-295) 11/23/23 04:47 Calcium 9.2 mg/dL (8.5-10.5) 11/23/23 04:47 Total Bilirubin 0.5 mg/dL (0.15-1.2) 11/22/23 05:20 AST 27 U/L (0-40) 11/22/23 05:20 ALT 27 U/L (0-41) 11/22/23 05:20 Alkaline Phosphatase 87 U/L (40-130) 11/22/23 05:20 Troponin T Baseline 16 ng/L (0-15) H 11/21/23 19:00 Troponin T 120 Minute 15.88 ng/L (0-15) H 11/21/23 20:41 Delta Troponin T -0.12 ABS# (0-10) L 11/21/23 20:41 Troponin T Hi Sens 6Hr 15.91 ng/L (0-15) H 11/21/23 00:40 Troponin T Hi Sens 6Hr Delta 0.09 ng/L (0-12) 11/21/23 00:40 C-Reactive Protein 10.9 mg/L (0.0-4.9) H 11/22/23 05:20 NT-Pro-B Natriuret Pep 179 pg/mL (0-125) H 11/21/23 19:00 Total Protein 6.6 g/dL (6.6-8.7) 11/22/23 05:20 Albumin 4.1 g/dL (3.5-5.2) 11/22/23 05:20 Globulin 2.5 g/dL (1.3-4.6) 11/22/23 05:20 Amylase 58 U/L (28-100) 11/21/23 20:41 Lipase 22 U/L (13-60) 11/21/23 20:41 Influenza Type A Ag Positive (Negative) H 11/21/23 23:24 Influenza Type B Ag Negative (Negative) 11/21/23 23:24 SARS-CoV-2 Ag (Rapid) negative (Negative) 11/21/23 23:24 A&P Assessment and plan (1) Chest pain: The pain most likely related to pleurisy. EKG is unremarkable. No evidence of myocardial injury. Minimal elevation of the troponin T most likely is related to type II OK. The results of the Myocardial perfusion imaging were discussed with the patient. In the absence of any objective evidence of ischemia, patient may not require any further investigation at this point. May continue on the current treatment measures. Qualifiers: Chest pain type: chest pain on breathing Qualified Code(s): R07.1 - Chest pain on breathing (2) SOB (shortness of breath): Most likely related to the flu. Patient is tested for influenza A positive. No evidence of any congestive heart failure. The pro BNP was only 179 (3) Atherosclerotic heart disease of [place] coronary artery with other forms of angina pectoris: Patient has a history of tubal PCIs. The EKG shows some nonspecific changes. The implication of the test results are discussed in detail which the patient understood well. At this point he may not require any further investigations, from a cardiac standpoint (4) Benign essential hypertension with target blood pressure below 140/90: Currently the patient is normotensive. May continue on the current medications. (5) Dyslipidemia: May continue on the current medications. (6) History of CVA (cerebrovascular accident) without residual deficits: Patient had 3 CVAs in 2014. Currently has no residual weakness. Has not had a recurrence since 2014. May continue on the current treatment. (7) Compartment syndrome of both lower extremities due to exertion: Status post surgical intervention in the left leg. Currently seems to be doing okay. He has good dorsalis pedis and posterior pulses on the left side. Plan If the patient continues to remain stable, may be discharged home from a cardiac standpoint. May continue with the current medications. Attestations 2 Medical Necessity Statement*: Disposition as per the primary. Coding Level of Care Code 44384 Diagnoses Chest pain on breathing R07.1 Chest pain type: chest pain on breathing SOB (shortness of breath) R06.02 Atherosclerotic heart disease of [place] coronary artery with other forms of angina pectoris I25.118 Benign essential hypertension with target blood pressure below 140/90 I10 Dyslipidemia E78.5 History of CVA (cerebrovascular accident) without residual deficits Z86.73 Compartment syndrome of both lower extremities due to exertion M79.A21; M79.A22
--- NOTE | 2023-11-23 17:53 | PM.DCS ---
Discharge Providers Date of Admission: 11/21/23 23:39 Date of Discharge: November 23, 2023 Attending Provider at Admission: Evelia Silva MD Attending Provider at Discharge: Shilo Peters Primary Care Provider: Yoni Campos MD Diagnoses at Discharge Discharge Diagnosis (1) Chest pain: Status: Acute Qualifiers: Chest pain type: chest pain on breathing Qualified Code(s): R07.1 - Chest pain on breathing (2) SOB (shortness of breath): Status: Acute (3) Atherosclerotic heart disease of [place] coronary artery with other forms of angina pectoris: Status: Acute (4) Benign essential hypertension with target blood pressure below 140/90: Status: Acute (5) Dyslipidemia: Status: Acute (6) History of CVA (cerebrovascular accident) without residual deficits: Status: Acute (7) Compartment syndrome of both lower extremities due to exertion: Status: Acute Reason for Visit Reason for Visit: CHEST PAIN Hospital Course Hospital Course Pleasant 68-year-old gentleman with history of coronary disease other, but it is most hospitalized for assessment due to chest pain, pain mostly pleuritic, also with cough, nausea, diarrhea. With risk and history of coronary disease was started on treatment for possible unstable angina, troponin only minimally elevated up to 16. Echocardiogram with normal ejection fraction, grade 1 diastolic dysfunction. Bioprosthetic valve okay. Underwent additional assessment with stress testing due to history and risk and stress test was unremarkable. As per discussion with cardiology he may return home. Today he is feeling better. He has been treated with Tamiflu as he was found to have influenza. Additionally received antibiotics due to some mucous plugging versus aspirated contents in left lower lobe, however, he denies having any aspiration, some mucous plugging is suspected. Please follow-up for resolution. Nausea vomiting resolved. He still having some diarrhea. Went 3 times today, stool sample was obtained to additionally assess for C. difficile, Salmonella, Shigella, Campylobacter. For resolution of influenza. Follow-up with him please review results. Physical Exam Const: COMMON NORMALS: patient oriented x3 and alert GENERAL APPEARANCE: cooperative ORIENTATION/CONSCIOUSNESS: Yes awake HENMT: COMMON NORMALS: oropharynx normal Neck/C-Spine: COMMON NORMALS: no JVD Resp: COMMON NORMALS: normal respiratory effort AUSCULTATION: diminished lung sounds Cardio: COMMON NORMALS: no JVD, regular rhythm, S1 normal heart sound present, S2 normal heart sound present and No murmurs present (Cardio) RHYTHM: regular rhythm HEART SOUNDS: S1 normal heart sound present and S2 normal heart sound present GI: COMMON NORMALS: Normal to inspection, nondistended, normoactive bowel sounds present, Soft to palpation and non-tender PALPATION: Yes Soft to palpation Extremity: COMMON NORMALS: no joint enlargement and no pedal edema Neuro: COMMON NORMALS: patient oriented x3 and moves all extremities SENSORIUM/ORIENTATION: Yes alert Skin: COMMON NORMALS: no rashes or lesions noted GENERAL SKIN EXAM: no rashes or lesions noted Discharge Data Studies Completed and Pending Completed Studies During Hospitalization Category Date Time Status CT abdomen pelvis wo con [id number] Stat Cat Scan 11/21/23 22:45 Completed CTA chest [CT angio chest PE protcl [id number]] Stat Cat Scan 11/21/23 17:46 Completed Cardiac Stress Test MIBI [Sestamibi Stress Test Request Exams 11/22/23 11:53 Draft ] Routine XR chest 1V portable [id number] Stat Exams 11/21/23 17:41 Completed NM surinedr perf SPECT r/s* [id number] Routine Nuc Med 11/23/23 11:53 Completed CV. echo complete* [id number] Routine Ultrasound 11/22/23 00:17 Completed Pending at discharge Category Date Time Status Basic Metabolic Panel AM LABS Lab 11/24/23 04:00 Ordered Basic Metabolic Panel AM LABS Lab 11/25/23 04:00 Ordered Clostridium Difficile PCR Routine Lab 11/23/23 16:49 Received Complete Blood Count w/Auto AM LABS Lab 11/24/23 04:00 Ordered Complete Blood Count w/Auto AM LABS Lab 11/25/23 04:00 Ordered Stool Culture - Enteric [Salmonella / Shigella / Campy] Lab 11/23/23 15:15 Ordered Routine Radiology Impressions Chest X-Ray 11/21/23 17:41 IMPRESSION: No acute findings. Chest CTA 11/21/23 17:46 IMPRESSION: 1. No findings of acute pulmonary embolism. 2. Left posterior basilar bronchial occlusions. Findings could represent aspiration or retained secretions. Abdomen/Pelvis CT 11/21/23 22:45 IMPRESSION: No acute abnormality identified to explain patient's nausea and vomiting. No evidence of bowel obstruction or urolithiasis. Normal appendix confirmed. Laboratory Results WBC 2.87 10^3/uL (3.29-11.43) L 11/23/23 04:47 RBC 4.88 10^6/uL (3.85-5.65) 11/23/23 04:47 Hgb 14.20 g/dL (11.27-16.99) 11/23/23 04:47 Hct 43.9 % (37-53) 11/23/23 04:47 MCV 90.0 fl (82-101) 11/23/23 04:47 MCH 29.1 pg (27-33) 11/23/23 04:47 MCHC 32.3 g/dL (30-55) 11/23/23 04:47 RDW 13.6 % (12.1-15.1) 11/23/23 04:47 Plt Count 120 10^3/cmm (157-399) L 11/23/23 04:47 MPV 10.5 fL (7.4-10.4) H 11/23/23 04:47 Neut % (Auto) 47.5 % 11/23/23 04:47 Lymph % (Auto) 26.5 % 11/23/23 04:47 [place] % (Auto) 23.3 % 11/23/23 04:47 Eos % (Auto) 1.4 % 11/23/23 04:47 Baso % (Auto) 1.0 % 11/23/23 04:47 Neut # (Auto) 1.36 10^3/uL (1.8-7.7) L 11/23/23 04:47 Lymph # (Auto) 0.8 10^3/uL (0.8-4.8) 11/23/23 04:47 [place] # (Auto) 0.7 10^3/uL (0.2-0.9) 11/23/23 04:47 Eos # (Auto) 0.0 10^3/uL (0.0-0.8) 11/23/23 04:47 Baso # (Auto) 0.0 10^3/uL (0.0-0.1) 11/23/23 04:47 Nucleated RBC % (auto) 0 % 11/23/23 04:47 Nucleated RBCs # 0.0 /100WBC 11/23/23 04:47 Specimen Type Arterial 11/21/23 21:48 Sample Site Radial, right 11/21/23 21:48 ABG pH 7.44 (7.35-7.45) 11/21/23 21:48 ABG pCO2 35.6 mmHg (35-45) 11/21/23 21:48 ABG pO2 82.9 mmHg (80.0-100.0) 11/21/23 21:48 ABG PO2/FiO2 Ratio 0 11/21/23 21:48 ABG HCO3 23.9 mmol/L (22-26) 11/21/23 21:48 ABG O2 Saturation 97.8 11/21/23 21:48 ABG Base Excess 0.1 mmol/L (-2.0-2.0) 11/21/23 21:48 Babar Test Pos 11/21/23 21:48 A-a O2 Gradient 9.5 mmHg (5-10) 11/21/23 21:48 Hematocrit 43.7 % (42-52) 11/21/23 21:48 Hgb O2 Saturation 95.8 % (95-100) 11/21/23 21:48 Carboxyhemoglobin 1.4 %THgb (0.4-20.1) 11/21/23 21:48 Methemoglobin 0.6 % (0.4-1.5) 11/21/23 21:48 Total Hemoglobin 14.3 g/dL (14-18) 11/21/23 21:48 Sodium 138.0 mmol/L (131-143) 11/21/23 21:48 Potassium 3.8 mmol/L (3.5-5.0) 11/21/23 21:48 Glucose 113.0 mg/dL (70-115) 11/21/23 21:48 Ionized Calcium 1.1 mmol/L (1.1-1.4) 11/21/23 21:48 O2 Delivery Device Nc 11/21/23 21:48 O2 Liters/Min 2.0 % 11/21/23 21:48 FiO2 28.0 % 11/21/23 21:48 Trial Examiner ID Ed 11/21/23 21:48 Sodium 139 mmol/L (136-145) 11/23/23 04:47 Potassium 3.7 mmol/L (3.5-5.1) 11/23/23 04:47 Chloride 104 mmol/L (98-107) 11/23/23 04:47 Carbon Dioxide 25 mmol/L (22-29) 11/23/23 04:47 Anion Gap 13.7 (5-19) 11/23/23 04:47 BUN 12 mg/dL (8-23) 11/23/23 04:47 Creatinine 1.0 mg/dL (0.7-1.2) 11/23/23 04:47 GFR Calculation 73.9 mL/min (90-130) L 11/23/23 04:47 Glucose 94 mg/dL (65-115) 11/23/23 04:47 Calculated Osmolality 288 mOsm/kg (285-295) 11/23/23 04:47 Calcium 9.2 mg/dL (8.5-10.5) 11/23/23 04:47 Total Bilirubin 0.5 mg/dL (0.15-1.2) 11/22/23 05:20 AST 27 U/L (0-40) 11/22/23 05:20 ALT 27 U/L (0-41) 11/22/23 05:20 Alkaline Phosphatase 87 U/L (40-130) 11/22/23 05:20 Troponin T Baseline 16 ng/L (0-15) H 11/21/23 19:00 Troponin T 120 Minute 15.88 ng/L (0-15) H 11/21/23 20:41 Delta Troponin T -0.12 ABS# (0-10) L 11/21/23 20:41 Troponin T Hi Sens 6Hr 15.91 ng/L (0-15) H 11/21/23 00:40 Troponin T Hi Sens 6Hr Delta 0.09 ng/L (0-12) 11/21/23 00:40 C-Reactive Protein 10.9 mg/L (0.0-4.9) H 11/22/23 05:20 NT-Pro-B Natriuret Pep 179 pg/mL (0-125) H 11/21/23 19:00 Total Protein 6.6 g/dL (6.6-8.7) 11/22/23 05:20 Albumin 4.1 g/dL (3.5-5.2) 11/22/23 05:20 Globulin 2.5 g/dL (1.3-4.6) 11/22/23 05:20 Amylase 58 U/L (28-100) 11/21/23 20:41 Lipase 22 U/L (13-60) 11/21/23 20:41 Influenza Type A Ag Positive (Negative) H 11/21/23 23:24 Influenza Type B Ag Negative (Negative) 11/21/23 23:24 SARS-CoV-2 Ag (Rapid) negative (Negative) 11/21/23 23:24 Vitals Last Vital Signs Temp 98.3 F 11/23/23 08:00 Pulse 74 11/23/23 16:00 Resp 12 11/23/23 16:00 BP 158/87 11/23/23 16:00 Pulse Ox 95 11/23/23 16:00 O2 Del Method Room Air 11/23/23 16:00 O2 Flow Rate 2 11/22/23 12:09 Discharge Plan Discharge Patient Disposition: Home Condition: Stable Prescriptions: New oseltamivir 75 mg Capsule 75 mg PO BID 3 Days Qty: 6 0RF azithromycin 250 mg tablet 250 mg PO DAILY 3 Days Qty: 3 0RF cefdinir 300 mg capsule 300 mg PO BID 3 Days Qty: 6 0RF Continued atorvastatin 80 mg tablet 80 mg PO BEDTIME ezetimibe [Zetia] 10 mg tablet 10 mg PO DAILY fluticasone propionate 50 mcg/actuation spray,suspension 1 spray intranasal DAILY Rx Instructions: administer into each nostril hydrocodone-acetaminophen 10-325 mg tablet 1 tab PO Q12H PRN (Reason: Pain) (DME) [id number] Bone Growth Stimulator See Rx Instructions .Route .MEDSUPPLY Qty: 1 0RF Rx Instructions: As directed. cyclobenzaprine 10 mg Tablet 10 mg PO TID PRN (Reason: Spasms) pantoprazole [Protonix] 40 mg Tablet,Delayed Release (Dr/Ec) 40 mg PO DAILY metoprolol succinate [Toprol XL] 50 mg Tablet Extended Release 24 Hr 50 mg PO QAM spironolactone 25 mg tablet 12.5 mg PO QAM docusate sodium [Stool Softener] 100 mg Capsule 100 mg PO QAM furosemide 40 mg tablet 40 mg PO DAILY 3 Days Qty: 0 0RF Aspir-81 81 mg Tablet,Delayed Release (Dr/Ec) 81 mg PO QAM potassium chloride 20 mEq tablet,ER particles/crystals 20 meq PO QAM tamsulosin 0.4 mg capsule 0.4 mg PO QAM temazepam 30 mg capsule 30 mg PO BEDTIME PRN (Reason: Sleep) Nitrostat 0.4 mg Tablet, Sublingual 0.4 mg SUBLINGUAL Q5M PRN (Reason: Chest Pain) Rx Instructions: do not exceed 3 doses per episode gabapentin 100 mg capsule 100 mg PO BID Vitamin D3 25 mcg (1,000 unit) Tablet 2,000 unit PO .ON MON AND Eliquis 5 mg tablet 5 mg PO BID Discharge Orders: Discharge Order (Routine); Ordered 11/23/23 Ordered By: Shilo Peters Referrals: Yoni Campos MD [Primary Care Provider] - 4-7 days Discharge Diet: Cardiac Discharge Activity: Increase activity as tolerated Patient Instructions: Oseltamivir (By mouth), Influenza (GEN), Opioid Safety Activity Restrictions/Additional Instructions: Since he already received Lovenox this evening, resume Eliquis early tomorrow morning. Follow-up with your primary provider for reassessment after influenza, isolate for the next 5 days and until your symptoms are improving/resolving. Complete Tamiflu. Complete short antibiotic course for suspected bronchitis possible early pneumonia. Have your primary doctor reassess mucous plugging in left lower lung for resolution. Return to the hospital in case of any worsening or new concerning symptoms. Follow-up with your primary doctor regarding diarrhea, this is suspected related to flu, but samples have been collected for C. difficile and bacterial infection antigens, please have your primary doctor follow-up results. Follow-up with your primary doctor regarding coronary disease and other chronic conditions. Discharge Attestations Time Spent in Discharge Care*: greater than 30 min Status at Discharge: Cognitive status at discharge: cognitively intact, Behavioral status at discharge: cooperative, Quality Metrics Clinical Quality Measures [ No reported AMI, CVA or VTE this stay] Coding Level of Care Code 76202 Total time (in minutes) for Discharge: 45 Diagnoses Chest pain on breathing R07.1 Chest pain type: chest pain on breathing SOB (shortness of breath) R06.02 Atherosclerotic heart disease of [place] coronary artery with other forms of angina pectoris I25.118 Benign essential hypertension with target blood pressure below 140/90 I10 Dyslipidemia E78.5 History of CVA (cerebrovascular accident) without residual deficits Z86.73 Compartment syndrome of both lower extremities due to exertion M79.A21; M79.A22
--- NOTE | 2023-11-23 19:48 | PC.NURSE ---
discharge to home educated pt on his new meds dosing, timing and frequency and continued meds. educated pt on neutropenic isolation, and to follow-up with his pcp for blood and stool result follow-ups and if any worsening of symptoms to come back to ER. discharge papers provided.
[2023-11-25 15:20] LABS: Clostridium Difficile PCR NOT DETECTED (NOT DETECTED)
== END 2023-11-23 19:48 | disposition home or self-care (01) ==
LOC: ER 18:18 → CSU 11-22 00:04
PROVIDERS: Admitting Provider Student in an Organized Health Care Education/Training Program; Emergency Provider Nurse Practitioner; PCP Orthopaedic Surgery; Visit Provider Internal Medicine
DX: J10.1 Influenza due to other identified influenza virus with other respiratory manifestations (principal); R07.1 Chest pain on breathing; R06.02 Shortness of breath; I25.118 Atherosclerotic heart disease of native coronary artery with other forms of angina pectoris; E78.5 Hyperlipidemia, unspecified; Z86.73 Personal history of transient ischemic attack (TIA), and cerebral infarction without residual deficits; M79.A21 Nontraumatic compartment syndrome of right lower extremity; M79.A22 Nontraumatic compartment syndrome of left lower extremity; G47.33 Obstructive sleep apnea (adult) (pediatric); M47.12 Other spondylosis with myelopathy, cervical region; Z87.891 Personal history of nicotine dependence; I12.9 Hypertensive chronic kidney disease with stage 1 through stage 4 chronic kidney disease, or unspecified chronic kidney disease; N18.9 Chronic kidney disease, unspecified; J44.9 Chronic obstructive pulmonary disease, unspecified; I25.2 Old myocardial infarction; Z98.1 Arthrodesis status; Z95.1 Presence of aortocoronary bypass graft; Z79.02 Long term (current) use of antithrombotics/antiplatelets; Z95.5 Presence of coronary angioplasty implant and graft
CPT/HCPCS: 36415; 36600; 71045; 71275; 74176; 78452; 80048; 80051; 80053; 82150; 82330; 82805; 83690; 83880; 84484; 85025; 86140; 87045; 87426; 87427; 87449; 87493; 87804; 93005; 93017; 93306; 96365; 96366; 96367; 96372; 96375; 96376; 99285; A9500; C9113; G0378; J0696; J1650; J1885; J2270; J2405; J2785; Q0144; Q9967